=== PATIENT | female | born 1945 | race Hispanic/Latino ===

== ENCOUNTER 2016-12-26 15:00 | Inpatient (IN) | payer MEDICARE, OTHER ==
[2016-12-26 15:01] VITALS: BMI 26.0
--- NOTE | 2016-12-26 16:02 | ED PDOC ---
Arrival/HPI - General Chief Complaint: Altered Mental Status Time Seen by Provider: 12/26/16 15:31 Historian: Patient - History of Present Illness Narrative History of Present Illness (Text): 12/26/16 16:02 A 71 year old female, whose past medical history includes chronic back pain and Lupus on Methotrexate and Lorna, was brought into the emergency department by son complaining of increasing lethargy. Son reports patient has been sleeping throughout this past week and today he found her lying on the floor. Son is concerned patient is over taking her medication. Patient denies any fever, chills, nausea, vomiting, abdominal pain, chest pain, shortness of breath or any other complaints. PMD: Dr. Ty Time/Duration: 1 week Symptom Course: Unchanged Quality: Other Context: Home Past Medical History - Provider Review Nursing Documentation Reviewed: Yes - Infectious Disease Hx of Infectious Diseases: None - Tetanus Immunization Tetanus Immunization: Unknown - Cardiac Hx Cardiac Disorders: Yes - Pulmonary Hx Respiratory Disorders: No - Neurological Hx Neurological Disorder: No - HEENT Hx HEENT Disorder: No - Renal Hx Renal Disorder: No - Endocrine/Metabolic Hx Endocrine Disorders: Yes Hx Systemic Lupus Erythematosus: Yes - Hematological/Oncological Hx Blood Disorders: No - Integumentary Hx Dermatological Disorder: No - Musculoskeletal/Rheumatological Hx Musculoskeletal Disorders: Yes Other/Comment: Back implant stimulator - Gastrointestinal Hx Gastrointestinal Disorders: Yes Other/Comment: pt reports stomach blockage - Genitourinary/Gynecological Hx Genitourinary Disorders: No - Psychiatric Hx Psychophysiologic Disorder: No Hx Substance Use: No - Surgical History Hx Appendectomy: Yes Hx Cholecystectomy: Yes Hx Hysterectomy: Yes Hx Orthopedic Surgery: Yes (l knee replacement) Hx Tonsillectomy: Yes Other/Comment: abdominal surgery - Anesthesia Hx Anesthesia: Yes Hx Anesthesia Reactions: No Hx Malignant Hyperthermia: No - Suicidal Assessment Feels Threatened In Home Enviroment: No Family/Social History - Physician Review Nursing Documentation Reviewed: Yes Family/Social History: No Known Family HX Smoking Status: Never Smoked Hx Alcohol Use: No Hx Substance Use: No Hx Substance Use Treatment: No Allergies/Home Meds Allergies/Adverse Reactions: Allergies No Known Allergies Allergy (Verified 12/26/16 15:05) Home Medications: Home Meds Medication Instructions Recorded Confirmed Folic Acid 1 mg PO DAILY 08/20/14 12/26/16 Cyclobenzaprine [Flexeril] 10 mg PO TID 12/26/16 12/26/16 Methylprednisolone [Medrol] 8 mg PO DAILY 12/26/16 12/26/16 Pravastatin Sodium [Pravachol] 10 mg PO DAILY 12/26/16 12/26/16 QUEtiapine [SEROquel] 100 mg PO DAILY 12/26/16 12/26/16 tiZANidine [Zanaflex] 4 mg PO TID 12/26/16 12/26/16 Review of Systems - Physician Review All systems were reviewed & negative as marked: Yes - Review of Systems Constitutional: Other (lethargy). absent: Fevers, Night Sweats Respiratory: absent: SOB Cardiovascular: absent: Chest Pain Gastrointestinal: absent: Abdominal Pain, Nausea, Vomiting Physical Exam Vital Signs Reviewed: Yes Vital Signs Temp Pulse Resp BP Pulse Ox 12/26/16 17:39 95 H 18 148/83 97 12/26/16 15:48 97.7 F 94 H 18 118/84 100 Temperature: Afebrile Blood Pressure: Normal Pulse: Tachycardic Respiratory Rate: Normal Appearance: Positive for: Well-Appearing, Non-Toxic, Comfortable Pain Distress: None Mental Status: Positive for: other (Alert and oriented x 2, not oriented to year ) Finger Stick Blood Glucose: 149 - Systems Exam Head: Present: Atraumatic, Normocephalic Pupils: Present: PERRL Extroacular Muscles: Present: EOMI Conjunctiva: Present: Normal Mouth: Present: Moist Mucous Membranes Neck: Present: Normal Range of Motion Respiratory/Chest: Present: Clear to Auscultation, Good Air Exchange. No: Respiratory Distress, Accessory Muscle Use Cardiovascular: Present: Regular Rate and Rhythm, Normal S1, S2. No: Murmurs Abdomen: Present: Normal Bowel Sounds. No: Tenderness, Distention, Peritoneal Signs Back: Present: Normal Inspection Upper Extremity: Present: Normal Inspection. No: Cyanosis, Edema Lower Extremity: Present: Normal Inspection. No: Edema, Other (focal neuro deficits) Neurological: Present: GCS=15, CN II-XII Intact, Speech Normal Skin: Present: Warm, Dry, Normal Color. No: Rashes Psychiatric: Present: Alert, Lethargic. No: Oriented x 3 (oriented x 2, not oriented to year) Medical Decision Making ED Course and Treatment: 12/26/16 16:02 Impression: A 71 year old female with lethargy. Plan: -- Head CT -- Chest xray -- EKG -- Labs -- Urinalysis -- Reassess and disposition Progress Notes: EKG shows NSR at 97 BPM with isolated T-wave inversions in V3, no changes from prior on 08/20/14. Interpreted by me. 12/26/16 16:53 Son reports patient has also been taking Flexeril and Zanaflex. Report Date : 12/26/2016 18:31:11 PROCEDURE: CT HEAD WITHOUT CONTRAST. Dictator : Marquise Yun MD IMPRESSION: No intracranial hemorrhage. Small high left parietal scalp laceration. Age-appropriate chronic involutional change. 12/26/16 18:48 Cxray negative. Labs grossly normal. UA from straight cath on positive. UCx sent and antibiotics started. Afebrile. Family reports that patient is more lethargic than usual and patient is not oriented to year. UA may be cause of confusion, or polypharmacy but may need further neuro eval. Dr. Ty for admission for AMS and uti. Dr. Olmos covering for PMD and Dr. Braswell covering for her and requesting hospitalist admission. Dr. Govea accepted patient to hospitalist service. 12/26/16 20:11 12/26/16 20:18 - Lab Interpretations Lab Results: 12/26/16 16:10 12/26/16 16:10 Lab Results 12/26/16 17:20: Urine Color Yellow, Urine Appearance Sl cloudy, Urine pH 6.5, Ur Specific [place] 1.020, Urine Protein Negative, Urine Glucose (UA) Negative, Urine Ketones Negative, Urine Blood Small H, Urine Nitrate Positive H, Urine Bilirubin Negative, Urine Urobilinogen 0.2, Ur Leukocyte Esterase Moderate H, Urine RBC 2 - 5, Urine WBC 15 - 20, Ur Epithelial Cells 4 - 5, Urine Bacteria Many 12/26/16 17:20: Urine Opiates Screen Negative, Urine Methadone Screen Negative, Ur Barbiturates Screen Negative, Ur Phencyclidine Scrn Negative, Ur Amphetamines Screen Negative, U Benzodiazepines Scrn Positive H, U Oth Cocaine Metabols Negative, U Cannabinoids Screen Negative 12/26/16 16:10: Alcohol, Quantitative < 10 12/26/16 16:10: Sodium 142, Potassium 3.7, Chloride 106, Carbon Dioxide 26, Anion Gap 14, BUN 18, Creatinine 0.9, Est GFR ( Amer) > 60, Est GFR (Non- Af Amer) > 60, Random Glucose 106, Calcium 9.6, Phosphorus 2.3 L, Magnesium 1.9 , Total Bilirubin 0.5, AST 31, ALT 32, Alkaline Phosphatase 60, Total Creatine Kinase 55, Troponin I < 0.01, Total Protein 6.5, Albumin 4.0, Globulin 2.5, Albumin/Globulin Ratio 1.6 12/26/16 16:10: PT 11.9 H, INR 1.10 H, APTT 30.2 12/26/16 16:10: WBC 8.4 D, RBC 3.80, Hgb 11.7 L, Hct 34.8 L, MCV 91.6, MCH 30.8 , MCHC 33.6, RDW 15.6 H, Plt Count 242, MPV 9.5, Gran % 75.7 H, Lymph % (Auto) 15.9 L, [place] % (Auto) 6.7 H, Eos % (Auto) 1.2 L, Baso % (Auto) 0.5, Gran # 6.34 , Lymph # 1.3, [place] # 0.6, Eos # 0.1, Baso # 0.04 12/26/16 15:03: POC Glucose (mg/dL) 149 H I have reviewed the lab results: Yes - RAD Interpretation Radiology Orders: 12/26/16 16:00 HEAD W/O CONTRAST [CT] Stat 12/26/16 16:08 CHEST PORTABLE [RAD] Stat - Medication Orders Current Medication Orders: Discontinued Medications Acetaminophen (Tylenol 325mg Tab) 650 mg PO STAT STA Stop: 12/26/16 19:39 Ceftriaxone Sodium (Rocephin 1 Gram Ivpb) 1 gm in 100 mls @ 200 mls/hr IVPB STAT STA PRN Reason: Protocol Stop: 12/26/16 19:16 - Scribe Statement The provider has reviewed the documentation as recorded by the Monse Jimenez Provider Scribe Attestation: All medical record entries made by the Scribe were at my direction and personally dictated by me. I have reviewed the chart and agree that the record accurately reflects my personal performance of the history, physical exam, medical decision making, and the department course for this patient. I have also personally directed, reviewed, and agree with the discharge instructions and disposition. Disposition/Present on Arrival - Present on Arrival Any Indicators Present on Arrival: No History of DVT/PE: No History of Uncontrolled Diabetes: No Urinary Catheter: No History of Decub. Ulcer: No History Surgical Site Infection Following: None - Disposition Have Diagnosis and Disposition been Completed?: Yes Diagnosis: UTI (urinary tract infection), Altered mental status Disposition: HOSPITALIZED Disposition Time: 19:35 Patient Plan: Admission Patient Problems: Current Active Problems Problem Status Onset Altered mental status Acute UTI (urinary tract infection) Acute Condition: FAIR
[2016-12-26 16:38] LABS: BASO # 0.04 K/mm3 (0.0-2.0); BASO % 0.5 % (0.0-3.0); EOS # 0.1 (0.0-0.7); EOS % 1.2 % (1.5-5.0); GRAN # 6.34 (1.4-6.5); GRAN % 75.7 % (50.0-68.0); HEMATOCRIT 34.8 % (36.0-48.0); LYMPH # 1.3 (1.2-3.4); LYMPH % 15.9 % (22.0-35.0); MEAN CELL VOLUME 91.6 fl (80.0-105.0); MEAN CORPUSCULAR HEMOGLOBIN 30.8 pg (25.0-35.0); MEAN CORPUSCULAR HGB CONC 33.6 g/dl (31.0-37.0); MEAN PLATELET VOLUME 9.5 fl (7.0-11.0); MONO # 0.6 (0.1-0.6); MONO % 6.7 % (1.0-6.0); RED CELL DISTRIBUTION WIDTH 15.6 % (11.5-14.5); WHITE BLOOD COUNT 8.4 10^3/ul (4.5-11.0)
[2016-12-26 16:44] LABS: INR 1.1 (0.93-1.08); PARTIAL THROMBOPLASTIN TIME 30.2 Seconds (23.7-30.8)
[2016-12-26 16:50] LABS: ALB/GLOB RATIO 1.6 (1.1-1.8); ALKALINE PHOSPHATASE 60 U/L (38-133); ALT/SGPT 32 U/L (7-56); AST/SGOT 31 U/L (15-39); BILIRUBIN,TOTAL 0.5 mg/dL (0.2-1.3); BLOOD UREA NITROGEN 18 mg/dL (7-21); CALCIUM 9.6 mg/dL (8.4-10.5); CARBON DIOXIDE 26 mmol/L (21-33); CHLORIDE 106 mmol/L (98-107); GFR AFRICAN-AMERICAN > 60; GLUCOSE,RANDOM 106 mg/dL (70-110); MAGNESIUM 1.9 mg/dL (1.7-2.2); PHOSPHOROUS 2.3 mg/dL (2.5-4.5); POTASSIUM 3.7 mmol/L (3.6-5.0); SODIUM 142 mmol/L (132-148); TOTAL PROTEIN 6.5 g/dL (5.8-8.3)
[2016-12-26 17:01] LABS: TROPONIN I < 0.01 ng/mL
[2016-12-26 17:50] LABS: PH,URINE 6.5 (4.7-8.0); URINE BILIRUBIN NEGATIVE (NEGATIVE); URINE BLOOD SMALL (NEGATIVE); URINE GLUCOSE (UA) NEGATIVE (NEGATIVE); URINE KETONE NEGATIVE (NEGATIVE); URINE LEUKOCYTE ESTERASE MODERATE Leu/uL (NEGATIVE); URINE PROTEIN NEGATIVE mg/dL (<30 mg/dL); URINE UROBILINOGEN 0.2 E.U./dL (<1 E.U./dL)
[2016-12-26 17:51] LABS: URINE APPEARANCE SL CLOUDY (CLEAR); URINE COLOR YELLOW (YELLOW)
[2016-12-26 18:11] LABS: URINE BACTERIA MANY (NEG); URINE WBC 15 - 20 /hpf (0-6)
--- NOTE | 2016-12-26 18:32 | CT ---
PROCEDURE: CT HEAD WITHOUT CONTRAST. HISTORY: head injury COMPARISON: None available. TECHNIQUE: Axial computed tomography images were obtained through the head/brain without intravenous contrast. Radiation dose: Total exam DLP = 801.81 mGy-cm. This CT exam was performed using one or more of the following dose reduction techniques: Automated exposure control, adjustment of the mA and/or kV according to patient size, and/or use of iterative reconstruction technique. FINDINGS: HEMORRHAGE: No intracranial hemorrhage. BRAIN: No mass effect or edema. Mild atrophy consistent with age. Mild periventricular chronic white matter ischemic change. No evidence of acute infarct. VENTRICLES: Unremarkable. No hydrocephalus. CALVARIUM: No fracture. Small high left parietal scalp laceration. PARANASAL SINUSES: Unremarkable as visualized. No significant inflammatory changes. MASTOID AIR CELLS: Unremarkable as visualized. No inflammatory changes. OTHER FINDINGS: None. IMPRESSION: No intracranial hemorrhage. Small high left parietal scalp laceration. Age-appropriate chronic involutional change.
[2016-12-26] MEDS ORDERED: cefTRIAXone 1 gm 1 GM/100 ML BAG IVPB STA (18:47)
--- NOTE | 2016-12-26 19:07 | CARD ---
APPROVED REPORT EKG Measurement Heart [id number] <Conclusion> Normal sinus rhythm Possible Anterior infarct, age undetermined Abnormal ECG
--- NOTE | 2016-12-26 19:08 | CARD ---
APPROVED REPORT EKG Measurement Heart [id number] <Conclusion> Sinus tachycardia with premature atrial complexes Otherwise normal ECG
--- NOTE | 2016-12-26 23:25 | CP.PCM.HP ---
<Evelio Gibson - Last Filed: 12/26/16 23:18> History of Present Illness - History of Present Illness History of Present Illness: 71 F with a PMHx significant for HTN, HLD, and Lupus, presents with c/o fall. Pt's son states that she has had difficulty sleeping the past week, per ER physician. He further expresses concern that she may have over medicated herself today, as he found her on the floor in their residence. Patient herself states that she "tripped over her feet" and fell, but does not recall any precipitating incidents for the fall. She denies loss of consciousness, loss of bowel/bladder, or any other symptoms surrounding her fall. Patient does admit to some scalp tenderness and states that she hit her head. Pt denies any current CP, sob, f/ch/n/v/d, and any hematuria, hematochezia, or hematemesis. Patient further denies any weakness in her extremities or generalized loss of sensation or motor strength. No further symptoms at this time Surg Hx: Hardware in lumbar area of spine Med Hx: HLD, HTN, Lupus All: NKDA Soc Hx: Pt denies any etoh, illicits, and tobacco use Fam Hx: Significant for DM, HTN, CAD Medications: Reviewed, see MAR; patient not a good historian, need to call pharmacy for list of medications Present on Admission - Present on Admission Any Indicators Present on Admission: No Review of Systems - Hematologic/Lymphatic Additional comments: ROS: Constitutional: pt denies fever, chills, generalized weakness ENT: pt denies dysphagia, otalgia, hearing deficit, rhinorrhea Eyes: pt denies sudden loss of vision, diplopia, blurred vision MSK: pt denies muscle stiffness, joint pain, extremity cramping Cardio: pt denies sob, heart murmur, cp Pulm: pt denies cough, hemoptysis, wheeze GI: pt denies loss of appetite, abdominal pain, constipation, melena, n/v/d : pt denies burning on urination, urinary frequency, hematuria, urinary urgency Neuro: pt denies paresis, paresthesia, dizziness, jessica, numbness, tingling Derm: pt denies skin changes, lesions, nail changes Endo: pt denies intolerance to heat/cold, diaphoresis, night sweats, polydipsia Psych: pt denies anxiety, depression, mood changes Past Patient History - Infectious Disease Hx of Infectious Diseases: None - Tetanus Immunizations Tetanus Immunization: Unknown - Past Social History Smoking Status: Never Smoked - CARDIAC Hx Cardiac Disorders: Yes - PULMONARY Hx Respiratory Disorders: No - NEUROLOGICAL Hx Neurological Disorder: No - HEENT Hx HEENT Problems: No - RENAL Hx Chronic Kidney Disease: No - ENDOCRINE/METABOLIC Hx Endocrine Disorders: Yes Hx Systemic Lupus Erythematosus: Yes - HEMATOLOGICAL/ONCOLOGICAL Hx Blood Disorders: No - INTEGUMENTARY Hx Dermatological Problems: No - MUSCULOSKELETAL/RHEUMATOLOGICAL Hx Musculoskeletal Disorders: Yes Hx Falls: Yes Other/Comment: Back implant stimulator - GASTROINTESTINAL Hx Gastrointestinal Disorders: Yes Other/Comment: pt reports stomach blockage - GENITOURINARY/GYNECOLOGICAL Hx Genitourinary Disorders: No - PSYCHIATRIC Hx Psychophysiologic Disorder: No - SURGICAL HISTORY Hx Appendectomy: Yes Hx Cholecystectomy: Yes Hx Hysterectomy: Yes Hx Orthopedic Surgery: Yes (l knee replacement) Other/Comment: abdominal surgery - ANESTHESIA Hx Anesthesia: Yes Hx Anesthesia Reactions: No Hx Malignant Hyperthermia: No Meds Allergies/Adverse Reactions: Allergies Allergy/AdvReac Type Severity Reaction Status Date / Time No Known Allergies Allergy Verified 12/26/16 15:05 Physical Exam - Additional Findings Additional findings: Phys Exam: VS as below Constitutional: +Pleasantly confused female, a&o x 4, nad Head and Neck: +TTP Right parietal scalp; Normocephalic; neck supple, no jvd, trachea midline, carotid midline, no cervical/head mass Eyes: juanito, nonicteric sclera, eom intact ENT: auditory acuity grossly intact, throat not congested, no nasal deformity Cardio: rrr, no m/r/g, no carotid bruit, nml s1, s2 Pulm: no accessory muscle use, equal nml breath sounds bilaterally, ctab Abd: s/nt/nd, nbs x 4 q, no palpable masses Derm: no rashes, no ulcers, no lesions Extr: no edema, no cyanosis, no calf tenderness, no lesions, no varicosities Neuro: cn II-XII grossly intact, ue and le 5/5 muscle strength bilaterally, no los ue, le bilaterally and core Results - Vital Signs Recent Vital Signs: Last Vital Signs Temp 98.4 F 12/26/16 22:07 Pulse 89 12/26/16 22:07 Resp 16 12/26/16 22:07 BP 126/69 12/26/16 22:07 Pulse Ox 97 12/26/16 17:39 - Labs Result Diagrams: 12/26/16 16:10 12/26/16 16:10 Labs: Laboratory Results - last 24 hr 12/26/16 21:46 Urine Opiates Screen Negative Urine Methadone Screen Negative Ur Barbiturates Screen Negative Ur Phencyclidine Scrn Negative Ur Amphetamines Screen Negative U Benzodiazepines Scrn Positive H U Oth Cocaine Metabols Negative U Cannabinoids Screen Negative Assessment & Plan - Assessment and Plan (Free Text) Assessment: 71 F presents s/p fall with acute AMS. Patient is A&O X 4, but is pleasantly confused. Plan: 1. Altered Mental Status likely 2/2 Polypharmacy VS UTI VS Fall - Suspected history of overdosing on sedating medications - Flexeril and Zanaflex are in her home med list - Patient's UDS positive for benzos - CT Head showed no acute bleed - CXR was negative - EKG showed NSR - ECHO not obtained, patient unlikely to have syncopized or had a stroke - UA showed possible UTI - Neuro checks q4 hours - Seizure precautions: patient's UDS showed benzos. May have withdrawal seizures - Fall precautions 2. UTI - UA showed pos Leuk Esterase, pos bacteria - Rocephin q24 3. Hx/o HTN - Continue home medications 4. Hx/o HLD - Continue home medications 5. Hx/o Lupus - Continue home medications 6. Chronic pain - Hold Flexeril, Hold Zanaflex - Added Toradol 15 mg one time dose for now 7. DVT/GI PPXHS - SCD's, Protonix <Lb Govea P - Last Filed: 12/29/16 08:17> Results - Vital Signs Recent Vital Signs: Last Vital Signs Temp 97.7 F 12/29/16 07:52 Pulse 71 12/29/16 07:52 Resp 20 12/29/16 07:52 BP 175/83 H 12/29/16 07:52 Pulse Ox 97 12/29/16 07:52 - Labs Result Diagrams: 12/29/16 05:33 12/29/16 05:33 Labs: Laboratory Results - last 24 hr 12/29/16 12/29/16 05:33 05:33 WBC 7.1 RBC 3.92 Hgb 11.8 L Hct 35.9 L MCV 91.6 MCH 30.1 MCHC 32.9 RDW 16.1 H Plt Count 259 MPV 9.3 Gran % 44.7 L Lymph % (Auto) 38.2 H [place] % (Auto) 9.8 H Eos % (Auto) 6.5 H Baso % (Auto) 0.8 Gran # 3.15 Lymph # 2.7 [place] # 0.7 H Eos # 0.5 Baso # 0.06 Sodium 144 Potassium 4.2 Chloride 108 H Carbon Dioxide 27 Anion Gap 13 BUN 15 Creatinine 0.9 Est GFR ( Amer) > 60 Est GFR (Non-Af Amer) > 60 Random Glucose 98 Calcium 9.4 Total Bilirubin 0.2 AST 26 ALT 31 Alkaline Phosphatase 56 Total Protein 6.3 Albumin 3.8 Globulin 2.5 Albumin/Globulin Ratio 1.5 Attending/Attestation - Attestation I have personally seen and examined this patient.: Yes I have fully participated in the care of the patient.: Yes I have reviewed all pertinent clinical information: Yes Notes (Text): Patient brought form home after fall, and lethargy. Pt's son relayed to ER physician, that med bottles empty prior to the time hence suspicious for overdosing on the meds. Patient currently some back pain chronic for about 2 months, unclear about meds, and med list can't be confirmed. Being observed to floor for ambulatory dysfunction, fall, for pt/ot eval, confirmation and adjustment of the meds.
[2016-12-27 05:48] LABS: BASO # 0.05 K/mm3 (0.0-2.0); BASO % 0.6 % (0.0-3.0); EOS # 0.2 (0.0-0.7); EOS % 2.7 % (1.5-5.0); GRAN # 4.53 (1.4-6.5); GRAN % 58.9 % (50.0-68.0); HEMATOCRIT 31.8 % (36.0-48.0); LYMPH # 2.3 (1.2-3.4); LYMPH % 30.3 % (22.0-35.0); MEAN CELL VOLUME 90.6 fl (80.0-105.0); MEAN CORPUSCULAR HEMOGLOBIN 30.5 pg (25.0-35.0); MEAN CORPUSCULAR HGB CONC 33.6 g/dl (31.0-37.0); MEAN PLATELET VOLUME 9.2 fl (7.0-11.0); MONO # 0.6 (0.1-0.6); MONO % 7.5 % (1.0-6.0); WHITE BLOOD COUNT 7.7 10^3/ul (4.5-11.0)
[2016-12-27 05:58] LABS: INR 0.94 (0.93-1.08); PARTIAL THROMBOPLASTIN TIME 26.6 Seconds (23.7-30.8)
[2016-12-27 06:16] LABS: ALB/GLOB RATIO 1.4 (1.1-1.8); ALKALINE PHOSPHATASE 55 U/L (38-133); ALT/SGPT 29 U/L (7-56); AST/SGOT 24 U/L (15-39); BILIRUBIN,TOTAL 0.6 mg/dL (0.2-1.3); BLOOD UREA NITROGEN 18 mg/dL (7-21); CALCIUM 9.4 mg/dL (8.4-10.5); CARBON DIOXIDE 25 mmol/L (21-33); CHLORIDE 107 mmol/L (95-110); CHOLESTEROL 167 mg/dL (130-200); GFR AFRICAN-AMERICAN > 60; GLUCOSE,RANDOM 97 mg/dL (70-110); POTASSIUM 3.5 mmol/L (3.6-5.0); SODIUM 143 mmol/L (132-148)
[2016-12-27] MEDS: Pantoprazole 40 mg EC Tab PO SCH (06:30)
[2016-12-27 08:08] VITALS: RESP 20
[2016-12-27] MEDS: cefTRIAXone 1 gm 1 GM/100 ML BAG IVPB SCH (09:06)
--- NOTE | 2016-12-27 09:07 | RAD ---
HISTORY: altered COMPARISON: 05/16/2016 FINDINGS: LUNGS: No active pulmonary disease. Shallow lung volumes PLEURA: No significant pleural effusion identified, no pneumothorax apparent. CARDIOVASCULAR: Mild cardiomegaly OSSEOUS STRUCTURES: Thoracolumbar S-shaped scoliosis ; thoraco lumbar level epi dural leads placed partially visualized rods near the inferior edge of the image noted. VISUALIZED UPPER ABDOMEN: Right upper quadrant cholecystectomy clips OTHER FINDINGS: Left shoulder orthopedic anchor IMPRESSION: No interval pathology appreciated
[2016-12-27] MEDS ORDERED: METHYLPREDNISOLONE 8 MG PO SCH (10:00)
--- NOTE | 2016-12-27 10:40 | CP.PCM.CON ---
<Fermin Marquis - Last Filed: 12/27/16 10:36> History of Present Illness - History of Present Illness History of Present Illness: Neurology Consult Note for Dr. Dunaway Reason for Consult: AMS 71 y/o F with PMH of HTN, HLD, and SLE presents after syncopal episode at home. Pt states she woke up in the morning and was got up to go use the restroom. At this time, the she began to feel lightheaded and lost her balance. She states she fell down and hit her head. She previously denies losing consciousness, but today states she did lose consciousness for a few seconds. When she awoke, she was too weak to get up on her own. This morning, patient reports feeling well, with no acute complaints. She denies any bowel or bladder incontinence and also denies tongue biting. She states she is compliant with her medication and takes them as prescribed. She denies seeing any aura before falling or having a headache at that time. Denies CP, SOB, palpitations, N/V/D, changes in vision, diplopia, numbness, tingling, dysuria. PMH: HLD, HTN, Lupus Surgical Hx: Spinal surgery Soc Hx: Pt denies any alcohol, illicit drug use, and tobacco use Fam Hx: Significant for DM, HTN, CAD All: NKDA Medications: Reviewed, as per MAR Review of Systems - Review of Systems Review of Systems: 13 point review of systems as per HPI, otherwise negative Past Patient History - Infectious Disease Hx of Infectious Diseases: None - Tetanus Immunizations Tetanus Immunization: Unknown - Past Social History Smoking Status: Never Smoked - CARDIAC Hx Cardiac Disorders: Yes - PULMONARY Hx Respiratory Disorders: No - NEUROLOGICAL Hx Neurological Disorder: No - HEENT Hx HEENT Problems: No - RENAL Hx Chronic Kidney Disease: No - ENDOCRINE/METABOLIC Hx Endocrine Disorders: Yes Hx Systemic Lupus Erythematosus: Yes - HEMATOLOGICAL/ONCOLOGICAL Hx Blood Disorders: No - INTEGUMENTARY Hx Dermatological Problems: No - MUSCULOSKELETAL/RHEUMATOLOGICAL Hx Musculoskeletal Disorders: Yes Hx Falls: Yes Other/Comment: Back implant stimulator - GASTROINTESTINAL Hx Gastrointestinal Disorders: Yes Other/Comment: pt reports stomach blockage - GENITOURINARY/GYNECOLOGICAL Hx Genitourinary Disorders: No - PSYCHIATRIC Hx Psychophysiologic Disorder: No - SURGICAL HISTORY Hx Appendectomy: Yes Hx Cholecystectomy: Yes Hx Hysterectomy: Yes Hx Orthopedic Surgery: Yes (l knee replacement) Other/Comment: abdominal surgery - ANESTHESIA Hx Anesthesia: Yes Hx Anesthesia Reactions: No Hx Malignant Hyperthermia: No Meds Allergies/Adverse Reactions: Allergies Allergy/AdvReac Type Severity Reaction Status Date / Time No Known Allergies Allergy Verified 12/26/16 15:05 - Medications Medications: Current Medications Acetaminophen (Tylenol 325mg Tab) 650 mg PO Q6H PRN PRN Reason: Pain, moderate (4-7) Last Admin: 12/27/16 01:53 Dose: 650 mg Atorvastatin Calcium (Lipitor) 10 mg PO DAILY [facility] Last Admin: 12/27/16 09:06 Dose: 10 mg Folic Acid (Folic Acid) 1 mg PO DAILY [facility] Last Admin: 12/27/16 09:06 Dose: 1 mg Hydromorphone HCl (Dilaudid) 1 mg IVP Q6H PRN PRN Reason: Pain, severe (8-10) Ceftriaxone Sodium (Rocephin 1 Gram Ivpb) 1 gm in 100 mls @ 100 mls/hr IVPB DAILY [facility] PRN Reason: Protocol Last Admin: 12/27/16 09:06 Dose: 100 mls/hr Potassium Chloride (Potassium Chloride 20 Meq/100 Ml) 20 meq in 100 mls @ 50 mls/hr IVPB Q2H [facility] Stop: 12/27/16 10:59 Last Admin: 12/27/16 08:25 Dose: 50 mls/hr Pantoprazole Sodium (Protonix Ec Tab) 40 mg PO 0600 [facility] Last Admin: 12/27/16 06:30 Dose: 40 mg Potassium Chloride (K-Dur 20 Meq Er Tab) 20 meq PO BRK [facility] Quetiapine Fumarate (Seroquel) 100 mg PO DAILY [facility] Last Admin: 12/27/16 09:06 Dose: 100 mg Physical Exam - Constitutional Appears: Non-toxic, No Acute Distress - Head Exam Head Exam: ATRAUMATIC, NORMAL INSPECTION, NORMOCEPHALIC - Eye Exam Eye Exam: EOMI - ENT Exam ENT Exam: Mucous Membranes Moist - Respiratory Exam Respiratory Exam: Clear to Auscultation Bilateral, NORMAL BREATHING PATTERN. absent: Rales, Rhonchi, Wheezes - Cardiovascular Exam Cardiovascular Exam: RRR, +S1, +S2 - GI/Abdominal Exam GI & Abdominal Exam: Normal Bowel Sounds, Soft. absent: Tenderness - Extremities Exam Extremities exam: Negative for: calf tenderness, pedal edema - Neurological Exam Neurological exam: Alert, CN II-XII Intact, Oriented x3 Additional comments: No pronator drift No sensory or motor deficits Muscle strength 4/5 in all extremities - Psychiatric Exam Psychiatric exam: Normal Affect, Normal Mood - Skin Skin Exam: Intact, Normal Color, Warm Results - Vital Signs Recent Vital Signs: Last Vital Signs Temp 98.2 F 12/27/16 06:00 Pulse 64 12/27/16 06:00 Resp 20 12/27/16 06:00 BP 155/65 H 12/27/16 06:00 Pulse Ox 96 12/27/16 06:00 - Labs Result Diagrams: 12/27/16 05:10 12/27/16 05:10 Labs: Laboratory Results - last 24 hr 12/26/16 12/27/16 12/27/16 21:46 05:10 05:10 WBC RBC Hgb Hct MCV MCH MCHC RDW Plt Count MPV Gran % Lymph % (Auto) [place] % (Auto) Eos % (Auto) Baso % (Auto) Gran # Lymph # [place] # Eos # Baso # PT 10.2 INR 0.94 APTT 26.6 Sodium 143 Potassium 3.5 L Chloride 107 Carbon Dioxide 25 Anion Gap 15 BUN 18 Creatinine 0.8 Est GFR ( Amer) > 60 Est GFR (Non-Af Amer) > 60 Random Glucose 97 Calcium 9.4 Total Bilirubin 0.6 AST 24 ALT 29 Alkaline Phosphatase 55 Total Protein 6.0 Albumin 3.5 Globulin 2.5 Albumin/Globulin Ratio 1.4 Triglycerides 76 Cholesterol 167 LDL Cholesterol Direct 116 HDL Cholesterol 41 Urine Opiates Screen Negative Urine Methadone Screen Negative Ur Barbiturates Screen Negative Ur Phencyclidine Scrn Negative Ur Amphetamines Screen Negative U Benzodiazepines Scrn Positive H U Oth Cocaine Metabols Negative U Cannabinoids Screen Negative 12/27/16 05:10 WBC 7.7 RBC 3.51 Hgb 10.7 L Hct 31.8 L MCV 90.6 MCH 30.5 MCHC 33.6 RDW 16.0 H Plt Count 227 MPV 9.2 Gran % 58.9 Lymph % (Auto) 30.3 [place] % (Auto) 7.5 H Eos % (Auto) 2.7 Baso % (Auto) 0.6 Gran # 4.53 Lymph # 2.3 [place] # 0.6 Eos # 0.2 Baso # 0.05 PT INR APTT Sodium Potassium Chloride Carbon Dioxide Anion Gap BUN Creatinine Est GFR ( Amer) Est GFR (Non-Af Amer) Random Glucose Calcium Total Bilirubin AST ALT Alkaline Phosphatase Total Protein Albumin Globulin Albumin/Globulin Ratio Triglycerides Cholesterol LDL Cholesterol Direct HDL Cholesterol Urine Opiates Screen Urine Methadone Screen Ur Barbiturates Screen Ur Phencyclidine Scrn Ur Amphetamines Screen U Benzodiazepines Scrn U Oth Cocaine Metabols U Cannabinoids Screen Assessment & Plan - Assessment and Plan (Free Text) Plan: 71 y/o F with PMH of HTN, HLD, and SLE presents with syncope secondary to polypharmacy, UTI, and vasovagal component. Patient also appears to be deconditioned and would benefit from physical and occupational therapy. Patient should have home medications adjusted to decrease possible sedative effects. Continue to treat UTI which may contribute to episode. Patient is neurologically stable at this time, will sign off at this time. Please reconsult as needed. Plan: Avoid sedative medications Avoid polypharmacy Continue Rocephin for UTI Physical/Occupational therapy Recommend adequate hydration Obtain Vitamin B12 level [place] PGY-2 <Ozzy Dunaway - Last Filed: 12/27/16 11:30> Meds - Medications Medications: Current Medications Acetaminophen (Tylenol 325mg Tab) 650 mg PO Q6H PRN PRN Reason: Pain, moderate (4-7) Last Admin: 12/27/16 01:53 Dose: 650 mg Atorvastatin Calcium (Lipitor) 10 mg PO DAILY [facility] Last Admin: 12/27/16 09:06 Dose: 10 mg Folic Acid (Folic Acid) 1 mg PO DAILY [facility] Last Admin: 12/27/16 09:06 Dose: 1 mg Hydromorphone HCl (Dilaudid) 1 mg IVP Q6H PRN PRN Reason: Pain, severe (8-10) Last Admin: 12/27/16 10:49 Dose: 1 mg Ceftriaxone Sodium (Rocephin 1 Gram Ivpb) 1 gm in 100 mls @ 100 mls/hr IVPB DAILY [facility] PRN Reason: Protocol Last Admin: 12/27/16 09:06 Dose: 100 mls/hr Pantoprazole Sodium (Protonix Ec Tab) 40 mg PO 0600 [facility] Last Admin: 12/27/16 06:30 Dose: 40 mg Potassium Chloride (K-Dur 20 Meq Er Tab) 20 meq PO BRK [facility] Quetiapine Fumarate (Seroquel) 100 mg PO DAILY [facility] Last Admin: 12/27/16 09:06 Dose: 100 mg Results - Vital Signs Recent Vital Signs: Last Vital Signs Temp 98.2 F 12/27/16 06:00 Pulse 64 12/27/16 06:00 Resp 20 12/27/16 06:00 BP 155/65 H 12/27/16 06:00 Pulse Ox 96 12/27/16 06:00 - Labs Result Diagrams: 12/27/16 05:10 12/27/16 05:10 Labs: Laboratory Results - last 24 hr 12/26/16 12/27/16 12/27/16 21:46 05:10 05:10 WBC RBC Hgb Hct MCV MCH MCHC RDW Plt Count MPV Gran % Lymph % (Auto) [place] % (Auto) Eos % (Auto) Baso % (Auto) Gran # Lymph # [place] # Eos # Baso # PT 10.2 INR 0.94 APTT 26.6 Sodium 143 Potassium 3.5 L Chloride 107 Carbon Dioxide 25 Anion Gap 15 BUN 18 Creatinine 0.8 Est GFR ( Amer) > 60 Est GFR (Non-Af Amer) > 60 Random Glucose 97 Calcium 9.4 Total Bilirubin 0.6 AST 24 ALT 29 Alkaline Phosphatase 55 Total Protein 6.0 Albumin 3.5 Globulin 2.5 Albumin/Globulin Ratio 1.4 Triglycerides 76 Cholesterol 167 LDL Cholesterol Direct 116 HDL Cholesterol 41 Urine Opiates Screen Negative Urine Methadone Screen Negative Ur Barbiturates Screen Negative Ur Phencyclidine Scrn Negative Ur Amphetamines Screen Negative U Benzodiazepines Scrn Positive H U Oth Cocaine Metabols Negative U Cannabinoids Screen Negative 12/27/16 05:10 WBC 7.7 RBC 3.51 Hgb 10.7 L Hct 31.8 L MCV 90.6 MCH 30.5 MCHC 33.6 RDW 16.0 H Plt Count 227 MPV 9.2 Gran % 58.9 Lymph % (Auto) 30.3 [place] % (Auto) 7.5 H Eos % (Auto) 2.7 Baso % (Auto) 0.6 Gran # 4.53 Lymph # 2.3 [place] # 0.6 Eos # 0.2 Baso # 0.05 PT INR APTT Sodium Potassium Chloride Carbon Dioxide Anion Gap BUN Creatinine Est GFR ( Amer) Est GFR (Non-Af Amer) Random Glucose Calcium Total Bilirubin AST ALT Alkaline Phosphatase Total Protein Albumin Globulin Albumin/Globulin Ratio Triglycerides Cholesterol LDL Cholesterol Direct HDL Cholesterol Urine Opiates Screen Urine Methadone Screen Ur Barbiturates Screen Ur Phencyclidine Scrn Ur Amphetamines Screen U Benzodiazepines Scrn U Oth Cocaine Metabols U Cannabinoids Screen Attending/Attestation - Attestation I have personally seen and examined this patient.: Yes I have fully participated in the care of the patient.: Yes I have reviewed all pertinent clinical information: Yes
[2016-12-27] MEDS: HYDROmorphone 1 mg/ml ISec IVP PRN ×2 (10:49→18:49)
--- NOTE | 2016-12-27 12:30 | CT ---
PROCEDURE: CT Abdomen and Pelvis without intravenous contrast HISTORY: Back Pain COMPARISON: 03/15/2016 TECHNIQUE: Without contrast.. Contrast Dose: Radiation dose: Total exam DLP = 538 mGy-cm. This CT exam was performed using one or more of the following dose reduction techniques: Automated exposure control, adjustment of the mA and/or kV according to patient size, and/or use of iterative reconstruction technique. FINDINGS: LOWER THORAX: Unremarkable. LIVER: Unremarkable. No gross lesion or ductal dilatation. GALLBLADDER AND BILE DUCTS: Gallbladder removed PANCREAS: Unremarkable. No gross lesion or ductal dilatation. SPLEEN: Unremarkable. ADRENALS: Unremarkable. No mass. KIDNEYS AND URETERS: Unremarkable. No hydronephrosis. No solid mass. VASCULATURE: Unremarkable. No aortic aneurysm. BOWEL: Unremarkable. No obstruction. No gross mural thickening. Moderate fecal retention APPENDIX: Unremarkable. Normal appendix. PERITONEUM: Unremarkable. No free fluid. No free air. LYMPH NODES: Unremarkable. No enlarged lymph nodes. BLADDER: Unremarkable. REPRODUCTIVE: Unremarkable. BONES: Surgical hardware in the lower lumbar spine. Severe disc degeneration at L1-2 and L2-3 OTHER FINDINGS: None. IMPRESSION: No acute intra-abdominal findings
--- NOTE | 2016-12-27 13:58 | PN ---
SUBJECTIVE: This is a 71-year-old white female with history of lupus, history of chronic back disease, and mild hypertension. The patient admitted to the hospital after falling at home, unable to get to her feet. The patient had no complaints of palpitations, shortness of breath, chest pain, or weakness, falling leading up to her incident. PHYSICAL EXAMINATION: GENERAL: The patient is seen today following morning awake, alert, and oriented x3. HEENT: She does have right eye ptosis. MUSCULOSKELETAL: She also has some decreased strength in the right upper and right lower extremity. Babinski's are downgoing bilaterally. HEART: Regular sinus rhythm. CHEST: Clear to auscultation. IMAGING: The patient does have 2 neurostimulators on the back, unable to have an MRI done. She did have an initial CT of the head in the ER, which showed no intracranial hemorrhage. There is small left parietal scalp laceration and other age-related changes. The patient also had CT of the abdomen and pelvis today. LABORATORY DATA: Her laboratory data revealed normal H and H, little drop in her H and H. Her potassium is 3.5 today; otherwise, the rest of the laboratory data is unremarkable. She did have some positive urine consistent with urinary tract infection. She also has positive for benzodiazepines. She does take Xanax at home. IMPRESSION AND PLAN: Possible cerebrovascular accident with right hemiparesis and right ptosis. Further neurological evaluation is in order and further treatment of her urinary tract infection is ongoing. We will also replace her potassium and adjust her medications. 1. Possible cerebrovascular accident. 2. Recent fall. 3. Urinary tract infection. 4. Hypokalemia. Pelon Ty MD [facility] # [id number]
[2016-12-28] MEDS: HYDROmorphone 1 mg/ml ISec IVP PRN ×4 (00:04→22:59)
[2016-12-28] MEDS: Pantoprazole 40 mg EC Tab PO SCH (05:45)
[2016-12-28 06:08] LABS: BASO # 0.05 K/mm3 (0.0-2.0); BASO % 0.8 % (0.0-3.0); EOS # 0.3 (0.0-0.7); EOS % 5.6 % (1.5-5.0); GRAN # 2.65 (1.4-6.5); GRAN % 43.4 % (50.0-68.0); HEMATOCRIT 33.5 % (36.0-48.0); LYMPH # 2.6 (1.2-3.4); LYMPH % 42.8 % (22.0-35.0); MEAN CELL VOLUME 92.8 fl (80.0-105.0); MEAN CORPUSCULAR HEMOGLOBIN 30.7 pg (25.0-35.0); MEAN CORPUSCULAR HGB CONC 33.1 g/dl (31.0-37.0); MEAN PLATELET VOLUME 9.4 fl (7.0-11.0); MONO # 0.5 (0.1-0.6); MONO % 7.4 % (1.0-6.0); RED CELL DISTRIBUTION WIDTH 16.1 % (11.5-14.5); WHITE BLOOD COUNT 6.1 10^3/ul (4.5-11.0)
[2016-12-28 06:30] LABS: ALB/GLOB RATIO 1.4 (1.1-1.8); ALKALINE PHOSPHATASE 50 U/L (38-133); ALT/SGPT 33 U/L (7-56); AST/SGOT 25 U/L (15-39); BILIRUBIN,TOTAL 0.3 mg/dL (0.2-1.3); BLOOD UREA NITROGEN 19 mg/dL (7-21); CALCIUM 9.4 mg/dL (8.4-10.5); CARBON DIOXIDE 26 mmol/L (21-33); CHLORIDE 109 mmol/L (98-107); GFR AFRICAN-AMERICAN > 60; GLUCOSE,RANDOM 97 mg/dL (70-110); POTASSIUM 4.3 mmol/L (3.6-5.0); SODIUM 144 mmol/L (132-148); TOTAL PROTEIN 6.1 g/dL (5.8-8.3)
[2016-12-28] MEDS ORDERED: Iohexol 350 MG/100 ML VIAL ONE (09:06)
--- NOTE | 2016-12-28 09:49 | CT ---
PROCEDURE: CT HEAD WITH AND WITHOUT CONTRAST HISTORY: tia COMPARISON: 12/26/2016 TECHNIQUE: Axial computed tomography images were obtained through the head/brain with and without intravenous contrast enhancement. Contrast dose: 100 mL Omnipaque 350 Radiation dose: Total exam DLP = 1640.94 mGy-cm. This CT exam was performed using one or more of the following dose reduction techniques: Automated exposure control, adjustment of the mA and/or kV according to patient size, and/or use of iterative reconstruction technique. FINDINGS: HEMORRHAGE: No intracranial hemorrhage. BRAIN: No mass, mass effect or edema. No abnormal intracranial enhancement. Mild periventricular white matter lucency with patchy foci of deep and subcortical white matter lucency, consistent with chronic microvascular ischemic change. No evidence of acute infarct. VENTRICLES: Unremarkable. No hydrocephalus. CALVARIUM: Unremarkable. SINUSES: Unremarkable as visualized. No significant inflammatory changes. MASTOID AIR CELLS: Unremarkable as visualized. No mastoid effusion. OTHER FINDINGS: None. IMPRESSION: Age-appropriate involutional change. No intracranial mass, hemorrhage or evidence of acute infarct.
[2016-12-28] MEDS: Potassium Chloride 20 mEq ER Tab PO SCH (10:03)
[2016-12-28] MEDS: cefTRIAXone 1 gm 1 GM/100 ML BAG IVPB SCH (10:04)
--- NOTE | 2016-12-29 05:51 | PN ---
DATE: A 71-year-old white female with history of lupus, hypertension, degenerative arthritis, admitted to the hospital with change in mental status, confusion, right eye ptosis and right upper right lower extremity weakness. Patient had a negative CT. Following morning, patient's weakness has decreased, the ptosis has resolved. The repeat CT is negative. Patient was slightly dehydrated. She was seen in consultation by Dr. Dunaway from Neurology. She is deconditioned. She also had possibly polypharmacy with medications at home causing some of her symptomatology. Her vital signs are stable today. Chest is clear to auscultation and percussion. Laboratory data was unremarkable. Patient will start with physical therapy and occupational therapy. Repeat CT is negative. Patient will be discharged in the morning if she is improved. Pelon Ty MD
[2016-12-29] MEDS: Pantoprazole 40 mg EC Tab PO SCH (05:53)
[2016-12-29] MEDS: HYDROmorphone 1 mg/ml ISec IVP PRN (05:56)
[2016-12-29 06:37] LABS: BASO # 0.06 K/mm3 (0.0-2.0); BASO % 0.8 % (0.0-3.0); EOS # 0.5 (0.0-0.7); EOS % 6.5 % (1.5-5.0); GRAN # 3.15 (1.4-6.5); GRAN % 44.7 % (50.0-68.0); HEMATOCRIT 35.9 % (36.0-48.0); LYMPH # 2.7 (1.2-3.4); LYMPH % 38.2 % (22.0-35.0); MEAN CELL VOLUME 91.6 fl (80.0-105.0); MEAN CORPUSCULAR HEMOGLOBIN 30.1 pg (25.0-35.0); MEAN CORPUSCULAR HGB CONC 32.9 g/dl (31.0-37.0); MEAN PLATELET VOLUME 9.3 fl (7.0-11.0); MONO # 0.7 (0.1-0.6); MONO % 9.8 % (1.0-6.0); RED CELL DISTRIBUTION WIDTH 16.1 % (11.5-14.5); WHITE BLOOD COUNT 7.1 10^3/ul (4.5-11.0)
[2016-12-29 06:53] LABS: ALB/GLOB RATIO 1.5 (1.1-1.8); ALKALINE PHOSPHATASE 56 U/L (38-133); ALT/SGPT 31 U/L (7-56); AST/SGOT 26 U/L (15-39); BILIRUBIN,TOTAL 0.2 mg/dL (0.2-1.3); BLOOD UREA NITROGEN 15 mg/dL (7-21); CALCIUM 9.4 mg/dL (8.4-10.5); CARBON DIOXIDE 27 mmol/L (21-33); CHLORIDE 108 mmol/L (98-107); GFR AFRICAN-AMERICAN > 60; GLUCOSE,RANDOM 98 mg/dL (70-110); POTASSIUM 4.2 mmol/L (3.6-5.0); SODIUM 144 mmol/L (132-148); TOTAL PROTEIN 6.3 g/dL (5.8-8.3)
[2016-12-29 07:29] VITALS: BP 175/83; TEMP 97.7; O2SAT 97
[2016-12-29 07:53] VITALS: PULSE 71
[2016-12-29] MEDS: Potassium Chloride 20 mEq ER Tab PO SCH (10:00)
[2016-12-29] MEDS: cefTRIAXone 1 gm 1 GM/100 ML BAG IVPB SCH (10:00)
--- NOTE | 2017-01-02 07:38 | DS ---
HISTORY OF PRESENT ILLNESS: The patient was admitted with history of lupus and chronic back pain, on methotrexate and Humira. She was complaining of increased lethargy, change in mental status, excessive sleeping, sounds like down lying on the floor. The patient was admitted to the hospital and had an altered mental status worked up including the CT of the head, abdominal and pelvic CT, and consultation with Dr. Dunaway. The patient was found to have some right ptosis and right upper extremity and lower extremity weakness, which resolved over time. Repeat CT showed no evidence of CVA. The patient eventually was ambulated and did physical therapy and was able to be discharged home in improved condition. FINAL DISCHARGE DIAGNOSES: Change in mental status secondary to polypharmacy, history of lupus, history of chronic back pain, and confusional state. The patient will follow as an outpatient. Pelon Ty MD
== END 2016-12-29 12:23 | disposition home or self-care (01) | DRG 948 ==
LOC: ED 15:00 → ERH 19:32 → 3RNO 21:20 → OBSVTOIN 12-27 15:18
PROVIDERS: ADMIT Internal Medicine; ATTEND Internal Medicine
DX: R41.82 Altered mental status, unspecified (principal); T48.1X5A Adverse effect of skeletal muscle relaxants [neuromuscular blocking agents], initial encounter; M32.9 Systemic lupus erythematosus, unspecified; N39.0 Urinary tract infection, site not specified; I10 Essential (primary) hypertension; H02.401 Unspecified ptosis of right eyelid; S01.01XA Laceration without foreign body of scalp, initial encounter; M54.9 Dorsalgia, unspecified; G89.29 Other chronic pain; E78.5 Hyperlipidemia, unspecified; E87.6 Hypokalemia; E86.0 Dehydration; M19.90 Unspecified osteoarthritis, unspecified site; Z96.652 Presence of left artificial knee joint; W01.0XXA Fall on same level from slipping, tripping and stumbling without subsequent striking against object, initial encounter; Y92.009 Unspecified place in unspecified non-institutional (private) residence as the place of occurrence of the external cause; Z90.710 Acquired absence of both cervix and uterus; Z90.49 Acquired absence of other specified parts of digestive tract

== ENCOUNTER 2017-04-23 18:19 | Inpatient (IN) | payer MEDICARE, OTHER ==
[2017-04-23 18:28] VITALS: BMI 27.0
[2017-04-23] MEDS ORDERED: Albuterol-Ipratrop 3 mg / 0.5 (3 ml) UD IH STA ×3 (18:46→21:19)
--- NOTE | 2017-04-23 18:51 | ED PDOC ---
Arrival/HPI - General Chief Complaint: Shortness Of Breath Time Seen by Provider: 04/23/17 18:24 Historian: Patient - History of Present Illness Narrative History of Present Illness (Text): 04/23/17 18:47 71 year old female brought in to the Emergency department by EMS complaining of shortness of breath. Patient reports she was diagnosed with bronchitis 2 weeks ago. PMD started her on antibiotics which were recently changed to Cefpodoxime. Patient also complains of dyspnea on exertion and a productive cough but denies any fever, chills, chest pain, nausea, vomiting, diarrhea, urinary symptoms, back pain, neck pain, headache, dizziness or any other complaints. PMD: Dr. Ty Time/Duration: 24 hours, < week Symptom Onset: Gradual Activities at Onset: Rest Context: Home Past Medical History - Provider Review Nursing Documentation Reviewed: Yes - Infectious Disease Hx of Infectious Diseases: None - Tetanus Immunization Tetanus Immunization: Unknown - Cardiac Hx Cardiac Disorders: Yes - Pulmonary Hx Respiratory Disorders: No - Neurological Hx Neurological Disorder: No - HEENT Hx HEENT Disorder: No - Renal Hx Renal Disorder: No - Endocrine/Metabolic Hx Endocrine Disorders: Yes Hx Systemic Lupus Erythematosus: Yes - Hematological/Oncological Hx Blood Disorders: No - Integumentary Hx Dermatological Disorder: No - Musculoskeletal/Rheumatological Hx Musculoskeletal Disorders: Yes Hx Falls: Yes Other/Comment: Back implant stimulator - Gastrointestinal Hx Gastrointestinal Disorders: Yes Other/Comment: pt reports stomach blockage - Genitourinary/Gynecological Hx Genitourinary Disorders: No - Psychiatric Hx Psychophysiologic Disorder: No Hx Substance Use: No - Surgical History Hx Appendectomy: Yes Hx Cholecystectomy: Yes Hx Hysterectomy: Yes Hx Orthopedic Surgery: Yes (l knee replacement) Other/Comment: abdominal surgery - Anesthesia Hx Anesthesia: Yes Hx Anesthesia Reactions: No Hx Malignant Hyperthermia: No - Suicidal Assessment Feels Threatened In Home Enviroment: No Family/Social History - Physician Review Nursing Documentation Reviewed: Yes Family/Social History: Unknown Family HX Smoking Status: Never Smoked Hx Alcohol Use: No Hx Substance Use: No Hx Substance Use Treatment: No Allergies/Home Meds Allergies/Adverse Reactions: Allergies No Known Allergies Allergy (Verified 12/26/16 15:05) Home Medications: Home Meds Medication Instructions Recorded Confirmed Aspirin [Adult Aspirin Regimen] 81 mg PO DAILY 04/23/17 04/23/17 DULoxetine [Cymbalta] 60 mg PO DAILY 04/23/17 04/23/17 Folic Acid 1 mg PO DAILY 04/23/17 04/23/17 Methotrexate 2.5 mg PO 04/23/17 Methylprednisolone [Medrol Dose 4 mg PO TID 04/23/17 04/23/17 Pack (21 tabs)] Oxycodone HCl [Oxycontin] 20 mg PO TID PRN 04/23/17 04/23/17 Oxycodone HCl/Acetaminophen 1 tab PO BID PRN 04/23/17 04/23/17 [Acetaminophen-Oxycodone 325 mg-5 mg] Pravastatin Sodium [Pravachol] 10 mg PO DAILY 04/23/17 04/23/17 QUEtiapine [SEROquel] 100 mg PO DAILY 04/23/17 04/23/17 tiZANidine [Zanaflex] 4 mg PO TID 04/23/17 04/23/17 Review of Systems - Physician Review All systems were reviewed & negative as marked: Yes - Review of Systems Constitutional: absent: Fevers, Night Sweats Respiratory: SOB, Cough, Sputum Cardiovascular: GARCIA. absent: Chest Pain Gastrointestinal: absent: Diarrhea, Nausea, Vomiting Genitourinary Female: absent: Dysuria, Frequency, Hematuria Neurological: absent: Headache, Dizziness Physical Exam Vital Signs Reviewed: Yes Vital Signs Temp Pulse Resp BP Pulse Ox 04/23/17 19:32 16 04/23/17 18:28 98.5 F 94 H 21 178/97 H 93 L Temperature: Afebrile Blood Pressure: Hypertensive Pulse: Tachycardic Respiratory Rate: Normal Appearance: Positive for: Well-Appearing, Non-Toxic, Comfortable Pain Distress: None Mental Status: Positive for: Alert and Oriented X 3 - Systems Exam Head: Present: Atraumatic, Normocephalic Pupils: Present: PERRL Extroacular Muscles: Present: EOMI Conjunctiva: Present: Normal Mouth: Present: Moist Mucous Membranes Neck: Present: Normal Range of Motion Respiratory/Chest: Present: Wheezes, Decreased Breath Sounds (at bases), Rhonchi. No: Respiratory Distress, Accessory Muscle Use Cardiovascular: Present: Regular Rate and Rhythm, Normal S1, S2. No: Murmurs Abdomen: Present: Normal Bowel Sounds. No: Tenderness, Distention, Peritoneal Signs Back: Present: Normal Inspection Upper Extremity: Present: Normal Inspection. No: Cyanosis, Edema Lower Extremity: Present: Normal Inspection. No: Edema, CALF TENDERNESS Neurological: Present: GCS=15, CN II-XII Intact, Speech Normal Skin: Present: Warm, Dry, Normal Color. No: Rashes Psychiatric: Present: Alert, Oriented x 3, Normal Insight, Normal Concentration Medical Decision Making ED Course and Treatment: 04/23/17 18:50 Impression: 71 year old female presents to the Emergency department complaining of shortness of breath. Plan: -- Chest xray -- Labs -- Albuterol -- Reassess and disposition Progress Notes: 04/23/17 19:01 EKG shows NSR at 82bpm with normal intervals and no ST changes 04/23/17 20:24 Labs reviewed, lactic acid of 2.5. Due to heart rate greater than 90 and respiratory greater than 20, patient meets code sepsis criteria. Code sepsis called at this time. Will start broad spectrum antibiotics and fluid bolus. Persistent wheezing and will give additional nebs. Dr. Ty to admit. - Lab Interpretations Lab Results: 04/23/17 19:50 04/23/17 19:50 Lab Results 04/23/17 21:37: Influenza Typ A,B (EIA) Negative for flu a/b 04/23/17 19:58: pO2 34, VBG pH 7.29 L, VBG pCO2 65.0 H, VBG HCO3 31.7 H, VBG Total CO2 33.7 H, VBG O2 Sat (Calc) 63.5, VBG Base Excess 3.6 H, VBG Potassium 4.6, Glucose 103, Lactate 2.5 H, FiO2 21.0, Sodium 136.0, Chloride 102.0, Venous Blood Potassium 4.6 04/23/17 19:50: Sodium 136, Potassium 4.7, Chloride 100, Carbon Dioxide 29, Anion Gap 12, BUN 26 H, Creatinine 0.9, Est GFR ( Amer) > 60, Est GFR ( Non-Af Amer) > 60, Random Glucose 103, Calcium 9.0, Phosphorus 2.8, Magnesium 2.0, Total Bilirubin 0.5, AST 45 H, ALT 54, Alkaline Phosphatase 58, Total Creatine Kinase 55, Troponin I 0.03 D, NT-Pro-B Natriuret Pep 402, Total Protein 6.5, Albumin 3.7, Globulin 2.8, Albumin/Globulin Ratio 1.3 04/23/17 19:50: WBC 9.1 D, RBC 3.35 L, Hgb 10.7 L, Hct 33.0 L, MCV 98.5 D, MCH 31.9, MCHC 32.4, RDW 15.0 H, Plt Count 219, MPV 9.0, Gran % 82.3 H, Lymph % (Auto) 13.1 L, [place] % (Auto) 1.5, Eos % (Auto) 2.7, Baso % (Auto) 0.4, Gran # 7.44 H, Lymph # 1.2, [place] # 0.1, Eos # 0.2, Baso # 0.04 I have reviewed the lab results: Yes - RAD Interpretation Radiology Orders: 04/23/17 18:44 CHEST TWO VIEWS (PA/LAT) [RAD] Stat - Medication Orders Current Medication Orders: Albuterol/Ipratropium (Duoneb 3 Mg/0.5 Mg (3 Ml) Ud) 3 ml IH QID SUKHDEV Ceftriaxone Sodium (Rocephin 1 Gram Ivpb (D5w)) 1 gm in 100 mls @ 200 mls/hr IVPB DAILY SUKHDEV PRN Reason: Protocol Methylprednisolone (Solu-Medrol) 40 mg IVP Q8 SUKHDEV Discontinued Medications Albuterol/Ipratropium (Duoneb 3 Mg/0.5 Mg (3 Ml) Ud) 3 ml IH STAT STA Stop: 04/23/17 18:47 Last Admin: 04/23/17 19:00 Dose: 3 ml Albuterol/Ipratropium (Duoneb 3 Mg/0.5 Mg (3 Ml) Ud) 3 ml IH STAT STA Stop: 04/23/17 20:06 Last Admin: 04/23/17 21:17 Dose: 3 ml Albuterol/Ipratropium (Duoneb 3 Mg/0.5 Mg (3 Ml) Ud) 3 ml IH STAT STA Stop: 04/23/17 21:20 Last Admin: 04/23/17 22:00 Dose: 3 ml Vancomycin HCl (Vancomycin 1gm) 1 gm in 250 mls @ 167 mls/hr IVPB STAT STA PRN Reason: Protocol Stop: 04/23/17 21:53 Last Admin: 04/23/17 22:27 Dose: 167 mls/hr eMAR Start Stop Document 04/23/17 22:27 CNR (Rec: 04/23/17 22:27 CNR [facility] [id number] Intravenous Solution Start Date 04/23/17 Start Time 22:27 Piperacillin Sod/Tazobactam Sod (Zosyn 4.5 Gm In Ns 100ml) 4.5 gm in 100 mls @ 200 mls/hr IVPB STAT STA PRN Reason: Protocol Stop: 04/23/17 20:53 Last Admin: 04/23/17 21:37 Dose: 200 mls/hr eMAR Start Stop Document 04/23/17 21:37 YP (Rec: 04/23/17 21:38 YP [id number]) Intravenous Solution Start Date 04/23/17 Start Time 21:38 End Date 04/23/17 End time 22:08 Total Infusion Time 30 Sodium Chloride 2,000 ml/ IV (SUPPLIES) 2,000 mls @ 3,891.84 mls/hr IV ONCE ONE PRN Reason: 60 ML/KG/HR Stop: 04/23/17 20:26 Last Admin: 04/23/17 20:37 Dose: 3,891.84 mls/hr eMAR Start Stop Document 04/23/17 20:37 YP (Rec: 04/23/17 20:38 YP [id number]) Intravenous Solution Start Date 04/23/17 Start Time 20:37 End Date 04/23/17 End time 21:07 Total Infusion Time 30 Ketorolac Tromethamine (Toradol) 30 mg IVP STAT STA Stop: 04/23/17 20:06 Last Admin: 04/23/17 20:09 Dose: 30 mg MAR Pain Assessment Document 04/23/17 20:09 CNR (Rec: 04/23/17 20:10 CNR [facility] [id number] Pain Reassessment Is this a pain reassessment? Yes IVP Administration Document 04/23/17 20:09 CNR (Rec: 04/23/17 20:10 CNR [facility] [id number]) Charges for Administration # of IVP Administrations 1 Re-Assess: MAR Pain Assessment Document 04/23/17 21:09 FDE (Rec: 04/23/17 23:19 FDE [facility] [id number] Pain Reassessment Is this a pain reassessment? Yes Sleep Is patient sleeping during reassessment? No Presence of Pain Presence of Pain No Methylprednisolone (Solu-Medrol) 40 mg IVP Q8 SUKHDEV - Scribe Statement The provider has reviewed the documentation as recorded by the Scribe Alcides Ramirez All medical record entries made by the Scribe were at my direction and personally dictated by me. I have reviewed the chart and agree that the record accurately reflects my personal performance of the history, physical exam, medical decision making, and the department course for this patient. I have also personally directed, reviewed, and agree with the discharge instructions and disposition. Disposition/Present on Arrival - Present on Arrival Any Indicators Present on Arrival: No History of DVT/PE: No History of Uncontrolled Diabetes: No Urinary Catheter: No History of Decub. Ulcer: No History Surgical Site Infection Following: None - Disposition Have Diagnosis and Disposition been Completed?: Yes Diagnosis: Wheezing, Upper respiratory infection Disposition: HOSPITALIZED Disposition Time: 23:20 Patient Plan: Admission Patient Problems: Current Active Problems Problem Status Onset Upper respiratory infection due to pattie influenza virus Acute Wheezing Acute Condition: FAIR
[2017-04-23 20:04] LABS: BASO # 0.04 K/mm3 (0.0-2.0); BASO % 0.4 % (0.0-3.0); EOS # 0.2 (0.0-0.7); EOS % 2.7 % (1.5-5.0); GRAN # 7.44 (1.4-6.5); GRAN % 82.3 % (50.0-68.0); LYMPH # 1.2 (1.2-3.4); LYMPH % 13.1 % (22.0-35.0); MEAN CORPUSCULAR HEMOGLOBIN 31.9 pg (25.0-35.0); MEAN CORPUSCULAR HGB CONC 32.4 g/dl (31.0-37.0); MONO # 0.1 (0.1-0.6); MONO % 1.5 % (1.0-6.0); WHITE BLOOD COUNT 9.1 10^3/ul (4.5-11.0)
[2017-04-23 20:09] LABS: VENOUS BLOOD GAS BASE EXCESS 3.6 mmol/L (0.0-2.0); VENOUS BLOOD PH 7.29 (7.32-7.43)
[2017-04-23 20:10] LABS: MEAN CELL VOLUME 98.5 fl (80.0-105.0)
[2017-04-23 20:16] LABS: ALB/GLOB RATIO 1.3 (1.1-1.8); ALKALINE PHOSPHATASE 58 U/L (38-126); ALT/SGPT 54 U/L (7-56); AST/SGOT 45 U/L (14-36); BILIRUBIN,TOTAL 0.5 mg/dL (0.2-1.3); BLOOD UREA NITROGEN 26 mg/dL (7-21); CARBON DIOXIDE 29 mmol/L (21-33); CHLORIDE 100 mmol/L (98-107); GFR AFRICAN-AMERICAN > 60; GLUCOSE,RANDOM 103 mg/dL (70-110); PHOSPHOROUS 2.8 mg/dL (2.5-4.5); POTASSIUM 4.7 mmol/L (3.6-5.0); SODIUM 136 mmol/L (132-148); TOTAL PROTEIN 6.5 g/dL (5.8-8.3)
[2017-04-23] MEDS ORDERED: Vancomycin 1gm in NS 250ml 1 GM/250 ML BAG IVPB STA (20:24)
[2017-04-23] MEDS ORDERED: Piperacill/Tazo 4.5gm in NS 4.5 GM/100 ML BAG IVPB STA (20:24)
[2017-04-23 20:28] LABS: TROPONIN I 0.03 ng/mL
[2017-04-23 22:40] LABS: URINE BILIRUBIN NEGATIVE (NEGATIVE); URINE BLOOD TRACE-LYSED (NEGATIVE); URINE GLUCOSE (UA) NEGATIVE (NEGATIVE); URINE KETONE NEGATIVE (NEGATIVE); URINE LEUKOCYTE ESTERASE NEGATIVE Leu/uL (NEGATIVE); URINE PROTEIN NEGATIVE mg/dL (<30 mg/dL); URINE UROBILINOGEN 0.2 E.U./dL (<1 E.U./dL)
[2017-04-23 22:51] LABS: URINE APPEARANCE CLEAR (CLEAR); URINE COLOR YELLOW (YELLOW)
[2017-04-23 23:04] LABS: VENOUS BLOOD GAS BASE EXCESS -1.7 mmol/L (0.0-2.0); VENOUS BLOOD PH 7.31 (7.32-7.43)
[2017-04-23 23:06] LABS: URINE EPITHELIAL CELLS 0 - 2 /hpf (0-5); URINE RBC 0 - 2 /hpf (0-2); URINE WBC 0 - 2 /hpf (0-6)
[2017-04-23] MEDS ORDERED: MethylPREDNISolone 40 mg Vial IVP SCH (23:13)
[2017-04-23] MEDS: Albuterol-Ipratrop 3 mg / 0.5 (3 ml) UD IH SCH (23:38)
[2017-04-23] MEDS: MethylPREDNISolone 40 mg Vial IVP SCH (23:42)
[2017-04-24] MEDS: guaiFENesin 200 mg/10 ml Syrup UD PO PRN ×2 (02:37→21:42)
[2017-04-24] MEDS ORDERED: methylPREDNISolone 40 GM in Sodium Chloride 0.9% 250 ML IV SCH (06:00)
[2017-04-24] MEDS ORDERED: MethylPREDNISolone 40 mg Vial IVP SCH (06:00)
[2017-04-24] MEDS: MethylPREDNISolone 40 mg Vial IVP SCH ×3 (06:56→22:56)
[2017-04-24] MEDS: Albuterol-Ipratrop 3 mg / 0.5 (3 ml) UD IH SCH ×3 (07:45→14:35)
--- NOTE | 2017-04-24 08:04 | RAD ---
HISTORY: shortness of breath COMPARISON: Comparison is made to 12/26/2016 TECHNIQUE: Chest PA and lateral FINDINGS: LUNGS: Small opacity or infiltrate at the right lower lobe is noted. Otherwise no significant interval change in the lungs. AllNo active pulmonary disease. PLEURA: No significant pleural effusion identified. No pneumothorax apparent. CARDIOVASCULAR: Normal. OSSEOUS STRUCTURES: No significant abnormalities. VISUALIZED UPPER ABDOMEN: Normal. OTHER FINDINGS: None. IMPRESSION: Small opacity or infiltrate at the right lower lung may represent pneumonia or atelectasis. Otherwise no significant interval change.
[2017-04-24 09:16] LABS: BASO # 0.01 K/mm3 (0.0-2.0); BASO % 0.1 % (0.0-3.0); GRAN # 7.94 (1.4-6.5); GRAN % 95.7 % (50.0-68.0); HEMATOCRIT 33.7 % (36.0-48.0); LYMPH # 0.2 (1.2-3.4); LYMPH % 2.3 % (22.0-35.0); MEAN CELL VOLUME 97.1 fl (80.0-105.0); MEAN CORPUSCULAR HEMOGLOBIN 32.3 pg (25.0-35.0); MEAN CORPUSCULAR HGB CONC 33.2 g/dl (31.0-37.0); MEAN PLATELET VOLUME 9.1 fl (7.0-11.0); MONO # 0.2 (0.1-0.6); MONO % 1.9 % (1.0-6.0); PLATELET COUNT 231 10^3/uL (120.0-450.0); WHITE BLOOD COUNT 8.3 10^3/ul (4.5-11.0)
[2017-04-24 09:24] LABS: IRON 71 ug/dL (45-180)
[2017-04-24 09:28] LABS: ALB/GLOB RATIO 1.4 (1.1-1.8); ALKALINE PHOSPHATASE 69 U/L (38-126); ALT/SGPT 55 U/L (7-56); AST/SGOT 49 U/L (14-36); BILIRUBIN,TOTAL 0.6 mg/dL (0.2-1.3); BLOOD UREA NITROGEN 19 mg/dL (7-21); CALCIUM 9.2 mg/dL (8.4-10.5); CARBON DIOXIDE 26 mmol/L (21-33); CHLORIDE 99 mmol/L (98-107); GFR AFRICAN-AMERICAN > 60; GLUCOSE,RANDOM 191 mg/dL (70-110); PHOSPHOROUS 3.3 mg/dL (2.5-4.5); POTASSIUM 4.4 mmol/L (3.6-5.0); SODIUM 137 mmol/L (132-148); TOTAL PROTEIN 6.7 g/dL (5.8-8.3)
[2017-04-24 09:39] LABS: TROPONIN I 0.02 ng/mL
[2017-04-24] MEDS ORDERED: Piperacill/Tazo 4.5gm in NS 4.5 GM/100 ML BAG IVPB SCH (09:45)
[2017-04-24] MEDS: Sodium Chloride 0.9% 1,000 ML IV SCH ×3 (09:49→14:24)
[2017-04-24 09:57] LABS: THYROID STIMULATING HORMONE 0.22 mIU/mL (0.46-4.68)
[2017-04-24] MEDS ORDERED: cefTRIAXone 1 gm 1 GM/100 ML BAG IVPB SCH (10:00)
[2017-04-24] MEDS ORDERED: Azithromycin 500MG/NS 250ml 500 MG/250 ML BAG IVPB SCH (10:00)
[2017-04-24 10:15] LABS: ANISOCYTOSIS 1+; BAND 1 % (0-2); HYPOCHROMIA 1+; NEUTROPHIL 96 % (50.0-70.0); PLATELET ESTIMATE NORMAL (NORMAL); TOXIC GRANULATION 1+
[2017-04-24] MEDS ORDERED: Iodixanol 320 MG/ML 100 ML BOTTLE IV ONE (10:55)
--- NOTE | 2017-04-24 11:44 | CARD ---
APPROVED REPORT EKG Measurement Heart [id number] CT [id number] <Conclusion> Normal sinus rhythm Normal ECG No change
[2017-04-24 12:04] LABS: TRANSFERRIN 244.89 mg/dL (206-381)
--- NOTE | 2017-04-24 12:05 | CT ---
PROCEDURE: CT Chest with contrast (Pulmonary Angiogram) HISTORY: Dyspnea COMPARISON: None available. TECHNIQUE: Axial computed tomography images were obtained of the chest in the pulmonary arterial phase of enhancement. Coronal and sagittal reformatted images were created and reviewed. Intravenous contrast dose: 100 mL Visipaque 320 Radiation dose: Total exam DLP = 791.71 mGy-cm. This CT exam was performed using one or more of the following dose reduction techniques: Automated exposure control, adjustment of the mA and/or kV according to patient size, and/or use of iterative reconstruction technique. FINDINGS: PULMONARY ARTERIES: The assessment is limited due to patient's motion and suboptimal opacification of the pulmonary arteries. No evidence of central pulmonary embolism. . . The assessment of the peripheral pulmonary arteries is limited this study. AORTA: No acute findings. No thoracic aortic aneurysm. LUNGS: Airspace opacity noted at the lung bases larger on the left likely represent atelectasis. The possibility of pneumonia is less likely. PLEURAL SPACES: Unremarkable. No effusion or pneuomothorax. HEART: Unremarkable. No cardiomegaly. No significant pericardial effusion. LYMPH NODES: No lymphadenopathy. BONES, CHEST WALL: Dextroscoliosis of the thoracic spine is noted. Moderate degenerative changes P. No fracture or destructive lesion stimulator wires are seen extending to the thoracic spine canal. OTHER FINDINGS: Unremarkable. IMPRESSION: Suboptimal study. No evidence of central pulmonary embolus. Bilateral lower lobe small airspace opacities may represent atelectasis or less likely pneumonia.
[2017-04-24] MEDS: oxyCODONE 20 mg ER Tab (oxyCONTIN) PO PRN (12:07)
[2017-04-24] MEDS: Vancomycin 1gm in NS 250ml 1 GM/250 ML BAG IVPB SCH ×3 (12:13→21:43)
[2017-04-24 13:01] LABS: FOLATE 15.2 ng/mL
[2017-04-24] MEDS: Cefepime 1gm in NS 100ml 1 GM/100 ML BAG IVPB SCH ×2 (14:29→21:42)
--- NOTE | 2017-04-24 14:57 | CON ---
DATE: 04/24/2017 LOCATION: The patient is seen in room 372, bed 1. CHIEF COMPLAINT: Shortness of breath times several days. HISTORY OF PRESENT ILLNESS: This is a 71-year-old female with past medical history significant for back implant stimulator. The patient has history of lupus, hypertension, hyperlipidemia admitted through the emergency room with shortness of breath, diagnosis of wheezing. The patient states she has been having cough. Cough is nonproductive. There is no abdominal pain. No headaches. No blurred vision. No neck pain. No new back pain and shortness of breath. The patient states that she had been diagnosed with bronchitis 2 weeks ago and was given cefpodoxime, however, the dyspnea did not improve. The cough became little bit more productive, but no chest pain. No dysuria or frequency. PAST MEDICAL HISTORY: Significant for lupus, hypertension, and hyperlipidemia. PAST SURGICAL HISTORY: Significant for appendectomy, hysterectomy, cholecystectomy, left knee surgery, tonsillectomy, and back implant stimulator. MEDICATIONS AT HOME: Include oxycodone, Seroquel, Cymbalta, Zanaflex, Pravachol, the patient was on 21 tablets Medrol Dose. The patient is also on methotrexate. ALLERGIES: THE PATIENT HAS NO KNOWN ALLERGIES. PHYSICAL EXAMINATION: GENERAL: The patient is in bed. VITAL SIGNS: Temperature 99.8, heart rate 94, respiratory rate 21, and blood pressure 151/80. HEENT: Unremarkable. NECK: Supple. LUNGS: Decreased breath sounds. HEART: Normal S1 and S2. No murmurs. ABDOMEN: Soft and nontender. No organomegaly. No rebound. No guarding. LABORATORY DATA: Reveals a white count of 9.1, hemoglobin of 10, and platelets 219, and 82% granulocytosis. Sedimentation rate is 55. Blood gases are noted. Chemistry reveals a lactic acid of 5.7. The patient's creatinine is 0.8. Urinalysis unremarkable and the patient had influenza, which is negative. The patient had a chest x-ray showed an infiltrate. ASSESSMENT AND PLAN: This is a 71-year-old female with lupus, hypertension, hyperlipidemia admitted with shortness of breath and cough, dyspnea, and tachycardia. We will start the patient on Maxipime and the patient has sepsis secondary to hospital-acquired pneumonia to an immunocompromised the patient, who is on methotrexate for lupus and we will treat this patient with sepsis secondary to hospital-acquired pneumonia and has healthcare-associated pneumonia with Maxipime and 1 g q.8 hours and we will check on procalcitonin, blood culture, urine culture, sputum culture, and we will also use doxycycline. The patient is also vancomycin. Because of the QTc interval at 418 we will continue Zithromax, not use doxycycline, and we will use vancomycin, Maxipime, and Zithromax. Pending blood, urine, and sputum cultures and pending initial workup. We will follow closely with you. We will also order urine for Legionella antigen. Guillermo Edwards MD
[2017-04-24] MEDS ORDERED: Oxycodone/Acetaminophen 5/325 mg Tab PO PRN ×2 (18:37→18:45)
--- NOTE | 2017-04-25 01:02 | HP ---
HISTORY OF PRESENT ILLNESS: A 71-year-old white female with history of lupus erythematosus. The patient has been on methotrexate for her lupus. Also, has history of mild hypertension and recent history of cough, sputum production and fever. The patient had difficulty breathing, came to the emergency room with an elevated fever, also found to have an elevated lactic acid level. PHYSICAL EXAMINATION: GENERAL: Shows a well-developed, slightly obese white female in moderate respiratory distress. HEENT: Within normal limits. VITAL SIGNS: Temperature 99.5, blood pressure 111/59, heart rate 69. HEART: Sinus rhythm. CHEST: Shows rhonchi and wheezing in all lung villalobos. ABDOMEN: Benign. EXTREMITIES: Without any cyanosis, clubbing, or edema. NEUROLOGIC: Sensation is grossly intact. The patient is awake, alert, and oriented x3. LABORATORY DATA: White count of 8.3, hemoglobin 11.2. The patient in the ER was found to have severe diffuse shortness of breath, wheezing and rhonchi in all lung villalobos. CT did not show any embolism, but did show some possible early pneumonia bibasilarly, lactic acid level was elevated. The patient was given oxygen breathing treatment and IV antibiotics. Septic workup was done and the patient was admitted to the floor. The sed rate was 55. There is a left shift on her white count. On admission, her pCO2 is 65 and her pO2 is 63.3, improved and the pH at that point was 7.29 improved to 7.31 with a pCO2 dropped to 50 and the pO2 callum to 78. The patient's blood sugar was 191, lactic acid was 5.7. Her C-reactive protein was over 15. Prolactin level was 0.12. TSH was 0.22. Negative for flu and negative for Legionnaires disease. IMPRESSION AND PLAN: Sepsis syndrome, possible bronchitis versus pneumonia in an immunocompromised patient with lupus, on methotrexate. Pelon Ty MD
--- NOTE | 2017-04-25 04:26 | CON ---
DATE: 04/24/2017 PULMONARY CONSULTATION REFERRING PHYSICIAN: Pelon Ty MD. REASON FOR CONSULT: Rhinitis, cough, shortness of breath. HISTORY OF PRESENT ILLNESS: This is a 71-year-old female with past medical history significant for systemic lupus, rheumatoid arthritis, immunosuppressed, has been on methotrexate as an outpatient. Other issues are hypertension, hyperlipidemia, came into the emergency room with more than 10 days' history of cough, shortness of breath,rhinitis, failed outpatient treatment, found to have bibasilar infiltrate. No hemoptysis. No hematemesis. No hematuria. No diarrhea reported. PAST MEDICAL HISTORY: As per history of present illness. ALLERGIES: NONE KNOWN. SOCIAL HISTORY: Nonsmoker, nondrinker. FAMILY HISTORY: No significant cardiopulmonary disease reported. MEDICATIONS: She is on Ambien 5 mg at bedtime p.r.n., Cymbalta 60 mg daily, DuoNeb q. 6 hour, Ecotrin 81 mg daily, folic acid 1 mg daily, cefepime 1 g q.8. hour, methotrexate 2.5 mg daily, OxyContin extended release 20 mg q. 8 hour p.r.n., Pepcid 20 mg daily, Percocet 5/325 1 tablet twice a day p.r.n., Pulmicort inhaler twice a day, Robitussin 200 mg q.4 hour p.r.n., Seroquel 20 mg at bedtime, IV fluid normal saline 60 mL/hour, Solu-Medrol 40 mg q.8 hour, vancomycin 1 g IV q.12 hour, Zanaflex 4 mg 3 times a day. REVIEW OF SYSTEMS: On and off headache, rhinitis, facial discomfort, postnasal drip, cough, discolored sputum production. No nausea. No vomiting. No diarrhea. No leg pain. No leg swelling. Does not know if she snores, daytime sleepy though. PHYSICAL EXAMINATION: GENERAL: Lying in the bed, in mild distress secondary to cough and shortness of breath. VITAL SIGNS: Temperature 99.8, heart rate is 60, respiratory rate is 20, blood pressure 100/42, pulse ox 96% on 3 L nasal cannula. HEENT: Moist mucous membranes. Crowded airway. Mallampati score 4. NECK: Supple. No JVD. LUNGS: Scattered rhonchi and wheezing. HEART: S1 and S2. ABDOMEN: Soft, nontender. No organomegaly. EXTREMITIES: No edema. NEUROLOGIC: Awake and alert, follows simple commands. LABORATORY DATA: Hemoglobin 11.2, hematocrit 33.7, WBC 8.3, and platelet count is 231. Sodium 137, potassium 4.7, chloride 99, bicarbonate 26, BUN 19, creatinine is 0.8, glucose 191, lactic acid 5.7, calcium 9.2, phosphorus 3.3, magnesium 2.0, iron 71, ferritin 454. AST 49, ALT 55, and alk phos is 69. Troponin is less than 0.01. C-reactive protein 15, albumin 3.9, procalcitonin 0.12. Microbiology: Blood culture has been negative. CAT scan of the chest done in ER shows no evidence of central PE, bilateral lower lobe small airspace opacity may represent atelectasis verus pneumonia. IMPRESSION AND PLAN: Sinusitis, postnasal drip, bibasilar infiltrate, may have a component of chronic lung disease, history of systemic lupus erythematosus, rheumatoid arthritis, hypertension, hyperlipidemia, immunocompromised, may have a component of sleep apnea syndrome. Agree with Dr. Ty with present management. Dr. Edwards's note also reviewed. I will add Flonase 1 spray each nostril twice a day, also Singulair 10 mg at bedtime, Claritin 10 mg daily. Continue steroids,antibiotics to cover healthcare associated organism, keep head elevated 45-degree, sleep apnea precaution, gastric and deep venous thrombosis prophylaxis. Thank you and we will follow with you. Alek Salazar MD
[2017-04-25] MEDS: Cefepime 1gm in NS 100ml 1 GM/100 ML BAG IVPB SCH ×3 (05:02→22:33)
[2017-04-25] MEDS: Sodium Chloride 0.9% 1,000 ML IV SCH (05:04)
[2017-04-25 07:39] LABS: BASO # 0.01 K/mm3 (0.0-2.0); BASO % 0.1 % (0.0-3.0); EOS % 0.2 % (1.5-5.0); GRAN # 9.8 (1.4-6.5); GRAN % 95.6 % (50.0-68.0); HEMATOCRIT 27.9 % (36.0-48.0); LYMPH # 0.4 (1.2-3.4); MEAN CELL VOLUME 96.5 fl (80.0-105.0); MEAN CORPUSCULAR HEMOGLOBIN 32.2 pg (25.0-35.0); MEAN CORPUSCULAR HGB CONC 33.3 g/dl (31.0-37.0); MONO % 0.1 % (1.0-6.0); RED CELL DISTRIBUTION WIDTH 15.1 % (11.5-14.5); WHITE BLOOD COUNT 10.3 10^3/ul (4.5-11.0)
[2017-04-25 07:44] LABS: ALB/GLOB RATIO 1.3 (1.1-1.8); ALKALINE PHOSPHATASE 45 U/L (38-126); ALT/SGPT 51 U/L (7-56); AST/SGOT 28 U/L (14-36); BILIRUBIN,TOTAL 0.3 mg/dL (0.2-1.3); BLOOD UREA NITROGEN 20 mg/dL (7-21); CALCIUM 8.9 mg/dL (8.4-10.5); CARBON DIOXIDE 28 mmol/L (21-33); CHLORIDE 107 mmol/L (98-107); GFR AFRICAN-AMERICAN > 60; GLUCOSE,RANDOM 138 mg/dL (70-110); POTASSIUM 4.2 mmol/L (3.6-5.0); SODIUM 140 mmol/L (132-148); TOTAL PROTEIN 5.1 g/dL (5.8-8.3)
[2017-04-25] MEDS: Budesonide 0.5 mg/2 ml Inhal Susp UD IH SCH ×2 (07:49→20:22)
[2017-04-25] MEDS: Albuterol-Ipratrop 3 mg / 0.5 (3 ml) UD IH SCH ×3 (07:49→20:22)
[2017-04-25] MEDS: guaiFENesin 200 mg/10 ml Syrup UD PO PRN ×2 (08:41→16:40)
[2017-04-25] MEDS: MethylPREDNISolone 40 mg Vial IVP SCH ×3 (08:41→22:41)
[2017-04-25] MEDS: oxyCODONE 20 mg ER Tab (oxyCONTIN) PO PRN ×2 (08:41→16:25)
[2017-04-25] MEDS: Vancomycin 1gm in NS 250ml 1 GM/250 ML BAG IVPB SCH (08:52)
[2017-04-25] MEDS: Fluticasone Nasal 50 mcg/Spray NS SCH ×2 (10:00→22:32)
--- NOTE | 2017-04-25 15:40 | PN ---
DATE: SUBJECTIVE: A 71-year-old white female, with history of lupus, admitted to the hospital exacerbation of asthmatic bronchitis, possible pneumonia. The patient has less shortness of breath today. She is more comfortable. PHYSICAL EXAMINATION: VITAL SIGNS: The patient is afebrile, 98.8; blood pressure 160/78; heart rate 79; and O2 saturation 97% on nasal cannula. LUNGS: Chest exam shows decreased rhonchi and rales at the left. Continued rhonchi in the right base . LABORATORY DATA: On admission, her white count was 10,300 with left shift. Sedimentation rate is 55. Lactic acid level was elevated on admission. It is down to 1.7 this morning. Chemistries are within normal limits. The patient is improving steadily. She is negative for flu A and B, and also negative for Legionella. Plan is to continue bronchodilator, rest, oxygen therapy, out of bed to chair, and continue . Pelon Ty MD
--- NOTE | 2017-04-25 20:50 | PN ---
DATE: 04/25/2017 PULMONARY PROGRESS NOTE REFERRING PHYSICIAN: Dr. Ty. SUBJECTIVE: She is lying in the bed, sleeping. Night was unremarkable. Was sitting up in the chair today, still has rhinitis, postnasal drip, cough, and shortness of breath. No nausea. No vomiting. No diarrhea. No leg pain or no leg swelling. OBJECTIVE: GENERAL: In no acute distress. VITAL SIGNS: Temperature 98, heart rate 72, respiratory rate 18, blood pressure 105/51, pulse 77% on 2 liters nasal cannula. HEENT: Moist mucous membranes. Crowded airway. Small oral cavity. NECK: Supple. No JVD. Has maxillary area tenderness. LUNGS: Have scattered rhonchi and wheezing. HEART: S1 and S2. ABDOMEN: Soft, nontender. No organomegaly. EXTREMITIES: No edema. NEUROLOGIC: Sleepy, arousable. Follows simple commands. MEDICATIONS: She is on Ambien 5 mg at bedtime p.r.n., Claritin 10 mg daily, Cymbalta 60 mg daily, DuoNeb q.6 hours, Ecotrin 81 mg daily, Flonase 1 spray each nostrils twice a day, folic acid 1 mg daily, cefepime 1 g IV q.8 hours, methotrexate 2.5 mg daily, OxyContin extended release 20 mg q. 8 hours p.r.n., Pepcid 20 mg daily, Pulmicort inhaled twice a day, Robitussin 200 mg q.4 hours p.r.n., Seroquel 100 mg at bedtime, Singulair 10 mg daily, Solu-Medrol 40 mg IV q.8 hours, vancomycin 1 g IV q.12 hours, Zanaflex 4 mg three times a day. LABORATORY DATA: Shows hemoglobin 9.3, hematocrit 27.9, WBC 10.3, platelet is 192. Sodium 140, potassium 4.2, chloride 107, bicarbonate 28, BUN 20, creatinine 0.7, glucose 138. Hemoglobin A1c 5.8. Lactic acid 1.7, calcium 8.9, AST 28, ALT 51, alk phos is 45. Troponin 0.02. Albumin is 2.9. Microbiology; blood cultures have been negative. IMPRESSION AND PLAN: Sinusitis, postnasal drip, bibasilar infiltrate, chronic lung disease, systemic lupus erythematosus, rheumatoid arthritis, hypertension, hyperlipidemia, immunocompromised. We will continue IV and inhaled bronchodilator, antihistamine, leukotriene inhibitors, out of bed to chair, sleep apnea precaution, gastric and DVT prophylaxis. Thank you, and we will follow with you. Alek Salazar MD
[2017-04-26] MEDS: oxyCODONE 20 mg ER Tab (oxyCONTIN) PO PRN ×2 (00:39→09:26)
[2017-04-26] MEDS: Cefepime 1gm in NS 100ml 1 GM/100 ML BAG IVPB SCH ×2 (05:56→14:18)
[2017-04-26 07:24] LABS: GRAN # 8.69 (1.4-6.5); GRAN % 95.5 % (50.0-68.0); HEMATOCRIT 26.2 % (36.0-48.0); LYMPH # 0.4 (1.2-3.4); LYMPH % 4.1 % (22.0-35.0); MEAN CELL VOLUME 97.4 fl (80.0-105.0); MEAN CORPUSCULAR HGB CONC 32.8 g/dl (31.0-37.0); MEAN PLATELET VOLUME 9.7 fl (7.0-11.0); MONO % 0.4 % (1.0-6.0); RED CELL DISTRIBUTION WIDTH 15.1 % (11.5-14.5); WHITE BLOOD COUNT 9.1 10^3/ul (4.5-11.0)
[2017-04-26] MEDS: Budesonide 0.5 mg/2 ml Inhal Susp UD IH SCH (07:48)
[2017-04-26] MEDS: Albuterol-Ipratrop 3 mg / 0.5 (3 ml) UD IH SCH ×2 (07:48→14:09)
[2017-04-26 08:00] LABS: ALB/GLOB RATIO 1.2 (1.1-1.8); ALKALINE PHOSPHATASE 43 U/L (38-126); ALT/SGPT 68 U/L (7-56); AST/SGOT 47 U/L (14-36); BILIRUBIN,TOTAL 0.3 mg/dL (0.2-1.3); BLOOD UREA NITROGEN 29 mg/dL (7-21); CALCIUM 8.7 mg/dL (8.4-10.5); CARBON DIOXIDE 24 mmol/L (21-33); CHLORIDE 107 mmol/L (98-107); GFR AFRICAN-AMERICAN > 60; GLUCOSE,RANDOM 136 mg/dL (70-110); MAGNESIUM 2.3 mg/dL (1.7-2.2); SODIUM 136 mmol/L (132-148); TOTAL PROTEIN 5.3 g/dL (5.8-8.3)
[2017-04-26] MEDS: MethylPREDNISolone 40 mg Vial IVP SCH (08:38)
--- NOTE | 2017-04-26 08:41 | PN ---
DATE: SUBJECTIVE: This 71-year-old white female admitted to the hospital with some pneumonia, shortness of breath, and wheezing. The patient is afebrile. Vital signs are stable. Hemoglobin has dropped to 8.6. B12, folic acid and iron levels are stable. The patient has lupus status post treatment with methotrexate. The patient still has some wheezing and rhonchi bilaterally. She is still short of breath and fatigue. We are looking for TCU transfer to continue some treatment of her underlying respiratory infection and increase her strength and conditioning. PHYSICAL EXAMINATION: VITAL SIGNS: Stable. CHEST: Shows bilateral rales and wheezing. HEART: Exam reveals sinus rhythm. ABDOMEN: Soft. EXTREMITIES: Without any cyanosis, clubbing or edema. IMPRESSION: Respiratory tract infection, lower urinary tract infection, anemia, lupus, and fatigue. Pelon Ty MD
--- NOTE | 2017-04-26 08:51 | PN ---
DATE: 04/25/2017 SUBJECTIVE: The patient is seen early this morning in room 372, bed 1. No fevers. No chills. Less short of breath. OBJECTIVE: VITAL SIGNS: Temperature is 97, blood pressure is 111/50, respiratory rate of 20, and heart rate of 72. HEENT: Unremarkable. NECK: Supple. LUNGS: Have decreased breath sounds. HEART: Normal S1 and S2. ABDOMEN: Soft and nontender. LABORATORY DATA: Reveals the blood cultures are no growth. Urine cultures are no growth. Review of orders reveals the patient to be on cefepime, prednisone, and vancomycin. Dr. Salazar's note from today is reviewed. ASSESSMENT AND PLAN: This is a 71-year-old female seen early this morning in room , bed 1 with a history of lupus, hyperlipidemia, hypertension, and admitted with shortness of breath, cough, dyspnea, tachycardia with sepsis secondary to hospital-acquired pneumonia, healthcare-associated pneumonia, on vancomycin and cefepime with negative cultures and procalcitonin of 0.12. We will discontinue the vancomycin. Continue the cefepime and add doxycycline. We will follow closely with you and make further recommendations. Guillermo Edwards MD
[2017-04-26] MEDS: Fluticasone Nasal 50 mcg/Spray NS SCH (09:43)
--- NOTE | 2017-04-26 10:03 | CARD ---
APPROVED REPORT EKG Measurement Heart [id number] <Conclusion> Sinus bradycardia Nonspecific T wave abnormality, new
[2017-04-26 12:52] LABS: RETIC% 0.88 % (0.5-1.5)
[2017-04-26 13:00] LABS: IRON 84 ug/dL (45-180)
[2017-04-26] MEDS ORDERED: MethylPREDNISolone 40 mg Vial IVP SCH (14:00)
[2017-04-26 17:32] VITALS: BP 132/62; PULSE 74; RESP 18; TEMP 98.4; O2SAT 98
--- NOTE | 2017-04-26 23:41 | PN ---
DATE: 04/26/2017 SUBJECTIVE: The patient is in bed, in no acute distress, nontoxic. PHYSICAL EXAMINATION: VITAL SIGNS: Temperature is 98, blood pressure is 160/80, respiratory 20. HEENT: Unremarkable. NECK: Supple. LUNGS: Decreased breath sounds HEART: Normal S1, S2. ABDOMEN: Soft, nontender. LABORATORY DATA: Reveals a white count of 9, hemoglobin of 8.6, platelets of 160. Chemistries are noted and urinalysis is noted and influenza is negative. Urine for Legionella is negative. Microbiology reveals the blood cultures are no growth. Urine cultures are no growth and the patient's procalcitonin is 0.12. The patient's CAT scan of the chest is noted. CAT scan showed atelectasis. ASSESSMENT/PLAN: This 71-year-old female with past medical history significant for lupus, hyperlipidemia, hypertension, admitted with shortness of breath, cough, dyspnea, tachycardia and sepsis secondary to hospital-acquired pneumonia, healthcare-associated pneumonia with a negative procalcitonin and negative cultures. Currently on p.o. doxycycline. The patient is also on Cymbalta. The patient is also on cefepime on day number 3 of antibiotics and Solu-Medrol. Dr. Ty's note is reviewed with complete 4 to 7 days of antibiotics. We will order a complement level of C3 and C4. Guillermo Edwards MD
--- NOTE | 2017-04-27 08:38 | CON ---
DATE: 04/26/2017 This is hospital consult on the medical floor for Dr. Bentley. CHIEF COMPLAINT: Anemia. HISTORY OF PRESENT ILLNESS: The patient is a 71-year-old female seen sitting up in bed, admitted via the emergency room for shortness of breath after having been treated for bronchitis two weeks prior with this the patient is being seen by her primary doctor along with treatment recommended by Dr. Edwards, Infectious Disease; Dr. Salazar, Pulmonary. With this the patient is now feeling modestly improved, however, she has developed anemic indices since admission with her hemoglobin on 04/23/2017 of 10.7, on 04/24/2017 of 11.2, on 04/25/2017 of 9.3, and today 8.6. With this, we will evaluate the patient to determine if an etiology may be obtained. She is otherwise in no acute distress at this time being treated for suspicion of pneumonia and urinary tract infection. PAST MEDICAL HISTORY: Significant for lupus with mitosis followed by Dr. Hurt, Rheumatology on methotrexate, also hypertension and hyperlipidemia. She is also status post appendectomy, hysterectomy, cholecystectomy, left knee surgery, tonsillectomy, back implant stimulator, and questionable depression. ALLERGIES: SHE HAS NO KNOWN ALLERGIES. MEDICINES FROM HOME: Include oxycodone, Seroquel, Cymbalta, Zanaflex, Pravachol, Medrol Dosepak, and methotrexate. FAMILY HISTORY AND SOCIAL HISTORY: Noncontributory. Nonsmoker, non-ethanolic. REVIEW OF SYSTEMS: A 12-point review of systems was done, which was negative to questioning except for items mentioned in the history of present illness. OBJECTIVE PHYSICAL EXAMINATION: VITAL SIGNS: Temperature 97.8, pulse 71, respirations 20, blood pressure 175/55, and pulse ox 97%. HEENT: Unremarkable. NECK: Supple. HEART: Tachy rate, regular rhythm. LUNGS: Minimal decreased breath sounds. ABDOMEN: Obese, soft, and nontender. EXTREMITIES: Faint +1 edema. NEUROLOGIC: Awake, alert, and oriented. SKIN: Warm, dry, and clear with a ready complexion. LABORATORY DATA: The patient's labs were done to include white blood cell count of 9.1, hemoglobin 8.6 today, hematocrit of 26.2, and platelet count of 160,000. The patient has oxygen on admission as was reported her hemoglobin is 10.7, it is now at 8.6. The patient is on aspirin since admission along with Flonase, and Seroquel added to her regimen with Solu-Medrol IV and Cymbalta and Claritin. The patient's chem metabolic panel was within normal limits except for an AST of 47, ALT of 68 with percent saturation of iron of 34. TSH of 0.06. The patient did have a chest x-ray done and a CT of the chest. CT angiogram was done on 04/14/2017 showing suboptimal study. No evidence of central pulmonary embolism. Bilateral lower lobe airspace opacity represent atelectasis, likely pneumonia. With her original chest x-ray on 04/23/2017 was read as small opacity or infiltrate in the right lower lung may represent pneumonia or atelectasis. The patient had EKG done yesterday, it was read as sinus bradycardia, nonspecific T-wave abnormality. ASSESSMENT: For this patient is that of early pneumonia, shortness of breath, bibasilar infiltrates, systemic lupus erythematosus with rheumatoid arthritis, hypertension, hyperlipidemia, and anemia. It should be noted that the patient denies hemoptysis or hematochezia or dark stool or any active bleeding. PLAN: Plan for this patient after conservation with Dr. Bentley is to repeat her labs today at 6 o' clock in the evening. We will also ask for an anemia workup and testing to include erythropoietin level, folate, and vitamin B12 along with smear review. She is also now taking oxycodone as for her intractable paint with the other medications reviewed to see if they might have any close interference with her . We will also ask for consult with Dr. Castillo, Gastrointestinal, for further workup as indicated. We will monitor clinically with labs. The patient is a complex patient with a comprehensive history and physical done with the time spent over 50 minutes this visit. Isidoro Mondragon MD
--- NOTE | 2017-04-27 10:50 | DS ---
HISTORY OF PRESENT ILLNESS: This is a 71-year-old white female with history of chronic back pain, lupus erythematosus, chronic anemia, hypertension. The patient was admitted to the hospital with severe coughs with sputum production, shortness of breath, was found to be severely hypoxic, elevated lactic acid levels. CAT scan showing evidence of lower respiratory tract infection, possible pneumonia. The patient was treated with IV antibiotics, seen in consultation with Dr. Salazar, also seen in consultation with Dr. Bentley because of anemia. Hemoglobin down to 8.6. The patient had been on methotrexate, which was stopped due to the recent infection. Sed rate had been as high as 55 down to 25. Lactic acid was elevated. Retic count is 0.88. Iron, B12 and folic acid levels were normal. The patient did well with bronchodilators, antibiotics and steroids. She will be transferred to TCU for continued antibiotics and physical therapy and occupational therapy. She will be followed as an outpatient on TCU. FINAL DISCHARGE DIAGNOSES: Bronchial pneumonia, lupus, anemia of chronic disease and chronic back pain. Pelon Ty MD
== END 2017-04-26 17:36 | DRG 871 ==
LOC: ED 18:19 → ERH 21:47 → 3RSO 23:05
PROVIDERS: ADMIT Internal Medicine; ATTEND Internal Medicine
PROC: 3E0F7GC Introduction of Other Therapeutic Substance into Respiratory Tract, Via Natural or Artificial Opening (ICD-10-PCS; principal; 2017-04-23)
DX: A41.9 Sepsis, unspecified organism (principal); J18.9 Pneumonia, unspecified organism; M32.9 Systemic lupus erythematosus, unspecified; D64.9 Anemia, unspecified; M06.9 Rheumatoid arthritis, unspecified; J45.901 Unspecified asthma with (acute) exacerbation; E78.5 Hyperlipidemia, unspecified; I10 Essential (primary) hypertension; R09.82 Postnasal drip; Y95 Nosocomial condition; J31.0 Chronic rhinitis; Z96.652 Presence of left artificial knee joint; Z90.710 Acquired absence of both cervix and uterus

== ENCOUNTER 2017-04-26 17:26 | Inpatient (IN) | payer OTHER ==
[2017-04-26 19:01] VITALS: BMI 33.6
[2017-04-26] MEDS: Oxycodone/Acetaminophen 5/325 mg Tab PO PRN (19:36)
[2017-04-26] MEDS: Arformoterol 15 mcg/2 ml Inh Sol IH SCH (19:49)
[2017-04-26] MEDS: Budesonide 0.25 mg/2 ml Inhal Susp UD IH SCH (19:49)
[2017-04-26] MEDS: Albuterol-Ipratrop 3 mg / 0.5 (3 ml) UD IH SCH (19:49)
[2017-04-26] MEDS: MethylPREDNISolone 40 mg Vial IVP SCH (22:17)
[2017-04-26] MEDS: Cefepime 1gm in NS 100ml 1 GM/100 ML BAG IVPB SCH (22:18)
[2017-04-26] MEDS: guaiFENesin 200 mg/10 ml Syrup UD PO PRN (22:30)
[2017-04-26] MEDS: oxyCODONE 20 mg ER Tab (oxyCONTIN) PO PRN (22:33)
[2017-04-27] MEDS: Albuterol-Ipratrop 3 mg / 0.5 (3 ml) UD IH SCH ×4 (01:57→20:24)
--- NOTE | 2017-04-27 04:28 | CON ---
DATE: 04/26/2017 HISTORY OF PRESENT ILLNESS: The patient is 71-year-old, Moni Bonilla, who has multiple medical issues including bronchitis, history of chronic back pain, obesity. The patient was admitted under my medical side for shortness of breath. Psych consult was called for evaluation because the patient has history of depression and the patient is on psychotropic medications. The patient was seen and examined. The patient presented to be alert and oriented, very pleasant. Patient said that she is taking Seroquel 100 mg for the past at least 4 years. The patient is not aware why she is taking that medication, but her guess is "I had a lot of things going on in my life and most likely it is was prescribed to me for mood stabilization and anxiety." The patient also reported that she did not know that Seroquel is an antipsychotic medication. The patient said that she was compliant with the medication and after explanation of risks, benefits and alternatives of the medication, the patient wants to be weaned off from this medication. The patient was in agreement with a plan to start tapering that down and from 100 mg during the nighttime it will be decreased to 75 mg at the nighttime. 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 Besides that, the patient denied history of suicidal attempt. The patient denied history of hearing voices or seeing things. With regard to the vital signs, seem to be stable, temperature 97.8, pulse is 71, blood pressure 175/55, respiration 20, oxygen saturation 97. MEDICATIONS: Reviewed. The patient is on DuoNeb, aspirin, Pulmicort, Ceftin, doxycycline, Cymbalta 60 mg daily, Pepcid, Flonase, folic acid, Robitussin, Claritin, methotrexate, Solu-Medrol, Singulair, oxycodone, Percocet, Seroquel will be decreased to 75 mg at nighttime, Ambien 5 mg at the nighttime and Zanaflex 4 mg three times a day. LABORATORY DATA: Labs reviewed, most recent was from today. Hemoglobin and hematocrit 8.6 and 26.2. Chemistries reviewed: BUN 29, AST and ALT of 47 and 68 respectively. Magnesium is 2.3. MENTAL STATUS EXAMINATION: The patient appears to be alert and oriented, pleasant, cooperative with eye contact. Speech was normal rate, tone, quality and quantity. Mood described "I feel better, but I am not well yet." Affect was reactive and congruent. Thought process was coherent, goal directed. Thought content, the patient denied visual or tactile hallucinations. Denied paranoid ideation. The patient denied thoughts of harming herself or others. Denied intent or plan. Insight and judgment seem to be fair. Impulses are well controlled. IMPRESSION: Rule out mood disorder due to general medical condition. PLAN: This underwriter solicitation director will start tapering down Seroquel from 100 mg at the nighttime. It will be decreased to 75 mg at the nighttime. This underwriter solicitation director will follow up on this patient over the weekend. Tomorrow Dr. Romo will be seeing the patient with nurse practitioner. The patient deemed not to be in danger to self or others. We will follow up and advise accordingly. Thank you very much for letting me participate in the care of your patient Stephanie Plaza MD cc:
[2017-04-27] MEDS: Cefepime 1gm in NS 100ml 1 GM/100 ML BAG IVPB SCH ×3 (05:36→21:12)
[2017-04-27] MEDS: Oxycodone/Acetaminophen 5/325 mg Tab PO PRN ×2 (05:45→17:18)
[2017-04-27] MEDS: Arformoterol 15 mcg/2 ml Inh Sol IH SCH ×2 (07:25→20:24)
[2017-04-27] MEDS: Budesonide 0.25 mg/2 ml Inhal Susp UD IH SCH ×2 (07:26→20:24)
--- NOTE | 2017-04-27 09:21 | CON ---
DATE: 04/27/2017 CHIEF COMPLAINT: Improvement of the shortness of breath. HISTORY OF PRESENT ILLNESS: This is a 71-year-old female with past medical history significant for patient has a back implant stimulator, history of lupus, hypertension, hyperlipidemia, admitted with shortness of breath, was treated with antibiotics, now transferred to Transitional Care and for further care. REVIEW OF SYSTEMS: Reveals the patient has no shortness of breath now; however, she did have shortness of breath. She is complaining of wheezing earlier. No chest pain. No fevers. No chills. No nausea or vomiting. No abdominal pain, diarrhea or constipation. PAST MEDICAL HISTORY: Significant for lupus, hyperlipidemia, hypertension. PAST SURGICAL HISTORY: Significant for back implant stimulator, appendectomy, hysterectomy, cholecystectomy, left knee surgery, tonsillectomy. ALLERGIES: THE PATIENT HAS NO KNOWN ALLERGIES. MEDICATIONS AT HOME: Reviewed include Seroquel, Pravachol, OxyContin, oxycodone, Solu-Medrol pack, methotrexate, Cymbalta and aspirin. PHYSICAL EXAMINATION: GENERAL: The patient is in bed. VITAL SIGNS: Temperature of 97, blood pressure is 118/80, respiratory rate of 18, it was up to 22 in Acute Care and heart rate of 74. HEENT: Unremarkable. NECK: Supple. LUNGS: Decreased breath sounds. HEART: Normal S1 and S2. ABDOMEN: Soft, nontender. LABORATORY DATA: Reveals a white count of 9, hemoglobin of 8, platelets of 160. Chemistry reveals a BUN of 29, creatinine of 0.7, AST is 47, ALT is 68. Urology is noted and serology influenza is negative. Urine for Legionella antigen is negative. Blood cultures are no growth. Urine cultures are no growth. ASSESSMENT AND PLAN: This is a 71-year-old female with lupus, hyperlipidemia, hypertension, admitted with some cough, shortness of breath, tachycardia and sepsis secondary to hospital-acquired pneumonia, healthcare-associated pneumonia with negative cultures and negative procalcitonin, on p.o. doxycycline and received cefepime day #4 with complete 4-7 days of antibiotics. We will check on C3 and C4. We will make further recommendations. The patient also on Solu-Medrol. We will follow closely with you. C3 and C4 will be ordered in Acute Care, but it was canceled by laboratories reason for which is unclear. Will be ordered again, and we will make further recommendations. Guillermo Edwards MD
[2017-04-27] MEDS: Fluticasone Nasal 50 mcg/Spray NS SCH ×2 (09:54→21:11)
[2017-04-27] MEDS: MethylPREDNISolone 40 mg Vial IVP SCH ×2 (09:57→21:13)
[2017-04-27] MEDS: guaiFENesin 200 mg/10 ml Syrup UD PO PRN ×2 (09:59→13:09)
[2017-04-27 12:04] LABS: COMPLEMENT C4 25.5 mg/dL (14.0-44.0)
[2017-04-27] MEDS: oxyCODONE 20 mg ER Tab (oxyCONTIN) PO PRN ×2 (13:07→21:16)
--- NOTE | 2017-04-27 13:41 | PN ---
SUBJECTIVE: The patient transferred from [facility] to TCU for continued workup and treatment of exacerbation of bronchitis, possible pneumonia, history of lupus, immunocompromise, anemia of chronic disease, chronic back pain. The patient is doing physical therapy and occupational therapy. She is receiving bronchodilators, antibiotics, steroids and also consultation with Dr. Bentley for workup of anemia. PHYSICAL EXAMINATION: VITAL SIGNS: Stable. It looks like the blood pressure is elevated at 196/80. The patient will start amlodipine today along with all other medications. We will also start to taper the steroids. CHEST: Still continues to have rhonchi, but decreased from previous with mild wheezing. HEART: Regular sinus rhythm. There is no S3. No murmurs. EXTREMITIES: No cyanosis, clubbing or edema. ABDOMEN: Obese, but benign. Pelon Ty MD
--- NOTE | 2017-04-27 16:54 | PN ---
DATE: She is being seen today in followup consultation. PRESENTATION: The patient was seen at her bedside. Consultation was called as the patient has been transferred in per unit policy must be seen as she is on psychotropic medication. The patient was admitted to the hospital originally for shortness of breath and had been treated by steroids and antibiotics, did not clear well and she is now in Transitional Care for further care. Medically, she has lupus, hyperlipidemia, and hypotension. She has back implant stimulator, history of appendectomy, hysterectomy, cholecystectomy, left knee surgery, and tonsillectomy. Once seen is upset, she indicates she did not sleep whole night. Once seen yesterday, her Seroquel had been decreased with hopes of tapering her down and off of it due to possible long-term effects; however, the patient clearly was unable to tolerate this, sometimes Seroquel can be difficult to decrease and get off of due to the fact that it can cause a rebound sleeplessness, which is apparently what happened last night. The patient asked me to please put her medication back up the way it was, which I reassured her that I would do. She indicates that she is under a lot of stress with this hospitalization that she is anemic and she keeps "oozing" blood and she is very concerned as to what is going on with her medically and this is playing in her mind as well and that she would rather have her outpatient provider deal with getting off the Seroquel at some later day when things are going better. The patient went in lot of, in regards to, difficulties of moving her to Alzheimer's. He is now at the [facility] and she does go there several times a week. Her grandchildren are in another home and she has close ties with her family, but what bothers her most is her current state of health, she is not "bouncing" back from this respiratory illness the way she has in the past and she is frightened. She is bright. She is articulate and she will able to work with her medical providers to get whatever answers to have available to her and process them. MENTAL STATUS EXAMINATION: The patient is alert and oriented x3. Her eye contact is good. Her behavior is pleasant and cooperative. Her speech rate and volume are within normal limits. Mood is anxious. Affect is constricted. Thoughts are goal directed. She denies being suicidal or homicidal. Denies presence of hallucinations, delusions or paranoia. Her concentration and her focus reports are normal. Her memory both short-term and long-term is adequate. Her appetite, she indicates she is generalized as well, but she does not sleep at whole last night. DIAGNOSTIC IMPRESSION: Major depression. Medically. she has a history of lupus, hyperlipidemia, and hypotension. CURRENT MEDICATIONS: Albuterol, Norvasc 5 mg one p.o. daily, Brovana 15 mcg IH q.12 hours, aspirin 81 mg p.o. daily, Pulmicort 0.25 by inhalation every 12 hours, Maxipime 1 g mg per hour IVP q.8 hours, Doryx 100 mg p.o. q.12 hours, duloxetine, which is Cymbalta 60 mg one p.o. daily, she has been on this for years, famotidine, which is Pepcid 20 mg one p.o. at bedtime, Flonase every 12 hours, folic acid 1 mg p.o. daily, Robitussin 200 mg p.o. q.4 hours as needed, loratadine 10 mg one p.o. daily, methotrexate 2.5 mg p.o. daily, Solu-Medrol 40 mg IV every 12 hours, Singulair 10 mg one at bedtime, oxycodone 20 mg one t.i.d. p.r.n., Seroquel was put back up from 75 mg at bedtime to 100 mg at bedtime, tizanidine 4 mg one p.o. t.i.d., and Ambien 5 mg at bedtime as needed for sleep. PLAN: We will continue to follow the patient and see how she does. Thank you Dr. Plaza. We will follow up tomorrow. Alise Lincoln APN Stephanie Plaza MD MTDD
--- NOTE | 2017-04-27 23:05 | CON ---
DATE: 04/27/2017 This is [facility] visit on the TCU floor. REFERRING PHYSICIAN: Dr. Bentley. CHIEF COMPLAINT: Anemia. HISTORY OF PRESENT ILLNESS: The patient is a 71-year-old female seen sitting up in bed, admitted via the Emergency Room as per primary doctor for early pneumonia, shortness of breath. The patient then developed anemic indices after being hospitalized for two to three days with the patient known to suffer from rheumatoid arthritis, hypertension. With this, workup was planned with stool for occult blood not obtained as the patient was transferred from the medical floor to the TCU floor with orders not related. With this, the patient is otherwise in no acute distress at this visit. Labs will also be done today as they were not reordered after transfer. PAST MEDICAL HISTORY: As above, history of lupus and rheumatoid arthritis followed by Dr. Hurt; the patient is on methotrexate, also hypertension, hyperlipidemia status post appendectomy, hysterectomy, cholecystectomy, knee surgery, tonsillectomy and history of questionable depression. ALLERGIES: NO KNOWN ALLERGIES. MEDICINES: From home include oxycodone, Seroquel, Cymbalta, Zanaflex, Pravachol, Medrol Dosepak, and methotrexate. FAMILY HISTORY: Noncontributory. SOCIAL HISTORY: Nonsmoker. Non-ethanol. REVIEW OF SYSTEMS: The 12-point review of systems was done, which was negative to questioning except as above. PHYSICAL EXAMINATION VITAL SIGNS: Temperature 97.2, pulse 80, respirations 20, blood pressure 120/78, pulse ox 98%. HEENT: Unremarkable. NECK: Supple. HEART: Tachy rate regular rhythm. LUNGS: Occasional rhonchi. ABDOMEN: Obese, soft, and nontender. EXTREMITIES: A +1 edema at the feet bilaterally. NEUROLOGIC: Awake and alert. SKIN: Warm dry with ecchymotic changes status post phlebotomy attempt on both of her arms bilaterally. LABORATORY DATA: The patient's labs were not done today. They would be ordered for the morning. It should be noted that the patient's reticular count yesterday was 0.88 with a sedimentation rate of 25 and a hemoglobin of 8.6 yesterday. Late evening repeat blood test was ordered, was not done. The patient did have a iron saturation of 34 done yesterday with a total iron binding capacity of 244. AST of 47, ALT of 68, with a TSH of 0.06. Early in her hospital stay a vitamin B12 level was noted to be 968 with a folate value of 15.2. However, a smear review was not done and this will be requested along with labs in the morning. ASSESSMENT: The assessment for this patient is that of deconditioning, history of pneumonia, rheumatoid arthritis with lupus erythematosus, hypertension, anemia, and obesity. PLAN: Plan for this patient after conversation with Dr. Bentley is to get the required labs ordered for the morning along with consult with Dr. Castillo, Gastrointestinal e business consultant as the patient's labs did deteriorate with a hemoglobin on admission of 10.7 with a high of 11.2 the following day and most recently 8.6. We will monitor clinical with labs and check a stool for occult blood. Isidoro Mondragon MD
[2017-04-28] MEDS: Oxycodone/Acetaminophen 5/325 mg Tab PO PRN ×2 (01:05→17:18)
--- NOTE | 2017-04-28 02:07 | CON ---
DATE: 04/27/2017 PULMONARY CONSULT REFERRING PHYSICIAN: Dr. Ty. REASON FOR CONSULT: Sinusitis, cough, and shortness of breath. HISTORY OF PRESENT ILLNESS: This is a 71-year-old female, known to me from acute side of the hospital. The patient admitted with rhinitis, postnasal drip, cough, shortness of breath, and wheezing, treated with antibiotics, IV and inhaled bronchodilator, feels better, now admitted to [facility] for continued care. Still has a facial discomfort, postnasal drip, cough, and shortness of breath, also found to have anemia. PAST MEDICAL HISTORY: As per history of present illness. ALLERGIES: NONE KNOWN. SOCIAL HISTORY: Nonsmoker, nondrinker. FAMILY HISTORY: No significant cardiopulmonary disease reported. MEDICATIONS: She is on Ambien 5 mg at bedtime p.r.n., Brovana 15 mcg inhaled twice a day, Claritin 10 mg daily, Cymbalta 60 mg daily, doxycycline 100 mg twice a day, DuoNeb q. 6 hour, Ecotrin 81 mg daily, Flonase 1 spray each nostrils twice a day, folic acid 1 mg daily, cefepime 1 g q. 8 hours, methotrexate 2.5 mg daily, Norvasc 5 mg daily, OxyContin extended release 20 mg 3 times a day p.r.n., Pepcid 20 mg at bedtime, Percocet 5/325 one tab q. 12 hour p.r.n., Pulmicort inhaled twice a day, Robitussin p.r.n. basis, Seroquel 100 mg daily, Singulair 10 mg daily, Solu-Medrol 40 mg q. 12 hours, and Zanaflex 4 mg 3 times a day. REVIEW OF SYSTEMS: No headache. Still has a facial discomfort, rhinitis, postnasal drip, cough, and wheezing. No nausea, no vomiting, no diarrhea. No leg pain or leg swelling. PHYSICAL EXAMINATION: GENERAL: Lying in the bed, in no acute distress. VITAL SIGNS: Temperature is 98, heart rate is 94, respiratory rate is 20, blood pressure 170/75, pulse ox 98% on room air. HEENT: Moist mucous membranes. Small oral cavity. Still there is maxillary area tenderness. LUNGS: Have expiratory wheezing. HEART: S1 and S2. ABDOMEN: Soft and nontender. No organomegaly. EXTREMITIES: No edema. NEUROLOGIC: Awake and alert. Follows simple commands. LABORATORY DATA: Shows hemoglobin is 8.6, hematocrit 26.2, WBC 9.1, platelet is 160. Sed rate is 25, reticulocyte count is 0.88. Microbiology, blood cultures and urine cultures are negative. IMPRESSION AND PLAN: Sinusitis with postnasal drip, basilar infiltrate, chronic obstructive lung disease, history of systemic lupus erythematosus, rheumatoid arthritis, hypertension, hyperlipidemia, immunocompromised, on immunosuppressive medication, anemia. Pulmonary point of view, doing okay. Continue intravenous and inhaled bronchodilators, keep head at 45 degrees, sleep apnea precaution, add nasal saline 2 sprays each nostril q. 2 hour p.r.n. Seen by psychiatrist. We will follow hemoglobin and hematocrit. Gastric prophylaxis and deep venous thrombosis prophylaxis. Continue therapy. Thank you and we will follow with you. Alek Salazar MD
[2017-04-28] MEDS: Albuterol-Ipratrop 3 mg / 0.5 (3 ml) UD IH SCH ×4 (02:12→19:45)
[2017-04-28] MEDS: oxyCODONE 20 mg ER Tab (oxyCONTIN) PO PRN ×2 (03:44→08:33)
[2017-04-28] MEDS: Cefepime 1gm in NS 100ml 1 GM/100 ML BAG IVPB SCH (05:40)
[2017-04-28] MEDS: Arformoterol 15 mcg/2 ml Inh Sol IH SCH ×2 (07:28→19:45)
[2017-04-28] MEDS: Budesonide 0.25 mg/2 ml Inhal Susp UD IH SCH ×2 (07:28→19:45)
[2017-04-28 07:56] LABS: GRAN # 6.28 (1.4-6.5); GRAN % 93.9 % (50.0-68.0); HEMOGLOBIN 9.2 g/dL (12.0-16.0); LYMPH # 0.3 (1.2-3.4); LYMPH % 4.9 % (22.0-35.0); MEAN CELL VOLUME 97.5 fl (80.0-105.0); MEAN CORPUSCULAR HEMOGLOBIN 32.5 pg (25.0-35.0); MEAN CORPUSCULAR HGB CONC 33.3 g/dl (31.0-37.0); MEAN PLATELET VOLUME 9.9 fl (7.0-11.0); MONO # 0.1 (0.1-0.6); MONO % 1.2 % (1.0-6.0); PLATELET COUNT 159 10^3/uL (120.0-450.0); RBC 2.83 10^6/uL (3.5-6.1); RED CELL DISTRIBUTION WIDTH 14.9 % (11.5-14.5); WHITE BLOOD COUNT 6.7 10^3/ul (4.5-11.0)
[2017-04-28 08:11] LABS: ALB/GLOB RATIO 1.4 (1.1-1.8); ALBUMIN 3.4 g/dL (3.0-4.8); ALT/SGPT 95 U/L (7-56); AST/SGOT 40 U/L (14-36); BLOOD UREA NITROGEN 26 mg/dL (7-21); CALCIUM 9.1 mg/dL (8.4-10.5); GFR AFRICAN-AMERICAN > 60; GFR NON-AFRICAN AMERICAN > 60
[2017-04-28] MEDS: guaiFENesin 200 mg/10 ml Syrup UD PO PRN ×2 (08:33→17:20)
[2017-04-28] MEDS: guaiFENesin 600 mg ER Tab PO SCH ×2 (09:12→17:21)
[2017-04-28] MEDS: MethylPREDNISolone 40 mg Vial IVP SCH ×2 (09:16→21:27)
[2017-04-28] MEDS: Fluticasone Nasal 50 mcg/Spray NS SCH ×2 (09:17→21:22)
[2017-04-28 09:37] LABS: ANISOCYTOSIS 1+; HYPOCHROMIA 1+; LYMPHOCYTE 4 % (22.0-35.0); MONOCYTE 1 % (1.0-6.0); NEUTROPHIL 95 % (50.0-70.0); PLATELET ESTIMATE NORMAL (NORMAL)
--- NOTE | 2017-04-28 09:55 | CON ---
DATE: 04/27/2017 This patient was seen and evaluated earlier today. REASON FOR CONSULTATION: Anemia . HISTORY OF PRESENT ILLNESS: This is a 71-year-old patient with a history of lupus, hypertension, dyslipidemia, admitted with shortness of breath, diagnosed with pneumonia, and the patient has been treated with antibiotics, transferred to TCU for deconditioning. The patient denies any history of bleeding per rectum. The patient was also found to be anemic with the patient's hemoglobin on admission was 10.7. It has slowly dropped down to 8.6. In view of this drop in blood count, consult was requested to evaluate it. PAST MEDICAL HISTORY Rhematoid arthritis HTN dyslipidemia Lupus PAST SURGICAL HISTORY ap appendectomy hysterectomy cholecystectomy knee surgery tonsillectomy ALLERGIES nkda FAMILY HISTORY Non contributory SOCIAL HISTORY no smoking no alcohol REVIEW OF SYSTEM all 12 point system reviewed negative except above PHYSICAL EXAMINATION comfortable not in distress VITAL stable HEENT not jaundiced ,GURJIT NECK supple no mass CVS si s2 heard,regular RS Bilateral AE presemt occayional rochi ABDOMEN soft no mass no tenderness EXTREMITIES no edema,no cynosis NEUROLOGY A0X3 LAB reviewed, CT reviewed ASSESSMENT The patient's MCV has been normal. He has normocytic anemia. The patient's transferrin saturation was normal. Also had a CT scan of the abdomen and pelvis done which was essentially unremarkable. The CAT scan, otherwise, unremarkable. The patient denies any bleeding per rectum. No abdominal pain. Had endoscopy and colonoscopy more than 10 years ago. Denies any GI symptoms. The likely cause of anemia and the drop in blood count is unclear. The patient has a history of rheumatoid arthritis, on methotrexate, history of hypertension, status post cholecystectomy. PLAN I would recommend now with followup of the hemoglobin and hematocrit. The patient does have normocytic anemia, this could be related to rheumatoid arthritis. We would recommend at this point, his followup of the hemoglobin/hematocrit. I will discuss with Dr. Bentley and also with Dr. Ty. Continue with the antibiotics as per ID. Presently, on doxycycline and on cefepime. Thank you very much for allowing us to participate in the care of the patient. Ananya Castillo MD [facility] # [id number] MTDD
--- NOTE | 2017-04-28 13:48 | PN ---
DATE: 04/28/2017 SUBJECTIVE: The patient is in bed. PHYSICAL EXAMINATION: VITAL SIGNS: The patient's temperature is 98, blood pressure is 180/60, respiratory rate is 20, and heart rate of 80. HEENT: Unremarkable. NECK: Supple. LUNGS: Decreased breath sounds. HEART: Normal S1 and S2. ABDOMEN: Soft and nontender. LABORATORY DATA: Reveals white count of 6.7, hemoglobin of 9, and platelets of 159. BUN of 26 and creatinine of 0.8. Immunology is noted. The patient's C3 is 124, which is within normal limits and complement C4 is 25, which is also within normal limits and microbiology is noted. Review of orders are now that the patient is on cefepime and doxycycline. The patient had procalcitonin of 0.12 on 04/24/2017. ASSESSMENT AND PLAN: This is a 71-year-old female with lupus, hyperlipidemia, hypertension, shortness of breath, tachycardia, sepsis, hospital-acquired pneumonia, healthcare-associated pneumonia, negative cultures, negative procalcitonin and on day #5 of cefepime and doxycycline, normal complement 3 and 4. We will discontinue the cefepime and complete the 7 days of doxycycline, today is day #5 of 7. The patient appears much for comfortable today. Guillermo Edwards MD
--- NOTE | 2017-04-28 15:10 | PN ---
DATE: SUBJECTIVE: A 71-year-old white female admitted to the hospital. The patient with lupus, admitted with asthmatic bronchitis, possible pneumonia, and hypertension. PHYSICAL EXAMINATION: VITAL SIGNS: The patient had blood pressure of 173/81, temperature 98, and pulse is 70. LABORATORY DATA: Hemoglobin had been as low as 8.6 was up to 9.2 today. ASSESSMENT: She was seen in consultation with Dr. Bentley for anemia of chronic disease. The patient has less cough, less sputum production and lungs have less wheezing and less rhonchi today than the following day. PLAN: Continue amlodipine and valsartan. Continue on bronchodilators, antibiotics and steroids for her lung disease and her lupus. Pelon Ty MD
--- NOTE | 2017-04-28 17:52 | PN ---
DATE: 04/28/2017 This is [facility]'s [facility] visit on TCU. For Dr. Bentley. SUBJECTIVE: The patient is a 71-year-old female, seen sitting up in bed, in no acute distress. This visit her anemia of kidney disease has modestly improved after observation with the value of her hemoglobin up to 9.2 today, previously one dropping to 8.6 recently. The patient noted to suffer from lupus erythematosus and rheumatoid arthritis, followed by Dr. Hurt on methotrexate. She is in no acute distress this visit and she is continued with reconditioning on TCU. OBJECTIVE/PHYSICAL EXAMINATION: VITAL SIGNS: Temperature 98.4; pulse 74; respirations 20; blood pressure 186/82, to be repeated; pulse ox 99%. HEENT: Unremarkable. NECK: Supple. HEART: Regular rate. LUNGS: Clear. ABDOMEN: Obese, soft, nontender. EXTREMITIES: Faint +1 edema of the feet and hands secondary to RA. NEUROLOGIC: Awake, alert, and oriented x3. SKIN: Otherwise, warm, dry, and clear except for ecchymotic changes status post phlebotomy attempts in her elbow crease. LABORATORY DATA: The patient's labs were done. White blood cell count of 6.7, hemoglobin of 9.2, hematocrit 27.6, platelet count of 159,000. A chem metabolic panel showing normal chem metabolic panel with an AST of 40, ALT of 95, BUN of 26 with a normal creatinine of 0.8. A complement C3 was within normal range at 124, C4 of 25. ASSESSMENT: For this patient is that of deconditioning, lupus with rheumatoid arthritis, anemia secondary to medications?, a history of pneumonia, obesity, hypertension. After consultation with Dr. Bentley, we will continue present medical regimen with GI consult appreciated with Dr. Castillo with the patient to continue with reconditioning. We will monitor clinically and check the labs again in the morning with further workup as indicated. Isidoro Mondragon MD
--- NOTE | 2017-04-28 20:36 | PN ---
DATE: 04/28/2017 REFERRING PHYSICIAN: Dr. Ty. SUBJECTIVE: She is sitting up in the bed, participating in therapy. Night was unremarkable. Overall feels better. Decrease facial pain. Decrease cough and shortness of breath. No nausea. No vomiting. No diarrhea. No leg pain or leg swelling. OBJECTIVE: GENERAL: In no acute distress. VITAL SIGNS: Temperature is 98, heart rate is 67, respiratory rate is 20, blood pressure is 84/43 and pulse oximetry is 95% on 2 liters nasal cannula. HEENT: Moist mucous membranes. Crowded airway. NECK: Supple. No JVD. Has a facial mild tenderness. LUNGS: Has scattered rhonchi. HEART: S1 and S2. ABDOMEN: Soft and nontender. No organomegaly. EXTREMITIES: No edema. NEUROLOGIC: Awake, alert and follows simple commands. MEDICATIONS: She is on Ambien 5 mg at bedtime p.r.n., Brovana inhaled twice a day, Claritin 10 mg daily, Cymbalta 60 mg daily, Diovan 320 mg daily, doxycycline 100 mg twice a day, DuoNeb q. 6 hours, Ecotrin 81 mg daily, Flonase one spray q. 12 hours, methotrexate 2.5 mg daily, Mucinex 600 mg twice a day, Norvasc 5 mg daily, OxyContin extended release 20 mg q. 8 hours p.r.n., Pepcid 20 mg at bedtime, Percocet 5/325 mg one tablet q. 12 hours p.r.n., Pulmicort inhaled twice a day, Robitussin 200 mg q. 4 hours p.r.n., Diovan 100 mg daily, Singulair 10 mg at bedtime, Solu-Medrol 20 mg q. 12 hours, Zanaflex 4 mg 3 times a day. LABORATORY DATA: Shows hemoglobin 9.2, hematocrit 27.6, WBC 6.7, platelet is 159. Sodium 138, potassium 4.3, chloride 101, bicarbonate 30, BUN 26, creatinine 0.8, glucose 125, calcium 9.1, total bilirubin 0.4, AST 40, ALT 95, alk phos is 48. IMPRESSION AND PLAN: Sinusitis, has postnasal drip, basilar infiltrate, chronic obstructive lung disease, systemic lupus erythematosus, rheumatoid arthritis, hypertension, hyperlipidemia, immunocompromise anemia, uncontrolled hypertension. We will continue watch blood pressure closely. Continue IV and inhaled bronchodilators. Keep head at 45 degrees. Sleep apnea precautions. Gastric prophylaxis. DVT prophylaxis. Encourage therapy. Thank you and we will follow with you. Alek Salazar MD
--- NOTE | 2017-04-28 22:28 | PN ---
SUBJECTIVE: Patient was followed up at [facility] today. Patient was taking Seroquel and initially, patient wanted to be weaned off from the Seroquel after dose was decreased. Patient reported that she has poor sleep as well as insomnia. Patient said that she made her mind and she wants to continue Seroquel as of now. After she will get better, she will go to her primary care physician or psychiatrist in order to be weaned off from the Seroquel. Again, this account underwriter educated patient about risks, benefits, and alternatives of the medication. Patient was appreciative. Patient denied being depressed. Denied thoughts of harming herself or others. Denied intent or plan. Patient reported that she is improving. Expressed no concerns. Denied visual, auditory, or tactile hallucinations. PHYSICAL EXAMINATION: VITAL SIGNS: Stable. Temperature 98.0, pulse 67, blood pressure 84/43, respirations 16. MEDICATIONS: Reviewed. Patient is on DuoNeb, Norvasc, Brovana, aspirin, Pulmicort, doxycycline, Cymbalta, Pepcid, Flonase, folic acid, Robitussin, Mucinex, Claritin, Solu-Medrol, Singulair, oxycodone, Seroquel 100 mg at the nighttime, sodium chloride, Zanaflex, Diovan, and Ambien as needed for insomnia. LABORATORY DATA: Labs reviewed. Most recent was from today. There are no signs of leukocytosis. Hemoglobin and hematocrit 9.2 and 27.6. MENTAL STATUS EXAM: Patient presented to be alert and oriented, pleasant, cooperative, socially appropriate. Good eye contact. Mood described as, "I feel okay now." Affect was reactive, mood congruent. Thought process was habitual and goal directed. Thought content, patient denied visual, auditory, or tactile hallucinations. Denied paranoid ideation. Patient denied thoughts of harming herself or others. Denied intents or plan. Insight and judgment are fair. Impulses are well controlled. IMPRESSION: As per history, mood spectrum disorder versus adjustment disorder versus major depressive disorder. At the present moment, in remission. Patient has multiple medical problems, social problems. PLAN: Patient does not want to decrease the dose of Seroquel, wants to continue all medications as it is. Patient said that at the present moment, she is not treated to be weaned off from the Seroquel. Patient wants to continue Cymbalta. Patient was educated about all of the psychotropic medications. Risk, benefits, and alternatives discussed in details. Patient was appreciative. Patient poses no imminent danger to self or others. Patient is not psychotic. Patient will be followed up with primary care physician and psychiatrist as outpatient. Should you have any questions, give me a call back. This account underwriter will sign off. Should you have any questions, call me back. Thank you so much. Stephanie Plaza MD
[2017-04-29] MEDS: oxyCODONE 20 mg ER Tab (oxyCONTIN) PO PRN ×3 (01:16→20:01)
[2017-04-29] MEDS: Albuterol-Ipratrop 3 mg / 0.5 (3 ml) UD IH SCH ×3 (03:15→13:53)
--- NOTE | 2017-04-29 05:23 | PN ---
DATE: 04/28/2017 SUBJECTIVE: This patient was seen and evaluated today. Discussed with the nursing staff. i PHYSICAL EXAMINATION: VITAL SIGNS: Afebrile, temperature is 98.4, blood pressure 186/82, pulse 74, respirations 20, and O2 saturation 99%. HEENT: Atraumatic. Anicteric. NECK: Supple. HEART: S1 and S2. LUNGS: Bilateral air entry present. ABDOMEN: Soft. There is mild tenderness on deep palpation of the right upper quadrant area. There is no rebound or guarding. EXTREMITIES: No cyanosis. No clubbing. NEUROLOGIC: Alert and oriented. Moves all the extremities. LABORATORY DATA: No recent labs today. His hemoglobin remained stable at 9.2 and hematocrit 27.6. Chemistry shows BUN elevated at 26. AST 40 and ALT is 25. IMPRESSION&PLAN this 71-year-old patient with a possible medical history of rheumatoid arthritis is being treated for pneumonia. She is found to have anemia with a decreasing hemoglobin. No obvious melena or bright red per rectum I had a detailed discussion with the patient presently she is reluctant for GI workup Tranferrin saturation was normal.. B12 level has been normal The differential diagnoses should include a chronic anemia secondary to rheumatoid arthritis We will follow up of the hemoglobin hematocrit Continue the antibiotics as per ID and rheumatology follow-up Will discuss with Dr. Ty. Thank you very much for allowing us to participate in the care of the patient. Ananya Castillo MD MTDD
[2017-04-29 06:23] LABS: ALBUMIN 3.3 g/dL (3.0-4.8); ALT/SGPT 83 U/L (7-56); AST/SGOT 40 U/L (14-36); BLOOD UREA NITROGEN 28 mg/dL (7-21); CALCIUM 9.3 mg/dL (8.4-10.5); GFR AFRICAN-AMERICAN > 60; GFR NON-AFRICAN AMERICAN > 60
[2017-04-29 06:25] LABS: ALB/GLOB RATIO 1.4 (1.1-1.8)
[2017-04-29 06:27] LABS: GRAN # 5.06 (1.4-6.5); GRAN % 93.2 % (50.0-68.0); HEMOGLOBIN 8.7 g/dL (12.0-16.0); LYMPH # 0.3 (1.2-3.4); LYMPH % 4.8 % (22.0-35.0); MEAN CELL VOLUME 97.8 fl (80.0-105.0); MEAN CORPUSCULAR HGB CONC 32.7 g/dl (31.0-37.0); MEAN PLATELET VOLUME 9.9 fl (7.0-11.0); MONO # 0.1 (0.1-0.6); RBC 2.72 10^6/uL (3.5-6.1); RED CELL DISTRIBUTION WIDTH 14.8 % (11.5-14.5); WHITE BLOOD COUNT 5.4 10^3/ul (4.5-11.0)
[2017-04-29] MEDS: Oxycodone/Acetaminophen 5/325 mg Tab PO PRN (07:10)
[2017-04-29] MEDS: Arformoterol 15 mcg/2 ml Inh Sol IH SCH ×2 (07:54→23:00)
[2017-04-29] MEDS: Budesonide 0.25 mg/2 ml Inhal Susp UD IH SCH ×2 (07:54→23:00)
[2017-04-29] MEDS: Fluticasone Nasal 50 mcg/Spray NS SCH ×3 (09:25→21:44)
--- NOTE | 2017-04-29 11:28 | PN ---
DATE: SUBJECTIVE: A 71-year-old white female in TCU, lupus, anemia of chronic disease, hemoglobin 8.7, admitted with asthmatic bronchitis. The patient has less cough, less wheezing, less shortness of breath. Lungs are finally cleared today. The patient is tolerating physical therapy and occupational therapy. She was in consultation with Dr. Bentley because of her anemia, lupus. PLAN: We are awaiting in for protein level and following her H and H serially. Continuing her bronchodilators, steroids and antibiotics. Pelon Ty MD
[2017-04-29] MEDS: guaiFENesin 600 mg ER Tab PO SCH ×2 (11:45→18:22)
--- NOTE | 2017-04-29 14:50 | PN ---
DATE: 04/29/2017 SUBJECTIVE: The patient is in bed in no acute distress, nontoxic. PHYSICAL EXAMINATION: VITAL SIGNS: Temperature is 98, blood pressure is 150/70, respiratory rate, and heart rate of 76. HEENT: Unremarkable. NECK: Supple. LUNGS: Have decreased breath sounds. HEART: Normal S1 and S2. ABDOMEN: Soft and nontender. LABORATORY EXAMINATION: Reveals a white count of 5.4, hemoglobin of 8, and platelets of 143. Chemistries are noted BUN of 28, creatinine of 0.9. Complements are noted to be normal both C3 and 34. Review of orders reveals the patient to be on p.o. doxycycline. ASSESSMENT AND PLAN: This is a 71-year-old female seen earlier today in room 302 with lupus, hyperlipidemia, hypertension, shortness of breath, tachycardia, sepsis, hospital-acquired pneumonia, healthcare-associated pneumonia, negative cultures, negative procalcitonin, and today is day number 6 of doxycycline, would complete 7 days. Guillermo Edwards MD
[2017-04-29] MEDS ORDERED: MethylPREDNISolone 40 mg Vial IVP SCH (15:20)
[2017-04-29] MEDS ORDERED: Albuterol-Ipratrop 3 mg / 0.5 (3 ml) UD IH PRN (16:43)
--- NOTE | 2017-04-29 22:00 | PN ---
DATE: 04/29/2017 This is [facility] visit on the TCU floor. For Dr. Bentley: SUBJECTIVE: The patient is a 71-year-old female sitting up in bed with the patient noted to have dropped her hemoglobin again, it is the anemia of chronic disease, not kidney disease as was transcribed on a previous note. With this, the patient now at 8.7; however, stool for occult blood has not been done. We will ask for this to be again sent. We will also ask Dr. Castillo to consider scoping as indicated. The patient is now to suffer from lupus with rheumatoid arthritis with the patient reported that she was on methotrexate 2.5 mg on a daily basis, in anticipation of getting IV Remicade I believe with eventually the patient to have the methotrexate on a weekly basis. With this, the patient reports that Dr. Ty, her primary doctor, did say he would stop the daily methotrexate with review of the medical Kardex, not done yet, we will do this now. With this, per review of her medications and review with Dr. Salazar, her recruitment advertising manager, we will stop the guaifenesin which is given two separate orders for the same medication. We will also cut back her Solu-Medrol to 30 IV q. 12 from 40 IV q. 12. We will also stop her aspirin temporarily as she is in a controlled environment with the methotrexate also to be put on hold until this could be clarified with weekly dose to be given as opposed to be 2.5 mg daily as ordered now. We will also humidify her oxygen as she has multiple complaints relating to her sinuses and breathing with Dr. Salazar reporting that her DuoNeb treatments are to be p.r.n., however, this is scheduled, we will correct this. The patient is otherwise in no acute distress, reporting that the medications were reviewed recently with a nurse practitioner which was reported to be clarified with Dr. Ty. Also upon review of her labs, she was noted to have TSH of 0.2, few days prior 0.06 most recently with a consult for her hypothyroid indices also to be recommended. We will also change to Protonix for GI prophylaxis versus the H2 jackie, famotidine with the consideration of the GI bleed from steroids and nonsteroidals. All these recommendations were discussed with the patient. There was also a note from Dr. Stephanie Plaza recommending cutting back her Seroquel from 100 mg to 75 mg and we will do this with doxycycline to be discontinued after 7 days which is tomorrow as per Dr. Edwards. We will also renew her narcotic analgesics for the interim. OBJECTIVE/PHYSICAL EXAMINATION: VITAL SIGNS: Temperature 98, pulse 94, respirations 18, blood pressure 106/45, and pulse ox 96%. HEENT: Unremarkable. She has a scot complexion. NECK: Supple. HEART: Regular rate. LUNGS: Clear. ABDOMEN: Obese, soft and nontender. EXTREMITIES: A +1 edema. NEUROLOGIC: Awake, alert, and oriented. SKIN: Warm, dry and clear except ecchymotic changes post to the elbow creases bilaterally. LABORATORY DATA: The patient's labs were done. White blood cell count 5.4, hemoglobin 8.7, hematocrit 26.6, platelet count 148,000. Chem metabolic panel showing a BUN of 28 with a creatinine 0.9. AST of 40, ALT of 83. It should also be noted that the patient did have as well as listed TSH value on her hospital stay of 0.06 and 0.2 [address] a consult for Dr. Isabel Swenson to be implemented. ASSESSMENT: For this patient is that of deconditioning, anemia of chronic disease, rheumatoid arthritis, history of lupus, pneumonia, obesity, hypertension, abnormal TSH. PLAN: After consultation with Dr. Bentley and Dr. Edwards, will be to continue present medical regimen for now. We will cut back her Seroquel, cut back her steroids, change to Protonix versus famotidine. Check her stool for occult blood. Discontinue her aspirin for now. Multivitamin with iron. Dr. Swenson to see her for hypothyroid indices. Methotrexate to be stopped. With this with Dr. Edwards, we will stop her antibiotics today with continuation of the present medical regimen as above. We will monitor clinically with labs. Isidoro Mondragon MD
--- NOTE | 2017-04-29 23:38 | PN ---
PULMONARY PROGRESS NOTE DATE: 04/29/2017 REFERRING PHYSICIAN: Pelon Ty MD SUBJECTIVE: She is lying in the bed, head at 45 degrees, feels tired and sleepy, but overall doing better with cough and shortness of breath. Sinus tenderness is better. No nausea. No vomiting. No diarrhea. No leg pain or leg swelling. PHYSICAL EXAMINATION GENERAL: In no acute distress. VITAL SIGNS: Temperature is 98, heart rate is 94, respiratory rate is , blood pressure is 106/45, and pulse oximetry is 96% on nasal cannula. HEENT: Moist mucous membranes. Maxillary area tenderness is better. NECK: Supple. No JVD. No thrush. LUNGS: Have few scattered rhonchi. HEART: S1 and S2. ABDOMEN: Soft and nontender. No organomegaly. EXTREMITIES: No edema. NEUROLOGIC: Awake and alert. Follows simple command. MEDICATIONS: She is on Ambien 5 mg at bedtime p.r.n., Brovana inhaled twice a day, Claritin 10 mg daily, Colace 100 mg daily, Cymbalta 60 mg daily, Diovan 320 mg daily, DuoNeb q. 6 hours p.r.n., Ecotrin 81 mg daily which is on hold, Flonase one spray to each nostril twice a day, folic acid 1 g daily, methotrexate 2.5 mg daily, Mucinex LA 600 mg twice a day, Norvasc 5 mg daily, nasal saline q. 2 hours p.r.n., OxyContin extended release 20 mg 3 times a day p.r.n., Percocet 5/325 mg one tablet q. 12 hours p.r.n., Protonix 40 mg daily, Pulmicort inhaled twice a day, Seroquel 75 mg daily, Singulair 10 mg daily, Solu-Medrol 30 mg twice a day, multivitamins daily and Zanaflex 4 mg 3 times a day. LABORATORY DATA: Shows hemoglobin 8.7, hematocrit 26.6, WBC 5.4 and platelets 148. Sodium 137, potassium 4.2, chloride 99, bicarbonate 33, BUN 28, creatinine 0.9, glucose 127 and calcium 9.3. Total bilirubin 0.4, AST 40, ALT 83 and alk phos is 42. IMPRESSION AND PLAN: Sinusitis, postnasal drip, basilar infiltrate, chronic obstructive lung disease, history systemic lupus erythematosus, rheumatoid arthritis, hypertension, hyperlipidemia, immunocompromise anemia. Case discussed with Hematology Services. We will continue IV and inhaled bronchodilators, nasal saline and Flonase, antihistamines, and leukotriene inhibitor. Keep head elevated at 45 degrees. Need a stool guaiac to show there is no gastrointestinal GI loss of blood. Gastric and deep venous thrombosis prophylaxis. Follow up labs in the morning. Thank you and we will follow with you. Alek Salazar MD
--- NOTE | 2017-04-30 02:06 | PN ---
DATE: 04/29/2017 SUBJECTIVE: This patient was seen and evaluated earlier today. Denies any specific GI complaints. PHYSICAL EXAMINATION: VITAL SIGNS: Temperature is 98, pulse 94, blood pressure 106/45. HEENT: Atraumatic, anicteric. NECK: Supple. HEART: S1, S2 heard. LUNGS: Bilateral air entry present. ABDOMEN: Soft. No tenderness. EXTREMITIES: No cyanosis. No clubbing. NEUROLOGIC: Alert, oriented, moves all the extremities. LABORATORY DATA: Hemoglobin 8.7, hematocrit 26.6, WBC 5.4, platelets 148,000, AST of 40, ALT 43. IMPRESSION: This 71-year-old patient with past medical history of rheumatoid arthritis, followed by Dr. Hurt on methotrexate, admitted with pneumonia, on antibiotics. Found to have a slow drop in blood count. GI consult was requested and evaluated. The patient denies any obvious melena or bleeding per rectum. No abdominal complaints. The patient mentioned that she has an endoscopy and colonoscopy many years ago. She is reluctant about it now. The patient has also been on methotrexate, which has been discontinued. We would recommend followup of the hemoglobin, hematocrit and hematological followup, benefit from an elective EGD and colonoscopy if agreeable. Thank you very much for allowing us to participate in the care of the patient. Ananya Castillo MD [facility]
[2017-04-30] MEDS: oxyCODONE 20 mg ER Tab (oxyCONTIN) PO PRN ×3 (06:23→19:06)
[2017-04-30] MEDS: Pantoprazole 20 mg EC Tab PO SCH (06:24)
[2017-04-30] MEDS: Budesonide 0.25 mg/2 ml Inhal Susp UD IH SCH ×2 (07:30→21:40)
[2017-04-30] MEDS: Arformoterol 15 mcg/2 ml Inh Sol IH SCH ×2 (07:30→21:40)
[2017-04-30] MEDS: Multivitamin With Minerals Tab PO SCH (08:21)
[2017-04-30 08:26] LABS: EOS % 0.2 % (1.5-5.0); GRAN # 5.4 (1.4-6.5); GRAN % 90.9 % (50.0-68.0); LYMPH # 0.4 (1.2-3.4); LYMPH % 6.4 % (22.0-35.0); MEAN CELL VOLUME 97.5 fl (80.0-105.0); MEAN CORPUSCULAR HEMOGLOBIN 32.2 pg (25.0-35.0); MEAN PLATELET VOLUME 10.3 fl (7.0-11.0); MONO # 0.2 (0.1-0.6); MONO % 2.5 % (1.0-6.0); RBC 2.36 10^6/uL (3.5-6.1); RED CELL DISTRIBUTION WIDTH 14.9 % (11.5-14.5); WHITE BLOOD COUNT 5.9 10^3/ul (4.5-11.0)
[2017-04-30 08:32] LABS: ALB/GLOB RATIO 1.5 (1.1-1.8); ALBUMIN 3.2 g/dL (3.0-4.8); ALT/SGPT 88 U/L (7-56); AST/SGOT 38 U/L (14-36); BLOOD UREA NITROGEN 44 mg/dL (7-21); GFR AFRICAN-AMERICAN > 60; GFR NON-AFRICAN AMERICAN > 60
[2017-04-30 08:35] LABS: HEMOGLOBIN 7.6 g/dL (12.0-16.0)
[2017-04-30] MEDS: Fluticasone Nasal 50 mcg/Spray NS SCH ×2 (09:50→23:56)
[2017-04-30] MEDS: guaiFENesin 600 mg ER Tab PO SCH (09:51)
--- NOTE | 2017-04-30 13:38 | PN ---
DATE: 04/30/2017 SUBJECTIVE: The patient is in bed, in no acute distress, was seen early this morning. She is complaining of generalized aches and pains. No fevers or chills. PHYSICAL EXAMINATION: VITAL SIGNS: Temperature is 97, blood pressure is 130/60, respiratory rate of 18, and heart rate of 94. HEENT: Examination of HEENT is unremarkable. NECK: Supple. LUNGS: Decreased breath sounds. HEART: Normal S1 and S2. ABDOMEN: Soft and nontender. LABORATORY DATA: Laboratory examination reveals a white count of 5.9, hemoglobin of 7, and platelets of 140. Chemistry reveals BUN of 44 and creatinine of 0.7. Complement levels are noted. Microbiology is reviewed. MEDICATIONS: Review of orders reveals the patient to be off of antibiotics. The patient is on prednisone. ASSESSMENT AND PLAN: This is a 71-year-old female with lupus, hyperlipidemia, hypertension, shortness of breath, tachycardia, sepsis, hospital-acquired health care associated pneumonia with negative cultures, and negative procalcitonin. The patient has completed 7 days of doxycycline. Off of antibiotics. I will follow closely with you. Guillermo Edwards MD
[2017-04-30] MEDS: POLYETHYLENE GLYCOL 3350 17 GM/Dose PACKET PO SCH (15:02)
--- NOTE | 2017-04-30 18:36 | CON ---
ENDOCRINOLOGY CONSULTATION LOCATION: Room #303, U. HISTORY OF PRESENT ILLNESS: This is 71-year-old female with recent admission for acute pneumonitis and progressive shortness of breath, and is currently on oral steroid therapy at this time, and is being referred for evaluation of abnormal thyroid function studies. PAST MEDICAL/SURGICAL HISTORY: No known history of any kind of thyroid endocrinopathy as noted. She has significant history of systemic lupus and rheumatoid arthritis, currently on methotrexate therapy, history of hypertension and dyslipidemia, history of recent asthmatic bronchitis and currently on steroid therapy with active wheezing noted on admission, history of prior surgical procedures with hysterectomy, appendectomy, and cholecystectomy as noted historically. There is also history of generalized anxiety and depression, on psychotropic medications at this time. FAMILY HISTORY: Positive for diabetes and hypertension. No known thyroid endocrinopathy. SOCIAL HISTORY: The patient has a supportive family. No known substance use. REVIEW OF SYSTEMS: As mentioned above. Admits to generalized body weakness with easy fatigability, tiredness, and suboptimal energy level, also admits to dizziness and lightheadedness, worse on the day of admission. No chest pain but admits to progressive shortness of breath especially on exertion with productive cough and upper respiratory congestion as noted. She also admits a productive cough in the last few days prior to admission. Her oral intake has been variable with occasional dyspepsia and admits habitual constipation, also admits to lower extremity paresthesias, especially nocturnally. PHYSICAL EXAMINATION: GENERAL: An average-built female, in no apparent distress. VITAL SIGNS: Blood pressure of 140/80, pulse of 70 beats per minute and regular, temperature 98, respirations 20, height is 5 feet 1 inch, weight is 178 pounds. HEENT: Head normocephalic. Eyes anicteric with pink conjunctivae. Funduscopy is not possible at this time. Ears, nose, and throat are otherwise normal. NECK: Supple. Thyroid gland is normal in size. No carotid bruits or any cervical adenopathy. CARDIOPULMONARY: Some adynamic precordium. S1 and S2 are rapid and regular. Lungs are clear to auscultation. ABDOMEN: Flat, soft, with positive bowel sounds. EXTREMITIES: No peripheral edema. Pulses are +2 bilaterally. LABORATORY DATA: Her CBC, WBC 5.9, hemoglobin of 7.6, hematocrit of 23, MCV 97.5, platelets 140. Chemistries show a BUN of 44, sodium 135, potassium 4.7, chloride 97, CO2 30, glucose 111, and creatinine 0.7. Her thyroid studies done showed a TSH of 0.06 with a free T4 of 0.94. ASSESSMENT: This is a 71-year-old female with acute asthmatic bronchitis, currently on oral steroid therapy, with expected transient suppression of the TSH level from the intercurrent steroid dosing, and she remains actually clinically and biochemically euthyroid otherwise. There is no prior history of any kind of thyroid endocrinopathy at this time as noted. PLAN OF MANAGEMENT: We will obtain a comprehensive thyroid hormonal profile with a total and free T4 and TSH tomorrow morning as ordered. We will also obtain a thyroid stimulating immunoglobulin and thyroid peroxidase antibody to confirm and/or indicate the presence of thyroid autoimmunity. We will obtain serial chemistries and supplement accordingly as needed. There is no indication at this time for any kind of thyroid pharmacotherapy as this is only a transient condition and should expect normalization of TSH with a clinical improvement otherwise and also with a tapering down of her on oral steroid therapy. We will follow. Isabel Swenson MD
--- NOTE | 2017-04-30 19:04 | PN ---
DATE: 04/30/2017 This is [facility]'s hospital visit on the TCU floor. For Dr. Bentley. SUBJECTIVE: The patient is a 71-year-old female, seen sitting up in bed. Admitted for reconditioning by her primary doctor with the patient on IV steroids, narcotic analgesics for her, rheumatoid arthritis/lupus erythematosus pain. She was on methotrexate on a daily basis until changed yesterday. She was also on IV steroids 40 mg IV q.12 hours with improvement of her breathing. Antibiotics were discontinued yesterday after conversation with Dr. Edwards with nebulizer treatments and other pulmonary medications helping her pulmonary status. The patient was also changed from H2 jackie, famotidine to PPI, Protonix with the patient reporting she has not had a bowel movement in approximately 3-4 days with Colace not helping. We will offer MiraLax as she says this has helped in the past. With this, we also discontinued her aspirin. At this point, the patient denies any pain due to her chronic use of narcotic analgesics, which may be masking abdominal pain along with the remedies for her GI prophylaxis for her steroids. She also had hyperthyroid indices for which Dr. Isabel Swenson was asked to consult. With these multiple comorbidities, it was recommended that the patient be readmitted to the hospital as she has now had a significant drop in her hemoglobin with Dr. Castillo considering a GI evaluation, endoscopy, colonoscopy as indicated. Her hemoglobin is now 7.6 yesterday it was 8.7, the day prior was 9.2, which appears to be active bleeding at this point. With this, the patient is otherwise advised to use the MiraLax with suspicion that there may be hematochezia as she has not had a stool specimen available for submission for testing for occult blood. PHYSICAL EXAMINATION: VITAL SIGNS: Temperature 98.1, pulse 89, respirations 18, blood pressure 126/58, and pulse ox 97%. HEENT: Unremarkable. NECK: Supple. HEART: Regular rate. LUNGS: Clear. ABDOMEN: Obese, soft with minimal tenderness to gentle palpation in mid epigastrium. SKIN: Warm and dry except for ecchymotic changes on her volar forearms. NEUROLOGIC: She is awake, alert and oriented. LABORATORY DATA: The patient's labs were done. As mentioned above, white blood cell count 5.9, hemoglobin 7.6 down from 8.7 yesterday, hematocrit 23.0, and platelet count 140,000. Her chem metabolic panel shows BUN of 44 with the creatinine of 0.7, which appears to show a heme constriction pattern, which may mean her hemoglobin has dropped even further, it is not heme diluted. Her AST is 38. Her ALT is 88. ASSESSMENT: For this patient is that of symptomatic anemia, possibly due to her narcotic analgesics and gastrointestinal prophylaxis with suspected gastrointestinal bleed?, history of anemia of chronic disease, rheumatoid arthritis, lupus, pneumonia, obese, hypertension, deconditioning, and hyperthyroid indices for her TSH. This patient is to be typed and crossed for 2 units of packed red blood cells then to transfuse to 2 units packed red blood cells slowly over 3 hours each unit with premedications of Tylenol and Benadryl as the patient is already taking steroids, which have been changed by her primary doctor to prednisone 20 mg daily. We will hold aspirin. We will hold methotrexate. Restart it once a week as indicated with the patient to be transfused today as the patient is on TCU, hand written orders were given for the transfusion to be done in type and crossing for 2 units of packed red blood cells. The patient is recommended for transfer to the med-surg floor to evaluate her severe anemia and rule out active bleedings with workup with Dr. Castillo. Gastrointestinal consulted as indicated. We will monitor clinically with labs. This is a complex patient with a comprehensive medically necessary and appropriate exam and treatment carried out well over 45 minutes in [id number] time with this patient. Isidoro Mondragon MD
--- NOTE | 2017-04-30 19:39 | PN ---
DATE: 04/30/2017 SUBJECTIVE: This patient was seen and evaluated earlier today. The patient's family was at bedside. No complaints of any abdominal pain. No bleeding per rectum. No vomiting of blood. PHYSICAL EXAMINATION: VITAL SIGNS: Temperature is 98.1, pulse is 89, blood pressure is 126/58, respirations are 18, and O2 saturation is 97%. HEENT: Atraumatic. Anicteric. NECK: Supple. HEART: S1 and S2 heard. LUNGS: Bilateral air entry present. ABDOMEN: Soft. There is no tenderness. LABORATORY DATA: Hemoglobin 7.6, hematocrit 23, WBC 5.9, and platelets 140. LFTs show mild elevation at 38 and ALT is 88. IMPRESSION: This 71-year-old patient with rheumatoid arthritis, possible lupus, being followed by Dr. Hurt, equine vet and was on methotrexate 2.5 g daily. PLAN: The plan is to be started on Remicade. Now, presents with pneumonia, being on antibiotics. The patient was found to be anemic with drop in blood count. Iron studies and B12 levels were normal. Methotrexate has been discontinued now. The patient has been closely followed by the grain elevator worker. No plan for GI workup at the present time. This can be considered electively once after further optimization. Less likely, this present kind of anemia is related to the GI source of blood loss. We will also request reticulocyte count. Thank you very much for allowing us to participate in the care of the patient. Ananya Castillo MD
--- NOTE | 2017-04-30 22:19 | PN ---
DATE: 04/30/2017 REFERRING PHYSICIAN: Pelon Ty MD. SUBJECTIVE: Patient is lying in the bed, sleepy, arousable. Night was unremarkable. Feels better. Decreased facial discomfort. Decreased cough and shortness of breath. No nausea. No vomiting. No diarrhea. No leg pain or leg swelling. PHYSICAL EXAMINATION GENERAL: In no acute distress. VITAL SIGNS: Temperature is 98, heart rate is 89, respiratory rate is 18, blood pressure is 126/58, pulse oximetry is 97% on nasal cannula. HEENT: Moist mucous membrane. Still has some tenderness on the maxillary area. NECK: Supple. No JVD. LUNGS: Has a fair airflow with rhonchi. HEART: S1 and S2. ABDOMEN: Soft and nontender. No organomegaly. EXTREMITIES: Has some edema. NEUROLOGIC: Sleepy, arousable. Follows simple commands. MEDICATIONS: She is on Ambien 5 mg at bedtime p.r.n., Brovana inhaled twice a day, Claritin 10 mg daily, Colace 100 mg twice a day, Cymbalta 60 mg daily, Diovan 320 mg daily, DuoNeb q. 6 hours p.r.n., Ecotrin 81 mg daily, Flonase one spray each nostril twice a day, folic acid 1 mg daily, methotrexate 2.5 mg daily, MiraLax 17 g daily, Mucinex LA 600 mg twice a day, Norvasc 5 mg daily, nasal saline each nostril, oxycodone extended release 20 mg q. 8 hours p.r.n., prednisone 20 mg daily, Protonix 40 mg daily, Pulmicort inhaled twice a day, Seroquel 75 mg daily, Singulair 10 mg daily, multivitamins daily, Zanaflex 4 mg three times a day. LABORATORY DATA: Shows hemoglobin 7.6, hematocrit 23.0,WBC 5.9, platelets 140. Sodium 135, potassium 4.7, chloride 97, bicarbonate 30, BUN 24, creatinine 0.7, glucose 111, calcium 9.0, total bilirubin 0.5, 38, ALT 88, alkaline phosphatase 41, albumin 3.2. IMPRESSION AND PLAN: Sinusitis, post nasal drip, basilar infiltrate, chronic obstructive lung disease, systemic lupus erythematosus, rheumatoid arthritis, hypertension, hyperlipidemia, immunocompromised secondary to methotrexate and steroids, anemia. Patient will be seen by endocrinology. From pulmonary point of view, keep head at 45 degrees, sleep apnea precaution, p.o. and inhaled bronchodilator, gastric prophylaxis. Being followed by medical secretary receptionist, will be transfused today, also have a GI follow up. We will follow with you. Alek Salazar MD
[2017-05-01] MEDS: Pantoprazole 20 mg EC Tab PO SCH (06:11)
[2017-05-01 06:46] LABS: EOS # 0.1 (0.0-0.7); EOS % 1.9 % (1.5-5.0); GRAN # 4.44 (1.4-6.5); GRAN % 76.3 % (50.0-68.0); HEMOGLOBIN 8.9 g/dL (12.0-16.0); LYMPH # 1.1 (1.2-3.4); LYMPH % 18.7 % (22.0-35.0); MEAN CORPUSCULAR HEMOGLOBIN 30.9 pg (25.0-35.0); MEAN CORPUSCULAR HGB CONC 33.6 g/dl (31.0-37.0); MEAN PLATELET VOLUME 10.8 fl (7.0-11.0); MONO # 0.2 (0.1-0.6); MONO % 3.1 % (1.0-6.0); RBC 2.88 10^6/uL (3.5-6.1); RED CELL DISTRIBUTION WIDTH 18.2 % (11.5-14.5); WHITE BLOOD COUNT 5.8 10^3/ul (4.5-11.0)
[2017-05-01 07:10] LABS: ALB/GLOB RATIO 1.4 (1.1-1.8); ALBUMIN 2.6 g/dL (3.0-4.8); ALT/SGPT 71 U/L (7-56); AST/SGOT 27 U/L (14-36); BLOOD UREA NITROGEN 55 mg/dL (7-21); CALCIUM 8.4 mg/dL (8.4-10.5); GFR AFRICAN-AMERICAN > 60; GFR NON-AFRICAN AMERICAN > 60
[2017-05-01 07:16] LABS: FREE T4 0.47 ng/dL (0.78-2.19); T4 3.5 ug/dL (5.5-11.0)
[2017-05-01] MEDS: Arformoterol 15 mcg/2 ml Inh Sol IH SCH ×2 (07:25→20:28)
[2017-05-01] MEDS: Budesonide 0.25 mg/2 ml Inhal Susp UD IH SCH ×2 (07:25→20:28)
[2017-05-01] MEDS: oxyCODONE 20 mg ER Tab (oxyCONTIN) PO PRN ×3 (08:58→20:46)
[2017-05-01] MEDS: Multivitamin With Minerals Tab PO SCH (09:01)
[2017-05-01] MEDS: guaiFENesin 600 mg ER Tab PO SCH ×2 (09:02→17:38)
[2017-05-01] MEDS: Fluticasone Nasal 50 mcg/Spray NS SCH ×2 (10:28→21:02)
--- NOTE | 2017-05-01 10:41 | PN ---
DATE: SUBJECTIVE: A 71-year-old white female with lupus with recent history of anemia of unknown origin, possible chronic disease versus GI loses, elevated BUN, consistent with possible GI bleeding. Recently treated for exacerbation of lower gastric tract infection, possible pneumonia versus asthmatic bronchitis, which is mostly resolved with steroids, bronchodilators and antibiotics. The patient does have elevated BUN at 55 today, on admission was 24 possibly due to steroids, and possibly due to GI bleeding. OBJECTIVE: The patient's hemoglobin is down to as lowest 7.9 and today she is at 8.9 after transfusion. Vital signs are stable. BUN is elevated at 55 and creatinine is 0.8, the patient is not on any diuretics. The patient is afebrile. Blood pressure is down to 126/58. IMPRESSION: Anemia of unknown origin versus chronic disease. Advanced lupus status post asthmatic bronchitis versus pneumonia. Pelon Ty MD
[2017-05-01] MEDS: POLYETHYLENE GLYCOL 3350 17 GM/Dose PACKET PO SCH (11:30)
--- NOTE | 2017-05-01 12:30 | PN ---
DATE: 05/01/2017 SUBJECTIVE: The patient is in bed, in no acute distress, nontoxic. PHYSICAL EXAMINATION: VITAL SIGNS: Temperature is 98, blood pressure is 126/50, and respiratory rate of 16. HEENT: Unremarkable. NECK: Supple. LUNGS: Have decreased breath sounds. HEART: Normal S1 and S2. ABDOMEN: Soft and nontender. No organomegaly. No rebound. LABORATORY DATA: Reveals white count of 5.8, hemoglobin of 8, and platelets of 94. Chemistry reveals BUN of 55 and creatinine of 0.8. Microbiology review is noted. Dr. Ty's note from this morning is reviewed. Review of orders reveals the patient is on prednisone. ASSESSMENT AND PLAN: This is a 71-year-old with lupus, hyperlipidemia, hypertension, short of breath, tachycardia, sepsis, hospital-acquired and healthcare-associated pneumonia, negative cultures, negative procalcitonin and continue with the antibiotics, currently now off of antibiotics. Afebrile. The patient is at risk for developing nosocomial infections. Guillermo Edwards MD
--- NOTE | 2017-05-01 14:28 | PN ---
DATE: ENDOCRINOLOGY FOLLOWUP NOTE LOCATION: Room 303. SUBJECTIVE: This is a 71-year-old female with recent admission for acute pneumonitis and currently undergoing IV antibiotic management and is also being followed closely for metabolic management because of abnormal thyroid function studies. She remains clinically euthyroid at this time and is currently on oral steroid therapy as noted. Her latest chemistry showed a BUN of 55, sodium 133, potassium 4.5, chloride 100, CO2 31, glucose 86, and creatinine 0.8. Her thyroid studies with a T4 of 3.5 with a free T4 of 0.47 and a TSH of 0.27. ASSESSMENT AND PLAN: This is a 71-year-old female with recent acute pneumonitis currently evaluated to help the so called acute sick euthyroid syndrome and remains clinically euthyroid at this time with biochemical evidence of below normal thyroxine and thyroid stimulating hormone levels as noted. So at this time, there is no indication for any kind of thyroid pharmacotherapy and her thyroid study should improve if her clinical condition improves accordingly. We will follow with you. Isabel Swenson MD
--- NOTE | 2017-05-01 22:49 | PN ---
DATE: 05/01/2017 PULMONARY PROGRESS NOTE REFERRING PHYSICIAN: Pelon Ty MD SUBJECTIVE: Patient is lying in the bed, head at 45 degrees, night was unremarkable. Feels better. Decreased sinus tenderness. No nausea. No vomiting. No diarrhea. No leg pain or leg swelling. PHYSICAL EXAMINATION GENERAL: In no acute distress. VITAL SIGNS: Temperature is 98, heart rate is 68, respiratory rate is 16, blood pressure is 115/70 and pulse oximetry is 97% on nasal cannula. HEENT: Moist mucous membranes. Carotid airway. Mallampati score is IV. NECK: Supple. No JVD. LUNGS: Has few scattered rhonchi. HEART: S1 and S2. ABDOMEN: Soft and nontender. No organomegaly. EXTREMITIES: No edema. NEUROLOGIC: Awake and alert. Follows simple command. MEDICATIONS: She is on Ambien 5 mg at bedtime p.r.n., Brovana inhaled twice a day, Claritin 10 mg daily, Colace 100 mg twice a day, Cymbalta 60 mg daily, Diovan 320 mg daily, DuoNeb q.6 hours, Ecotrin 81 mg daily, Flonase one spray each nostril twice a day, folic acid 1 mg daily, methotrexate 2.5 mg daily, MiraLax 17 g daily, Mucinex LA 600 mg twice a day, Norvasc 5 mg daily, nasal saline 2 sprays q. 2 hours p.r.n., OxyContin extended release 20 mg 3 times a day p.r.n. basis, Protonix 40 mg daily, prednisone 20 mg daily, Pulmicort inhaled twice a day, Seroquel 75 mg daily, Singulair 10 mg daily, multivitamins daily, Zanaflex 4 mg 3 times a day. LABORATORY DATA: Shows hemoglobin 8.9, hematocrit 26.5, WBC 5.8, platelet is 94. Sodium 133, potassium 4.5, chloride 100, bicarbonate 31, BUN 55, creatinine 0.8, glucose 86, calcium 8.4. AST 27, ALT 71, alk phos is 32, albumin 2.6, TSH 0.27. IMPRESSION AND PLAN: Sinusitis with postnasal drip, basilar infiltrate, chronic obstructive lung disease, systemic lupus erythematosus, rheumatoid arthritis, hypertension, hyperlipidemia, immunocompromise on methotrexate, also on steroids, anemia status post transfusion. From pulmonary point of view, doing okay. Continue p.o and inhaled bronchodilator. Keep head at 45 degree, bronchodilator, gastric prophylaxis, sequential compression device to lower extremity, continue therapy. Thank you and we will follow with you. Alek Salazar MD
[2017-05-02] MEDS: oxyCODONE 20 mg ER Tab (oxyCONTIN) PO PRN ×3 (03:51→16:03)
[2017-05-02] MEDS: Pantoprazole 20 mg EC Tab PO SCH (06:24)
[2017-05-02] MEDS: Arformoterol 15 mcg/2 ml Inh Sol IH SCH ×2 (07:35→20:40)
[2017-05-02] MEDS: Budesonide 0.25 mg/2 ml Inhal Susp UD IH SCH ×2 (07:35→20:40)
[2017-05-02] MEDS: guaiFENesin 600 mg ER Tab PO SCH ×2 (10:02→18:05)
[2017-05-02] MEDS: Multivitamin With Minerals Tab PO SCH (10:03)
[2017-05-02] MEDS: Fluticasone Nasal 50 mcg/Spray NS SCH ×2 (10:04→21:10)
[2017-05-02] MEDS: POLYETHYLENE GLYCOL 3350 17 GM/Dose PACKET PO SCH (10:05)
--- NOTE | 2017-05-02 12:34 | PN ---
DATE: SUBJECTIVE: This is a 71-year-old white female with history of lupus, history of anemia of chronic disease, and exacerbation of asthmatic bronchitis. The patient is participating in physical therapy and occupational therapy. She is using supplemental oxygen while in bed; however, she desaturates without oxygen when she does any exertion even getting transferring from bed to the chair, oxygen desaturation is down to low as 76%. The patient is comfortable with oxygen at rest, however, needs supplemental oxygen to ambulate so that she does not desaturate. The level as mentioned as low as 76% on room with any exertion. PHYSICAL EXAMINATION GENERAL: This patient is a well-developed 71-year-old white female in mild respiratory distress. HEENT: Essentially within normal limits. HEART: Examination reveals regular sinus rhythm. CHEST: Shows decreased rhonchi and rales from previous, but decreased breath sounds bilaterally. EXTREMITIES: No cyanosis, clubbing or edema. LABORATORY DATA: The patient is status post transfusion with a hemoglobin of 8.9, hematocrit of 26.5, and white count is 5.8. The patient does have an elevated BUN and creatinine of 55 and 0.8. ASSESSMENT AND PLAN: Waiting consultation with Dr. Strong and the plan is to continue to taper her steroids, continue respiratory treatments and follow her hemoglobin and hematocrit. The plan is to continue physical therapy and occupational therapy and also to arrange for home oxygen therapy. Pelon Ty MD
--- NOTE | 2017-05-02 15:55 | CON ---
DATE: 05/02/2017 ADDENDUM LABORATORY DATA: White blood cell count 5.8, hemoglobin 8.9 with platelet count of 94,000. Chemistry showed normal electrolytes. BUN has risen from a high of 19 to 20 to 55. Creatinine is stable at 0.7-0.8. ALT mildly elevated at 71. Albumin level is 2.6. Calcium level was 8.4. Iron saturations are 34%. Immunology C3 and C4 are were normal. Microbiology, all cultures were negative. ASSESSMENT: 1. Prerenal azotemia and a patient with no past history of chronic kidney disease. This is all likely secondary to IV steroids, which the patient received for her respiratory distress. The patient is now on oral prednisone therapy, which will be tapered. I do expect that her BUN will fall back to normal. We did discuss the possibility of starting IV fluid hydration but the patient ensures me that she will drink adequate amounts of fluids in which case IV fluids will not be necessary. I would like to see plateauing of her BUN over the next 24-48 hours and I will make the assumption that she gets further away from steroids and she stays well-hydrated, her BUN will return back to the 20 range, which is her baseline. Creatinine has remained normal. 2. Pneumonia: The patient is completing a course of antibiotic therapy being followed by ID. 3. Mild respiratory distress secondary to pneumonia. The patient is on ventilation therapy. 4. History of lupus: The patient had been on methotrexate therapy and will likely return to using methotrexate therapy post the acute event of her pneumonia. 5. History of hypertension: Blood pressure is controlled on present medication. The patient may continue using angiotensin receptor jackie therapy as her creatinine has remained normal. 6. Mild anemia: Iron levels are normal. Perhaps bone marrow suppression secondary to her recent pneumonia and perhaps bone marrow suppression secondary to medication being used for lupus. 7. Abnormal thyroid function tests evaluated by Endocrinology and felt to be euthyroid sick. PLAN 1. As to my discussion above, no plans for IV fluid hydration. 2. Taper p.o. steroids as quickly as possible. 3. We will obtain labs over the next 2 days, her remaining 2 days in the TCU. 4. If her BUN continues to rise, no choice, I do not have to give her IV fluid hydration. 5. I will limit renal diagnostics. 6. Case discussed with the patient and TCU staff in detail. Sanford Christianson MD [facility] # [id number] [place]
--- NOTE | 2017-05-02 15:55 | CON ---
DATE: 05/02/2017 HISTORY OF PRESENT ILLNESS: The patient admitted for Dr. Pelon Ty, date of admission to the TCU was 04/26/2017. REFERRING PHYSICIAN; Dr. Pelon Ty. REASON FOR CONSULTATION: Evaluate the patient unknown to me who presents with an elevated BUN in the setting of steroid therapy for respiratory distress and pneumonia. HISTORY OF PRESENT ILLNESS: The patient is a 71-year-old white female with a history of SLE, history of hypertension both 20-25 years' duration, history of hyperlipidemia, history of anemia, history of small bowel obstruction status post multiple surgeries, history of back surgery who was admitted to acute care for a pneumonia. The patient is currently completing her course of antibiotics in the TCU. The patient was placed on IV steroid therapy and subsequently had an elevation of her BUN. Her creatinine has remained normal. Her BUN has risen from a normal of less than 20 up to 55. Her creatinine has remained stable in the 0.8 range. The patient recently had her IV steroid dose discontinued, and she was placed on oral steroids. She is completing a course of antibiotic therapy. We are asked to evaluate the patient for elevated BUN. The patient has no past history of chronic kidney disease. Urines were done on admission to acute care and they were normal. PAST MEDICAL HISTORY: Significant for that of SLE, on methotrexate therapy, history of hypertension, hyperlipidemia, history of pneumonia currently on IV antibiotic therapy, history of anemia. The patient was diagnosed by Endocrinology to be euthyroid sick. History of small bowel obstruction, status post surgery and status post multiple back surgeries. CURRENT MEDICATIONS: Include that of Ambien, Brovana, Claritin, Colace, Cymbalta, Diovan, DuoNeb, Flonase, folic acid, methotrexate is on hold, MiraLax, Mucinex, Norvasc, [place] nasal spray, OxyContin extended release tablet, prednisone, Protonix, Pulmicort Respules, Seroquel, Singulair, multivitamin and Zanaflex. ALLERGIES: THE PATIENT HAS NO KNOWN ALLERGIES TO MEDICATIONS. SOCIAL HISTORY: No history of cigarette smoking but history of exposure to a family member with cigarette smoking. No history of alcohol use. FAMILY HISTORY: Mother of complications of peripheral vascular disease and heart disease. Father of prostate cancer. REVIEW OF SYSTEMS: GENERAL: The patient states until recent hospitalization appetite and weight have been stable. HEENT: Denies any hearing or visual problems. PULMONARY: Positive mild shortness of breath secondary to recent pneumonia. CARDIAC: No history. No chest pains. GASTROINTESTINAL: Past history of bowel obstruction with surgery. No recent issues. GENITOURINARY: No history of chronic kidney disease or UTIs. GYNECOLOGIC: Postmenopausal. ENDOCRINOLOGY: History of euthyroid sick. No history of diabetes. MUSCULOSKELETAL: Back pain secondary to her previous surgeries. Positive arthralgias secondary to lupus. NEUROLOGIC: No history of CVA, TIA, seizures or syncope. HEM/ONC: Positive for anemia. PSYCHIATRIC HISTORY: Negative. PHYSICAL EXAMINATION: GENERAL: The patient is currently seen in the TCU. VITAL SIGNS: Present blood pressure is 143/78, temperature is 98.3, pulse is 89, respiratory rate is 20 with a pulse ox of 96%. HEENT: Exam shows her to be normocephalic, atraumatic. Conjunctiva are pale. Sclerae are nonicteric. Pupils equal, reactive to light and accommodation. Extraocular muscles are intact. Posterior pharynx is normal. NECK: Supple. No neck vein distention or thyromegaly. No lymphadenopathy. No bruits. CHEST: Scattered rhonchi. No rales or wheezing. CARDIOVASCULAR: Shows a regular rate and rhythm without audible murmurs, rubs or gallops. ABDOMEN: Soft. Bowel sounds normal. Mild obesity. No tenderness on palpation. No rebound or guarding. BACK: No CVAT. No spinal tenderness. EXTREMITIES: Show no lower extremity cyanosis, clubbing or edema. Her arms and legs and both puffy, but no pitting edema. NEUROLOGIC: Shows her be alert, oriented x3 with no gross focal motor or sensory deficits noted. LABORATORY DATA AND IMAGING STUDIES: No imaging studies were done in the TCU. Labs, CBC, white blood cell count today 5.8, hemoglobin 8.9 with a platelet count of 94,000. ( continued ) Sanford Christianson MD MTDD
--- NOTE | 2017-05-02 19:00 | PN ---
ENDO FOLLOWUP NOTE DATE: LOCATIONS: In room 303. This is a 71-year-old female with recent acute exacerbation of COPD and currently on oral steroid therapy at this time and is now being followed closely for metabolic management and evaluation of abnormal thyroid function studies. Her latest chemistry showed a BUN of 55, sodium 133, potassium 4.5, chloride 100, CO2 31, glucose 86 and creatinine 0.8. Her latest thyroid study showed a T4 of 3.5 with a free T4 of 0.47 and a TSH of 0.27 indicative of the so-called acute sick euthyroid syndrome as noted. There is no indication at this time for any kind of thyroid pharmacotherapy. Her thyroid antibodies are pending, which will confirm and/or indicate the presence of underlying thyroid autoimmunity. We will follow with you. Isabel Swenson MD
--- NOTE | 2017-05-02 19:48 | PN ---
DATE: 05/02/2017 This is [facility] [place] [facility] visit on the TCU floor. For Dr. Bentley, SUBJECTIVE: The patient is a 71-year-old female seen lying awake in bed status post transfusion of 2 units of packed red blood cells, in no acute distress in this visit. Her anemic indices continues with consideration for GI evaluation as per Dr. Castillo, Gastrointestinal event management consultant. She also is known to suffer from rheumatoid arthritis, lupus erythematosus, hypertension, deconditioning, hyperthyroid indices for TSH with new onset significant anemia possibly related to GI bleed. PHYSICAL EXAMINATION: VITAL SIGNS: Temperature 98.3, pulse 89, respirations 20, blood pressure 143/78, and pulse ox 96%. HEENT: Unremarkable. NECK: Supple. HEART: Regular rate. LUNGS: Clear. ABDOMEN: Obese, soft, and nontender. EXTREMITIES: No edema. SKIN: Warm and dry. NEUROLOGIC: Awake, alert and oriented x3. LABORATORY DATA: The patient's labs were done to include that were done yesterday, we will repeat it tomorrow. They include a white blood cell count of 5.8, hemoglobin is 8.9, hematocrit is 26.5, and platelet count of 94,000 with a chem metabolic panel showing a BUN of 55, creatinine is 0.8. ALT of 71 down from 88 with a normal AST of 27 down from 38, alk phos of 32. TSH is 0.27. Free thyroxine T4 of 3.5 with a free T4 of 0.47. Stool for occult blood was negative done yesterday. ASSESSMENT: For this patient is that of symptomatic anemia status post transfusion, new thrombocytopenic indices, status post treatment for pneumonia, hypertension, hyperthyroid indices, deconditioning, obesity, rheumatoid arthritis/lupus. PLAN: For this patient after conversation with Dr. Bentley is to continue his present medical regimen. We will check her labs in the morning with the patient to continue on her present medical regimen as per her primary doctor. We will continue to hold the aspirin along with methotrexate to be restarted once a week, with her narcotics analgesics to continue as per primary physician. Prognosis for this patient is guarded. We will monitor clinically with labs. Isidoro Mondragon MD [facility] # [id number]
--- NOTE | 2017-05-02 20:06 | PN ---
PULMONARY PROGRESS NOTE DATE: 05/02/2017 REFERRING PHYSICIAN: Pelon Ty MD SUBJECTIVE: She is sitting at the side of the bed, doing well in therapy. Pulse oximetry was around 92% to 93% on room air and exercise. Cough and shortness of breath are better. No nausea. No vomiting. No diarrhea. No leg swelling. OBJECTIVE: GENERAL: In no acute distress. VITAL SIGNS: Temperature is 98, heart rate is 89, respiratory rate is 20, blood pressure is 143/78, pulse oximetry is 96% on 2 L nasal cannula. HEENT: Moist mucous membranes. Small oral cavity. Facial tenderness has improved. NECK: Short, thick neck. LUNGS: Have a fair airflow with rhonchi. HEART: S1 and S2. ABDOMEN: Soft and nontender. No organomegaly. EXTREMITIES: Have trace edema. NEUROLOGIC: Awake and alert. Follows simple command. MEDICATIONS: She is on Ambien 5 mg at bedtime p.r.n., Brovana inhaled twice a day, Claritin 10 mg daily, Colace 100 mg daily, Cymbalta 60 mg daily, Diovan 320 mg daily, DuoNeb q. 6 hours, Ecotrin 81 mg daily, Flonase one spray to each nostril twice a day, folic acid 1 mg daily, methotrexate 2.5 mg daily, MiraLax 17 g daily, Mucinex LA 600 mg twice a day, Norvasc 5 mg daily, nasal saline 2 sprays to each nostril q. 2 hours p.r.n., OxyContin extended release 20 mg 3 times a day p.r.n., prednisone 20 mg daily, Protonix 40 mg daily, Pulmicort inhaled twice a day, Seroquel 75 mg daily, Singulair 10 mg daily, multivitamins daily, Zanaflex 4 mg 3 times a day. LABORATORY DATA: Shows hemoglobin 8.9 yesterday. IMPRESSION AND PLAN: Sinusitis with postnasal drip; basilar infiltrate; chronic obstructive lung disease; systemic lupus; rheumatoid arthritis; hypertension; hyperlipidemia; immunocompromised on methotrexate; anemia, status post transfusion. From pulmonary point of view, she is doing well. Spoke to therapist. Pulse oximetry staying about 93% while exercise. Continue p.o and inhaled bronchodilator, antibiotics, gastric prophylaxis. Thank you and we will follow with you. Alek Salazar MD [facility] # [id number]
--- NOTE | 2017-05-02 20:16 | PN ---
DATE: 05/02/2017 SUBJECTIVE: This patient was seen and evaluated earlier today. The patient is comfortable. No complaints of any abdominal pain. The patient did received 2 units of packed RBC's. PHYSICAL EXAMINATION VITAL SIGNS: Temperature is 98.3, pulse 89 and blood pressure 143/78. HEENT: Atraumatic. Anicteric. NECK: Supple. HEART: S1 and S2 heard. LUNGS: Bilateral air entry present. ABDOMEN: Soft. There is no tenderness. LABORATORY DATA: Done yesterday, hemoglobin 8.9, hematocrit 26.5, WBC 5.4 and platelets 94. BUN 55 and creatinine 0.8. IMPRESSION: This 71-year-old patient with rheumatoid arthritis, lupus, admitted with pneumonia, on antibiotics. The patient had twice iron studies done both were normal saturation and B12 and folate were normal. The patient also has thrombocytopenia. The patient was on methotrexate, which has been discontinued. This could be relatively secondary to the drug-induced; however, BUN is also slightly elevated. The reasonable thing is to repeat the labs in a.m. The patient is presently on prednisone or to continue the proton pump inhibitor prophylaxis. We will continue to closely followup her care. The patient would benefit from elective colonoscopy unless there is an active bleeding or significant drop in blood count noticed further. I have a detailed discussion with Dr. Isidoro Mondragon today. Also discussed with the patient. Thank you very much for allowing me participate in the care of the patient. Ananya Castillo MD
--- NOTE | 2017-05-02 22:03 | PN ---
DATE: 05/02/2017 SUBJECTIVE: This patient is seen early this morning. No fevers, and no chills. PHYSICAL EXAMINATION: VITAL SIGNS: Temperature is 98, blood pressure is 140/70, respiratory rate of 16. HEENT: Unremarkable. NECK: Supple. LUNGS: Have decreased breath sounds. HEART: Normal S1 and S2. ABDOMEN: Soft and nontender. LABORATORY EXAMINATION: Reveals white count of 5.8, hemoglobin of 8, and platelets of 94. Chemistry reveals BUN of 55 and creatinine of 0.8. Complement levels are noted. ASSESSMENT AND PLAN: This is a 71-year-old with lupus, hyperlipidemia, hypertension, short of breath, tachycardia, sepsis, hospital-acquired and healthcare-associated pneumonia, negative cultures, negative procalcitonin, currently now off of antibiotics. Afebrile. She states that this morning she is feeling well. Review of orders confirms the patient to be off of antibiotics. Guillermo Edwards MD
[2017-05-03] MEDS: oxyCODONE 20 mg ER Tab (oxyCONTIN) PO PRN ×2 (03:43→10:21)
[2017-05-03] MEDS: Pantoprazole 20 mg EC Tab PO SCH (05:36)
[2017-05-03 05:52] LABS: HEMOGLOBIN 9.3 g/dL (12.0-16.0); MEAN CELL VOLUME 93.6 fl (80.0-105.0); MEAN CORPUSCULAR HEMOGLOBIN 31.3 pg (25.0-35.0); MEAN CORPUSCULAR HGB CONC 33.5 g/dl (31.0-37.0); RBC 2.97 10^6/uL (3.5-6.1); RED CELL DISTRIBUTION WIDTH 17.6 % (11.5-14.5); WHITE BLOOD COUNT 4.6 10^3/ul (4.5-11.0)
[2017-05-03 06:29] LABS: ALB/GLOB RATIO 1.4 (1.1-1.8); ALT/SGPT 69 U/L (7-56); AST/SGOT 35 U/L (14-36); BLOOD UREA NITROGEN 31 mg/dL (7-21); CALCIUM 8.7 mg/dL (8.4-10.5); GFR AFRICAN-AMERICAN > 60; GFR NON-AFRICAN AMERICAN > 60; MAGNESIUM 2.3 mg/dL (1.7-2.2)
[2017-05-03] MEDS: Multivitamin With Minerals Tab PO SCH (07:52)
[2017-05-03] MEDS: Budesonide 0.25 mg/2 ml Inhal Susp UD IH SCH ×2 (08:08→21:07)
[2017-05-03] MEDS: Arformoterol 15 mcg/2 ml Inh Sol IH SCH ×2 (08:08→21:06)
--- NOTE | 2017-05-03 08:58 | PN ---
DATE: SUBJECTIVE: A 71-year-old white female in TCU, doing physical therapy and occupational therapy, status post anemia of chronic disease, hemoglobin up to 9.3, status post asthmatic bronchitis, now resolved on tapering of steroids, finishing antibiotics, and continue bronchodilators. The patient also has history of lupus, being evaluated for Rituxan. The patient did not need supplemental oxygen after having O2 saturation of 93% on room air with exercise yesterday. Plan is for discharge home in the morning and completing her course at TCU and to continue physical therapy at home. PHYSICAL EXAMINATION: Unchanged. CHEST: Clear. HEART: Regular sinus rhythm. EXTREMITIES: Without clubbing, cyanosis or edema. Pelon Ty MD
[2017-05-03] MEDS: Fluticasone Nasal 50 mcg/Spray NS SCH ×2 (10:00→21:18)
[2017-05-03] MEDS: guaiFENesin 600 mg ER Tab PO SCH ×2 (10:12→17:18)
[2017-05-03] MEDS: POLYETHYLENE GLYCOL 3350 17 GM/Dose PACKET PO SCH (10:14)
--- NOTE | 2017-05-03 10:36 | PN ---
DATE: SUBJECTIVE: The patient is currently seen sitting up in bed. She is entirely comfortable. She states that she is going to be discharged tomorrow. The patient is completing a tapering course of steroids for her respiratory distress. She is also completing a course of antibiotics for her pneumonia. MEDICATIONS: List reviewed. The patient is currently on Ambien, Brovana, Claritin, Colace, Cymbalta, valsartan, DuoNeb, Ecotrin, Flonase, folic acid, methotrexate presently on hold, MiraLax, Mucinex, Norvasc, [place] nasal spray, OxyContin, prednisone, Protonix, Pulmicort, Seroquel, Singulair, vitamins, and Zanaflex. OBJECTIVE VITAL SIGNS: Blood pressure is 143/78, temperature 98.3, respiratory rate is 20 with a pulse of 89. HEENT: Shows her to be normocephalic and atraumatic. Conjunctivae are pale. Sclerae nonicteric. NECK: Supple. No neck vein distention. CHEST: Clear to auscultation and percussion. No rhonchi today. No wheezing. No rales. CARDIOVASCULAR: Shows a regular rate and rhythm without audible murmurs, rubs, or gallops. ABDOMEN: Soft. Bowel sounds normal. EXTREMITIES: Show no lower extremity cyanosis, clubbing, or edema. Arms and legs are puffy, but no pitting edema. LABORATORY DATA AND IMAGING STUDIES: CBC, white blood cell count today is 4.6 with hemoglobin of 9.3, which is improved, and platelet count is 95,000. Chemistry showed normal electrolytes. BUN is down to 31 from a high of 55. Her baseline BUN range is less than 20, but this should drop with continued decrease of steroid dose. Creatinine is down to 0.8, which is normal. Remainder of her labs are unremarkable. Mild elevation of her liver enzymes. Albumin is 3.0 with a magnesium level of 2.3. Calcium and phosphorus levels are normal. ASSESSMENT: 1. Prerenal azotemia in a patient with no past history of chronic kidney disease, this is likely secondary to use of IV steroids for respiratory distress complicating her pneumonia. The patient is currently being tapered off steroids. She is currently on prednisone. The plan is to continue taper steroids and expect her BUN to fall back to baseline levels. 2. History of pneumonia. The patient is completing or has just completed a course of antibiotic therapy. She was followed by ID. 3. Mild respiratory distress secondary to pneumonia, this has improved. The patient will continue inhalation therapy. 4. History of lupus. The patient had been on methotrexate therapy, which will likely need to be restarted, this leaves her on an immunocompromised state and predisposed to developing infection. The patient understands the risk of the medication. 5. History of hypertension. Blood pressure controlled on present medical therapy. No issues from my standpoint with continued use of an angiotensin receptor jackie, as her creatinine has remained stable. 6. History of mild anemia, likely secondary to bone marrow suppression secondary to pneumonia, perhaps secondary to bone marrow suppression from her lupus and secondary to chronic medical issues. 7. Abnormal thyroid function tests evaluated by Endocrinology and felt that euthyroid sick and no supplements were necessary. PLAN: 1. Discussed with the patient. She states that she will be discharged to home in the next 24 hours. From my standpoint, her renal parameters are acceptable. 2. Continue to taper steroids. 3. The patient has completed a course of antibiotic therapy. 4. I will discontinue formal renal followup at this time, as creatinine remains normal and BUN is falling back to baseline. Sanford Christianson MD MTDD
--- NOTE | 2017-05-03 15:49 | PN ---
DATE: 05/03/2017 SUBJECTIVE: The patient is in bed in no acute distress, nontoxic. PHYSICAL EXAMINATION: VITAL SIGNS: Temperature is 98, blood pressure is 140/70, respiratory rate 20, and heart rate of 70. HEENT: Unremarkable. NECK: Supple. LUNGS: Have decreased breath sounds. HEART: Normal S1 and S2. ABDOMEN: Soft and nontender. LABORATORY EXAMINATION: Reveals white count of 4.6, hemoglobin of 9, and platelets of 95. Chemistries reveals a BUN of 31 and creatinine of 0.8. ASSESSMENT AND PLAN: This is a 71-year-old with lupus, hyperlipidemia, hypertension with shortness of breath and tachycardia, sepsis with hospital and healthcare-associated pneumonia. Cultures negative. Negative procalcitonin. Currently off of antibiotics. Today, she states she is feeling much better. Dr. Ty's note from this morning is reviewed. Guillermo Edwards MD
[2017-05-03] MEDS: Oxycodone/Acetaminophen 5/325 mg Tab PO PRN ×2 (17:18→23:13)
[2017-05-03 17:47] VITALS: O2SAT 96
[2017-05-03 18:09] LABS: TSI <89 % baseline (<140)
--- NOTE | 2017-05-03 20:57 | PN ---
DATE: 05/03/2017 This is [facility] physicians care surgical hospital visit on TCU. For Dr. Bentley. SUBJECTIVE: The patient is a 71-year-old female, seen sitting up in bed, reports she might be going home tomorrow after evaluation earlier today by sandra Christianson with her hemoglobin today 9.3 after her workup was done with the patient considered to have her anemic indices secondary to medications, probably the methotrexate, which has been held with once a week dosing recommended. Her steroids are also being cutting back with the patient having had a visit with Dr. Castillo, gastrointestinal statistical consultant, who believes that a GI workup can be done electively as an outpatient. The patient is in otherwise no acute distress after her medications were adjusted with Ecotrin on hold for the present as is methotrexate with the prednisone now being cut back and Protonix continuing. PHYSICAL EXAMINATION: VITAL SIGNS: Temperature 98, pulse 86, respirations 18, blood pressure 128/47, pulse ox 96%. HEENT: Unremarkable. NECK: Supple. HEART: Regular rate. LUNGS: Clear. ABDOMEN: Obese, soft, nontender. EXTREMITIES: No edema. SKIN: Warm and dry. NEUROLOGIC: She is awake, alert, and oriented x3. LABORATORY DATA: The patient's labs were done. White blood cell count of 4.6; hemoglobin of 9.3, up from 8.9 yesterday, status post transfusion of 2 units of packed cells; hematocrit of 27.8, and platelet count of 95,000 with a chem metabolic panel showing a BUN of 31, down from 55 yesterday with an AST within normal range at 35 with an ALT coming down to 69. TSH is 0.27. ASSESSMENT: For this patient is that of deconditioning; anemia secondary to medications?, status post transfusion; treatment for pneumonia; hypertension; hyperthyroid indices; history of rheumatoid arthritis and lupus with the patient now recovering from prerenal azotemia. PLAN: For this patient is to continue present medical regimen with follow up with office as indicated as the patient is to follow up with her hospice rn for continuation of her lupus/rheumatoid arthritis medications. Isidoro Mondragon MD
--- NOTE | 2017-05-04 01:50 | PN ---
DATE: 05/03/2017 PULMONARY PROGRESS NOTE REFERRING PHYSICIAN: Pelon Ty MD SUBJECTIVE: She is lying in the bed, head at 45 degree, off oxygen, doing well in therapy. Facial discomfort is better. Cough and shortness of breath is better. No nausea. No vomiting. No diarrhea. Decreased leg swelling. PHYSICAL EXAMINATION GENERAL: In no acute distress. VITAL SIGNS: Temperature is 98, heart rate 86, respiratory rate is 18, blood pressure 99/50, pulse ox 96% on 2 L nasal cannula. HEENT: Moist mucous membranes. Small oral cavity. Crowded airway. No facial tenderness. LUNGS: Has a fair airflow with rhonchi. HEART: S1 and S2. ABDOMEN: Soft, nontender, no organomegaly. EXTREMITIES: No edema. NEUROLOGIC: Awake and alert. Follows simple command. MEDICATIONS: She is on Ambien 5 mg at bedtime p.r.n., Brovana inhaled twice a day, Claritin 10 mg daily, Colace 100 mg daily, Cymbalta 60 mg daily, Diovan 320 mg daily, DuoNeb q. 6 hours p.r.n., Ecotrin 81 mg daily, Flonase one spray to each nostril twice a day, folic acid 1 mg daily, methotrexate 2.5 mg daily, MiraLax 17 g daily, Mucinex LA 600 mg twice a day, Norvasc 5 mg daily, nasal saline q. 2 hour p.r.n., Percocet 5/325 one tablet q. 12 hour p.r.n., prednisone 20 mg daily, Protonix 20 mg daily, Pulmicort inhale twice a day, Seroquel 75 mg daily, Singulair 10 mg daily, multivitamins daily, Zanaflex 4 mg 3 times a day. LABORATORY DATA: Shows hemoglobin 9.3, hematocrit 27.3, WBC 4.6, platelet count is 95. Sodium 134, potassium 4.3, chloride 98, bicarbonate 33, BUN 31, creatinine 0.8, glucose 81, calcium is 8.7, phosphorus 3.6, magnesium 2.3. AST 35, ALT 16, alk phos is 38, and albumin is 3.0. IMPRESSION AND PLAN: Sinusitis with postnasal drip, which is much improved; basilar infiltrate; chronic obstructive lung disease; systemic lupus erythematosus; rheumatoid arthritis; hypertension; hyperlipidemia; immunocompromised on methadone; anemia, status post transfusion. From pulmonary point of view, she is doing well. I will continue p.o. and inhaled bronchodilator, keep head at 45 degree, antibiotics, gastric prophylaxis, SCD to lower extremities. Continue therapy. Thank you and we will follow with you. Alek Salazar MD
--- NOTE | 2017-05-04 04:27 | PN ---
ENDOCRINOLOGY FOLLOWUP NOTE LOCATION: Room 303. This is a 71-year-old female with recent admission for acute exacerbation of COPD and currently still on oral steroid therapy as noted. She is currently on prednisone at 20 mg once daily as given. She has been evaluated to be clinically and biochemically euthyroid with slightly abnormal biochemical indices of her thyroid studies with a free T4 of 0.47, a total T4 of 3.5 and a TSH of 0.27. This is indicative of the so-called acute sick euthyroid syndrome with superimposed TSH suppression from the intercurrent steroid therapy as given. No indication at this time for any kind of thyroid pharmacotherapy. I should expect biochemical improvement if her clinical condition improves accordingly. We will follow with you. Isabel Swenson MD
[2017-05-04] MEDS: Pantoprazole 20 mg EC Tab PO SCH (05:57)
[2017-05-04] MEDS: Arformoterol 15 mcg/2 ml Inh Sol IH SCH (07:36)
[2017-05-04] MEDS: Budesonide 0.25 mg/2 ml Inhal Susp UD IH SCH (07:37)
--- NOTE | 2017-05-04 08:27 | PN ---
DATE: 05/03/2017 SUBJECTIVE: This patient was seen and evaluated earlier today. PHYSICAL EXAMINATION: VITAL SIGNS: Afebrile, blood pressure is 99/50, respirations 18. HEENT: Atraumatic. Anicteric. NECK: Supple. HEART: S1 and S2 heard. LUNGS: Bilateral air entry present. ABDOMEN: Soft. There is no tenderness. EXTREMITIES: No cyanosis. No clubbing. LABORATORY DATA: Hemoglobin remain stable at 9.3, hematocrit 27.8, WBC 4.6, platelets 95. BUN 31, creatinine 0.8. IMPRESSION: This 71-year-old patient with anemia, dropping blood count, thrombocytopenia. No obvious gastrointestinal bleeding. No melena or bright red blood per rectum. Would recommend elective EGD The patient is off methotrexate. The patient is planned to be discharged in a.m. The patient was clearly told about the elective colonoscopy and endoscopic evaluation. The patient also has history of rheumatoid arthritis, ? lupus. PLAN: To be started on Remicade as an outpatient, but we need to wait for this pancytopenia to improve before starting on any biological therapy. Thank you very much for allowing me participate in the care of the patient. Ananya Castillo MD MTDD
[2017-05-04] MEDS: Oxycodone/Acetaminophen 5/325 mg Tab PO PRN (08:37)
[2017-05-04] MEDS: Multivitamin With Minerals Tab PO SCH (09:19)
[2017-05-04] MEDS: guaiFENesin 600 mg ER Tab PO SCH (10:17)
[2017-05-04] MEDS: POLYETHYLENE GLYCOL 3350 17 GM/Dose PACKET PO SCH (10:21)
[2017-05-04] MEDS: Fluticasone Nasal 50 mcg/Spray NS SCH (10:21)
[2017-05-04 10:25] VITALS: BP 153/76; PULSE 68
--- NOTE | 2017-05-04 12:12 | PN ---
DATE: SUBJECTIVE: This is a 71-year-old white female admitted in the hospital with asthmatic bronchitis, anemia of chronic disease, lupus. Patient also had some renal insufficiency which has improved, down to 31 and 0.8. Hemoglobin is up to 9.3 status post transfusion. PHYSICAL EXAMINATION: VITAL SIGNS: Blood pressure is 99/50. She is afebrile. Vital signs are stable. CHEST: Shows less congestion, less rhonchi and rales. ASSESSMENT AND PLAN: Patient will be transferred to home today to continue outpatient therapy. Pelon Ty MD
--- NOTE | 2017-05-04 13:48 | PN ---
DATE: 05/04/2017 SUBJECTIVE: The patient is in bed, in no acute distress, nontoxic. PHYSICAL EXAMINATION: VITAL SIGNS: Temperature is 97, blood pressure is 100/60, respiratory rate of 18, and heart rate of 86. HEENT: Unremarkable. NECK: Supple. LUNGS: Decreased breath sounds. HEART: Normal S1 and S2. ABDOMEN: Soft. LABORATORY DATA: Reveals white count of 4.6, hemoglobin of 9, and platelets of 95. Chemistries reveals BUN of 31 and creatinine of 0.8. ASSESSMENT AND PLAN: This is a 71-year-old with lupus, hyperlipidemia, hypertension, shortness of breath, tachycardia, sepsis, and hospital and healthcare-associated pneumonia. Cultures negative. Negative procalcitonin. Currently off of antibiotics, but possible discharge today. The patient was seen earlier this morning. We will follow with you. Review of orders confirms the patient to be off of antibiotics. Guillermo Edwards MD
--- NOTE | 2017-05-04 14:56 | PN ---
DATE: ENDOCRINOLOGY FOLLOWUP NOTE LOCATION: In room 303. SUBJECTIVE: This is a 71-year-old female with recent acute exacerbation of COPD, currently on oral steroid therapy and is now also being followed closely for metabolic management. She is currently on prednisone at 20 mg once daily as noted. She remains clinically and biochemically euthyroid with a latest free T4 of 0.47 and a total T4 of 3.5 microgram/dL with TSH of 0.27. This is indicative of the so-called acute sick euthyroid syndrome from the intercurrent IV steroid therapy with superimposed TSH suppression from the steroid therapy as given. This is transient phenomenon and should improve clinically and metabolically as her thyroid levels improve otherwise. PLAN: We will obtain serial chemistries and supplement accordingly needed. She will not need any kind of thyroid pharmacotherapy at this time and should except biochemical improvement with her clinical status improvement there of. We will follow with you. Isabel Swenson MD
[2017-05-04 15:12] VITALS: RESP 20; TEMP 97.6
--- NOTE | 2017-05-08 08:18 | DS ---
HOSPITAL COURSE: The patient admitted to TCU from [facility] and being discharged home today, 05/04/2017. The patient was admitted from TCU after an episode of asthmatic bronchitis and pneumonia, also had some renal insufficiency and anemia. The patient was transfused. She was seen in consultation by Dr. Bentley and also by Dr. Castillo for GI. The patient was found to have anemia of chronic disease. She has a history of lupus. She had recently been on methotrexate, she was being transitioned to Rituxan, has not received her Rituxan yet. The patient was treated with steroids, bronchodilators and antibiotics for her exacerbation of asthmatic bronchitis, possible pneumonia. The patient as mentioned did physical therapy and occupational therapy. She was found not to need supplemental oxygen. She also was found to be mildly hypothyroid. Her mild hypothyroidism was treated by ____Bianka Romero with thyroid supplementation. The patient will be transferred home today. Vital signs are stable. PLAN: Plan is to continue bronchodilators, tapering dose of steroids, possible Rituxan in the future. Follow her blood counts. Continue Synthroid and continue physical therapy at home. DISCHARGE DIAGNOSES: Final discharge diagnoses of the patient will be pneumonia, asthmatic bronchitis, history of lupus, anemia of chronic disease, hypothyroidism, and acute renal insufficiency. Pelon Ty MD
== END 2017-05-04 11:08 | disposition home or self-care (01) | DRG 194 ==
LOC: TRCU 17:26
PROVIDERS: ADMIT Internal Medicine; ATTEND Internal Medicine
PROC: 3E0F7GC Introduction of Other Therapeutic Substance into Respiratory Tract, Via Natural or Artificial Opening (ICD-10-PCS; 2017-04-26)
PROC: F07Z9ZZ Gait Training/Functional Ambulation Treatment (ICD-10-PCS; principal; 2017-04-27)
PROC: F08Z4ZZ Home Management Treatment (ICD-10-PCS; 2017-04-27)
DX: J18.9 Pneumonia, unspecified organism (principal); J44.0 Chronic obstructive pulmonary disease with (acute) lower respiratory infection; D69.6 Thrombocytopenia, unspecified; M32.9 Systemic lupus erythematosus, unspecified; J45.901 Unspecified asthma with (acute) exacerbation; J44.1 Chronic obstructive pulmonary disease with (acute) exacerbation; Z79.2 Long term (current) use of antibiotics; D63.8 Anemia in other chronic diseases classified elsewhere; M06.9 Rheumatoid arthritis, unspecified; N28.9 Disorder of kidney and ureter, unspecified; E03.9 Hypothyroidism, unspecified; M54.9 Dorsalgia, unspecified; G89.29 Other chronic pain; E66.9 Obesity, unspecified; I10 Essential (primary) hypertension; E78.5 Hyperlipidemia, unspecified; Y95 Nosocomial condition; F41.1 Generalized anxiety disorder; F32.9 Major depressive disorder, single episode, unspecified; Z68.33 Body mass index [BMI] 33.0-33.9, adult; J32.9 Chronic sinusitis, unspecified; R09.82 Postnasal drip; E07.81 Sick-euthyroid syndrome

== ENCOUNTER 2017-05-17 16:28 | Inpatient (IN) | payer MEDICARE, OTHER ==
--- NOTE | 2017-05-17 17:02 | ED PDOC ---
Arrival/HPI - General Chief Complaint: Cough, Cold, Congestion Time Seen by Provider: 05/17/17 16:57 Historian: Patient - History of Present Illness Narrative History of Present Illness (Text): 05/17/17 16:57 A 71 year old female, whose past medical history includes lupus and rheumatoid arthritis, presents to the emergency department complaining of generalized myalgias and fatigue for the past few days. Patient reports she was recently discharged from the hospital after being admitted for anemia secondary to medication Methotrexate. Patient reports her symptoms have not improved since her discharge. Patient notes a nonproductive cough but denies any fever, chills , nausea, vomiting, abdominal pain, urinary symptoms, chest pain, shortness of breath or any other complaints. Time/Duration: Other (few days) Symptom Course: Unchanged Context: Home Past Medical History - Provider Review Nursing Documentation Reviewed: Yes - Infectious Disease Hx of Infectious Diseases: None - Tetanus Immunization Tetanus Immunization: Unknown - Cardiac Hx Cardiac Disorders: Yes Hx Hypertension: Yes - Pulmonary Hx Respiratory Disorders: Yes Hx Bronchitis: Yes - Neurological Hx Neurological Disorder: No - HEENT Hx HEENT Disorder: Yes (USES GLASSES) - Renal Hx Renal Disorder: No - Endocrine/Metabolic Hx Endocrine Disorders: Yes Hx Systemic Lupus Erythematosus: Yes - Hematological/Oncological Hx Cancer: No - Integumentary Hx Dermatological Disorder: No - Musculoskeletal/Rheumatological Hx Musculoskeletal Disorders: Yes Hx Arthritis: Yes Hx Falls: No - Gastrointestinal Hx Gastrointestinal Disorders: Yes (BOWEL OBSTRUCTION WITH COLON RESECTION) - Genitourinary/Gynecological Hx Genitourinary Disorders: No Hx Reproductive Disorders: No - Psychiatric Hx Psychophysiologic Disorder: No Hx Substance Use: No - Surgical History Hx Appendectomy: Yes Hx Cholecystectomy: Yes Hx Hysterectomy: Yes Hx Mastectomy: No Hx Musculoskeletal Surgery: Yes Other/Comment: L knee r/p. b/l ankle sx with pins. b/l shoulder sx with pins. b/l wrist sx with pins - Anesthesia Hx Anesthesia: Yes Hx Anesthesia Reactions: No Hx Malignant Hyperthermia: No - Suicidal Assessment Feels Threatened In Home Enviroment: No Family/Social History - Physician Review Nursing Documentation Reviewed: Yes Family/Social History: No Known Family HX Smoking Status: Never Smoked Hx Alcohol Use: No Hx Substance Use: No Hx Substance Use Treatment: No Allergies/Home Meds Allergies/Adverse Reactions: Allergies No Known Allergies Allergy (Verified 05/17/17 16:56) Home Medications: Home Meds Medication Instructions Recorded Confirmed Aspirin [Adult Aspirin Regimen] 81 mg PO DAILY 04/23/17 05/17/17 DULoxetine [Cymbalta] 60 mg PO DAILY 04/23/17 05/17/17 Folic Acid 1 mg PO DAILY 04/23/17 05/17/17 Methotrexate 2.5 mg PO DAILY 04/23/17 05/17/17 Oxycodone HCl [Oxycontin] 20 mg PO TID PRN 04/23/17 05/17/17 Oxycodone HCl/Acetaminophen 1 tab PO BID PRN 04/23/17 05/17/17 [Oxycodone-Acetaminophen 5-325] Pravastatin Sodium [Pravachol] 10 mg PO DAILY 04/23/17 05/17/17 QUEtiapine [SEROquel] 100 mg PO DAILY 04/23/17 05/17/17 tiZANidine [Zanaflex] 4 mg PO TID 04/23/17 05/17/17 Review of Systems - Physician Review All systems were reviewed & negative as marked: Yes - Review of Systems Constitutional: Fatigue. absent: Fevers, Night Sweats Respiratory: Cough. absent: SOB, Sputum Cardiovascular: absent: Chest Pain Gastrointestinal: absent: Abdominal Pain, Nausea, Vomiting Genitourinary Female: absent: Dysuria, Frequency, Hematuria Musculoskeletal: Myalgias Physical Exam Vital Signs Temp Pulse Resp BP Pulse Ox 05/17/17 20:40 96 H 18 140/69 97 05/17/17 19:52 82 18 131/75 95 05/17/17 18:20 83 18 149/99 H 100 05/17/17 16:59 97.7 F 59 L 18 119/53 L 98 Appearance: Positive for: Non-Toxic, Comfortable, Other (Pale appearing) Pain Distress: None Mental Status: Positive for: Alert and Oriented X 3 - Systems Exam Head: Present: Atraumatic, Normocephalic Pupils: Present: PERRL Extroacular Muscles: Present: EOMI Conjunctiva: Present: Normal Mouth: Present: Moist Mucous Membranes Neck: Present: Normal Range of Motion Respiratory/Chest: Present: Clear to Auscultation, Good Air Exchange. No: Respiratory Distress, Accessory Muscle Use Cardiovascular: Present: Regular Rate and Rhythm, Normal S1, S2. No: Murmurs Abdomen: Present: Normal Bowel Sounds. No: Tenderness, Distention, Peritoneal Signs Back: Present: Normal Inspection Upper Extremity: Present: Normal Inspection. No: Cyanosis, Edema Lower Extremity: Present: Normal Inspection. No: Edema Neurological: Present: GCS=15, CN II-XII Intact, Speech Normal Skin: Present: Warm, Dry, Pale. No: Rashes Psychiatric: Present: Alert, Oriented x 3, Normal Insight, Normal Concentration Medical Decision Making ED Course and Treatment: 05/17/17 16:57 Impression: A 71 year old female with generalized myalgias and fatigue. Patient notes a non- productive cough. Plan: -- Chest xray -- EKG -- Labs -- Urinalysis -- Influenza A B stat -- IV fluids -- Reassess and disposition Progress Notes: 05/17/17 17:58 EKG shows NSR at 75bpm with pvcs. 05/17/17 20:32 Cxray unchanged from prior 05/17/17 21:59 Patient reports that she is too weak to ambulate. She reports that she is following up with PT. She reports that she is too fatigued to follow-up with Dr. Ty in his office in the morning. Patient tearful. Cannot discharge due to generalized fatigue. Spoke to Dr. Ty's PA Sophia Rajput and will transfer to observation - Lab Interpretations Lab Results: 05/17/17 17:07 05/17/17 17:07 Lab Results 05/17/17 21:00: Urine Color Yellow, Urine Appearance Clear, Urine pH 5.5, Ur Specific [place] 1.025, Urine Protein Trace H, Urine Glucose (UA) Negative, Urine Ketones Trace H, Urine Blood Negative, Urine Nitrate Negative, Urine Bilirubin Small H, Urine Urobilinogen 0.2, Ur Leukocyte Esterase Negative, Urine RBC 0 - 2, Urine WBC Negative, Ur Epithelial Cells 0 - 2 05/17/17 17:24: Blood Type A POSITIVE, Antibody Screen Negative, BBK History Checked Patient has bt 05/17/17 17:07: PT 11.2, INR 0.98, APTT 30.3 05/17/17 17:07: Influenza Typ A,B (EIA) Negative for flu a/b 05/17/17 17:07: Free T4 1.04, TSH 3rd Generation 1.03 05/17/17 17:07: Sodium 136, Potassium 3.9, Chloride 102, Carbon Dioxide 26, Anion Gap 12, BUN 20, Creatinine 1.0, Est GFR ( Amer) > 60, Est GFR (Non- Af Amer) 55, Random Glucose 111 H, Calcium 9.3, Phosphorus 3.8, Magnesium 1.9, Total Bilirubin 0.3, AST 31, ALT 38, Alkaline Phosphatase 77, Lactate Dehydrogenase 671, Total Creatine Kinase 23 L, Troponin I < 0.01 D, Total Protein 6.4, Albumin 3.4, Globulin 3.1, Albumin/Globulin Ratio 1.1 05/17/17 17:07: WBC 10.0 D, RBC 3.06 L, Hgb 9.4 L, Hct 30.1 L, MCV 98.4 D, MCH 30.7, MCHC 31.2, RDW 17.9 H, Plt Count 390, MPV 9.2, Gran % 45.0 L, Lymph % (Auto) 40.6 H, Granite % (Auto) 8.8 H, Eos % (Auto) 4.6, Baso % (Auto) 1.0, Gran # 4.49, Lymph # 4.1 H, Granite # 0.9 H, Eos # 0.5, Baso # 0.10 - RAD Interpretation Radiology Orders: 05/17/17 17:02 CHEST TWO VIEWS (PA/LAT) [RAD] Stat - Medication Orders Current Medication Orders: Discontinued Medications Sodium Chloride (Sodium Chloride 0.9%) 500 mls @ 999 mls/hr IV .Q31M STA Stop: 05/17/17 17:33 Last Admin: 05/17/17 17:24 Dose: 999 mls/hr eMAR Start Stop Document 05/17/17 17:24 SE (Rec: 05/17[facility]17 17:24 [email or web address] Intravenous Solution Start Date 05/17/17 Start Time 17:24 Morphine Sulfate (Morphine) 4 mg IVP STAT STA Stop: 05/17/17 18:20 Last Admin: 05/17/17 18:26 Dose: 4 mg MAR Pain Assessment Document 05/17/17 18:26 SE (Rec: 05/17/17 18:26 [email or web address] Pain Reassessment Is this a pain reassessment? No Sleep Is patient sleeping during reassessment? No Presence of Pain Presence of Pain Yes Pain Scale Used Pain Scale Used Numeric Location Pain Location Body Site Back IVP Administration Document 05/17/17 18:26 SE (Rec: 05/17/17 18:26 [email or web address] Charges for Administration # of IVP Administrations 1 Oxycodone HCl (Oxycodone Immediate Release Tab) 20 mg PO STAT STA Stop: 05/17/17 21:38 Last Admin: 05/17/17 21:49 Dose: 20 mg MAR Pain Assessment Document 05/17/17 21:49 YP (Rec: 05/17/17 21:49 YP [id number]) Pain Reassessment Is this a pain reassessment? Yes Sleep Is patient sleeping during reassessment? No Presence of Pain Presence of Pain Yes - Scribe Statement The provider has reviewed the documentation as recorded by the Gigiibifeoma Jimenez Provider Scribe Attestation: All medical record entries made by the Scribe were at my direction and personally dictated by me. I have reviewed the chart and agree that the record accurately reflects my personal performance of the history, physical exam, medical decision making, and the department course for this patient. I have also personally directed, reviewed, and agree with the discharge instructions and disposition. Disposition/Present on Arrival - Present on Arrival Any Indicators Present on Arrival: No History of DVT/PE: No History of Uncontrolled Diabetes: No Urinary Catheter: No History of Decub. Ulcer: No History Surgical Site Infection Following: None - Disposition Have Diagnosis and Disposition been Completed?: Yes Diagnosis: Fatigue Disposition: HOSPITALIZED Disposition Time: 21:37 Patient Plan: Observation Condition: FAIR Referrals: Pelon Ty MD [Primary Care Provider] - Follow up with primary Forms: [employer] (Armenian)
[2017-05-17] MEDS ORDERED: Sodium Chloride 0.9% 500 ML IV STA (17:03)
[2017-05-17 17:45] LABS: BASO # 0.1 K/mm3 (0.0-2.0); EOS # 0.5 (0.0-0.7); EOS % 4.6 % (1.5-5.0); GRAN # 4.49 (1.4-6.5); HEMOGLOBIN 9.4 g/dL (12.0-16.0); LYMPH # 4.1 (1.2-3.4); LYMPH % 40.6 % (22.0-35.0); MEAN CELL VOLUME 98.4 fl (80.0-105.0); MEAN CORPUSCULAR HEMOGLOBIN 30.7 pg (25.0-35.0); MEAN CORPUSCULAR HGB CONC 31.2 g/dl (31.0-37.0); MEAN PLATELET VOLUME 9.2 fl (7.0-11.0); MONO # 0.9 (0.1-0.6); MONO % 8.8 % (1.0-6.0); RBC 3.06 10^6/uL (3.5-6.1); RED CELL DISTRIBUTION WIDTH 17.9 % (11.5-14.5)
[2017-05-17 17:46] LABS: INR 0.98 (0.93-1.08); PARTIAL THROMBOPLASTIN TIME 30.3 Seconds (25.1-36.5); PROTHROMBIN TIME 11.2 SECONDS (9.4-12.5)
[2017-05-17 17:52] LABS: ALB/GLOB RATIO 1.1 (1.1-1.8); ALBUMIN 3.4 g/dL (3.0-4.8); ALT/SGPT 38 U/L (7-56); AST/SGOT 31 U/L (14-36); BLOOD UREA NITROGEN 20 mg/dL (7-21); CALCIUM 9.3 mg/dL (8.4-10.5); GFR AFRICAN-AMERICAN > 60; GFR NON-AFRICAN AMERICAN 55; MAGNESIUM 1.9 mg/dL (1.7-2.2)
[2017-05-17 18:01] LABS: TROPONIN I < 0.01 ng/mL
[2017-05-17 18:08] LABS: FREE T4 1.04 ng/dL (0.78-2.19)
[2017-05-17] MEDS ORDERED: Morphine 4 mg/ml ISec IVP STA (18:19)
[2017-05-17 21:18] LABS: PH,URINE 5.5 (4.7-8.0); URINE BILIRUBIN SMALL (NEGATIVE); URINE BLOOD NEGATIVE (NEGATIVE); URINE GLUCOSE (UA) NEGATIVE (NEGATIVE); URINE LEUKOCYTE ESTERASE NEGATIVE Leu/uL (NEGATIVE); URINE NITRATE NEGATIVE (NEGATIVE); URINE PROTEIN TRACE mg/dL (<30 mg/dL); URINE UROBILINOGEN 0.2 E.U./dL (<1 E.U./dL)
[2017-05-17] MEDS ORDERED: oxyCODONE 20 mg Immediate Release Tab PO STA (21:18)
[2017-05-17 21:20] LABS: URINE COLOR YELLOW (YELLOW)
[2017-05-17 21:21] LABS: URINE APPEARANCE CLEAR (CLEAR)
[2017-05-17 21:36] LABS: URINE EPITHELIAL CELLS 0 - 2 /hpf (0-5); URINE RBC 0 - 2 /hpf (0-2); URINE WBC NEGATIVE /hpf (0-6)
[2017-05-17] MEDS ORDERED: oxyCODONE 5 mg Immediate Release Tab PO STA (21:37)
[2017-05-18] MEDS ORDERED: Morphine 2 mg/ml ISec IVP STA (01:10)
[2017-05-18 04:05] VITALS: BMI 27.3
[2017-05-18] MEDS ORDERED: Oxycodone/Acetaminophen 5/325 mg Tab PO PRN (09:07)
--- NOTE | 2017-05-18 09:46 | RAD ---
HISTORY: fatigue COMPARISON: 04/23/2017 TECHNIQUE: Chest PA and lateral FINDINGS: LUNGS: No active pulmonary disease. PLEURA: No significant pleural effusion identified. No pneumothorax apparent. CARDIOVASCULAR: Normal. OSSEOUS STRUCTURES: No significant abnormalities. VISUALIZED UPPER ABDOMEN: Normal. OTHER FINDINGS: None. IMPRESSION: No active disease.
--- NOTE | 2017-05-18 11:48 | CT ---
PROCEDURE: CT Chest with without contrast HISTORY: cough COMPARISON: None. TECHNIQUE: Contiguous axial images were obtained through the chest with intravenous contrast enhancement. Sagittal and coronal reconstructions were performed. IV contrast: Radiation dose (DLP): mGy-cm. This CT exam was performed using one or more of the following dose reduction techniques: Automated exposure control, adjustment of the mA and/or kV according to patient size, and/or use of iterative reconstruction technique. FINDINGS: LUNGS: Small subpleural infiltrate in the right lower lobe. MEDIASTINUM: Unremarkable thoracic aorta. No aneurysm or dissection. Normal sized heart. Bilateral pulmonary emboli are observed in the since prior examination involving the lower lobe segmental pulmonary arteries, left greater than right. No lymphadenopathy. PLEURA: No pleural fluid. No pneumothorax. BONES: No fracture. No destructive lesion. UPPER ABDOMEN: Grossly unremarkable. OTHER FINDINGS: None. IMPRESSION: Small subpleural infiltrate in the right lower lobe.Bilateral pulmonary emboli are observed in the since prior examination involving the lower lobe segmental pulmonary arteries, left greater than right. [facility] was notified of these findings at the time of dictation.
[2017-05-18 11:51] LABS: B-TYPE NATRIURETIC PEPTIDE 64.2 pg/mL (0-450); TROPONIN I < 0.01 ng/mL
[2017-05-18] MEDS: Oxycodone/Acetaminophen 5/325 mg Tab PO PRN (19:17)
--- NOTE | 2017-05-18 20:38 | CARD ---
APPROVED REPORT EKG Measurement Heart [id number] <Conclusion> Sinus rhythm with premature supraventricular complexes Low voltage QRS Cannot rule out Anterior infarct, age undetermined Abnormal ECG
--- NOTE | 2017-05-18 22:12 | CP.PCM.PN ---
Subjective - Date & Time of Evaluation Date of Evaluation: 05/18/17 Time of Evaluation: 22:09 - Subjective Subjective: S: A sleeping pill was requested stating that she received ambien yesterday which helped her. Medical record does not reflect that. Patient has no other complaints. Pertinent medical record was reviewed. O: Last Vital Signs 3 Temp 98.0 F 05/18/17 15:27 Pulse 96 H 05/18/17 15:27 Resp 18 05/18/17 15:27 BP 138/69 05/18/17 15:27 Pulse Ox 96 05/18/17 06:00 Awake, alert. LUNGS:Normal breathing pattern. A: Adjustment insomnia. P: Benadryl 25 mg PO x 1. Objective - Vital Signs/Intake and Output Vital Signs (last 24 hours): Temp Pulse Resp BP Pulse Ox 98.0 F 96 H 18 138/69 96 05/18/17 15:27 05/18/17 15:27 05/18/17 15:27 05/18/17 15:27 05/18/17 06:00 - Medications Medications: Current Medications Apixaban (Eliquis) 10 mg PO BID [facility] PRN Reason: Protocol Last Admin: 05/18/17 17:18 Dose: 10 mg Aspirin (Ecotrin) 81 mg PO DAILY [facility] Last Admin: 05/18/17 10:20 Dose: 81 mg Atorvastatin Calcium (Lipitor) 10 mg PO DIN [facility] Last Admin: 05/18/17 17:18 Dose: 10 mg Diphenhydramine HCl (Benadryl) 25 mg PO STAT [facility] Stop: 05/18/17 22:09 Doxycycline Hyclate (Doryx) 100 mg PO Q12 [facility] PRN Reason: Protocol Duloxetine HCl (Cymbalta) 60 mg PO DAILY [facility] Last Admin: 05/18/17 10:20 Dose: 60 mg Folic Acid (Folic Acid) 1 mg PO DAILY [facility] Last Admin: 05/18/17 10:20 Dose: 1 mg Methotrexate (Methotrexate) 2.5 mg PO DAILY [facility] Last Admin: 05/18/17 10:22 Dose: 2.5 mg Methylprednisolone (Solu-Medrol) 40 mg IVP Q12 [facility] Oxycodone HCl (Oxycontin Extended Release Tab) 20 mg PO TID PRN PRN Reason: Pain, moderate (4-7) Oxycodone HCl (Oxycodone Immediate Release Tab) 10 mg PO Q12H PRN PRN Reason: Pain, severe (8-10) Oxycodone/Acetaminophen (Percocet 5/325 Mg Tab) 1 tab PO BID PRN PRN Reason: Pain, Mild (1-3) Stop: 05/21/17 10:24 Last Admin: 05/18/17 19:17 Dose: 1 tab Quetiapine Fumarate (Seroquel) 100 mg PO DAILY [facility] PRN Reason: Protocol Last Admin: 05/18/17 10:20 Dose: 100 mg - Labs Labs: PT 11.2 SECONDS (9.4-12.5) 05/17/17 17:07 INR 0.98 (0.93-1.08) 05/17/17 17:07 APTT 30.3 Seconds (25.1-36.5) 05/17/17 17:07
--- NOTE | 2017-05-18 22:50 | HP ---
HISTORY OF PRESENT ILLNESS: A 71-year-old white female recently discharged from [facility] after episode of asthmatic bronchitis. The patient also has a long history of lupus and fibromyalgia. The patient was discharged home and did poorly at home with poor exercise tolerance, severe fatigue, unable to get out of bed, and shortness of breath with short exertion. The patient was returned to Emergency Room and was found to be afebrile, but had an elevated heart rate of 96 and temperature of 98. Hemoglobin is 9.4. The patient was severely fatigued, short of breath, and dyspneic. PHYSICAL EXAMINATION: GENERAL: She was a well-developed, slightly obese white female with mild respiratory distress. HEENT: Essentially within normal limits. HEART: Reveals sinus rhythm. No S3 or murmurs. Sinus tachycardia. CHEST: Shows some rhonchi at the left base. ABDOMEN: Obese, but benign. EXTREMITIES: No cyanosis, clubbing or edema. NEUROLOGIC: Grossly intact. IMPRESSION: Exacerbation of chronic obstructive pulmonary disease, rule out pulmonary embolism, rule out exacerbation of lupus, rule out occult infection. Pelon Ty MD
--- NOTE | 2017-05-18 23:20 | CON ---
DATE: 05/18/2017 PULMONARY CONSULT REFERRING PHYSICIAN: Dr. Ty. REASON FOR ADMISSION: Cough, shortness of breath, found to have pulmonary embolism. HISTORY OF PRESENT ILLNESS: This is a 71-year-old female well known to me from previous admissions, multiple medical issues including systemic lupus, rheumatoid arthritis, chronic obstructive lung disease and may have sleep apnea syndrome, anemia. She has been on steroids and methotrexate for her lupus and rheumatoid arthritis, hypertension, history of bowel obstruction requiring colon partial resection in the remote past who was recently discharged from the hospital after exacerbation of chronic lung disease, comes into ER with symptom of cough, shortness of breath, congestion, CTA and finding diagnosis of pulmonary embolism. Does have some pulmonary infiltrate though. Sleepy, tired. No nausea, no vomiting. No diarrhea. PAST MEDICAL HISTORY: As per history of present illness. SOCIAL HISTORY: Never smoked. Denied any alcohol use. FAMILY HISTORY: No significant cardiopulmonary disease reported. ALLERGIES: NONE KNOWN. MEDICATIONS: She is on Cymbalta 60 mg daily, Ecotrin 81 mg daily, Eliquis 10 mg daily, folic acid 1 mg daily, Lipitor 10 mg daily, methotrexate 2.5 mg daily, oxycodone immediate release 10 mg q. 12 hours p.r.n., oxycodone extended release 20 mg q. 8 hours for severe pain, Seroquel 100 mg daily, Solu-Medrol 60 mg q. 12 hours. REVIEW OF SYSTEMS: No headache. Has some rhinitis, cough, shortness of breath, congestion. No nausea, no vomiting, no diarrhea, not much leg swelling. PHYSICAL EXAMINATION: GENERAL: Sleepy, lying in the bed, no acute distress. VITAL SIGNS: Temperature is 98, heart rate 76, respiratory rate 16, blood pressure 138/69, pulse 96% on nasal cannula. HEENT: Moist mucous membranes. Small oral cavity. Crowded airway. NECK: Supple. No JVD. LUNGS: There is scattered rhonchi. HEART: S1, S2. ABDOMEN: Soft, nontender, no organomegaly. EXTREMITIES: Not much edema. NEUROLOGIC: Awake and alert, follows simple commands. LABORATORY DATA: Shows hemoglobin 9.4, hematocrit 30.1, WBC 10.0, platelets 390. INR 0.98, PTT 30. Sodium 136, potassium 3.9, chloride 102, bicarbonate 26, BUN 20, creatinine 1.0, glucose is 111, calcium is 9.3, phosphorus 8.8, magnesium 1.9, AST 31, ALT 38, alk phos is 77. LDH 671. Troponin less than 0.01. C-reactive protein more than 15. ProBNP 64. Albumin is 3.4. TSH 1.03. CT of the chest done in ER shows small subpleural infiltrate in the right lower lobe, bilateral pulmonary embolism observed. IMPRESSION AND PLAN: Bilateral pulmonary embolism, pulmonary infiltrate, history of sinusitis, chronic obstructive lung disease, systemic lupus erythematosus, rheumatoid arthritis, hypertension, hyperlipidemia, immunocompromise on methotrexate, chronic anemia. Spoke to nursing staff. The patient may have a component of sleep apnea syndrome but noncompliant with the CPAP, claustrophobic, does not use mask. Agree with the present management. Continue Eliquis 10 mg twice a day. Need to watch H and H very closely. Followup H and H daily. Continue steroids for now, bronchodilator, sleep apnea precaution. Careful with sedation. Gastric prophylaxis. Thank you and we will follow with you Alek Salazar MD
[2017-05-19] MEDS: Oxycodone/Acetaminophen 5/325 mg Tab PO PRN (01:03)
[2017-05-19] MEDS: oxyCODONE 10 mg Immediate Release Tab PO PRN ×2 (03:18→15:18)
[2017-05-19 07:28] LABS: HEMOGLOBIN 8.9 g/dL (12.0-16.0); MEAN CELL VOLUME 96.6 fl (80.0-105.0); MEAN CORPUSCULAR HEMOGLOBIN 30.6 pg (25.0-35.0); MEAN CORPUSCULAR HGB CONC 31.7 g/dl (31.0-37.0); MEAN PLATELET VOLUME 9.3 fl (7.0-11.0); RBC 2.91 10^6/uL (3.5-6.1); RED CELL DISTRIBUTION WIDTH 17.1 % (11.5-14.5); WHITE BLOOD COUNT 14.9 10^3/ul (4.5-11.0)
[2017-05-19] MEDS: oxyCODONE 20 mg ER Tab (oxyCONTIN) PO PRN (08:55)
--- NOTE | 2017-05-19 14:29 | PN ---
DATE: SUBJECTIVE: A 71-year-old white female admitted to the hospital with fatigue and shortness of breath, found to have abnormal chest examination on auscultation. The patient had a CT ordered of the chest, which showed bilateral pulmonary embolism. The patient does have a long history of possible lupus anticoagulant, also has a history of fatigue from asthmatic bronchitis with fatigue and excessive bed rest possibly contributing to pulmonary embolism. The patient was started on Eliquis 10 mg b.i.d. for first week. Lupus anticoagulant is ordered. The patient is stable. She is comfortable. She has no hemoptysis. She has no tachycardia. She is not short of breath today, but she is fatigued and has rhonchi and rales at both bases. PHYSICAL EXAMINATION: VITAL SIGNS: She is afebrile. Vital signs are stable. CHEST: Shows rhonchi and rales at both bases. HEART: Regular sinus rhythm. ABDOMEN: Benign. EXTREMITIES: Without any cyanosis, clubbing, or edema. LABORATORY DATA: White count is 14,900. The patient is on steroids, Eliquis, gastric protection. She will be out of bed to chair. Venous Doppler was ordered. Pelon Ty MD
--- NOTE | 2017-05-19 14:42 | US ---
HISTORY: Leg pain and swelling. Evaluate for DVT PHYSICIAN(S): Marquise Restrepo MD. TECHNIQUE: Duplex sonography and color-flow Doppler with graded compression were used to evaluate the deep venous systems of both lower extremities. FINDINGS: The visualized deep venous systems of both lower extremities are sonographically normal and compressible. Normal wave forms and augmentation are seen. There is no sonographic evidence for deep venous thrombosis in the visualized segments of both lower extremities. IMPRESSION: No sonographic evidence for deep venous thrombosis in the visualized segments of both lower extremities.
--- NOTE | 2017-05-19 21:19 | PN ---
PULMONARY PROGRESS NOTE DATE: 05/19/2017 REFERRING PHYSICIAN: Pelon Ty MD SUBJECTIVE: The patient is lying in the bed, head at 45 degrees. Family is at the bedside. Night was unremarkable. Get short of breath on exertion. No chest pain. No nausea, vomiting or diarrhea. No leg pain or leg swelling. PHYSICAL EXAMINATION GENERAL: In no acute distress. VITAL SIGNS: Temperature is 98, heart rate is 98, respiratory rate is 18, blood pressure is 134/62 and pulse oximetry 97% on 2 L nasal cannula. HEENT: Moist mucous membranes. Crowded airway. NECK: Supple. No JVD. LUNGS: Has a fair airflow with few rhonchi. HEART: S1 and S2. ABDOMEN: Soft and nontender. No organomegaly. EXTREMITIES: No edema. NEUROLOGIC: Awake and alert, follows simple command. MEDICATIONS: She is on Ambien 10 mg at bedtime p.r.n., Cymbalta 60 mg daily, doxycycline 100 mg twice a day, Ecotrin 81 mg daily, Eliquis 10 mg twice a day, folic acid 1 mg daily, Lipitor 10 mg daily, methotrexate 2.5 mg daily, oxycodone immediate release 10 mg q. 12 hours p.r.n., Percocet 5/325 one tablet q. 12 hours for mild pain, Seroquel 100 mg daily and Solu-Medrol 40 mg q. 12 hours. LABORATORY DATA: Reviewed and noted. Hemoglobin 8.9, hematocrit 28.1, WBC 14.9 and platelet is 381. Has a venous Doppler of lower extremity done today which shows no evidence of DVT of both lower extremities. IMPRESSION AND PLAN: Pulmonary embolism, also some subpleural pulmonary infiltrate, history of sinusitis, chronic obstructive lung disease, systemic lupus erythematous, rheumatoid arthritis, hypertension, hyperlipidemia, immunocompromised on methotrexate, chronic anemia. Spoke to the patient's family at the bedside. All the questions answered. Continue anticoagulation. Keep heat at 45 degrees, gastric prophylaxis, bronchodilator. Follow up H and H. Thank you and we will follow with you. Alek Salazar MD
[2017-05-20] MEDS: oxyCODONE 20 mg ER Tab (oxyCONTIN) PO PRN ×2 (01:01→14:56)
[2017-05-20] MEDS: oxyCODONE 10 mg Immediate Release Tab PO PRN ×2 (05:52→17:52)
[2017-05-20] MEDS: Oxycodone/Acetaminophen 5/325 mg Tab PO PRN (08:33)
[2017-05-20 08:41] LABS: HEMOGLOBIN 8.4 g/dL (12.0-16.0); MEAN CELL VOLUME 101.1 fl (80.0-105.0); MEAN CORPUSCULAR HEMOGLOBIN 31.3 pg (25.0-35.0); PLATELET COUNT 407 10^3/uL (120.0-450.0); RBC 2.68 10^6/uL (3.5-6.1); RED CELL DISTRIBUTION WIDTH 17.2 % (11.5-14.5); WHITE BLOOD COUNT 22.3 10^3/ul (4.5-11.0)
[2017-05-20 09:36] LABS: LYMPHOCYTE 5 % (22.0-35.0); MONOCYTE 1 % (1.0-6.0); MYELOCYTE 1 %; NEUTROPHIL 93 % (50.0-70.0); PLATELET ESTIMATE NORMAL (NORMAL)
--- NOTE | 2017-05-20 11:11 | PN ---
DATE: SUBJECTIVE: A 71-year-old female admitted to the hospital with shortness of breath. She was found to have bilateral pulmonary embolism and started on Eliquis. The patient also has lupus, we are waiting for lupus anticoagulant. The patient is doing well. PHYSICAL EXAMINATION: GENERAL: The patient has shortness of breath. She also was tachycardiac with short of periods of walking. VITAL SIGNS: Stable. CHEST: Shows rhonchi bilaterally. ABDOMEN: Benign. EXTREMITIES: Without any cyanosis, clubbing, or edema. PLAN: Continue Eliquis. Workup of her lupus. Continue IV steroids and followup for signs of infection. Pelon Ty MD
[2017-05-20] MEDS: MethylPREDNISolone 40 mg Vial IVP SCH (22:42)
--- NOTE | 2017-05-20 22:59 | CP.PCM.PN ---
Subjective - Date & Time of Evaluation Date of Evaluation: 05/20/17 Time of Evaluation: 22:59 - Subjective Subjective: # 22 angiocath was inserted in left hand. Objective - Vital Signs/Intake and Output Vital Signs (last 24 hours): Temp Pulse Resp BP Pulse Ox 98.5 F 107 H 19 140/72 94 L 05/20/17 17:55 05/20/17 18:00 05/20/17 17:55 05/20/17 17:55 05/20/17 06:00 - Medications Medications: Current Medications Apixaban (Eliquis) 10 mg PO BID [facility] PRN Reason: Protocol Last Admin: 05/20/17 17:43 Dose: 10 mg Aspirin (Ecotrin) 81 mg PO DAILY [facility] Last Admin: 05/20/17 09:40 Dose: 81 mg Atorvastatin Calcium (Lipitor) 10 mg PO DIN [facility] Last Admin: 05/20/17 17:43 Dose: 10 mg Doxycycline Hyclate (Doryx) 100 mg PO Q12 [facility] PRN Reason: Protocol Last Admin: 05/20/17 21:22 Dose: 100 mg Duloxetine HCl (Cymbalta) 60 mg PO DAILY [facility] Last Admin: 05/20/17 09:50 Dose: 60 mg Folic Acid (Folic Acid) 1 mg PO DAILY [facility] Last Admin: 05/20/17 09:40 Dose: 1 mg Methotrexate (Methotrexate) 2.5 mg PO DAILY [facility] Last Admin: 05/20/17 09:51 Dose: 2.5 mg Methylprednisolone (Solu-Medrol) 30 mg IVP Q12 [facility] Last Admin: 05/20/17 22:42 Dose: 30 mg Oxycodone HCl (Oxycontin Extended Release Tab) 20 mg PO TID PRN PRN Reason: Pain, moderate (4-7) Last Admin: 05/20/17 14:56 Dose: 20 mg Oxycodone HCl (Oxycodone Immediate Release Tab) 10 mg PO Q12H PRN PRN Reason: Pain, severe (8-10) Last Admin: 05/20/17 17:52 Dose: 10 mg Oxycodone/Acetaminophen (Percocet 5/325 Mg Tab) 1 tab PO BID [facility] PRN Reason: Pain, Mild (1-3) Stop: 05/21/17 10:24 Last Admin: 05/20/17 08:33 Dose: 1 tab Quetiapine Fumarate (Seroquel) 100 mg PO DAILY [facility] PRN Reason: Protocol Last Admin: 05/20/17 09:40 Dose: 100 mg Zolpidem Tartrate (Ambien) 10 mg PO HS PRN; Protocol PRN Reason: Insomnia Last Admin: 05/20/17 21:23 Dose: 10 mg - Labs Labs: 05/20/17 06:30 PT 11.2 SECONDS (9.4-12.5) 05/17/17 17:07 INR 0.98 (0.93-1.08) 05/17/17 17:07 APTT 30.3 Seconds (25.1-36.5) 05/17/17 17:07
--- NOTE | 2017-05-20 23:27 | PN ---
DATE: 05/20/2017 REFERRING PHYSICIAN: Pelon Ty MD SUBJECTIVE: She is lying in the bed, feels better today, was up in the chair, did take a little walk, gets short of breath with exertion. No nausea, no vomiting. Has low back discomfort today. No leg pain or leg swelling. OBJECTIVE: GENERAL: No acute distress. VITAL SIGNS: Temperature is 98.9, heart rate is 94, respiratory rate is 18, blood pressure 141/82, pulse ox 94% on 2 liters nasal cannula. HEENT: Moist mucous membranes. Small oral cavity. LUNGS: Have fair airflow with a few rhonchi. HEART: S1 and S2. ABDOMEN: Soft, nontender. No organomegaly. EXTREMITIES: There is no much edema. NEUROLOGIC: Awake and follows simple command. MEDICATIONS: She is on Ambien 10 mg at bedtime p.r.n., Cymbalta 60 mg daily, doxycycline 100 mg twice a day, Ecotrin 81 mg daily, Eliquis 10 mg twice a day, folic acid 1 mg daily, Lipitor 10 mg daily, methotrexate 2.5 mg daily, oxycodone immediate release 10 mg q.12 hours p.r.n., OxyContin Extended Release 20 mg three times a day p.r.n., Percocet 5/325 one tablet q.12 hours p.r.n., Seroquel 100 mg daily, Solu-Medrol 40 mg q.12 hours. LABORATORY DATA: Reviewed and noted. Hemoglobin 8.4, hematocrit 27.1, WBC 22,000, platelet is 407. IMPRESSION AND PLAN: Pulmonary embolism, also has some pulmonary infiltrate, history of sinusitis, chronic obstructive lung disease, systemic lupus erythematosus, rheumatoid arthritis, pulmonary hypertension, immunocompromised on methotrexate, chronic anemia. Continue anticoagulation, bronchodilator. May decrease Solu-Medrol. Gastric prophylaxis. Out of bed to chair. Follow up labs in the morning. Thank you and we will follow with you. Alek Salazar MD
[2017-05-21] MEDS: oxyCODONE 10 mg Immediate Release Tab PO PRN (06:08)
[2017-05-21 06:55] VITALS: O2SAT 94
[2017-05-21 06:58] LABS: MEAN CELL VOLUME 100.8 fl (80.0-105.0); MEAN CORPUSCULAR HEMOGLOBIN 31.3 pg (25.0-35.0); MEAN PLATELET VOLUME 9.8 fl (7.0-11.0); RBC 2.56 10^6/uL (3.5-6.1); WHITE BLOOD COUNT 18.6 10^3/ul (4.5-11.0)
[2017-05-21] MEDS: oxyCODONE 20 mg ER Tab (oxyCONTIN) PO PRN (08:22)
[2017-05-21] MEDS: MethylPREDNISolone 40 mg Vial IVP SCH (09:18)
[2017-05-21 10:29] LABS: EOS % 0.1 % (1.5-5.0); GRAN # 16.61 (1.4-6.5); GRAN % 91.4 % (50.0-68.0); HEMOGLOBIN 8.1 g/dL (12.0-16.0); LYMPH % 5.6 % (22.0-35.0); MEAN CORPUSCULAR HEMOGLOBIN 30.9 pg (25.0-35.0); MEAN CORPUSCULAR HGB CONC 31.9 g/dl (31.0-37.0); MEAN PLATELET VOLUME 9.3 fl (7.0-11.0); MONO # 0.5 (0.1-0.6); MONO % 2.9 % (1.0-6.0); RBC 2.62 10^6/uL (3.5-6.1); RED CELL DISTRIBUTION WIDTH 17.1 % (11.5-14.5); WHITE BLOOD COUNT 18.2 10^3/ul (4.5-11.0)
[2017-05-21 10:41] LABS: MEAN CELL VOLUME 99.6 fl (80.0-105.0)
[2017-05-21 11:07] LABS: IRON 111 ug/dL (45-180)
[2017-05-21 11:16] LABS: % IRON SATURATION 44 % (20-55); TOTAL IRON BINDING CAPACITY 252 ug/dL (265-497)
[2017-05-21 12:28] VITALS: BP 187/107; RESP 18; TEMP 97.3
[2017-05-21] MEDS ORDERED: Oxycodone/Acetaminophen 5/325 mg Tab PO PRN (13:13)
--- NOTE | 2017-05-21 14:43 | CP.PCM.PCO ---
Physician Communication Note - Physician Communication Note Physician Communication Note: Patient is cleared for transfer to TCU, see dictated note
[2017-05-21 14:44] VITALS: PULSE 96
[2017-05-21] MEDS ORDERED: Influenza Vaccine 60 mcg/0.5 mL SYR (4YR UP) IM ONE (15:30)
[2017-05-21] MEDS ORDERED: Pneumococcal 23-Valent Vaccine IM ONE (15:30)
[2017-05-21 17:35] LABS: FOLATE 18.6 ng/mL
--- NOTE | 2017-05-21 23:46 | PN ---
DATE: 05/21/2017 PULMONARY PROGRESS NOTE REFERRING PHYSICIAN: Pelon Ty MD SUBJECTIVE: She is lying in the bed, sleepy, arousable, day was unremarkable. Mild shortness of breath. No cough. No pleuritic pain. No nausea. No vomiting. No diarrhea. No leg pain. No leg swelling. OBJECTIVE: GENERAL: In no acute distress. VITAL SIGNS: Temperature 98, heart rate is 96, respiratory rate is 18, blood pressure is 187/107, and pulse oximetry is 94% on room air. HEENT: Small oral cavity. Crowded airway. NECK: Supple. No JVD. LUNGS: Have a scattered rhonchi. HEART: S1 and S2. ABDOMEN: Soft, nontender. No organomegaly. EXTREMITIES: No edema. NEUROLOGIC: Awake, alert, and follows simple commands. MEDICATIONS: Reviewed and noted. No new changes in medication reported since yesterday. LABORATORY DATA: Shows hemoglobin 8.1, hematocrit 25.4, WBC 18.2, and platelet is 344. Iron is 111, TIBC 252, ferritin is 258, C-reactive protein is 15, vitamin B12 of 914, and folate is 18.6. IMPRESSION: Pulmonary embolism; subpleural pneumonitis; history of sinusitis; chronic obstructive lung disease; systemic lupus erythematosus; rheumatoid arthritis; pulmonary hypertension; immunocompromised, on methotrexate; anemia, H and H has been stable, need to follow closely, continue anticoagulation, bronchodilator, gastric prophylaxis, fall precaution, out of bed to chair, will benefit from therapy. Thank you and we will follow with you. Alek Salazar MD
--- NOTE | 2017-05-22 08:35 | PN ---
DATE: 05/21/2017 SUBJECTIVE: A 71-year-old white female admitted to the hospital with shortness of breath, fatigue, history of lupus, found to have bilateral pulmonary embolism, and started on Eliquis 10 mg b.i.d. The patient continues to be fatigued and also having problems with increasing and decreasing blood pressure, short of breath doing physical therapy and occupational therapy. Chest is clear to auscultation and percussion. The patient is afebrile. The patient does have a hemoglobin of 8.0 and white count of 18,000. She is on steroids. Plan is to continue to workup of her anemia and transfer to TCU for continued followup of her pulmonary embolism on anticoagulation. Pelon Ty MD
--- NOTE | 2017-05-22 09:02 | CON ---
DATE: 05/21/2017 PRESENTATION: The patient is a 71-year-old female seen at bedside. Patient was admitted to the hospital at this time on 05/17/2017 complaining of generalized myalgias and fatigue for the past few days. She has been hospitalized multiple times here at [facility] due to initially a respiratory infection that did not clear. She was admitted on 04/23/2017 and discharged. Then she was back again on 04/30/2017, 05/07/2017, and 05/18/2017 as well as again on 05/21/2017, which is an extension of the admission from 05/18/2017, that is the third admission to TCU. Consultation was called to clear patient for going to TCU because she is currently on Seroquel. Per unit policy, in order for patient to be on TCU, if they are on any psychotropic medicine, they must be cleared by Psychiatry. This patient is familiar to me. I had seen her on one of her previous admissions, the one dated 04/26/2017. Patient indicates that she psychiatrically is about in the place she has been. She has had a rough holiday season. She has had anemia secondary apparently to methotrexate which she takes for her rheumatoid arthritis. Patient indicates that she visited a psychiatrist about 5 or 6 years ago and she was stabilized on the Seroquel at that time. On her last admission, we did try to decrease it slightly and the patient was unable to tolerate it. She had a rebound sleeplessness and mood instability. So, she was put back up to the original dosage and patient indicated that once she is under less stress, she would rather have her outpatient provider handle any changes in her psychiatric medications. She became depressed about the time of her became ill with Alzheimer's. He is now at the [facility] due to advanced Alzheimer's. So, there has been a lot stress following back and forth with that. She does have family that are supportive, however, her multiple physical difficulties combined with the fact that she has not been able to really get better since March, they are really very troublesome for her. She is bright, she is articulate and she will able to be part of her own care. Medically, patient has lupus, rheumatoid arthritis, hyperlipidemia, and hypertension. She also has a back implant stimulator, history of appendectomy, hysterectomy, cholecystectomy, left knee surgery, and tonsillectomy. LABORATORY DATA: Blood work results include white blood cell count of 18.2, which is down from one of yesterday that was 22.3. So, there is an improvement there. CURRENT MEDICATIONS: Seroquel 100 mg one p.o. at bedtime, Ambien 10 mg one at bedtime. She has been on both of these for at least 5 years. So, the recommendation is to continue those. She is on Eliquis, aspirin, Lipitor,Doryx, Cymbalta 60 mg one p.o. daily, it is recommended that continue as well. Folic acid 1 mg one p.o daily, methotrexate 2.5 mg daily. She is on Solu-Medrol IV push, and oxycodone as needed. She also is on prednisone 20 mg one p.o. daily. PHYSICAL EXAMINATION: VITAL SIGNS: Temperature 97.3, pulse rate 110, blood pressure 187/107 today, and respiratory rate was18. MENTAL STATUS EXAMINATION: Patient is alert and oriented x3. Her eye contact is good. Her behavior is pleasant and cooperative. Her speech rate and volume are within normal limits. Mood is anxious. Affect is constricted. Her thoughts are goal directed. She denies being suicidal or homicidal. Denies the presence of hallucinations, delusions, or paranoia. Her concentration and her focus are good. Her memory both short and group fitness manager appears adequate. Her appetite is impaired as well as her sleep. DIAGNOSTIC IMPRESSION: Major depression, recurrent, at this time moderate with anxiety without psychotic features. PLAN: Patient denies being suicidal or homicidal. She appears in no imminent danger of hurting herself or anyone else. She has been stable on the Seroquel, Cymbalta, and the Ambien for years. I do not recommend we change these. She tolerates the medications well and in fact when we tried to decrease the Seroquel on a previous admission, it was troublesome for the patient. We will continue to follow. Thank you for the consult. Alise Lincoln APN Stephanie Plaza MD
== END 2017-05-21 17:02 | DRG 175 ==
LOC: ED 16:28 → ERH 21:59 → 2A 22:57 → OBSVTOIN 05-18 14:37 → 2RSO 05-18 21:54
PROVIDERS: ADMIT Internal Medicine; ATTEND Internal Medicine
PROC: 3E0234Z Introduction of Serum, Toxoid and Vaccine into Muscle, Percutaneous Approach (ICD-10-PCS; principal; 2017-05-21)
DX: I26.99 Other pulmonary embolism without acute cor pulmonale (principal); J18.9 Pneumonia, unspecified organism; I27.20 Pulmonary hypertension, unspecified; M32.9 Systemic lupus erythematosus, unspecified; F33.9 Major depressive disorder, recurrent, unspecified; J44.1 Chronic obstructive pulmonary disease with (acute) exacerbation; D64.9 Anemia, unspecified; M06.9 Rheumatoid arthritis, unspecified; E78.5 Hyperlipidemia, unspecified; F41.9 Anxiety disorder, unspecified; F51.02 Adjustment insomnia; I10 Essential (primary) hypertension; M79.7 Fibromyalgia; Z79.01 Long term (current) use of anticoagulants; Z79.899 Other long term (current) drug therapy; Z90.49 Acquired absence of other specified parts of digestive tract; Z90.710 Acquired absence of both cervix and uterus; R40.2412 Glasgow coma scale score 13-15, at arrival to emergency department; G47.30 Sleep apnea, unspecified; Z91.19 Patient's noncompliance with other medical treatment and regimen; Z23 Encounter for immunization

== ENCOUNTER 2017-05-21 17:02 | Inpatient (IN) | payer OTHER ==
[2017-05-21 17:40] VITALS: BMI 30.9
[2017-05-21] MEDS: oxyCODONE 10 mg Immediate Release Tab PO PRN (18:52)
[2017-05-22] MEDS: oxyCODONE 20 mg ER Tab (oxyCONTIN) PO PRN ×2 (04:16→14:11)
[2017-05-22 07:30] LABS: BASO # 0.01 K/mm3 (0.0-2.0); BASO % 0.1 % (0.0-3.0); EOS % 0.1 % (1.5-5.0); GRAN # 11.09 (1.4-6.5); GRAN % 77.4 % (50.0-68.0); HEMOGLOBIN 8.4 g/dL (12.0-16.0); LYMPH # 2.5 (1.2-3.4); LYMPH % 17.2 % (22.0-35.0); MEAN CORPUSCULAR HEMOGLOBIN 30.4 pg (25.0-35.0); MEAN CORPUSCULAR HGB CONC 31.7 g/dl (31.0-37.0); MEAN PLATELET VOLUME 9.5 fl (7.0-11.0); MONO # 0.7 (0.1-0.6); MONO % 5.2 % (1.0-6.0); RBC 2.76 10^6/uL (3.5-6.1); RED CELL DISTRIBUTION WIDTH 16.8 % (11.5-14.5); WHITE BLOOD COUNT 14.3 10^3/ul (4.5-11.0)
[2017-05-22] MEDS: oxyCODONE 10 mg Immediate Release Tab PO PRN ×2 (09:41→21:12)
--- NOTE | 2017-05-22 10:24 | CP.PCM.PCO ---
Physician Communication Note - Physician Communication Note Physician Communication Note: pt was seen by RICARDO Lincoln, see notes, pt will continue all meds
[2017-05-22] MEDS: Oxycodone/Acetaminophen 5/325 mg Tab PO PRN (12:33)
--- NOTE | 2017-05-22 13:26 | CP.PCM.CON ---
History of Present Illness - History of Present Illness History of Present Illness: 71 y/o F with PMH of HTN, HLD, and SLE presented initially with shortness of breath. Patient was found to have b/l PE on Chest CT in the ED. Patient was admitted to the floors and placed on Eliquis 10 mg BID. Patient also received b/ l lower ext dopplers which were negative for DVT. Patient was recently admitted last month for asthmatic bronchitis and pneumonia. During that time, she was also found to be anemic and given several units of blood. Her Methotrexate was stopped at this time, but restarted as an outpatient by her primary care doctor. Patient is followed by Dr. Hurt as an outpatient for her SLE. Today, patient states she has diffuse joint pain, 10/10. Pain does not radiate, but is normally controlled by her pain medication. Patient does admit to mild shortness of breath. Denies CP, palpitations, N/V/D, changes in vision, diplopia , numbness, tingling, dysuria, fever, chills. PMH: HLD, HTN, Lupus Surgical Hx: Spinal surgery Soc Hx: Pt denies any alcohol, illicit drug use, and tobacco use Fam Hx: Significant for DM, HTN, CAD All: NKDA Medications: Reviewed, as per MAR Review of Systems - Review of Systems Review of Systems: 12 point ROS as per HPI, otherwise negative. Past Patient History - Infectious Disease Hx of Infectious Diseases: None - Tetanus Immunizations Tetanus Immunization: Unknown - Past Social History Smoking Status: Never Smoked - CARDIAC Hx Cardiac Disorders: Yes Hx Hypertension: Yes - PULMONARY Hx Respiratory Disorders: Yes Hx Bronchitis: Yes - NEUROLOGICAL Hx Neurological Disorder: No - HEENT Hx HEENT Problems: Yes (USES GLASSES) - RENAL Hx Chronic Kidney Disease: No - ENDOCRINE/METABOLIC Hx Endocrine Disorders: Yes Hx Systemic Lupus Erythematosus: Yes - HEMATOLOGICAL/ONCOLOGICAL Hx Anemia: Yes Hx Cancer: No - INTEGUMENTARY Hx Dermatological Problems: No - MUSCULOSKELETAL/RHEUMATOLOGICAL Hx Falls: No - GASTROINTESTINAL Hx Gastrointestinal Disorders: Yes (BOWEL OBSTRUCTION WITH COLON RESECTION) - GENITOURINARY/GYNECOLOGICAL Hx Genitourinary Disorders: No Hx Reproductive Disorders: No - PSYCHIATRIC Hx Psychophysiologic Disorder: Yes Hx Depression: Yes Hx Substance Use: No - SURGICAL HISTORY Hx Appendectomy: Yes Hx Cholecystectomy: Yes Hx Hysterectomy: Yes Hx Mastectomy: No Hx Musculoskeletal Surgery: Yes Other/Comment: L knee r/p. b/l ankle sx with pins. b/l shoulder sx with pins. b/l wrist sx with pins - ANESTHESIA Hx Anesthesia: Yes Hx Anesthesia Reactions: No Hx Malignant Hyperthermia: No Meds Allergies/Adverse Reactions: Allergies Allergy/AdvReac Type Severity Reaction Status Date / Time No Known Allergies Allergy Verified 05/17/17 16:56 - Medications Medications: Current Medications Apixaban (Eliquis) 10 mg PO BID [facility] PRN Reason: Protocol Last Admin: 05/22/17 09:42 Dose: 10 mg Aspirin (Ecotrin) 81 mg PO 0800 [facility] PRN Reason: Protocol Last Admin: 05/22/17 08:05 Dose: 81 mg Atorvastatin Calcium (Lipitor) 10 mg PO DIN [facility] PRN Reason: Protocol Last Admin: 05/21/17 18:52 Dose: 10 mg Doxycycline Hyclate (Doryx) 100 mg PO Q12 [facility] PRN Reason: Protocol Last Admin: 05/22/17 09:42 Dose: 100 mg Duloxetine HCl (Cymbalta) 60 mg PO DAILY [facility] PRN Reason: Protocol Last Admin: 05/22/17 09:42 Dose: 60 mg Folic Acid (Folic Acid) 1 mg PO DAILY [facility] PRN Reason: Protocol Last Admin: 05/22/17 09:43 Dose: 1 mg Methotrexate (Methotrexate) 2.5 mg PO DAILY [facility] PRN Reason: Protocol Last Admin: 05/22/17 09:43 Dose: 2.5 mg Oxycodone HCl (Oxycodone Immediate Release Tab) 10 mg PO Q12H PRN; Protocol PRN Reason: Pain, severe (8-10) Last Admin: 05/22/17 09:41 Dose: 10 mg Oxycodone HCl (Oxycontin Extended Release Tab) 20 mg PO TID PRN; Protocol PRN Reason: Pain, moderate (4-7) Last Admin: 05/22/17 04:16 Dose: 20 mg Oxycodone/Acetaminophen (Percocet 5/325 Mg Tab) 1 tab PO Q12H PRN; Protocol PRN Reason: Pain, Mild (1-3) Last Admin: 05/22/17 12:33 Dose: 1 tab Prednisone (Prednisone Tab) 20 mg PO DAILY [facility] PRN Reason: Protocol Last Admin: 05/22/17 09:46 Dose: Not Given Quetiapine Fumarate (Seroquel) 100 mg PO HS [facility] PRN Reason: Protocol Zolpidem Tartrate (Ambien) 5 mg PO HS PRN; Protocol PRN Reason: Insomnia Last Admin: 05/21/17 21:52 Dose: 5 mg Physical Exam - Constitutional Appears: Non-toxic, No Acute Distress - Head Exam Head Exam: ATRAUMATIC, NORMAL INSPECTION, NORMOCEPHALIC - Eye Exam Eye Exam: Normal appearance. absent: Scleral icterus - ENT Exam ENT Exam: Mucous Membranes Moist, Normal Exam - Respiratory Exam Respiratory Exam: Clear to Auscultation Bilateral, NORMAL BREATHING PATTERN. absent: Rales, Rhonchi, Wheezes - Cardiovascular Exam Cardiovascular Exam: RRR, +S1, +S2 - GI/Abdominal Exam GI & Abdominal Exam: Normal Bowel Sounds, Soft. absent: Tenderness - Extremities Exam Extremities exam: Positive for: normal inspection. Negative for: calf tenderness, pedal edema - Neurological Exam Neurological exam: Alert, CN II-XII Intact, Oriented x3 - Psychiatric Exam Psychiatric exam: Normal Affect, Normal Mood - Skin Skin Exam: Intact, Normal Color, Warm Results - Vital Signs Recent Vital Signs: Last Vital Signs Temp 97.8 F 05/21/17 18:26 Pulse 82 05/21/17 18:26 Resp 20 05/21/17 18:26 BP 163/74 H 05/21/17 18:26 Pulse Ox - Labs Result Diagrams: 05/22/17 07:15 Labs: Laboratory Results - last 24 hr 05/22/17 07:15 WBC 14.3 H D RBC 2.76 L Hgb 8.4 L Hct 26.5 L MCV 96.0 D MCH 30.4 MCHC 31.7 RDW 16.8 H Plt Count 352 MPV 9.5 Gran % 77.4 H Lymph % (Auto) 17.2 L Bollinger % (Auto) 5.2 Eos % (Auto) 0.1 L Baso % (Auto) 0.1 Gran # 11.09 H Lymph # 2.5 Bollinger # 0.7 H Eos # 0.0 Baso # 0.01 Assessment & Plan - Assessment and Plan (Free Text) Plan: 71 y/o F with PMH of HTN, HLD, and SLE presents with b/l PE and diffuse joint pain. At this time, we recommend to continue Eliquis for b/l PE. After discussion with patient's magistrate assistant, Dr. Hurt, patient should be switched from Methotrexate 2.5 mg daily, to Methotrexate 10 mg once weekly, which will begin on Sunday. In addition, patient will be switched from Prednisone 20 mg daily to Medrol 12 mg daily, as per her home regimen. Patient will also be evaluated for Rituxan administration while in the TCU, as she has failed other biologic agents in the past. This should also help with her diffuse arthralgias. Plan discussed with Dr. Bentley. Kandis, PGY-2
--- NOTE | 2017-05-22 21:41 | PN ---
DATE: SUBJECTIVE: This 71-year-old white female admitted to the hospital with bilateral pulmonary embolism, history of lupus, history of chronic anemia. The patient's recent H and H is 8.4, white count is 14,300. The patient is on steroids. She is on Eliquis 10 mg b.i.d. for the first week for her pulmonary embolism. She is being reevaluated by Hematology/Oncology for her chronic anemia. She had been on methotrexate. She was being evaluated for treatment with Rituxan with her lupus; however, developed bilateral pulmonary embolism. She is less short of breath. She is doing physical therapy. Physical examination unchanged. Vital signs are stable. Pelon Ty MD
--- NOTE | 2017-05-23 00:44 | CON ---
DATE: 05/22/2017 PULMONARY CONSULTATION REFERRING PHYSICIAN: Pelon Ty MD REASON FOR CONSULTATION: Pulmonary embolism, history of chronic lung disease and sleep apnea syndrome. HISTORY OF PRESENT ILLNESS: This is a 71-year-old female known to me from previous admission, has a history of SLE with arthritis, on immunosuppressor methotrexate and steroids, comes into ER with shortness of breath, found to have a pulmonary embolism, was started on Eliquis, presently has some joint pain. No nausea, no vomiting. No diarrhea, leg pain or leg swelling. Transferred to PICU for continued care. PAST MEDICAL HISTORY: Lupus, multiple joints involvement, anemia, hypertension, hyperlipidemia, may have sleep apnea syndrome, chronic lung disease. SOCIAL HISTORY: No history of smoking or alcohol use. FAMILY HISTORY: Positive for coronary artery disease, hypertension, diabetes. ALLERGIES: NONE KNOWN. MEDICATIONS: She is on Ambien 5 mg at bedtime p.r.n., Cymbalta 60 mg daily, doxycycline 100 mg twice a day, Ecotrin 81 mg daily Eliquis 10 mg twice a day, folic acid 1 mg daily, Lipitor 10 mg daily, methotrexate 2.5 mg daily, OxyContin immediate release 10 mg q. 12 hour, OxyContin extended release 20 mg three times a day, Percocet 5/325 one tablet for mild pain, prednisone 20 mg daily, Seroquel 100 mg at bedtime. LABORATORY DATA: Shows hemoglobin 8.4, hematocrit 26.5, WBC 14.3, platelet is 352. IMPRESSION AND PLAN: Pulmonary embolism, subpleural pneumonitis, history of gastritis, chronic obstructive lung disease, systemic lupus erythematosus with multiple joint involvement, pulmonary hypertension, immunocompromise, anemia. Pulmonary point of view, she is doing okay. Continue anticoagulation. Keep head 45 degrees. Bronchodilator, sleep apnea precaution, avoid sedation. Claustrophobic, refused to use CPAP and BiPAP. Follow up labs in the morning. We will follow with you. Alek Salazar MD
[2017-05-23] MEDS: oxyCODONE 20 mg ER Tab (oxyCONTIN) PO PRN (04:37)
[2017-05-23 07:32] LABS: BASO # 0.01 K/mm3 (0.0-2.0); BASO % 0.1 % (0.0-3.0); EOS # 0.2 (0.0-0.7); EOS % 1.7 % (1.5-5.0); GRAN # 4.71 (1.4-6.5); GRAN % 51.1 % (50.0-68.0); LYMPH # 3.8 (1.2-3.4); LYMPH % 41.3 % (22.0-35.0); MEAN CELL VOLUME 96.5 fl (80.0-105.0); MEAN CORPUSCULAR HEMOGLOBIN 30.8 pg (25.0-35.0); MEAN CORPUSCULAR HGB CONC 31.9 g/dl (31.0-37.0); MEAN PLATELET VOLUME 9.5 fl (7.0-11.0); MONO # 0.5 (0.1-0.6); MONO % 5.8 % (1.0-6.0); RBC 2.6 10^6/uL (3.5-6.1); RED CELL DISTRIBUTION WIDTH 16.7 % (11.5-14.5); WHITE BLOOD COUNT 9.2 10^3/ul (4.5-11.0)
[2017-05-23 07:59] LABS: ALB/GLOB RATIO 1.3 (1.1-1.8); ALT/SGPT 126 U/L (7-56); AST/SGOT 59 U/L (14-36); BLOOD UREA NITROGEN 31 mg/dL (7-21); CALCIUM 8.7 mg/dL (8.4-10.5); GFR AFRICAN-AMERICAN > 60; GFR NON-AFRICAN AMERICAN > 60
[2017-05-23] MEDS: Oxycodone/Acetaminophen 5/325 mg Tab PO PRN ×2 (08:54→21:09)
[2017-05-23] MEDS: Pantoprazole 40 mg EC Tab PO SCH (10:40)
--- NOTE | 2017-05-23 10:47 | PN ---
DATE: SUMMARY: A 71-year-old white female admitted to the hospital with bilateral pulmonary emboli with lupus and anemia. The patient's hemoglobin today is 8 and hematocrit 25.5. She was seen in consultation by Dr. Bentley for oncology and hematology and possible transfusion sometime today. The case was discussed with Dr. Bentley. The patient is continuing physical therapy and occupational therapy. Vital signs are stable. Pelon Ty MD
--- NOTE | 2017-05-23 11:52 | CP.PCM.PN ---
Subjective - Date & Time of Evaluation Date of Evaluation: 05/23/17 Time of Evaluation: 11:38 - Subjective Subjective: Pt seen and examined at bedside. Pt doing well overnight with no acute events. Patient still admits to diffuse body pain, but is well controlled with pain medication. Denies Chest pain, shortness of breath, nausea, vomiting, diarrhea, fever, chills. Objective - Vital Signs/Intake and Output Vital Signs (last 24 hours): Temp Pulse Resp BP Pulse Ox 97.6 F 77 18 146/71 05/22/17 16:00 05/22/17 16:00 05/22/17 16:00 05/22/17 16:00 - Medications Medications: Current Medications Apixaban (Eliquis) 10 mg PO BID [facility] PRN Reason: Protocol Last Admin: 05/23/17 10:41 Dose: 10 mg Aspirin (Ecotrin) 81 mg PO 0800 [facility] PRN Reason: Protocol Last Admin: 05/23/17 08:16 Dose: 81 mg Atorvastatin Calcium (Lipitor) 10 mg PO DIN [facility] PRN Reason: Protocol Last Admin: 05/22/17 17:59 Dose: 10 mg Doxycycline Hyclate (Doryx) 100 mg PO Q12 [facility] PRN Reason: Protocol Last Admin: 05/23/17 10:41 Dose: 100 mg Duloxetine HCl (Cymbalta) 60 mg PO DAILY [facility] PRN Reason: Protocol Last Admin: 05/23/17 10:41 Dose: 60 mg Folic Acid (Folic Acid) 1 mg PO DAILY [facility] PRN Reason: Protocol Last Admin: 05/23/17 10:41 Dose: 1 mg Methotrexate (Methotrexate) 10 mg PO FRI [facility] PRN Reason: Protocol Methylprednisolone (Medrol) 16 mg PO DAILY [facility] Last Admin: 05/23/17 10:53 Dose: 16 mg Oxycodone HCl (Oxycodone Immediate Release Tab) 10 mg PO Q12H PRN; Protocol PRN Reason: Pain, severe (8-10) Last Admin: 05/22/17 21:12 Dose: 10 mg Oxycodone HCl (Oxycontin Extended Release Tab) 20 mg PO TID PRN; Protocol PRN Reason: Pain, moderate (4-7) Last Admin: 05/23/17 04:37 Dose: 20 mg Oxycodone/Acetaminophen (Percocet 5/325 Mg Tab) 1 tab PO Q12H PRN; Protocol PRN Reason: Pain, Mild (1-3) Last Admin: 05/23/17 08:54 Dose: 1 tab Pantoprazole Sodium (Protonix Ec Tab) 40 mg PO 0600 [facility] Last Admin: 05/23/17 10:40 Dose: 40 mg Quetiapine Fumarate (Seroquel) 100 mg PO HS [facility] PRN Reason: Protocol Last Admin: 05/22/17 21:13 Dose: 100 mg Zolpidem Tartrate (Ambien) 5 mg PO HS PRN; Protocol PRN Reason: Insomnia Last Admin: 05/22/17 21:12 Dose: 5 mg - Labs Labs: 05/23/17 07:10 05/23/17 07:20 - Constitutional Appears: Non-toxic, No Acute Distress - Head Exam Head Exam: ATRAUMATIC, NORMAL INSPECTION, NORMOCEPHALIC - ENT Exam ENT Exam: Mucous Membranes Moist - Respiratory Exam Respiratory Exam: Clear to Ausculation Bilateral, NORMAL BREATHING PATTERN. absent: Rales, Rhonchi, Wheezes - Cardiovascular Exam Cardiovascular Exam: RRR, +S1, +S2 - GI/Abdominal Exam GI & Abdominal Exam: Soft, Normal Bowel Sounds. absent: Tenderness - Extremities Exam Extremities Exam: Normal Inspection. absent: Calf Tenderness, Pedal Edema - Neurological Exam Neurological Exam: Alert, Awake, Oriented x3 - Psychiatric Exam Psychiatric exam: Normal Affect, Normal Mood - Skin Skin Exam: Intact, Normal Color, Warm Assessment and Plan - Assessment and Plan (Free Text) Plan: 71 y/o F with PMH of HTN, HLD, and SLE presents with b/l PE and diffuse joint pain. It is recommended that patient remain on Eliquis for her PE. Patient will receive Methotexate once weekly, on Sunday. Patient transitioned to Medrol 16 mg daily, not 12 mg as stated in the previous note. Patient is still pending her authorization for Rituxan. Once approved, she will receive her first dose while in the TCU. Plan discussed with Dr. Bentley. Kandis, PGY-2
[2017-05-23] MEDS: oxyCODONE 10 mg Immediate Release Tab PO PRN (13:17)
--- NOTE | 2017-05-23 20:45 | PN ---
PULMONARY PROGRESS NOTE DATE: 05/23/2017 REFERRING PHYSICIAN: Pelon Ty MD SUBJECTIVE: She is lying in the bed, sleepy, and arousable. Night was unremarkable. No cough. No sputum production, but feels weak and tired. No nausea. No vomiting. No diarrhea. OBJECTIVE: GENERAL: In no acute distress. VITAL SIGNS: Temperature is 98, heart rate is 77, respiratory rate is 18, blood pressure is 146/71, and pulse oximetry not done today. HEENT: Moist mucous membrane. Crowded airway. NECK: Supple. No JVD. LUNGS: Has a fair airflow with rhonchi. HEART: S1 and S2. ABDOMEN: Soft and nontender. No organomegaly. EXTREMITIES: No edema. NEUROLOGIC: Awake, alert, and follows simple commands. MEDICATIONS: She is on Ambien 5 mg at bedtime p.r.n., Cymbalta 60 mg daily, doxycycline 100 mg twice a day, Ecotrin 81 mg daily, Eliquis 10 mg twice a day, folic acid 1 mg daily, Lipitor 10 mg daily, Medrol 60 mg daily, methotrexate , oxycodone immediate release 10 mg q.12 hours p.r.n., oxycodone extended release 20 mg three times a day p.r.n., Protonix EC 40 mg daily, and Seroquel 100 mg at bedtime. LABORATORY DATA: Shows hemoglobin 8.0, hematocrit 25.1, WBC 9.2, and platelet count is 308. Sodium 139, potassium 4.2,chloride 109, bicarbonate is 34, BUN 31, creatinine 0.8, glucose 83, AST 59, and ALT 126. IMPRESSION AND PLAN: Pulmonary embolism, subpleural pneumonitis, history of gastritis, chronic obstructive lung disease, systemic lupus erythematosus, multiple joint discomfort, pulmonary hypertension, and anemia, on methotrexate. Pulmonary point of view, doing okay. Keep head at 45 degrees. Continue anticoagulation, bronchodilator, on methotrexate, fall precaution, and also on sedative for anxiety disorder. Follow up labs in the morning. Thank you and we will follow with you. Alek Salazar MD [facility] # [id number]
[2017-05-24] MEDS: Pantoprazole 40 mg EC Tab PO SCH (05:24)
[2017-05-24] MEDS: oxyCODONE 20 mg ER Tab (oxyCONTIN) PO PRN ×2 (05:26→15:12)
[2017-05-24 07:42] LABS: BASO # 0.01 K/mm3 (0.0-2.0); BASO % 0.1 % (0.0-3.0); EOS # 0.2 (0.0-0.7); EOS % 1.7 % (1.5-5.0); GRAN # 6.37 (1.4-6.5); GRAN % 59.1 % (50.0-68.0); HEMOGLOBIN 8.4 g/dL (12.0-16.0); LYMPH # 3.6 (1.2-3.4); LYMPH % 33.2 % (22.0-35.0); MEAN CELL VOLUME 95.7 fl (80.0-105.0); MEAN CORPUSCULAR HEMOGLOBIN 30.4 pg (25.0-35.0); MEAN CORPUSCULAR HGB CONC 31.8 g/dl (31.0-37.0); MEAN PLATELET VOLUME 9.8 fl (7.0-11.0); MONO # 0.6 (0.1-0.6); MONO % 5.9 % (1.0-6.0); RBC 2.76 10^6/uL (3.5-6.1); RED CELL DISTRIBUTION WIDTH 16.3 % (11.5-14.5); WHITE BLOOD COUNT 10.8 10^3/ul (4.5-11.0)
[2017-05-24 08:09] LABS: ALBUMIN 3.1 g/dL (3.0-4.8); ALT/SGPT 112 U/L (7-56); AST/SGOT 48 U/L (14-36); BLOOD UREA NITROGEN 27 mg/dL (7-21); CALCIUM 8.9 mg/dL (8.4-10.5); GFR AFRICAN-AMERICAN > 60; GFR NON-AFRICAN AMERICAN > 60
[2017-05-24 08:10] LABS: ALB/GLOB RATIO 1.3 (1.1-1.8)
--- NOTE | 2017-05-24 08:23 | CON ---
DATE: 05/22/2017 She is being seen today for followup consultation. PRESENTATION: The patient is a 71-year-old female, seen at bedside in the [facility] unit. The patient was admitted on 05/17/2017 complaining of generalized myalgias and fatigue. She had been recently discharged from [facility] - she has had a series of admissions beginning with a respiratory infection that did not clear. She was admitted on 04/23/2017. She was re-admitted on 04/26/2017 - this was continued admission, having been transferred to the [facility] at that time again on 05/07/2017. She was seen in the ER on 05/18/2017, 05/21/2017, and 05/23/2017. So, she has had multiple admissions. The patient has a history of lupus and rheumatoid arthritis. She has had respiratory infection that did not clear. She became progressively weaker and was found to be anemic and had various complications, which necessitated these repeated hospitalizations. I have seen her before in consultation. Today, the patient is effectively brighter. She indicates that she is physically feeling better. Her doctors have figured out why she was having the anemia and has a treatment plan. Overall, she looks healthy. She has color in her skin. She appears to have some energy. I see her during the mealtime and she has good appetite and a full range of effect. The patient indicates that she did have a difficult holiday season and did not get much time to spend with her family due to not feeling well, but she is hopeful that she will be doing better this year. She told about her - her is having Alzheimer's, [facility] for the past 5 years and is really heading towards end-stage Alzheimer's at this time. She has a supportive family. She is pleased with the care that her is receiving and does try to visit, but feels badly because she has not been feeling up to it in the recent past. She sees a psychiatrist as an outpatient and has been on medication for at least the last 5 years since her [facility] the [facility]. CURRENT MEDICATIONS: Her current psychiatric medications are Cymbalta 60 mg one daily, Seroquel 100 mg one at bedtime, and Ambien 5 mg one at bedtime as needed. She has been stable on these medications. She has been educated as to the risks, benefits, and possible side effects by her previous prescriber and by myself on previous visits. She would like to stay on these medications as she is feeling stable and well psychiatrically. She does not want to become depressed again. She, at some point, may consider a change in dosages, but we will leave this up to her outpatient provider. PHYSICAL EXAMINATION VITAL SIGNS: Currently include a temperature of 98, pulse rate of 81, blood pressure of 132/68, and a respiratory rate of 18. MENTAL STATUS EXAMINATION: The patient is alert and oriented x3. Eye contact is good. Behavior is pleasant and cooperative. Speech rate and volume are within normal limits. Mood is euthymic. Affect is full. Thoughts are goal-directed. She denies being suicidal or homicidal. Denies the presence of hallucinations, delusions, or paranoia. Her concentration and her focus are reported as good. Her memory - both short and half-way, is good. Her appetite and her sleep are normalizing. LABORATORY DATA: Her blood work indicates an elevation in her white blood cell count at 14.3 with lower red blood cells, hemoglobin, and hematocrit at 2.76, 8.4, and 26.5. 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 PLAN: The patient denies being suicidal or homicidal and does not appear in any imminent danger of hurting herself or others. She appears to be psychiatrically stable at this time. I would recommend continuing on her current medications as they seem to be maintaining her well. We will sign off on this patient, please call if there are any further needs. Thank you for the consult. RICARDO Morrell MD
[2017-05-24] MEDS: Oxycodone/Acetaminophen 5/325 mg Tab PO PRN ×2 (08:35→21:10)
--- NOTE | 2017-05-24 12:13 | PN ---
DATE: SUBJECTIVE: A 71-year-old white female admitted to the hospital with bilateral pulmonary emboli, lupus, and anemia of chronic disease. The patient is being Rituxan, also will be transfused because of chronic anemia and severe shortness of breath and difficulty breathing. PHYSICAL EXAMINATION: GENERAL: The patient is still not feeling fatigued. VITAL SIGNS: Stable. PLAN: Plan is for transfusions and then Rituxan. Pelon Ty MD
[2017-05-24 13:04] LABS: CARDIOLIPIN AB (IGA) <11 APL (<=11); CARDIOLIPIN AB (IGG) <14 GPL (<=14)
[2017-05-24 14:07] LABS: B2 GLYCOPROTEIN I AB(IGA) <9 SAU (<=20); B2 GLYCOPROTEIN I AB(IGG) <9 SGU (<=20); B2 GLYCOPROTEIN I AB(IGM) <9 SMU (<=20)
[2017-05-24 17:04] LABS: HEPATITIS B SURFACE AG NEGATIVE (NEGATIVE)
[2017-05-24 17:04] LABS: HEPATITIS B SURFACE AG NEGATIVE (NEGATIVE)
[2017-05-24 17:10] LABS: HEPATITIS A IGM NEGATIVE (NEGATIVE); HEPATITIS B CORE AB Negative (NEGATIVE)
[2017-05-24] MEDS: oxyCODONE 10 mg Immediate Release Tab PO PRN (17:19)
[2017-05-24 17:21] LABS: HEPATITIS C ANTIBODY Negative (NEGATIVE)
[2017-05-24 22:52] LABS: CARDIOLIPIN AB (IGM) 30 MPL (<=12); PHOSPHATIDYLSERINE AB IGA <20 U/mL (<20); PHOSPHATIDYLSERINE AB IGG <10 U/mL (<10); PHOSPHATIDYLSERINE AB IGM 48 U/mL (<25)
--- NOTE | 2017-05-25 01:49 | PN ---
DATE: 05/24/2017 This is [facility]'s hospital visit on the TCU floor. For Dr. Bentley. SUBJECTIVE: The patient is a 71-year-old female seen sitting up in bed reporting that she feels stronger after transfusion earlier today when she was transferred to the outpatient clinic for transfusion, the patient otherwise in no acute distress. She is to began treatment with Rituxan tomorrow as per Dr. Bentley's protocols. OBJECTIVE AND PHYSICAL EXAMINATION: VITAL SIGNS: Temperature is 97.5, pulse is 83, respirations are 20, blood pressure is 186/87 with the repeated pulse ox 98%. LABORATORY DATA: The patient's labs were done. White blood cell count of 10.8, hemoglobin of 8.4, hematocrit of 26.4, and platelet count of 328,000 with a chem metabolic panel showing a BUN of 27 and creatinine of 0.7. AST of 48 and ALT of 112. Homocysteine value of 14.8. ASSESSMENT: Deconditioning, systemic lupus erythematosus with rheumatoid arthritis, hypertension, history of pulmonary embolism, and anemia of chronic disease. PLAN: Plan for this patient after conversation with Dr. Bentley is to transfuse 2 units of packed red blood cells, which was done with good effect after premedication with Tylenol, Benadryl, and Solu-Cortef. The patient also is to receive Rituxan as per Dr. Bentley's recommendations tomorrow with her medications to be adjusted as per Dr. Hurt, her tram inspector with a lab testing to be done and the patient will be monitored clinically. Methotrexate to be restarted as indicated. She continues her narcotic analgesics as indicated. The prognosis for this patient is guarded. Isidoro Mondragon MD
--- NOTE | 2017-05-25 03:34 | PN ---
PULMONARY PROGRESS NOTE DATE: 05/24/2017 REFERRING PHYSICIAN: Pelon Ty MD SUBJECTIVE: The patient is lying in the bed, feels better, and status post blood transfusion. No nausea. No vomiting. No diarrhea. Short of breath on exertion. No leg swelling. OBJECTIVE: GENERAL: In no acute distress. VITAL SIGNS: Temperature is 98, heart rate is 83, respiratory rate is 20, blood pressure is 186/87, and pulse ox is 98% on room air. HEENT: Small oral cavity. Crowded airway. NECK: Supple. No JVD. LUNGS: Has a few scattered rhonchi. HEART: S1 and S2. ABDOMEN: Soft and nontender. No organomegaly. EXTREMITIES: No edema. NEUROLOGIC: Awake, alert, and follow simple commands. MEDICATIONS: She is on Ambien 5 mg at bedtime p.r.n., Cymbalta 60 mg daily, doxycycline 100 mg twice a day, Ecotrin 81 mg daily, Eliquis 10 mg twice a day, folic acid 1 mg daily, Lipitor 10 mg daily, Medrol 16 mg daily, methotrexate 10 mg weekly, oxycodone immediate release 10 mg q.12 hours, also OxyContin extended release 20 mg three times a day p.r.n. for moderate pain, Protonix 40 mg daily, and Seroquel 100 mg at bedtime. LABORATORY DATA: Shows hemoglobin 8.4, hematocrit 26.4, WBC 10.8, and platelets are 328. Sodium 136, potassium 4.2, chloride 98, bicarbonate is 32, BUN 27, creatinine 0.7, glucose 76, and calcium 8.9. AST 48, ALT 112, alk phos is 54, and albumin is 3.1. Anticardiolipin antibody is positive, which is 30. 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 Pulmonary point of view, doing okay. Continue anticoagulation. We will switch to Eliquis 5 mg of total 10 days of Eliquis 10 mg, may need lifelong anticoagulation, sleep apnea precaution, followup H and H, and start therapy. Thank you and we will follow with you. Alek Salazar MD
[2017-05-25] MEDS: oxyCODONE 10 mg Immediate Release Tab PO PRN (04:15)
[2017-05-25] MEDS: Pantoprazole 40 mg EC Tab PO SCH (05:37)
[2017-05-25 07:14] LABS: BASO # 0.02 K/mm3 (0.0-2.0); BASO % 0.1 % (0.0-3.0); EOS # 0.2 (0.0-0.7); GRAN # 11.07 (1.4-6.5); GRAN % 72.4 % (50.0-68.0); LYMPH # 3.2 (1.2-3.4); LYMPH % 20.6 % (22.0-35.0); MEAN CORPUSCULAR HEMOGLOBIN 29.7 pg (25.0-35.0); MEAN CORPUSCULAR HGB CONC 32.6 g/dl (31.0-37.0); MEAN PLATELET VOLUME 9.8 fl (7.0-11.0); MONO # 0.9 (0.1-0.6); MONO % 5.9 % (1.0-6.0); RBC 3.74 10^6/uL (3.5-6.1); RED CELL DISTRIBUTION WIDTH 16.7 % (11.5-14.5); WHITE BLOOD COUNT 15.3 10^3/ul (4.5-11.0)
[2017-05-25 07:18] LABS: HEMOGLOBIN 11.1 g/dL (12.0-16.0); MEAN CELL VOLUME 90.9 fl (80.0-105.0)
[2017-05-25 07:40] LABS: ALB/GLOB RATIO 1.4 (1.1-1.8); ALBUMIN 3.4 g/dL (3.0-4.8); ALT/SGPT 95 U/L (7-56); AST/SGOT 38 U/L (14-36); BLOOD UREA NITROGEN 26 mg/dL (7-21); CALCIUM 9.1 mg/dL (8.4-10.5); GFR AFRICAN-AMERICAN > 60; GFR NON-AFRICAN AMERICAN > 60
[2017-05-25] MEDS: Oxycodone/Acetaminophen 5/325 mg Tab PO PRN ×2 (08:40→19:30)
--- NOTE | 2017-05-25 11:02 | CP.PCM.PN ---
Subjective - Date & Time of Evaluation Date of Evaluation: 05/25/17 Time of Evaluation: 10:59 - Subjective Subjective: Patient seen and examined at bedside. Patient doing well with no acute events overnight. Patient reports improvement of pain in legs. Denies chest pain, nausea, vomiting, diarrhea, shortness of breath, fever, chills. Objective - Vital Signs/Intake and Output Vital Signs (last 24 hours): Temp Pulse Resp BP Pulse Ox 97.5 F L 83 20 186/87 H 98 05/24/17 17:50 05/24/17 17:50 05/24/17 17:50 05/24/17 17:50 05/24/17 17:50 - Medications Medications: Current Medications Apixaban (Eliquis) 10 mg PO BID [facility] PRN Reason: Protocol Last Admin: 05/25/17 09:18 Dose: 10 mg Aspirin (Ecotrin) 81 mg PO 0800 [facility] PRN Reason: Protocol Last Admin: 05/25/17 08:41 Dose: 81 mg Atorvastatin Calcium (Lipitor) 10 mg PO DIN [facility] PRN Reason: Protocol Last Admin: 05/24/17 17:17 Dose: 10 mg Doxycycline Hyclate (Doryx) 100 mg PO Q12 [facility] PRN Reason: Protocol Last Admin: 05/25/17 09:18 Dose: 100 mg Duloxetine HCl (Cymbalta) 60 mg PO DAILY [facility] PRN Reason: Protocol Last Admin: 05/25/17 09:17 Dose: 60 mg Folic Acid (Folic Acid) 1 mg PO DAILY [facility] PRN Reason: Protocol Last Admin: 05/25/17 09:19 Dose: 1 mg Methotrexate (Methotrexate) 10 mg PO FRI [facility] PRN Reason: Protocol Last Admin: 05/25/17 09:19 Dose: 10 mg Methylprednisolone (Medrol) 16 mg PO DAILY [facility] Last Admin: 05/25/17 09:19 Dose: 16 mg Oxycodone HCl (Oxycodone Immediate Release Tab) 10 mg PO Q12H PRN; Protocol PRN Reason: Pain, severe (8-10) Last Admin: 05/25/17 04:15 Dose: 10 mg Oxycodone HCl (Oxycontin Extended Release Tab) 20 mg PO TID PRN; Protocol PRN Reason: Pain, moderate (4-7) Last Admin: 05/24/17 15:12 Dose: 20 mg Oxycodone/Acetaminophen (Percocet 5/325 Mg Tab) 1 tab PO Q12H PRN; Protocol PRN Reason: Pain, Mild (1-3) Last Admin: 05/25/17 08:40 Dose: 1 tab Pantoprazole Sodium (Protonix Ec Tab) 40 mg PO 0600 [facility] Last Admin: 05/25/17 05:37 Dose: 40 mg Quetiapine Fumarate (Seroquel) 100 mg PO HS [facility] PRN Reason: Protocol Last Admin: 05/24/17 21:11 Dose: 100 mg Zolpidem Tartrate (Ambien) 5 mg PO HS PRN; Protocol PRN Reason: Insomnia Last Admin: 05/24/17 21:08 Dose: 5 mg - Labs Labs: 05/25/17 06:45 05/25/17 06:45 - Constitutional Appears: Non-toxic, No Acute Distress - Head Exam Head Exam: ATRAUMATIC, NORMAL INSPECTION, NORMOCEPHALIC - ENT Exam ENT Exam: Mucous Membranes Moist - Respiratory Exam Respiratory Exam: Clear to Ausculation Bilateral, NORMAL BREATHING PATTERN. absent: Wheezes - Cardiovascular Exam Cardiovascular Exam: RRR, +S1, +S2 - GI/Abdominal Exam GI & Abdominal Exam: Soft, Normal Bowel Sounds. absent: Tenderness - Extremities Exam Extremities Exam: Normal Inspection. absent: Calf Tenderness, Pedal Edema - Neurological Exam Neurological Exam: Alert, Awake, Oriented x3 - Psychiatric Exam Psychiatric exam: Normal Affect, Normal Mood - Skin Skin Exam: Intact, Normal Color, Warm Assessment and Plan - Assessment and Plan (Free Text) Plan: 71 y/o F with PMH of HTN, HLD, and SLE presents with b/l PE and diffuse joint pain. Patient to have her Eliquis dose reduced to 5 mg daily, likely indefinitely. Patient was found to have elevated cardiolipin IgM and elevated phosphatidylserine IgM. Patient also had a negative hepatitis panel. Patient will receive her Rituxan today. Patient also set to start Methotrexate today. Continue with current medical regimen. Plan discussed with Dr. Bentley. Kandis, PGY-2
[2017-05-25] MEDS: oxyCODONE 20 mg ER Tab (oxyCONTIN) PO PRN (13:07)
--- NOTE | 2017-05-25 22:33 | PN ---
DATE: 05/25/2017 REFERRING PHYSICIAN: Dr. Ty SUBJECTIVE: She just came back from IV room after getting IV Rituxan, apparently, has some infiltration, medication in the forearm, IV lock was removed and cold packs are given. Her cough is okay. No shortness of breath. No nausea, no vomiting, no leg pain, no leg swelling. OBJECTIVE: GENERAL: In no acute distress. VITAL SIGNS: Temp is 98, heart rate is 87, respiratory rate is 20, blood pressure is 132/81, pulse ox is 98% on nasal cannula. HEENT: Moist mucous membranes. Small oral cavity. NECK: Supple. No JVD. LUNGS: Few scattered rhonchi. HEART: S1, S2. ABDOMEN: Soft and nontender. No organomegaly. EXTREMITIES: No edema. Right upper extremity has some swelling at the IV site. NEUROLOGIC: Awake and alert. Follows simple command. MEDICATIONS: She is on Ambien 5 mg bedtime p.r.n., Cymbalta 60 mg daily, doxycycline 100 mg twice a day, Ecotrin 800 mg daily, Eliquis 10 mg twice a day, folic acid 1 mg daily, Lipitor 10 mg daily, Medrol 60 mg daily, methotrexate 10 mg weekly, oxycodone immediate release p.r.n. basis, Protonix 40 mg daily, Seroquel 100 mg bedtime. LABORATORY DATA: Shows hemoglobin 11.1, hematocrit 34.0, WBC 15,000, platelets 289, sodium 137, potassium 4.0, chloride 100, bicarbonate 31, BUN 26, creatinine 0.8, glucose 76, calcium 9.1, total bilirubin 0.7, AST 38, ALT 95, alk phos 55, albumin is 3.4. 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 Bentley, may place cold pack for now, continue supplemental oxygen. We will follow with you. Alek Salazar MD [facility] # [id number]
[2017-05-26] MEDS: oxyCODONE 10 mg Immediate Release Tab PO PRN (02:31)
[2017-05-26] MEDS: Pantoprazole 40 mg EC Tab PO SCH (06:10)
[2017-05-26] MEDS: oxyCODONE 20 mg ER Tab (oxyCONTIN) PO PRN ×3 (06:10→20:09)
[2017-05-26] MEDS: Oxycodone/Acetaminophen 5/325 mg Tab PO PRN (08:43)
[2017-05-26 08:59] LABS: BASO # 0.01 K/mm3 (0.0-2.0); BASO % 0.1 % (0.0-3.0); EOS % 0.1 % (1.5-5.0); GRAN # 11.14 (1.4-6.5); GRAN % 88.4 % (50.0-68.0); HEMOGLOBIN 11.3 g/dL (12.0-16.0); LYMPH # 0.6 (1.2-3.4); LYMPH % 5.1 % (22.0-35.0); MEAN CELL VOLUME 93.1 fl (80.0-105.0); MEAN CORPUSCULAR HEMOGLOBIN 29.9 pg (25.0-35.0); MEAN CORPUSCULAR HGB CONC 32.1 g/dl (31.0-37.0); MEAN PLATELET VOLUME 10.3 fl (7.0-11.0); MONO # 0.8 (0.1-0.6); MONO % 6.3 % (1.0-6.0); RBC 3.78 10^6/uL (3.5-6.1); RED CELL DISTRIBUTION WIDTH 16.7 % (11.5-14.5); WHITE BLOOD COUNT 12.6 10^3/ul (4.5-11.0)
[2017-05-26 09:04] LABS: ALB/GLOB RATIO 1.3 (1.1-1.8); ALBUMIN 3.3 g/dL (3.0-4.8); ALT/SGPT 82 U/L (7-56); AST/SGOT 35 U/L (14-36); BLOOD UREA NITROGEN 31 mg/dL (7-21); CALCIUM 8.7 mg/dL (8.4-10.5); GFR AFRICAN-AMERICAN > 60; GFR NON-AFRICAN AMERICAN > 60
[2017-05-26] MEDS: guaiFENesin DM 200 mg-20 mg/10 ml UD PO PRN ×3 (13:38→21:27)
--- NOTE | 2017-05-26 21:56 | PN ---
DATE: 05/26/2017 This is [facility] on the TCU. For Dr. Bentley. SUBJECTIVE: The patient is a 71-year-old female seen sitting up in a chair, status post treatment with IV Rituxan yesterday with reported minimal infiltration at the end of her treatment to the right hand wrist area with discomfort there, with faint +1 edema, mildly improving as per the patient. She otherwise is now reporting a cough. Reported that she now has a cold despite being on doxycycline antibiotics as per primary doctor. With this, the patient is otherwise status post transfusion of 2 units of packed red blood cells 2 days prior with an improvement of her hemoglobin from 8.4 to 11.3 to this visit. OBJECTIVE/PHYSICAL EXAM: VITAL SIGNS: Temperature 97.9, pulse 87, respirations 18, blood pressure 132/81, and pulse oximetry 98%. HEENT: Unremarkable. NECK: Supple. HEART: Regular rate. LUNGS: Rare rhonchi. ABDOMEN: Obese, soft, nontender. EXTREMITIES: Faint +1 edema with minimal tenderness to gentle palpation of the right wrist area. SKIN: Otherwise warm, dry and clear with ecchymotic changes in left forearm secondary to IV access? phlebotomy attempts for labs. NEUROLOGIC: Awake, alert and oriented x3. LABORATORY DATA: The patient's labs were done. White blood cell count of 12.6, hemoglobin 11.3, hematocrit 35.2, platelet count of 262,000 with a chem metabolic panel within normal range except for a BUN of 31, creatinine of 0.7 with an ALT of 82 down from 95 yesterday, with AST now normal, yesterday is being 38. Should be noted that the patient did have testing done earlier with fibrinogen value noted to be 380, factor II activity 137, factor V activity 126 and factor XIII pending. All the other values are within normal range. including beta-2 glycoprotein within normal range. Phosphatidylserine negative except for the IgM value at 48, which is considered high about the 25 value cut off with anticardiolipin testing. IgG and IgA antibody is negative with IgM antibody positive at 30, which is greater than the 12 cut off. Her serology was hepatitis A, B, C are negative. ASSESSMENT: For this patient is that of history of rheumatoid arthritis, systemic lupus, history of pulmonary embolism, hypertension, obesity, anemia of chronic disease, deconditioning, infiltrate of the Rituxan treatment, right upper extremity, hyperlipidemia, depression, pneumonitis, chronic obstructive pulmonary disease, and pulmonary hypertension. PLAN: For this patient after conversation with Dr. Bentley is to check titers for influenza A, B and pertussis as the patient is on antibiotics, consider a viral etiology for her cough. We will give Robitussin DM. Continue her doxycycline in the interim with other recommendation as per Dr. Salazar. We will sputum C and S to be done. We will monitor clinically and with labs and continue with reconditioning. Isidoro Mondragon MD
[2017-05-27] MEDS: oxyCODONE 20 mg ER Tab (oxyCONTIN) PO PRN ×3 (02:50→21:14)
[2017-05-27] MEDS: Pantoprazole 40 mg EC Tab PO SCH (05:15)
[2017-05-27] MEDS: guaiFENesin DM 200 mg-20 mg/10 ml UD PO PRN ×3 (05:16→18:30)
[2017-05-27] MEDS: Oxycodone/Acetaminophen 5/325 mg Tab PO PRN ×2 (06:21→16:25)
--- NOTE | 2017-05-27 06:39 | PN ---
DATE: 05/26/2017 PULMONARY PROGRESS NOTE SUBJECTIVE: Sitting side of the bed, does not feel well. Has rhinitis, cough, shortness of breath. No nausea. No vomiting. No diarrhea. No leg pain or leg swelling. OBJECTIVE: GENERAL: In no acute distress. VITAL SIGNS: Temp is 98, heart rate is 93, respiratory rate is 18, blood pressure is 132/81. HEENT: Moist mucous membranes. Crowded airway. Nasal mucosa mildly erythematous. LUNGS: Scattered rhonchi. HEART: S1, S2. ABDOMEN: Soft and nontender. No organomegaly. EXTREMITIES: There is not much edema. NEUROLOGIC: Awake and alert. Follows simple command. MEDICATIONS: She is on Ambien 5 mg bedtime p.r.n., Cymbalta 60 mg daily, doxycycline 100 mg twice a day, Ecotrin 81 mg daily, Eliquis 10 mg twice a day, folic acid 1 mg daily, Lipitor 10 mg daily, Medrol 60 mg daily, methotrexate 10 mg weekly, oxycodone p.r.n. basis, Percocet p.r.n., Protonix 40 mg daily, Robitussin 10 mg q. 4 hours, Seroquel 100 mg bedtime. LABORATORY DATA: Shows hemoglobin 11.3, hematocrit 35.2, WBC 12.6, platelets 262. Sodium 137, potassium 4.1, chloride 99, bicarbonate 26, BUN 31, creatinine 0.7, glucose 146, calcium 8.7, AST 35, ALT 82, alk phos 55, albumin is 3.3. Anticardiolipin IgM antibody is 30 and phosphatidylserine IgM 48. Influenza A and B is negative. 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 Pulmonary point of view, doing okay. Continue bronchodilator. Keep head at 45 degrees. Sleep apnea precaution. Avoid sedation. Continue anticoagulation. Need to switch to Abilify tomorrow, Eliquis 5 mg twice a day. Thank you and we will follow with you. Alek Salazar MD [facility] # [id number]
[2017-05-27 06:59] LABS: BASO # 0.01 K/mm3 (0.0-2.0); BASO % 0.1 % (0.0-3.0); EOS # 0.1 (0.0-0.7); EOS % 0.9 % (1.5-5.0); GRAN # 6.83 (1.4-6.5); GRAN % 76.2 % (50.0-68.0); HEMOGLOBIN 10.8 g/dL (12.0-16.0); LYMPH # 1.4 (1.2-3.4); LYMPH % 15.7 % (22.0-35.0); MEAN CELL VOLUME 94.2 fl (80.0-105.0); MEAN CORPUSCULAR HEMOGLOBIN 30.1 pg (25.0-35.0); MEAN PLATELET VOLUME 10.2 fl (7.0-11.0); MONO # 0.6 (0.1-0.6); MONO % 7.1 % (1.0-6.0); RBC 3.59 10^6/uL (3.5-6.1); RED CELL DISTRIBUTION WIDTH 16.9 % (11.5-14.5)
[2017-05-27 07:20] LABS: ALB/GLOB RATIO 1.2 (1.1-1.8); ALBUMIN 2.9 g/dL (3.0-4.8); ALT/SGPT 127 U/L (7-56); AST/SGOT 86 U/L (14-36); BLOOD UREA NITROGEN 27 mg/dL (7-21); CALCIUM 8.5 mg/dL (8.4-10.5); GFR AFRICAN-AMERICAN > 60; GFR NON-AFRICAN AMERICAN > 60
[2017-05-27] MEDS: oxyCODONE 10 mg Immediate Release Tab PO PRN (10:23)
[2017-05-27 18:16] VITALS: RESP 20
--- NOTE | 2017-05-27 20:40 | PN ---
DATE: 05/27/2017 This is [facility]'s hospital visit on the TCU. For Dr. Bentley. SUBJECTIVE: The patient is a 71-year-old female status post pulmonary embolism 05/18/2017, now on day 6 of Eliquis 10 mg b.i.d., was cutting back to 5 mg b.i.d. tomorrow as indicated. The patient is otherwise reporting cold symptoms with congestion in her nose with the patient known to be on antibiotics with viral testing sent with influenza titers negative, parainfluenza and pertussis titers are pending. With this the patient also reports that her right upper extremity feels much better, the right wrist where she had infiltration of her infusion as described previously. Otherwise, the patient in no acute distress. Participating with reconditioning on TCU. PHYSICAL EXAMINATION VITAL SIGNS: Temperature 97.9, pulse 73, respirations 22, blood pressure 141/67 and pulse oximetry of 94% with oxygen testes will be repeated. HEENT: Unremarkable. NECK: Supple. HEART: Regular rate. LUNGS: Rare rhonchi. ABDOMEN: Obese, soft and nontender. EXTREMITIES: No edema. SKIN: Warm and dry with ecchymotic changes on both upper extremities status post venous access attempts? NEUROLOGIC: Awake, alert and oriented x3 with nasal congestion noted. LABORATORY DATA: The patient's labs were done. White blood cell count of 9.0, hemoglobin 10.8, she was transfused earlier in the week with a hemoglobin 8.0 at one point, she is now today 10.8, hematocrit 33.8 and platelet count of 213,000 with chem metabolic panel are within normal limits except for elevated AST of 86, elevated ALT of 127, possibly related to narcotic analgesics she has taken or combination of other psychotropic medications? BUN is 27, creatinine is 0.8, total protein 5.3, albumin 2.9. The patient did have influenza type A and B testing negative results were noted. ASSESSMENT: Deconditioning, rheumatoid arthritis status post pulmonary embolism, history of lupus, hypertension, obesity, anemia, infiltrate of the Rituxan treatment, right upper extremity improved, depression, hyperlipidemia, pneumonitis, chronic obstructive pulmonary disease, pulmonary hypertension with viral upper respiratory infection? PLAN: After conversation with Dr. Bentley is to continue present medical regimen, we will check her labs in the morning. We will monitor her liver function test with Eliquis to be changed as per Dr. Bentley's recommendation to 5 mg twice a day as indicated. There is also question of changing her medicines to Abilify as per her primary doctor, Dr. Salazar. Otherwise, we will continue present medical regimen with prognosis for this patient guarded. This is a complex patient with a comprehensive medically necessary exam carried out at the bedside in excess of 25 minutes [id number] time with the patient. The patient's question answered to her satisfaction. Isidoro Mondragon MD
[2017-05-28] MEDS: oxyCODONE 10 mg Immediate Release Tab PO PRN ×2 (00:09→13:24)
[2017-05-28] MEDS: guaiFENesin DM 200 mg-20 mg/10 ml UD PO PRN ×3 (00:09→21:24)
--- NOTE | 2017-05-28 02:40 | PN ---
PULMONARY PROGRESS NOTE DATE: 05/27/2017 REFERRING PHYSICIAN: Pelon Ty M.D. SUBJECTIVE: The patient is sitting up side of the bed, still have headache, rhinitis, and sweating. No nausea. No vomiting, diarrhea, leg pain, or leg swelling. OBJECTIVE: GENERAL: In no acute distress. VITAL SIGNS: Temperature is 98, heart rate is 71, respiratory rate is 20, blood pressure is 144/75, and pulse oximetry is 99% on 2 L nasal cannula. HEENT: Moist mucous membranes. Crowded airway. Mallampati score is IV. NECK: Supple. No JVD. LUNGS: Has a scattered rhonchi. There is wheezing. HEART: S1 and S2. ABDOMEN: Soft and nontender. No organomegaly. EXTREMITIES: There is no edema. NEUROLOGIC: Awake, alert, and follows simple commands. MEDICATIONS: She is on Ambien 5 mg at bedtime p.r.n., Cymbalta 60 mg daily, doxycycline 100 mg twice a day, Ecotrin 81 mg daily, Eliquis 10 mg twice a day, folic acid 1 mg daily, Lipitor mg daily, Medrol 16 mg daily, methotrexate 10 mg weekly, oxycodone immediate release on p.r.n. basis, Protonix 40 mg daily, Robitussin DM 10 mL q.4 hours p.r.n., and Seroquel 100 mg at bedtime. LABORATORY DATA: Shows influenza A and B negative yesterday. Hemoglobin 10.8, hematocrit 33.8, WBC 9.0, and platelet count is 213. Sodium 135, potassium 4.0, chloride 99, and bicarbonate 30. BUN 27 and creatinine 0.8. Glucose is 75. Calcium is 8.5. AST 86, ALT 127, and albumin is 2.9. 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 Her influenza swab is negative, but clinically like a flu? We will repeat swab for influenza A and B. We will also give her prednisone 20 mg p.o. now. Thank you and we will follow with you. Alek Salazar MD
[2017-05-28] MEDS: Oxycodone/Acetaminophen 5/325 mg Tab PO PRN (06:43)
[2017-05-28] MEDS: Pantoprazole 40 mg EC Tab PO SCH (06:43)
[2017-05-28 07:16] LABS: BASO # 0.01 K/mm3 (0.0-2.0); BASO % 0.1 % (0.0-3.0); EOS % 0.1 % (1.5-5.0); GRAN # 7.06 (1.4-6.5); GRAN % 88.8 % (50.0-68.0); HEMOGLOBIN 11.3 g/dL (12.0-16.0); LYMPH # 0.6 (1.2-3.4); LYMPH % 7.4 % (22.0-35.0); MEAN CELL VOLUME 94.7 fl (80.0-105.0); MEAN CORPUSCULAR HEMOGLOBIN 29.8 pg (25.0-35.0); MEAN CORPUSCULAR HGB CONC 31.5 g/dl (31.0-37.0); MEAN PLATELET VOLUME 10.1 fl (7.0-11.0); MONO # 0.3 (0.1-0.6); MONO % 3.6 % (1.0-6.0); RBC 3.79 10^6/uL (3.5-6.1); RED CELL DISTRIBUTION WIDTH 16.6 % (11.5-14.5)
[2017-05-28 07:48] LABS: ALB/GLOB RATIO 1.1 (1.1-1.8); ALBUMIN 3.1 g/dL (3.0-4.8); ALT/SGPT 124 U/L (7-56); AST/SGOT 66 U/L (14-36); BLOOD UREA NITROGEN 25 mg/dL (7-21); CALCIUM 8.7 mg/dL (8.4-10.5); GFR AFRICAN-AMERICAN > 60; GFR NON-AFRICAN AMERICAN > 60
[2017-05-28] MEDS: oxyCODONE 20 mg ER Tab (oxyCONTIN) PO PRN ×3 (08:21→23:31)
[2017-05-28] MEDS ORDERED: Acetylcysteine 20% Inhal Soln (4ml) PO SCH (10:00)
--- NOTE | 2017-05-28 10:39 | CP.PCM.PN ---
Subjective - Date & Time of Evaluation Date of Evaluation: 05/28/17 Time of Evaluation: 10:31 - Subjective Subjective: Patient seen and examined at bedside. Patient doing well overnight with no acute events. Patient states she still has diffuse body pain, but also admits to congestion. She also notes improvement of IV infiltrate from 2 days prior. Patient had her last bowel movement yesterday. Denies shortness of breath, nausea, vomiting, diarrhea, fever, chills, bleeding, headache. Objective - Vital Signs/Intake and Output Vital Signs (last 24 hours): Temp Pulse Resp BP Pulse Ox 98.2 F 71 20 144/75 99 05/27/17 18:16 05/27/17 18:16 05/27/17 18:16 05/27/17 18:16 05/27/17 18:16 - Medications Medications: Current Medications Acetylcysteine (Acetylcysteine 20%) 3 ml PO BID [facility] Albuterol/Ipratropium (Duoneb 3 Mg/0.5 Mg (3 Ml) Ud) 3 ml IH [id number] [facility] Apixaban (Eliquis) 10 mg PO BID [facility] PRN Reason: Protocol Last Admin: 05/28/17 10:00 Dose: 10 mg Aspirin (Ecotrin) 81 mg PO 0800 [facility] PRN Reason: Protocol Last Admin: 05/28/17 08:21 Dose: 81 mg Atorvastatin Calcium (Lipitor) 10 mg PO DIN [facility] PRN Reason: Protocol Last Admin: 05/27/17 18:25 Dose: 10 mg Doxycycline Hyclate (Doryx) 100 mg PO Q12 [facility] PRN Reason: Protocol Last Admin: 05/28/17 10:00 Dose: 100 mg Duloxetine HCl (Cymbalta) 60 mg PO DAILY [facility] PRN Reason: Protocol Last Admin: 05/28/17 09:59 Dose: 60 mg Folic Acid (Folic Acid) 1 mg PO DAILY [facility] PRN Reason: Protocol Last Admin: 05/28/17 10:00 Dose: 1 mg Guaifenesin/Dextromethorphan (Robitussin Dm) 10 ml PO Q4H PRN PRN Reason: Cough Last Admin: 05/28/17 08:22 Dose: 10 ml Methotrexate (Methotrexate) 10 mg PO FRI [facility] PRN Reason: Protocol Last Admin: 05/25/17 09:19 Dose: 10 mg Methylprednisolone (Medrol) 16 mg PO DAILY [facility] Last Admin: 05/28/17 10:01 Dose: 16 mg Oxycodone HCl (Oxycodone Immediate Release Tab) 10 mg PO Q12H PRN; Protocol PRN Reason: Pain, severe (8-10) Last Admin: 05/28/17 00:09 Dose: 10 mg Oxycodone HCl (Oxycontin Extended Release Tab) 20 mg PO TID PRN; Protocol PRN Reason: Pain, moderate (4-7) Last Admin: 05/28/17 08:21 Dose: 20 mg Oxycodone/Acetaminophen (Percocet 5/325 Mg Tab) 1 tab PO Q12H PRN; Protocol PRN Reason: Pain, Mild (1-3) Stop: 05/28/17 18:44 Last Admin: 05/28/17 06:43 Dose: 1 tab Pantoprazole Sodium (Protonix Ec Tab) 40 mg PO 0600 [facility] Last Admin: 05/28/17 06:43 Dose: 40 mg Quetiapine Fumarate (Seroquel) 100 mg PO HS [facility] PRN Reason: Protocol Last Admin: 05/27/17 21:13 Dose: 100 mg Zolpidem Tartrate (Ambien) 5 mg PO HS PRN; Protocol PRN Reason: Insomnia Last Admin: 05/27/17 21:10 Dose: 5 mg - Labs Labs: 05/28/17 06:45 05/28/17 06:45 - Constitutional Appears: Non-toxic, No Acute Distress - Head Exam Head Exam: ATRAUMATIC, NORMAL INSPECTION, NORMOCEPHALIC - ENT Exam ENT Exam: Mucous Membranes Moist - Respiratory Exam Respiratory Exam: Clear to Ausculation Bilateral, NORMAL BREATHING PATTERN - Cardiovascular Exam Cardiovascular Exam: RRR, +S1, +S2 - GI/Abdominal Exam GI & Abdominal Exam: Soft, Normal Bowel Sounds. absent: Tenderness - Extremities Exam Extremities Exam: Normal Inspection. absent: Calf Tenderness, Pedal Edema - Neurological Exam Neurological Exam: Alert, Awake, Oriented x3 - Psychiatric Exam Psychiatric exam: Normal Affect, Normal Mood - Skin Skin Exam: Intact, Normal Color, Warm Assessment and Plan - Assessment and Plan (Free Text) Plan: 71 y/o F with PMH of HTN, HLD, and SLE presents with b/l PE and diffuse joint pain. Patient to have her Eliquis dose reduced to 5 mg daily, likely indefinitely. Patient was found to have elevated cardiolipin IgM and elevated phosphatidylserine IgM on previous labs. Patient received Rituxan infusion 2 days ago. Blood counts have remained stable, but no improvement in her symptoms yet. Patient is scheduled to be discharged from TCU tomorrow. We will continue her current medical regimen at this time. Will continue for with Methotrexate infusions once weekly on Sunday. Plan discussed with Dr. Bentley. Kandis, PGY-2
--- NOTE | 2017-05-28 11:53 | PN ---
DATE: SUBJECTIVE: A 71-year-old white female admitted in the hospital, was recently transfused because of severe anemia secondary to chronic lupus. The patient also had her first Rituxan after her transfusions. She is seen today complaining of recurrent cough, sputum production, and shortness of breath. PHYSICAL EXAMINATION: GENERAL: The patient is afebrile. CHEST: Shows rhonchi and wheezing in all lung villalobos, which are new. The patient is complaining of shortness of breath. She is physical therapy and occupational therapy. LABORATORY DATA: Hemoglobin is up to 11.1 and white count is 8.0. PLAN: Plan is for a chest x-ray, Mucomyst, and DuoNeb inhaler. Continue p.o. antibiotics and reassess possible flu. Pelon Ty MD
[2017-05-28] MEDS: Albuterol-Ipratrop 3 mg / 0.5 (3 ml) UD IH SCH ×2 (13:17→20:22)
--- NOTE | 2017-05-28 16:23 | RAD ---
HISTORY: wheezing/cough COMPARISON: No prior. TECHNIQUE: Chest PA and lateral FINDINGS: LUNGS: No active pulmonary disease. PLEURA: No significant pleural effusion identified. No pneumothorax apparent. CARDIOVASCULAR: Normal. OSSEOUS STRUCTURES: No significant abnormalities. VISUALIZED UPPER ABDOMEN: Normal. OTHER FINDINGS: None. IMPRESSION: No active disease.
[2017-05-28 17:14] VITALS: BP 138/68; PULSE 78; TEMP 98.5; O2SAT 98
--- NOTE | 2017-05-29 01:15 | PN ---
DATE: 05/28/2017 REFERRING PHYSICIAN: Pelon Ty MD SUBJECTIVE: She just come back from x-ray, still have cough and shortness of breath. No nausea, no vomiting and no diarrhea. No leg pain or leg swelling. OBJECTIVE GENERAL: In no acute distress. VITAL SIGNS: Temperature is 98, heart is 78, respiratory rate is 20, blood pressure is 138/68, and pulse oximetry is 98%, on 2 liters nasal cannula. HEENT: Moist mucous membranes. Small oral cavity. Crowded airway. NECK: Supple. No JVD. LUNGS: Has scattered rhonchi and wheezing. HEART: S1 and S2. ABDOMEN: Soft and nontender. No organomegaly. EXTREMITIES: There is no edema. NEUROLOGIC: Awake, alert, and follow simple command. MEDICATIONS: She is on Mucomyst 20% inhaled twice a day, Ambien 5 mg at bedtime p.r.n., Cymbalta 60 mg daily, doxycycline 100 mg twice a day, DuoNeb q. 6 hours., Ecotrin 81 mg daily, Eliquis 10 mg twice a day, folic acid 1 mg daily, Lipitor 10 mg daily, Medrol 60 mg daily, methotrexate 10 mg weekly, oxycodone immediate release 10 mg q. 12 hours. p.r.n., Protonix 40 mg daily, Robitussin DM 10 mL q. 4 hours. p.r.n. and Seroquel 100 mg at bedtime. LABORATORY DATA: Shows hemoglobin of 11.3, hematocrit of 35.9, WBC of 8.0, and platelet is 192. Sodium of 135, potassium of 4.7, chloride of 97, bicarbonate of 31, BUN of 25, and creatinine of 0.7. Glucose is 123, calcium is 8.7, AST is 66, ALT is 124, and albumin is 3.1. Repeat influenza A and B is negative today. DIAGNOSTIC DATA: Chest x-ray just done this evening shows there is no infiltrate or effusion. IMPRESSION AND PLAN: Pulmonary embolism, anticardiolipin antibody is positive, subpleural pneumonitis, asthma, chronic obstructive lung disease, systemic lupus, multiple joint discomfort, pulmonary hypertension, and anemia. She has been on methotrexate and received Rituxan. After Rituxan, has acute bronchitis with wheezing and cough. Prednisone 30 mg was given last night. We will continue inhaled bronchodilator and antibiotics. Already on methotrexate. Repeat influenza swab is negative flu. We will decrease Eliquis to 5 mg twice a day. Thank you and we will follow with you. Alek Salazar MD
[2017-05-29] MEDS: Albuterol-Ipratrop 3 mg / 0.5 (3 ml) UD IH SCH ×3 (04:00→13:17)
[2017-05-29] MEDS: oxyCODONE 10 mg Immediate Release Tab PO PRN (04:40)
[2017-05-29] MEDS: guaiFENesin DM 200 mg-20 mg/10 ml UD PO PRN ×3 (04:40→16:03)
[2017-05-29] MEDS: Pantoprazole 40 mg EC Tab PO SCH (05:07)
[2017-05-29] MEDS: oxyCODONE 20 mg ER Tab (oxyCONTIN) PO PRN ×2 (09:23→13:31)
[2017-05-29 10:12] LABS: HEMOGLOBIN 11.6 g/dL (12.0-16.0); MEAN CELL VOLUME 95.9 fl (80.0-105.0); MEAN CORPUSCULAR HEMOGLOBIN 30.1 pg (25.0-35.0); MEAN CORPUSCULAR HGB CONC 31.4 g/dl (31.0-37.0); MEAN PLATELET VOLUME 10.2 fl (7.0-11.0); RBC 3.86 10^6/uL (3.5-6.1); RED CELL DISTRIBUTION WIDTH 16.7 % (11.5-14.5); WHITE BLOOD COUNT 10.9 10^3/ul (4.5-11.0)
[2017-05-29 10:38] LABS: ALB/GLOB RATIO 1.3 (1.1-1.8); ALBUMIN 3.3 g/dL (3.0-4.8); ALT/SGPT 112 U/L (7-56); AST/SGOT 59 U/L (14-36); BLOOD UREA NITROGEN 34 mg/dL (7-21); GFR AFRICAN-AMERICAN > 60; GFR NON-AFRICAN AMERICAN > 60
--- NOTE | 2017-05-29 13:33 | PN ---
DATE: SUBJECTIVE: Moni Bonilla is lupus, status post Rituxan. The patient is feeling possible flu-like symptoms from Rituxan. She has got some rhonchi and wheezing bilaterally. Chest pressure was normal. She is on steroids, bronchodilators and Mucomyst. PHYSICAL EXAMINATION: VITAL SIGNS: She is afebrile. LABORATORY DATA: White count is normal. She is somewhat uncomfortable. We will attempt to give her one more day of respiratory treatments and then possibly discharged home in the morning. Pelon Ty MD
--- NOTE | 2017-05-29 13:58 | CP.PCM.PN ---
Subjective - Date & Time of Evaluation Date of Evaluation: 05/29/17 Time of Evaluation: 13:55 - Subjective Subjective: Patient seen and examined at bedside. Patient doing well overnight. Patient complaining of diffuse pains, but controlled with pain medication. Last bowel movement yesterday. Denies chest pain, nausea, vomiting, shortness of breath, fever, chills. Objective - Vital Signs/Intake and Output Vital Signs (last 24 hours): Temp Pulse Resp BP Pulse Ox 98.5 F 78 20 138/68 98 05/28/17 16:00 05/28/17 16:00 05/28/17 16:00 05/28/17 16:00 05/28/17 16:00 - Medications Medications: Current Medications Acetylcysteine (Acetylcysteine 20%) 3 ml PO BID [facility] Albuterol/Ipratropium (Duoneb 3 Mg/0.5 Mg (3 Ml) Ud) 3 ml IH [id number] [facility] Last Admin: 05/29/17 13:17 Dose: Not Given Apixaban (Eliquis) 5 mg PO BID [facility] PRN Reason: Protocol Last Admin: 05/29/17 10:11 Dose: 5 mg Aspirin (Ecotrin) 81 mg PO 0800 [facility] PRN Reason: Protocol Last Admin: 05/29/17 08:24 Dose: 81 mg Atorvastatin Calcium (Lipitor) 10 mg PO DIN [facility] PRN Reason: Protocol Last Admin: 05/28/17 17:30 Dose: 10 mg Doxycycline Hyclate (Doryx) 100 mg PO Q12 [facility] PRN Reason: Protocol Last Admin: 05/29/17 09:21 Dose: 100 mg Duloxetine HCl (Cymbalta) 60 mg PO DAILY [facility] PRN Reason: Protocol Last Admin: 05/29/17 09:22 Dose: 60 mg Folic Acid (Folic Acid) 1 mg PO DAILY [facility] PRN Reason: Protocol Last Admin: 05/29/17 09:23 Dose: 1 mg Guaifenesin/Dextromethorphan (Robitussin Dm) 10 ml PO Q4H PRN PRN Reason: Cough Last Admin: 05/29/17 10:12 Dose: 10 ml Methotrexate (Methotrexate) 10 mg PO FRI [facility] PRN Reason: Protocol Last Admin: 05/25/17 09:19 Dose: 10 mg Methylprednisolone (Medrol) 16 mg PO DAILY [facility] Last Admin: 05/29/17 09:23 Dose: 16 mg Oxycodone HCl (Oxycodone Immediate Release Tab) 10 mg PO Q12H PRN; Protocol PRN Reason: Pain, severe (8-10) Last Admin: 05/29/17 04:40 Dose: 10 mg Oxycodone HCl (Oxycontin Extended Release Tab) 20 mg PO TID PRN; Protocol PRN Reason: Pain, moderate (4-7) Last Admin: 05/29/17 13:31 Dose: 20 mg Pantoprazole Sodium (Protonix Ec Tab) 40 mg PO 0600 [facility] Last Admin: 05/29/17 05:07 Dose: 40 mg Quetiapine Fumarate (Seroquel) 100 mg PO HS [facility] PRN Reason: Protocol Last Admin: 05/28/17 21:24 Dose: 100 mg Zolpidem Tartrate (Ambien) 5 mg PO HS PRN; Protocol PRN Reason: Insomnia Last Admin: 05/28/17 21:23 Dose: 5 mg - Labs Labs: 05/29/17 10:00 05/29/17 10:00 - Constitutional Appears: Non-toxic, No Acute Distress - Head Exam Head Exam: ATRAUMATIC, NORMAL INSPECTION, NORMOCEPHALIC - ENT Exam ENT Exam: Mucous Membranes Moist - Respiratory Exam Respiratory Exam: Wheezes (Mild wheezes b/l), NORMAL BREATHING PATTERN. absent : Rales, Rhonchi - Cardiovascular Exam Cardiovascular Exam: RRR, +S1, +S2 - GI/Abdominal Exam GI & Abdominal Exam: Soft, Normal Bowel Sounds. absent: Tenderness - Extremities Exam Extremities Exam: Pedal Edema (trace b/l) - Neurological Exam Neurological Exam: Alert, Awake, Oriented x3 - Psychiatric Exam Psychiatric exam: Normal Affect, Normal Mood - Skin Skin Exam: Intact, Normal Color, Warm Assessment and Plan - Assessment and Plan (Free Text) Plan: 71 y/o F with PMH of HTN, HLD, and SLE presents with b/l PE and diffuse joint pain. Patient on Eliquis 5 mg daily for her PE. Patient was found to have elevated cardiolipin IgM and elevated phosphatidylserine IgM on previous labs. Patient received Rituxan infusion 3 days ago. Blood counts have remained stable , but no improvement in her symptoms yet. Patient will continue have Methotrexate weekly and Medrol daily. Patient is also at risk for PCP pneumonia due to her current medication regimen. Will add Mepron for PCP Prophylaxis. Patient will follow up with Dr. Bentley outpatient. Continue current medical regimen. Plan discussed with Dr. Bentley. Kandis, PGY-2
[2017-05-29] MEDS ORDERED: Oxycodone/Acetaminophen 5/325 mg Tab PO PRN (14:23)
--- NOTE | 2017-05-30 08:35 | DS ---
HISTORY OF PRESENT ILLNESS: The patient is a 71-year-old white female who had status post treatment for bilateral pulmonary emboli, history of lupus, severe anemia of chronic disease from lupus, status post blood transfusion and Rituxan treatment. The patient also has chronic wheezing, shortness of breath and cough. Was treated for possible PCP with Mepron. The patient was able to be discharged home in improved condition to follow up as an outpatient to continue Eliquis as an outpatient and to continue treatment with Rituxan every 3 to 4 weeks for her underlying lupus. FINAL DISCHARGE DIAGNOSES: Bilateral pulmonary emboli and deconditioning, chronic obstructive lung disease, anemia of chronic disease and systemic lupus. Pelon Ty MD
== END 2017-05-29 16:53 | disposition home health service (06) | DRG 175 ==
LOC: TRCU 17:02
PROVIDERS: ADMIT Internal Medicine; ATTEND Internal Medicine
PROC: F07Z9ZZ Gait Training/Functional Ambulation Treatment (ICD-10-PCS; principal; 2017-05-22)
PROC: F07M6ZZ Therapeutic Exercise Treatment of Musculoskeletal System - Whole Body (ICD-10-PCS; 2017-05-22)
PROC: F08Z1ZZ Dressing Techniques Treatment (ICD-10-PCS; 2017-05-22)
PROC: F08Z2ZZ Grooming/Personal Hygiene Treatment (ICD-10-PCS; 2017-05-22)
PROC: F08Z4ZZ Home Management Treatment (ICD-10-PCS; 2017-05-22)
DX: I26.99 Other pulmonary embolism without acute cor pulmonale (principal); J18.9 Pneumonia, unspecified organism; I27.20 Pulmonary hypertension, unspecified; M32.9 Systemic lupus erythematosus, unspecified; J44.0 Chronic obstructive pulmonary disease with (acute) lower respiratory infection; E11.9 Type 2 diabetes mellitus without complications; D63.8 Anemia in other chronic diseases classified elsewhere; M06.9 Rheumatoid arthritis, unspecified; R76.0 Raised antibody titer; K29.70 Gastritis, unspecified, without bleeding; J31.0 Chronic rhinitis; J20.9 Acute bronchitis, unspecified; I25.10 Atherosclerotic heart disease of native coronary artery without angina pectoris; I10 Essential (primary) hypertension; G47.30 Sleep apnea, unspecified; F40.240 Claustrophobia; E78.5 Hyperlipidemia, unspecified; F32.89 Other specified depressive episodes; Z79.01 Long term (current) use of anticoagulants; Z90.49 Acquired absence of other specified parts of digestive tract; Z90.710 Acquired absence of both cervix and uterus

== ENCOUNTER 2017-07-30 22:03 | Inpatient (IN) | payer MEDICARE, OTHER ==
[2017-07-30 22:05] VITALS: BMI 27.1
[2017-07-30] MEDS ORDERED: Sodium Chloride 0.9% 1,000 ML IV STA (22:31)
--- NOTE | 2017-07-30 22:42 | ED PDOC ---
Arrival/HPI - General Chief Complaint: Substance Abuse Time Seen by Provider: 07/30/17 22:26 Historian: Patient - History of Present Illness Narrative History of Present Illness (Text): 07/30/17 22:32 This is a 71yo female with multiple co morbidities bib EMS for possible overdose. Per the EMS patient family member called when they saw patient drowsy and she admitted to taking overdose. Per the EMS pt was verbal when they arrived at the scene. [facility] patient told them that she took more of her mediation that started with a "T", than she was supposed to take. [facility] patient became lethargic enroute to the ED. The EMS states family member told them that patient's is currently in [facility] for surgery and she is under a great stress now. Patient is lethargic and unable to answer question. She only responds by grunting to a sternal rub. Past Medical History - Provider Review Nursing Documentation Reviewed: Yes - Infectious Disease Hx of Infectious Diseases: None - Tetanus Immunization Tetanus Immunization: Unknown - Cardiac Hx Cardiac Disorders: Yes Hx Hypertension: Yes - Pulmonary Hx Respiratory Disorders: Yes Hx Bronchitis: Yes - Neurological Hx Neurological Disorder: No - HEENT Hx HEENT Disorder: Yes (USES GLASSES) - Renal Hx Renal Disorder: No - Endocrine/Metabolic Hx Endocrine Disorders: Yes Hx Systemic Lupus Erythematosus: Yes - Hematological/Oncological Hx Anemia: Yes Hx Cancer: No - Integumentary Hx Dermatological Disorder: No - Musculoskeletal/Rheumatological Hx Falls: No - Gastrointestinal Hx Gastrointestinal Disorders: Yes (BOWEL OBSTRUCTION WITH COLON RESECTION) - Genitourinary/Gynecological Hx Genitourinary Disorders: No Hx Reproductive Disorders: No - Psychiatric Hx Psychophysiologic Disorder: Yes Hx Depression: Yes Hx Substance Use: No - Surgical History Hx Appendectomy: Yes Hx Cholecystectomy: Yes Hx Hysterectomy: Yes Hx Mastectomy: No Hx Musculoskeletal Surgery: Yes Other/Comment: L knee r/p. b/l ankle sx with pins. b/l shoulder sx with pins. b/l wrist sx with pins - Anesthesia Hx Anesthesia: Yes Hx Anesthesia Reactions: No Hx Malignant Hyperthermia: No - Suicidal Assessment Feels Threatened In Home Enviroment: No Family/Social History - Physician Review Nursing Documentation Reviewed: Yes Family/Social History: Unknown Family HX Smoking Status: Never Smoked Hx Alcohol Use: No Hx Substance Use: No Hx Substance Use Treatment: No Allergies/Home Meds Allergies/Adverse Reactions: Allergies No Known Allergies Allergy (Verified 05/17/17 16:56) Home Medications: Home Meds Medication Instructions Recorded Confirmed Aspirin [Adult Aspirin Regimen] 81 mg PO DAILY 04/23/17 07/03/17 DULoxetine [Cymbalta] 60 mg PO DAILY 04/23/17 07/03/17 Folic Acid 1 mg PO DAILY 04/23/17 07/03/17 Methotrexate 2.5 mg PO DAILY 04/23/17 07/03/17 Oxycodone HCl [Oxycontin] 20 mg PO TID PRN 04/23/17 07/03/17 Oxycodone HCl/Acetaminophen 1 tab PO BID PRN 04/23/17 07/03/17 [Oxycodone-Acetaminophen 5-325] Pravastatin Sodium [Pravachol] 10 mg PO DAILY 04/23/17 07/03/17 QUEtiapine [Seroquel] 100 mg PO DAILY 04/23/17 07/03/17 tiZANidine [Zanaflex] 4 mg PO TID 04/23/17 07/03/17 Cyanocobalamin (Vitamin B-12) 1,000 mcg SQ WED 07/03/17 07/03/17 [B-12 Compliance] Mv-Min/Folic/Vit K/Lycop/Coq10 1 tab PO DAILY 07/03/17 07/03/17 [Daily Multivitamin Capsule] Review of Systems - Physician Review All systems were reviewed & negative as marked: Yes - Review of Systems Constitutional: Normal Eyes: Normal ENT: Normal Respiratory: Normal Cardiovascular: Normal Gastrointestinal: Normal Genitourinary Female: Normal Musculoskeletal: Normal Skin: Normal Neurological: Normal Endocrine: Normal Hemo/Lymphatic: Normal Psychiatric: Other (Medication overdose) Physical Exam Vital Signs Reviewed: Yes Vital Signs Temp Pulse Resp BP Pulse Ox 07/31/17 00:56 97.5 F L 46 L 20 95/53 L 100 07/31/17 00:32 46 L 18 80/48 L 100 07/30/17 23:52 97.1 F L 56 L 18 75/41 L 99 07/30/17 23:00 98.2 F 39 L 18 103/79 100 Temperature: Afebrile Blood Pressure: Hypotensive Pulse: Bradycardic Respiratory Rate: Normal Appearance: Positive for: Well-Appearing, Non-Toxic, Comfortable Pain Distress: None Mental Status: Positive for: Lethargic. No: Alert and Oriented X 3 - Systems Exam Head: Present: Atraumatic, Normocephalic Pupils: Present: PERRL Extroacular Muscles: Present: EOMI Conjunctiva: Present: Normal Mouth: Present: Moist Mucous Membranes Neck: Present: Normal Range of Motion Respiratory/Chest: Present: Clear to Auscultation, Good Air Exchange. No: Respiratory Distress, Accessory Muscle Use Cardiovascular: Present: Regular Rate and Rhythm, Normal S1, S2. No: Murmurs Abdomen: Present: Normal Bowel Sounds. No: Tenderness, Distention, Peritoneal Signs Back: Present: Normal Inspection Upper Extremity: Present: Normal Inspection. No: Cyanosis, Edema Lower Extremity: Present: Normal Inspection. No: Edema Neurological: Present: GCS=15, CN II-XII Intact, Speech Normal Skin: Present: Warm, Dry, Normal Color. No: Rashes Psychiatric: Present: Alert, Oriented x 3, Normal Insight, Normal Concentration Medical Decision Making ED Course and Treatment: 07/31/17 01:52 71 yo female bib EMS for possible overdose of Tizanidine. Pt was lethargic on arrival. Seen immediately on arrival. Case was DW ED, from poison control at 2225. He recommends close monitoring of patient for effect of DIRECTOR OF ATHLETICS depression from the medication. Pt was bradycardic, hypotensive in ED. 2 liters of NS and atropine was given. Her last BP in was 95/53. EKG Marked sinus lise with occasional PVC @39bpm with prolonged QT. PT became more alert in ED. she states she accidentally took 8tabs of Tizandine , when she meant to take methotrexate. she had the bottle of methotrexae with the instruction to take 8tabs once a week. she denied SI/HI. Pt required admission for continued monitoring . Case was KAYE Vega, the SOA ENGINEER that works with Dr. Ty and pt was admitted to his sergvice Case was DW the intensivit, Dr. Govea and he saw pt by the bedside in ED and accepted pt in IC. 07/31/17 01:58 - Lab Interpretations Lab Results: 07/30/17 22:39 07/30/17 22:39 Lab Results 07/30/17 22:39: Alcohol, Quantitative < 10 07/30/17 22:39: Salicylates < 1 L, Acetaminophen < 10.0 L 07/30/17 22:39: Sodium 137, Potassium 5.1 H, Chloride 104, Carbon Dioxide 25, Anion Gap 14, BUN 33 H, Creatinine 1.1, Est GFR ( Amer) 59, Est GFR (Non- Af Amer) 49, Random Glucose 126 H, Calcium 8.6, Total Bilirubin 0.4, AST 34, ALT 35, Alkaline Phosphatase 25 L D, Total Creatine Kinase 42, Total Protein 5.3 L, Albumin 3.2, Globulin 2.1, Albumin/Globulin Ratio 1.5 07/30/17 22:39: WBC 8.3 D, RBC 3.01 L, Hgb 9.1 L D, Hct 28.2 L, MCV 93.7, MCH 30.2, MCHC 32.3, RDW 15.4 H, Plt Count 249, MPV 10.7, Gran % 61.7, Lymph % (Auto ) 26.9, [place] % (Auto) 6.9 H, Eos % (Auto) 4.1, Baso % (Auto) 0.4, Gran # 5.09, Lymph # (Auto) 2.2, [place] # (Auto) 0.6, Eos # (Auto) 0.3, Baso # (Auto) 0.03 - Medication Orders Current Medication Orders: Arformoterol Tartrate (Brovana) 15 mcg IH Q12H [facility] Aspirin (Ecotrin) 81 mg PO DAILY [facility] Atropine Sulfate (Atropine) 1 mg IVP Q1H PRN PRN Reason: HR <= 35 Cyanocobalamin (Vitamin B12 1000 Mcg/Ml Inj) 1,000 mcg SC WED [facility] Duloxetine HCl (Cymbalta) 60 mg PO DAILY [facility] Folic Acid (Folic Acid) 1 mg PO DAILY [facility] Sodium Chloride (Sodium Chloride 0.9%) 1,000 mls @ 60 mls/hr IV .[id number] [facility] Methotrexate (Methotrexate) 2.5 mg PO DAILY [facility] Non-Formulary Medication (Mv-Min/Folic/Vit K/Lycop/Coq10 [Daily Multivitamin Capsule]) 1 tab PO DAILY [facility] Non-Formulary Medication (Pravastatin Sodium [Pravachol]) 10 mg PO DAILY [facility] Discontinued Medications Atropine Sulfate (Atropine) 1 mg IVP STAT STA Stop: 07/30/17 23:07 Last Admin: 07/30/17 23:18 Dose: 1 mg IVP Administration Document 07/30/17 23:18 SS (Rec: 07/30/17 23:19 SS [id number]) Charges for Administration # of IVP Administrations 1 Sodium Chloride (Sodium Chloride 0.9%) 1,000 mls @ 999 mls/hr IV .Q1H1M STA Stop: 07/30/17 23:31 Last Admin: 07/30/17 22:43 Dose: 999 mls/hr eMAR Start Stop Document 07/30/17 22:43 SS (Rec: 07/30/17 22:43 SS [id number]) Intravenous Solution Start Date 07/30/17 Start Time 22:43 End Date 07/30/17 End time 23:44 Total Infusion Time 61 Disposition/Present on Arrival - Present on Arrival Any Indicators Present on Arrival: No History of DVT/PE: Yes History of Uncontrolled Diabetes: No Urinary Catheter: No History of Decub. Ulcer: No History Surgical Site Infection Following: None - Disposition Have Diagnosis and Disposition been Completed?: Yes Diagnosis: Drug overdoses, Altered mental status Disposition: HOSPITALIZED Disposition Time: 01:10 Patient Plan: Admission Condition: GUARDED
[2017-07-30 23:03] LABS: BASO # 0.03 K/mm3 (0.0-2.0); BASO % 0.4 % (0.0-3.0); EOS # 0.3 (0.0-0.7); EOS % 4.1 % (1.5-5.0); GRAN # 5.09 (1.4-6.5); GRAN % 61.7 % (50.0-68.0); HEMOGLOBIN 9.1 g/dL (12.0-16.0); LYMPH # 2.2 (1.2-3.4); LYMPH % 26.9 % (22.0-35.0); MEAN CELL VOLUME 93.7 fl (80.0-105.0); MEAN CORPUSCULAR HEMOGLOBIN 30.2 pg (25.0-35.0); MEAN CORPUSCULAR HGB CONC 32.3 g/dl (31.0-37.0); MEAN PLATELET VOLUME 10.7 fl (7.0-11.0); MONO # 0.6 (0.1-0.6); MONO % 6.9 % (1.0-6.0); RBC 3.01 10^6/uL (3.5-6.1); RED CELL DISTRIBUTION WIDTH 15.4 % (11.5-14.5); WHITE BLOOD COUNT 8.3 10^3/ul (4.5-11.0)
[2017-07-30 23:12] LABS: ACETAMINOPHEN < 10.0 ug/ml (10.0-20.0); SALICYLATE < 1 mg/dL (2.0-20.0)
[2017-07-30 23:13] LABS: CALCIUM 8.6 mg/dL (8.4-10.5)
[2017-07-30 23:27] LABS: ALB/GLOB RATIO 1.5 (1.1-1.8); ALBUMIN 3.2 g/dL (3.0-4.8)
--- NOTE | 2017-07-31 01:22 | CP.PCM.CON ---
<Miquel Crystal - Last Filed: 07/31/17 02:08> History of Present Illness - History of Present Illness History of Present Illness: ICU Consult Note Consulted for: OD causing Bradycardia/Hypotension This is a 71 yo F with PMH of HTN, HLD, SLE, Fibromyalgia, COPD, RA, recent suspected PCP pneumonia s/p Mepron, and 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 Initial presentation to the ED was lethargic/obtunded, only responsive to sternal rub, but at time of exam, pt was more arousable, oriented to self/year/location/ president, and was able to report on hx. As per pt, accidentally took 8 tabs of her 2mg Xanaflex, which she mistook for her home Methotrexate. She says her normal home dosing for Xanaflex is 2mg daily PRN. She initially was lethargic but denied any shortness of breath, choking, chest pain, syncope, but reports that he daughter returned home, found her in a lethargic state, and was concerned, so she called EMS. Patient denies any attempt at self-harm/ intentional OD. Denies SI or HI. Reports safety at home and around family members. Currently, denies shortness of breath, palpitations, room-spinning sensation, dizziness, nausea, emesis, fevers, or chills, but does report lethargy and feeling of heavy eyelids. All other ROS in 12-system review negative. Currently appears able to protect airways, and after 1x dose of Atropine in the ED as per poison control, HR remains in the high 40's-low 50's. PMH: as above PSH: Spinal surgery (non-specified) Fam Hx: DM, HTN, CAD Soc Hx denies tobacco, alcohol, illicits, denies intention self-harm PMD: Dr. Ty Review of Systems - Review of Systems All systems: reviewed and no additional remarkable complaints except (as per HPI ) Past Patient History - Infectious Disease Hx of Infectious Diseases: None - Tetanus Immunizations Tetanus Immunization: Unknown - Past Social History Smoking Status: Never Smoked - CARDIAC Hx Cardiac Disorders: Yes Hx Hypertension: Yes - PULMONARY Hx Respiratory Disorders: Yes Hx Bronchitis: Yes - NEUROLOGICAL Hx Neurological Disorder: No - HEENT Hx HEENT Problems: Yes (USES GLASSES) - RENAL Hx Chronic Kidney Disease: No - ENDOCRINE/METABOLIC Hx Endocrine Disorders: Yes Hx Systemic Lupus Erythematosus: Yes - HEMATOLOGICAL/ONCOLOGICAL Hx Anemia: Yes Hx Cancer: No - INTEGUMENTARY Hx Dermatological Problems: No - MUSCULOSKELETAL/RHEUMATOLOGICAL Hx Falls: No - GASTROINTESTINAL Hx Gastrointestinal Disorders: Yes (BOWEL OBSTRUCTION WITH COLON RESECTION) - GENITOURINARY/GYNECOLOGICAL Hx Genitourinary Disorders: No Hx Reproductive Disorders: No - PSYCHIATRIC Hx Psychophysiologic Disorder: Yes Hx Depression: Yes Hx Substance Use: No - SURGICAL HISTORY Hx Appendectomy: Yes Hx Cholecystectomy: Yes Hx Hysterectomy: Yes Hx Mastectomy: No Hx Musculoskeletal Surgery: Yes Other/Comment: L knee r/p. b/l ankle sx with pins. b/l shoulder sx with pins. b/l wrist sx with pins - ANESTHESIA Hx Anesthesia: Yes Hx Anesthesia Reactions: No Hx Malignant Hyperthermia: No Meds Allergies/Adverse Reactions: Allergies Allergy/AdvReac Type Severity Reaction Status Date / Time No Known Allergies Allergy Verified 05/17/17 16:56 Physical Exam - Constitutional Appears: Non-toxic, No Acute Distress, Other (lethargic but arousable) - Head Exam Head Exam: ATRAUMATIC, NORMAL INSPECTION, NORMOCEPHALIC - Eye Exam Eye Exam: EOMI, Normal appearance, PERRL. absent: Conjunctival injection, Scleral icterus Pupil Exam: NORMAL ACCOMODATION, PERRL. absent: Fixed, Irregular, Unequal - ENT Exam ENT Exam: Mucous Membranes Moist. absent: Mucous Membranes Dry - Neck Exam Neck exam: Positive for: Normal Inspection. Negative for: Lymphadenopathy, Thyromegaly - Respiratory Exam Respiratory Exam: Clear to Auscultation Bilateral, NORMAL BREATHING PATTERN. absent: Accessory Muscle Use, Chest Wall Tenderness, Prolonged Expiratory Phase , Rales, Rhonchi, Wheezes, Respiratory Distress, Stridor - Cardiovascular Exam Cardiovascular Exam: Bradycardia, REGULAR RHYTHM, +S1, +S2. absent: Tachycardia , Diastolic murmur, Irregular Rhythm, JVD, RRR, +S4, Systolic Murmur - GI/Abdominal Exam GI & Abdominal Exam: Normal Bowel Sounds, Soft. absent: Firm, Guarding, Rigid, Tenderness - Extremities Exam Extremities exam: Positive for: normal capillary refill, normal inspection, pedal pulses present. Negative for: calf tenderness - Neurological Exam Neurological exam: Alert, Oriented x3 (x4, self/location/year/president) Additional comments: lethargic but arousable, awake and alert when aroused following all commands appropriately - Psychiatric Exam Psychiatric exam: Normal Affect, Normal Mood - Skin Skin Exam: Dry, Intact, Normal Color, Warm Results - Vital Signs Recent Vital Signs: Last Vital Signs Temp 97.5 F L 07/31/17 00:56 Pulse 46 L 07/31/17 00:56 Resp 20 07/31/17 00:56 BP 95/53 L 07/31/17 00:56 Pulse Ox 100 07/31/17 00:56 - Labs Result Diagrams: 07/30/17 22:39 07/30/17 22:39 Labs: Laboratory Results - last 24 hr 07/30/17 07/30/17 07/30/17 22:39 22:39 22:39 WBC 8.3 D RBC 3.01 L Hgb 9.1 L D Hct 28.2 L MCV 93.7 MCH 30.2 MCHC 32.3 RDW 15.4 H Plt Count 249 MPV 10.7 Gran % 61.7 Lymph % (Auto) 26.9 [place] % (Auto) 6.9 H Eos % (Auto) 4.1 Baso % (Auto) 0.4 Gran # 5.09 Lymph # (Auto) 2.2 [place] # (Auto) 0.6 Eos # (Auto) 0.3 Baso # (Auto) 0.03 Sodium 137 Potassium 5.1 H Chloride 104 Carbon Dioxide 25 Anion Gap 14 BUN 33 H Creatinine 1.1 Est GFR ( Amer) 59 Est GFR (Non-Af Amer) 49 Random Glucose 126 H Calcium 8.6 Total Bilirubin 0.4 AST 34 ALT 35 Alkaline Phosphatase 25 L D Total Creatine Kinase 42 Total Protein 5.3 L Albumin 3.2 Globulin 2.1 Albumin/Globulin Ratio 1.5 Salicylates < 1 L Acetaminophen < 10.0 L Alcohol, Quantitative 07/30/17 22:39 WBC RBC Hgb Hct MCV MCH MCHC RDW Plt Count MPV Gran % Lymph % (Auto) [place] % (Auto) Eos % (Auto) Baso % (Auto) Gran # Lymph # (Auto) [place] # (Auto) Eos # (Auto) Baso # (Auto) Sodium Potassium Chloride Carbon Dioxide Anion Gap BUN Creatinine Est GFR ( Amer) Est GFR (Non-Af Amer) Random Glucose Calcium Total Bilirubin AST ALT Alkaline Phosphatase Total Creatine Kinase Total Protein Albumin Globulin Albumin/Globulin Ratio Salicylates Acetaminophen Alcohol, Quantitative < 10 Assessment & Plan - Assessment and Plan (Free Text) Assessment: This is a 71 yo F with PMH of HTN, HLD, SLE, Fibromyalgia, COPD, RA, recent suspected PCP pneumonia s/p Mepron, and 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 Initially lethargic/obtunded in ED, so ICU was asked to evaluate for possible need to intubate and for close observation while withdrawing from the OD. 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 -poison control following Pulm: -satting well on 3L NC -continue home Brovana -continue home Eliquis given hx of bilateral PE -given hx of COPD, avoid overoxygenation as want to avoid suppressing respiratory drive Cardio: -bradycardic to 30's in ED, improved to 50's after atropine x1 as per poison control -remains high 40's-low 50's during exam on bedside monitoring -initially hypotensive, currently SBP 80's-90's on bedside monitor -continuous HR and BP monitoring in ED -avoid any sedating medications or meds that can decrease BP or HR -NS 60cc/hr -no indication for pressors at this time, if BP acutely worsens and or HR decreases and isn't amenable to PRN Atropine, can consider dopamine drip GI: -NPO -Aspiration precautions -Protonix for GI ppx Renal: -monitor and replace electrolytes as needed -maintain euvolemia and euglycemia Heme: -Hgb 9.1, was 8.1 at time of discharge may 2017 -Eliquis covers for DVT ppx ID: -no leukocytosis, afebrile -no indication for antibiotics at this time Dispo: ICU for close monitoring overnight, likely transfer to telemetry in AM FEN: NPO, aspiration precautions, NS 60cc/hr Access: Peripheral IVs Consults: ICU Ppx: Protonix for GI, Eliquis covers for DVT Patient seen and reviewed with attending, Dr. Govea <Lb Govea P - Last Filed: 07/31/17 06:38> Meds - Medications Medications: Current Medications Arformoterol Tartrate (Brovana) 15 mcg IH Q12H [facility] Last Admin: 07/31/17 02:43 Dose: 15 mcg Aspirin (Ecotrin) 81 mg PO DAILY [facility] Atorvastatin Calcium (Lipitor) 10 mg PO DIN [facility] Atropine Sulfate (Atropine) 1 mg IVP Q1H PRN PRN Reason: HR <= 35 Cyanocobalamin (Vitamin B12 1000 Mcg/Ml Inj) 1,000 mcg SC WED [facility] Duloxetine HCl (Cymbalta) 60 mg PO DAILY [facility] Folic Acid (Folic Acid) 1 mg PO DAILY [facility] Sodium Chloride (Sodium Chloride 0.9%) 1,000 mls @ 60 mls/hr IV .[id number] [facility] Last Admin: 07/31/17 02:26 Dose: 60 mls/hr Methotrexate (Methotrexate) 2.5 mg PO DAILY [facility] Multivitamins (Thera Tab) 1 tab PO DAILY [facility] Pantoprazole Sodium (Protonix Ec Tab) 20 mg PO 0600,1600 [facility] Results - Vital Signs Recent Vital Signs: Last Vital Signs Temp 99.4 F 07/31/17 02:37 Pulse 59 L 07/31/17 06:00 Resp 15 07/31/17 06:00 BP 135/71 07/31/17 06:00 Pulse Ox 100 07/31/17 06:00 - Labs Result Diagrams: 07/30/17 22:39 07/30/17 22:39 Attending/Attestation - Attestation I have personally seen and examined this patient.: Yes I have fully participated in the care of the patient.: Yes I have reviewed all pertinent clinical information: Yes Notes (Text): Xanaflex overdose accidental with resultant bradycardia, hypotension, lethargy, improving during the course in ER 8 2mg tabs, instead of methotrexated. H/o PE, DVT in May 2017, on eliquis H/o RA Plan Monitor in ICU Supportive care IVF Home meds Counselled about polypharmacy and pill orgnizer See orders for detail.
[2017-07-31] MEDS: Sodium Chloride 0.9% 1,000 ML IV SCH ×2 (02:26→18:13)
[2017-07-31] MEDS: Arformoterol 15 mcg/2 ml Inh Sol IH SCH ×2 (02:43→13:54)
[2017-07-31] MEDS: Pantoprazole 20 mg EC Tab PO SCH ×2 (06:29→16:57)
[2017-07-31 06:46] LABS: BASO # 0.03 K/mm3 (0.0-2.0); BASO % 0.3 % (0.0-3.0); EOS # 0.4 (0.0-0.7); GRAN # 4.71 (1.4-6.5); GRAN % 54.8 % (50.0-68.0); LYMPH # 2.8 (1.2-3.4); LYMPH % 32.9 % (22.0-35.0); MEAN CELL VOLUME 94.9 fl (80.0-105.0); MEAN CORPUSCULAR HEMOGLOBIN 29.9 pg (25.0-35.0); MEAN CORPUSCULAR HGB CONC 31.4 g/dl (31.0-37.0); MEAN PLATELET VOLUME 10.4 fl (7.0-11.0); MONO # 0.6 (0.1-0.6); RBC 3.35 10^6/uL (3.5-6.1); RED CELL DISTRIBUTION WIDTH 15.7 % (11.5-14.5); WHITE BLOOD COUNT 8.6 10^3/ul (4.5-11.0)
[2017-07-31 07:14] LABS: ALB/GLOB RATIO 1.5 (1.1-1.8); ALBUMIN 3.2 g/dL (3.0-4.8); ALT/SGPT 39 U/L (7-56); AST/SGOT 29 U/L (14-36); BLOOD UREA NITROGEN 29 mg/dL (7-21); CALCIUM 8.8 mg/dL (8.4-10.5); GFR AFRICAN-AMERICAN > 60; GFR NON-AFRICAN AMERICAN > 60
[2017-07-31 09:20] LABS: URINE BILIRUBIN NEGATIVE (NEGATIVE); URINE BLOOD LARGE (NEGATIVE); URINE GLUCOSE (UA) NEGATIVE (NEGATIVE); URINE LEUKOCYTE ESTERASE NEGATIVE Leu/uL (NEGATIVE); URINE PROTEIN NEGATIVE mg/dL (<30 mg/dL); URINE UROBILINOGEN 0.2 E.U./dL (<1 E.U./dL)
[2017-07-31 09:21] LABS: URINE APPEARANCE CLEAR (CLEAR); URINE COLOR YELLOW (YELLOW)
[2017-07-31 09:37] LABS: BARBITURATES, UR NEGATIVE (NEGATIVE); BENZODIAZEPINES, UR NEGATIVE (NEGATIVE); OPIATES, UR POSITIVE (NEGATIVE); PHENCYCLIDINE, UR NEGATIVE (NEGATIVE)
[2017-07-31 09:40] LABS: URINE RBC 20 - 25 /hpf (0-2); URINE WBC 0 - 2 /hpf (0-6)
[2017-07-31 09:41] LABS: URINE BACTERIA FEW (NEG)
--- NOTE | 2017-07-31 10:00 | CP.CCUPN ---
<Fermin Marquis - Last Filed: 07/31/17 10:07> CCU Subjective - Physician Review Subjective (Free Text): Patient seen and examined at bedside. Patient complaining of lower abdominal discomfort. Patient states she did not urinate over the last 2 days. Patient did urinate on her own without catheterization. Denies chest pain, shortness of breath, nausea, vomiting, diarrhea, fever, chills. CCU Objective - Vital Signs / Intake & Output Vital Signs (Last 4 hours): Vital Signs Temp Pulse Resp BP Pulse Ox 07/31/17 09:00 53 L 11 L 100 07/31/17 08:50 57 L 35 H 78 L 07/31/17 08:40 64 11 L 98 07/31/17 08:30 64 9 L 98 07/31/17 08:21 65 07/31/17 08:10 74 23 07/31/17 08:00 98.4 F 67 12 170/88 H 100 07/31/17 07:50 61 19 100 07/31/17 07:43 54 L 07/31/17 07:40 54 L 11 L 100 07/31/17 07:30 55 L 15 100 07/31/17 07:20 58 L 18 100 07/31/17 07:10 54 L 16 100 07/31/17 07:00 55 L 21 161/69 H 100 07/31/17 06:50 55 L 12 100 07/31/17 06:40 68 24 100 07/31/17 06:30 61 29 H 100 07/31/17 06:20 58 L 18 97 07/31/17 06:10 60 27 H 100 07/31/17 06:00 59 L 15 135/71 100 07/31/17 05:50 57 L 100 07/31/17 05:40 52 L 15 100 Intake and Output (Last 8hrs): Intake & Output 07/30/17 07/31/17 07/31/17 22:59 06:59 14:59 Intake Total 300 Balance 300 Intake: IV 300 .9 300 - Physical Exam Head: Positive for: Atraumatic, Normocephalic Pupils: Positive for: PERRL Extroacular Muscles: Positive for: EOMI Conjunctiva: Positive for: Normal Mouth: Positive for: Moist Mucous Membranes Neck: Positive for: Normal Range of Motion Respiratory/Chest: Positive for: Clear to Auscultation, Good Air Exchange. Negative for: Respiratory Distress, Accessory Muscle Use Cardiovascular: Positive for: Regular Rate and Rhythm, Normal S1, S2. Negative for: Murmurs Abdomen: Positive for: Normal Bowel Sounds, Peritoneal Signs. Negative for: Tenderness, Distention Back: Positive for: Normal Inspection Upper Extremity: Positive for: Normal Inspection. Negative for: Cyanosis, Edema Lower Extremity: Positive for: Normal Inspection. Negative for: Edema Neurological: Positive for: GCS=15, CN II-XII Intact, Speech Normal, Motor Func Grossly Intact Skin: Positive for: Warm, Dry, Normal Color. Negative for: Rashes Psychiatric: Positive for: Alert, Oriented x 3, Normal Insight, Normal Concentration - Medications Active Medications: Active Medications Generic Name Dose Route Start Last Admin Trade Name Freq PRN Reason Stop Dose Admin Arformoterol Tartrate 15 mcg 07/31/17 01:30 07/31/17 02:43 Brovana IH 15 mcg Q12H SUKHDEV Administration Aspirin 81 mg 07/31/17 10:00 Ecotrin PO DAILY [facility] Atorvastatin Calcium 10 mg 07/31/17 17:00 Lipitor PO DIN SUKHDEV Atropine Sulfate 1 mg 07/31/17 01:27 Atropine IVP Q1H PRN HR <= 35 Cyanocobalamin 1,000 mcg 08/01/17 10:00 Vitamin B12 1000 Mcg/Ml Inj SC WED [facility] Duloxetine HCl 60 mg 07/31/17 10:00 Cymbalta PO DAILY SUKHDEV Folic Acid 1 mg 07/31/17 10:00 Folic Acid PO DAILY [facility] Sodium Chloride 1,000 mls @ 60 mls/hr 07/31/17 01:30 07/31/17 02:26 Sodium Chloride 0.9% IV 60 mls/hr .[id number] SUKHDEV Administration Methotrexate 2.5 mg 07/31/17 10:00 Methotrexate PO DAILY SUKHDEV Multivitamins 1 tab 07/31/17 10:00 Thera Tab PO DAILY SUKHDEV Oxycodone/Acetaminophen 1 tab 07/31/17 09:27 Percocet 5/325 Mg Tab PO 08/03/17 09:28 Q6H PRN Pain, severe (8-10) Pantoprazole Sodium 20 mg 07/31/17 06:00 07/31/17 06:29 Protonix Ec Tab PO 20 mg 0600,1600 SUKHDEV Administration - Patient Studies Lab Studies: Lab Studies 07/31/17 07/31/17 07/31/17 Range/Units 09:00 09:00 06:15 WBC (4.5-11.0) 10^3/ul RBC (3.5-6.1) 10^6/uL Hgb (12.0-16.0) g/dL Hct (36.0-48.0) % MCV (80.0-105.0) fl MCH (25.0-35.0) pg MCHC (31.0-37.0) g/dl RDW (11.5-14.5) % Plt Count (120.0-450.0) 10^3/uL MPV (7.0-11.0) fl Gran % (50.0-68.0) % Lymph % (Auto) (22.0-35.0) % Avery % (Auto) (1.0-6.0) % Eos % (Auto) (1.5-5.0) % Baso % (Auto) (0.0-3.0) % Gran # (1.4-6.5) Lymph # (Auto) (1.2-3.4) Avery # (Auto) (0.1-0.6) Eos # (Auto) (0.0-0.7) Baso # (Auto) (0.0-2.0) K/mm3 Sodium 141 (132-148) mmol/L Potassium 4.4 (3.6-5.0) mmol/L Chloride 108 H (98-107) mmol/L Carbon Dioxide 27 (21-33) mmol/L Anion Gap 11 (10-20) BUN 29 H (7-21) mg/dL Creatinine 0.9 (0.7-1.2) mg/dl Est GFR ( Amer) > 60 Est GFR (Non-Af Amer) > 60 Random Glucose 90 (70-110) mg/dL Calcium 8.8 (8.4-10.5) mg/dL Phosphorus 4.7 H (2.5-4.5) mg/dL Magnesium 1.9 (1.7-2.2) mg/dL Total Bilirubin 0.1 L (0.2-1.3) mg/dL AST 29 (14-36) U/L ALT 39 (7-56) U/L Alkaline Phosphatase 42 (38-126) U/L Total Protein 5.3 L (5.8-8.3) g/dL Albumin 3.2 (3.0-4.8) g/dL Globulin 2.1 gm/dL Albumin/Globulin Ratio 1.5 (1.1-1.8) Urine Color Yellow (YELLOW) Urine Appearance Clear (CLEAR) Urine pH 6.0 (4.7-8.0) Ur Specific [place] 1.015 (1.005-1.035) Urine Protein Negative (<30 mg/dL) mg/dL Urine Glucose (UA) Negative (NEGATIVE) mg/dL Urine Ketones Negative (NEGATIVE) mg/dL Urine Blood Large H (NEGATIVE) Urine Nitrate Negative (NEGATIVE) Urine Bilirubin Negative (NEGATIVE) Urine Urobilinogen 0.2 (<1 E.U./dL) E.U./dL Ur Leukocyte Esterase Negative (NEGATIVE) Agusto/uL Urine Methadone Screen Negative (NEGATIVE) 07/31/17 Range/Units 06:15 WBC 8.6 (4.5-11.0) 10^3/ul RBC 3.35 L (3.5-6.1) 10^6/uL Hgb 10.0 L (12.0-16.0) g/dL Hct 31.8 L (36.0-48.0) % MCV 94.9 (80.0-105.0) fl MCH 29.9 (25.0-35.0) pg MCHC 31.4 (31.0-37.0) g/dl RDW 15.7 H (11.5-14.5) % Plt Count 236 (120.0-450.0) 10^3/uL MPV 10.4 (7.0-11.0) fl Gran % 54.8 (50.0-68.0) % Lymph % (Auto) 32.9 (22.0-35.0) % Avery % (Auto) 7.0 H (1.0-6.0) % Eos % (Auto) 5.0 (1.5-5.0) % Baso % (Auto) 0.3 (0.0-3.0) % Gran # 4.71 (1.4-6.5) Lymph # (Auto) 2.8 (1.2-3.4) Avery # (Auto) 0.6 (0.1-0.6) Eos # (Auto) 0.4 (0.0-0.7) Baso # (Auto) 0.03 (0.0-2.0) K/mm3 Sodium (132-148) mmol/L Potassium (3.6-5.0) mmol/L Chloride (98-107) mmol/L Carbon Dioxide (21-33) mmol/L Anion Gap (10-20) BUN (7-21) mg/dL Creatinine (0.7-1.2) mg/dl Est GFR ( Amer) Est GFR (Non-Af Amer) Random Glucose (70-110) mg/dL Calcium (8.4-10.5) mg/dL Phosphorus (2.5-4.5) mg/dL Magnesium (1.7-2.2) mg/dL Total Bilirubin (0.2-1.3) mg/dL AST (14-36) U/L ALT (7-56) U/L Alkaline Phosphatase (38-126) U/L Total Protein (5.8-8.3) g/dL Albumin (3.0-4.8) g/dL Globulin gm/dL Albumin/Globulin Ratio (1.1-1.8) Urine Color (YELLOW) Urine Appearance (CLEAR) Urine pH (4.7-8.0) Ur Specific [place] (1.005-1.035) Urine Protein (<30 mg/dL) mg/dL Urine Glucose (UA) (NEGATIVE) mg/dL Urine Ketones (NEGATIVE) mg/dL Urine Blood (NEGATIVE) Urine Nitrate (NEGATIVE) Urine Bilirubin (NEGATIVE) Urine Urobilinogen (<1 E.U./dL) E.U./dL Ur Leukocyte Esterase (NEGATIVE) Agusto/uL Urine Methadone Screen (NEGATIVE) Laboratory Results - last 24 hr 07/31/17 07/31/17 07/31/17 06:15 06:15 09:00 WBC 8.6 RBC 3.35 L Hgb 10.0 L Hct 31.8 L MCV 94.9 MCH 29.9 MCHC 31.4 RDW 15.7 H Plt Count 236 MPV 10.4 Gran % 54.8 Lymph % (Auto) 32.9 Avery % (Auto) 7.0 H Eos % (Auto) 5.0 Baso % (Auto) 0.3 Gran # 4.71 Lymph # (Auto) 2.8 Avery # (Auto) 0.6 Eos # (Auto) 0.4 Baso # (Auto) 0.03 Sodium 141 Potassium 4.4 Chloride 108 H Carbon Dioxide 27 Anion Gap 11 BUN 29 H Creatinine 0.9 Est GFR ( Amer) > 60 Est GFR (Non-Af Amer) > 60 Random Glucose 90 Calcium 8.8 Phosphorus 4.7 H Magnesium 1.9 Total Bilirubin 0.1 L AST 29 ALT 39 Alkaline Phosphatase 42 Total Protein 5.3 L Albumin 3.2 Globulin 2.1 Albumin/Globulin Ratio 1.5 Urine Color Urine Appearance Urine pH Ur Specific [place] Urine Protein Urine Glucose (UA) Urine Ketones Urine Blood Urine Nitrate Urine Bilirubin Urine Urobilinogen Ur Leukocyte Esterase Urine Methadone Screen Negative 07/31/17 09:00 WBC RBC Hgb Hct MCV MCH MCHC RDW Plt Count MPV Gran % Lymph % (Auto) Avery % (Auto) Eos % (Auto) Baso % (Auto) Gran # Lymph # (Auto) Avery # (Auto) Eos # (Auto) Baso # (Auto) Sodium Potassium Chloride Carbon Dioxide Anion Gap BUN Creatinine Est GFR ( Amer) Est GFR (Non-Af Amer) Random Glucose Calcium Phosphorus Magnesium Total Bilirubin AST ALT Alkaline Phosphatase Total Protein Albumin Globulin Albumin/Globulin Ratio Urine Color Yellow Urine Appearance Clear Urine pH 6.0 Ur Specific [place] 1.015 Urine Protein Negative Urine Glucose (UA) Negative Urine Ketones Negative Urine Blood Large H Urine Nitrate Negative Urine Bilirubin Negative Urine Urobilinogen 0.2 Ur Leukocyte Esterase Negative Urine Methadone Screen EKG/Cardiology Studies: Cardiology / EKG Studies 07/31/17 05:00 EKG [ELECTROCARDIOGRAM] DAILY Comment: Reason For Exam: f/u, reassess bradycardia Assessment/Plan - Assessment and Plan (Free Text) Plan: 71 year old female with PMH of HTN, HLD, SLE, Fibromyalgia, COPD, RA, bilateral PE on Eliquis presented to the hospital for Zanaflex overdose. Patient is currently hemodynamically stable with no focal neurological deficits. Patient received Head CT to rule out intracranial bleed, preliminary read demonstrates no intracranial hemorrhage. Patient will be transferred to Telemetry this afternoon. Neuro: AAO x [address] official read pending No neurological deficits Pulm: Maintain O2 sat > 90% Continue nasal cannula as needed Continue Eliquis for b/l PE Cardio: HD stable Bradycardic, asymptomatic Continue IVF GI: HHD Protonix Renal: Maintain euvolemia Replenish electrolytes as needed Heme/ID Eliquis for b/l PE and DVT prophylaxis Afebrile, no leukocytosis Kandis, PGY-2 <Otis Gunter B - Last Filed: 07/31/17 14:01> CCU Objective - Vital Signs / Intake & Output Vital Signs (Last 4 hours): Vital Signs Temp Pulse Resp BP Pulse Ox 07/31/17 12:47 69 184/80 H 07/31/17 12:00 98.2 F 66 38 H 184/80 H 97 07/31/17 11:50 56 L 19 98 07/31/17 11:40 81 27 H 07/31/17 11:36 95 H 07/31/17 11:30 79 53 H 99 07/31/17 11:20 59 L 24 99 07/31/17 11:10 66 20 96 07/31/17 11:00 62 38 H 155/61 H 100 07/31/17 10:50 69 50 H 100 07/31/17 10:40 78 57 H 100 07/31/17 10:30 63 13 99 07/31/17 10:20 57 L 99 07/31/17 10:10 61 16 98 Intake and Output (Last 8hrs): Intake & Output 07/30/17 07/31/17 07/31/17 22:59 06:59 14:59 Intake Total 300 Balance 300 Intake: IV 300 .9 300 - Medications Active Medications: Active Medications Generic Name Dose Route Start Last Admin Trade Name Freq PRN Reason Stop Dose Admin Arformoterol Tartrate 15 mcg 07/31/17 01:30 07/31/17 13:54 Brovana IH 15 mcg Q12H SUKHDEV Administration Aspirin 81 mg 07/31/17 10:00 07/31/17 10:12 Ecotrin PO 81 mg DAILY SUKHDEV Administration Atorvastatin Calcium 10 mg 07/31/17 17:00 Lipitor PO DIN SUKHDEV Atropine Sulfate 1 mg 07/31/17 01:27 Atropine IVP Q1H PRN HR <= 35 Cyanocobalamin 1,000 mcg 08/01/17 10:00 Vitamin B12 1000 Mcg/Ml Inj SC WED SUKHDEV Duloxetine HCl 60 mg 07/31/17 10:00 07/31/17 10:12 Cymbalta PO 60 mg DAILY SUKHDEV Administration Folic Acid 1 mg 07/31/17 10:00 07/31/17 10:12 Folic Acid PO 1 mg DAILY SUKHDEV Administration Sodium Chloride 1,000 mls @ 60 mls/hr 07/31/17 01:30 07/31/17 02:26 Sodium Chloride 0.9% IV 60 mls/hr .[id number] SUKHDEV Administration Methotrexate 2.5 mg 07/31/17 10:00 07/31/17 11:43 Methotrexate PO 2.5 mg DAILY SUKHDEV Administration Multivitamins 1 tab 07/31/17 10:00 07/31/17 10:12 Thera Tab PO 1 tab DAILY SUKHDEV Administration Oxycodone/Acetaminophen 1 tab 07/31/17 09:27 07/31/17 10:12 Percocet 5/325 Mg Tab PO 08/03/17 09:28 1 tab Q6H PRN Administration Pain, severe (8-10) Pantoprazole Sodium 20 mg 07/31/17 06:00 07/31/17 06:29 Protonix Ec Tab PO 20 mg 0600,1600 SUKHDEV Administration - Patient Studies Lab Studies: Lab Studies 07/31/17 07/31/17 07/31/17 Range/Units 09:00 09:00 06:15 WBC (4.5-11.0) 10^3/ul RBC (3.5-6.1) 10^6/uL Hgb (12.0-16.0) g/dL Hct (36.0-48.0) % MCV (80.0-105.0) fl MCH (25.0-35.0) pg MCHC (31.0-37.0) g/dl RDW (11.5-14.5) % Plt Count (120.0-450.0) 10^3/uL MPV (7.0-11.0) fl Gran % (50.0-68.0) % Lymph % (Auto) (22.0-35.0) % Avery % (Auto) (1.0-6.0) % Eos % (Auto) (1.5-5.0) % Baso % (Auto) (0.0-3.0) % Gran # (1.4-6.5) Lymph # (Auto) (1.2-3.4) Avery # (Auto) (0.1-0.6) Eos # (Auto) (0.0-0.7) Baso # (Auto) (0.0-2.0) K/mm3 Sodium 141 (132-148) mmol/L Potassium 4.4 (3.6-5.0) mmol/L Chloride 108 H (98-107) mmol/L Carbon Dioxide 27 (21-33) mmol/L Anion Gap 11 (10-20) BUN 29 H (7-21) mg/dL Creatinine 0.9 (0.7-1.2) mg/dl Est GFR ( Amer) > 60 Est GFR (Non-Af Amer) > 60 Random Glucose 90 (70-110) mg/dL Calcium 8.8 (8.4-10.5) mg/dL Phosphorus 4.7 H (2.5-4.5) mg/dL Magnesium 1.9 (1.7-2.2) mg/dL Total Bilirubin 0.1 L (0.2-1.3) mg/dL AST 29 (14-36) U/L ALT 39 (7-56) U/L Alkaline Phosphatase 42 (38-126) U/L Total Protein 5.3 L (5.8-8.3) g/dL Albumin 3.2 (3.0-4.8) g/dL Globulin 2.1 gm/dL Albumin/Globulin Ratio 1.5 (1.1-1.8) Urine Color Yellow (YELLOW) Urine Appearance Clear (CLEAR) Urine pH 6.0 (4.7-8.0) Ur Specific [place] 1.015 (1.005-1.035) Urine Protein Negative (<30 mg/dL) mg/dL Urine Glucose (UA) Negative (NEGATIVE) mg/dL Urine Ketones Negative (NEGATIVE) mg/dL Urine Blood Large H (NEGATIVE) Urine Nitrate Negative (NEGATIVE) Urine Bilirubin Negative (NEGATIVE) Urine Urobilinogen 0.2 (<1 E.U./dL) E.U./dL Ur Leukocyte Esterase Negative (NEGATIVE) Agusto/uL Urine RBC 20 - 25 (0-2) /hpf Urine WBC 0 - 2 (0-6) /hpf Ur Epithelial Cells 4 - 5 (0-5) /hpf Urine Bacteria Few (NEG) Urine Opiates Screen Positive H (NEGATIVE) Urine Methadone Screen Negative (NEGATIVE) Ur Barbiturates Screen Negative (NEGATIVE) Ur Phencyclidine Scrn Negative (NEGATIVE) Ur Amphetamines Screen Negative (NEGATIVE) U Benzodiazepines Scrn Negative (NEGATIVE) U Oth Cocaine Metabols Negative (NEGATIVE) U Cannabinoids Screen Negative (NEGATIVE) 07/31/17 Range/Units 06:15 WBC 8.6 (4.5-11.0) 10^3/ul RBC 3.35 L (3.5-6.1) 10^6/uL Hgb 10.0 L (12.0-16.0) g/dL Hct 31.8 L (36.0-48.0) % MCV 94.9 (80.0-105.0) fl MCH 29.9 (25.0-35.0) pg MCHC 31.4 (31.0-37.0) g/dl RDW 15.7 H (11.5-14.5) % Plt Count 236 (120.0-450.0) 10^3/uL MPV 10.4 (7.0-11.0) fl Gran % 54.8 (50.0-68.0) % Lymph % (Auto) 32.9 (22.0-35.0) % Avery % (Auto) 7.0 H (1.0-6.0) % Eos % (Auto) 5.0 (1.5-5.0) % Baso % (Auto) 0.3 (0.0-3.0) % Gran # 4.71 (1.4-6.5) Lymph # (Auto) 2.8 (1.2-3.4) Avery # (Auto) 0.6 (0.1-0.6) Eos # (Auto) 0.4 (0.0-0.7) Baso # (Auto) 0.03 (0.0-2.0) K/mm3 Sodium (132-148) mmol/L Potassium (3.6-5.0) mmol/L Chloride (98-107) mmol/L Carbon Dioxide (21-33) mmol/L Anion Gap (10-20) BUN (7-21) mg/dL Creatinine (0.7-1.2) mg/dl Est GFR ( Amer) Est GFR (Non-Af Amer) Random Glucose (70-110) mg/dL Calcium (8.4-10.5) mg/dL Phosphorus (2.5-4.5) mg/dL Magnesium (1.7-2.2) mg/dL Total Bilirubin (0.2-1.3) mg/dL AST (14-36) U/L ALT (7-56) U/L Alkaline Phosphatase (38-126) U/L Total Protein (5.8-8.3) g/dL Albumin (3.0-4.8) g/dL Globulin gm/dL Albumin/Globulin Ratio (1.1-1.8) Urine Color (YELLOW) Urine Appearance (CLEAR) Urine pH (4.7-8.0) Ur Specific [place] (1.005-1.035) Urine Protein (<30 mg/dL) mg/dL Urine Glucose (UA) (NEGATIVE) mg/dL Urine Ketones (NEGATIVE) mg/dL Urine Blood (NEGATIVE) Urine Nitrate (NEGATIVE) Urine Bilirubin (NEGATIVE) Urine Urobilinogen (<1 E.U./dL) E.U./dL Ur Leukocyte Esterase (NEGATIVE) Agusto/uL Urine RBC (0-2) /hpf Urine WBC (0-6) /hpf Ur Epithelial Cells (0-5) /hpf Urine Bacteria (NEG) Urine Opiates Screen (NEGATIVE) Urine Methadone Screen (NEGATIVE) Ur Barbiturates Screen (NEGATIVE) Ur Phencyclidine Scrn (NEGATIVE) Ur Amphetamines Screen (NEGATIVE) U Benzodiazepines Scrn (NEGATIVE) U Oth Cocaine Metabols (NEGATIVE) U Cannabinoids Screen (NEGATIVE) Laboratory Results - last 24 hr 07/31/17 07/31/17 07/31/17 06:15 06:15 09:00 WBC 8.6 RBC 3.35 L Hgb 10.0 L Hct 31.8 L MCV 94.9 MCH 29.9 MCHC 31.4 RDW 15.7 H Plt Count 236 MPV 10.4 Gran % 54.8 Lymph % (Auto) 32.9 Avery % (Auto) 7.0 H Eos % (Auto) 5.0 Baso % (Auto) 0.3 Gran # 4.71 Lymph # (Auto) 2.8 Avery # (Auto) 0.6 Eos # (Auto) 0.4 Baso # (Auto) 0.03 Sodium 141 Potassium 4.4 Chloride 108 H Carbon Dioxide 27 Anion Gap 11 BUN 29 H Creatinine 0.9 Est GFR ( Amer) > 60 Est GFR (Non-Af Amer) > 60 Random Glucose 90 Calcium 8.8 Phosphorus 4.7 H Magnesium 1.9 Total Bilirubin 0.1 L AST 29 ALT 39 Alkaline Phosphatase 42 Total Protein 5.3 L Albumin 3.2 Globulin 2.1 Albumin/Globulin Ratio 1.5 Urine Color Urine Appearance Urine pH Ur Specific [place] Urine Protein Urine Glucose (UA) Urine Ketones Urine Blood Urine Nitrate Urine Bilirubin Urine Urobilinogen Ur Leukocyte Esterase Urine RBC Urine WBC Ur Epithelial Cells Urine Bacteria Urine Opiates Screen Positive H Urine Methadone Screen Negative Ur Barbiturates Screen Negative Ur Phencyclidine Scrn Negative Ur Amphetamines Screen Negative U Benzodiazepines Scrn Negative U Oth Cocaine Metabols Negative U Cannabinoids Screen Negative 07/31/17 09:00 WBC RBC Hgb Hct MCV MCH MCHC RDW Plt Count MPV Gran % Lymph % (Auto) Avery % (Auto) Eos % (Auto) Baso % (Auto) Gran # Lymph # (Auto) Avery # (Auto) Eos # (Auto) Baso # (Auto) Sodium Potassium Chloride Carbon Dioxide Anion Gap BUN Creatinine Est GFR ( Amer) Est GFR (Non-Af Amer) Random Glucose Calcium Phosphorus Magnesium Total Bilirubin AST ALT Alkaline Phosphatase Total Protein Albumin Globulin Albumin/Globulin Ratio Urine Color Yellow Urine Appearance Clear Urine pH 6.0 Ur Specific [place] 1.015 Urine Protein Negative Urine Glucose (UA) Negative Urine Ketones Negative Urine Blood Large H Urine Nitrate Negative Urine Bilirubin Negative Urine Urobilinogen 0.2 Ur Leukocyte Esterase Negative Urine RBC 20 - 25 Urine WBC 0 - 2 Ur Epithelial Cells 4 - 5 Urine Bacteria Few Urine Opiates Screen Urine Methadone Screen Ur Barbiturates Screen Ur Phencyclidine Scrn Ur Amphetamines Screen U Benzodiazepines Scrn U Oth Cocaine Metabols U Cannabinoids Screen EKG/Cardiology Studies: Cardiology / EKG Studies 07/31/17 05:00 EKG [ELECTROCARDIOGRAM] DAILY Comment: Reason For Exam: f/u, reassess bradycardia Critical Care Progress Note - Nutrition Nutrition: Nutrition Category Date Time Status Heart Healthy Diet [DIET] Diets 07/31/17 Lunch Ordered Attending/Attestation - Attestation I have personally seen and examined this patient.: Yes I have fully participated in the care of the patient.: Yes I have reviewed all pertinent clinical information: Yes Notes (Text): 07/31/17 14:00 71 yo with zanaflex overdose. alert awake oriented x 3. protecting airways, CTH is no acute intracranial pathology. Hemodynamically stable. ok to downgrade to tele ccm time 40 min
--- NOTE | 2017-07-31 10:03 | CT ---
PROCEDURE: CT HEAD WITHOUT CONTRAST. HISTORY: R/o intracranial bleed COMPARISON: 12/28/2016 TECHNIQUE: Axial computed tomography images were obtained through the head/brain without intravenous contrast. Radiation dose: Total exam DLP = 788 mGy-cm. This CT exam was performed using one or more of the following dose reduction techniques: Automated exposure control, adjustment of the mA and/or kV according to patient size, and/or use of iterative reconstruction technique. FINDINGS: HEMORRHAGE: No intracranial hemorrhage. BRAIN: No mass effect or edema. Chronic microvascular changes are seen in the periventricular white matter VENTRICLES: Unremarkable. No hydrocephalus. CALVARIUM: Unremarkable. PARANASAL SINUSES: Unremarkable as visualized. No significant inflammatory changes. MASTOID AIR CELLS: Unremarkable as visualized. No inflammatory changes. OTHER FINDINGS: None. IMPRESSION: No acute findings
[2017-07-31] MEDS: Oxycodone/Acetaminophen 5/325 mg Tab PO PRN ×3 (10:12→21:01)
[2017-07-31] MEDS: Multivitamin Therapeutic Tab PO SCH (10:12)
--- NOTE | 2017-07-31 21:02 | CARD ---
APPROVED REPORT EKG Measurement Heart [id number] <Conclusion> Sinus bradycardia T wave abnormality, consider anterolateral ischemia Prolonged QT Abnormal ECG
[2017-08-01 00:43] VITALS: RESP 20
--- NOTE | 2017-08-01 02:32 | HP ---
HISTORY OF PRESENT ILLNESS: A 71-year-old white female with history of lupus, on Rituxan, hypertension, history of chronic bronchitis, the patient was doing well at home, was getting outpatient Rituxan therapy and she also has a chronic history of back and spine pain. The patient was taking methotrexate at home mistakenly took tizanidine muscle relaxer in excessive doses, was found to be drowsy and sleepy by the family and brought to the emergency room and admitted to the intensive care unit for tizanidine overdose. The following day, with hydration and respiration, the patient was markedly improved. Vitals signs are stable. PHYSICAL EXAMINATION: GENERAL: Shows a well-developed, well-nourished white female, in no apparent distress. HEENT: Essentially within normal limits. HEART: Regular sinus rhythm. No S3 or murmurs. CHEST: Clear to auscultation and percussion except for some scattered rhonchi and wheezing. EXTREMITIES: Without any cyanosis, clubbing, or edema. NEUROLOGIC: Sensation is grossly intact. The patient will continue to be hydrated, will have the CT scan, and most likely will be discharged if stable. IMPRESSION: A 71-year-old white female with lupus, chronic back pain, and with a mistaken overdose of tizanidine. Pelon Ty MD
[2017-08-01] MEDS: Arformoterol 15 mcg/2 ml Inh Sol IH SCH ×2 (02:56→07:42)
[2017-08-01] MEDS: Oxycodone/Acetaminophen 5/325 mg Tab PO PRN ×2 (03:55→10:58)
[2017-08-01] MEDS: Sodium Chloride 0.9% 1,000 ML IV SCH ×2 (05:08→11:18)
[2017-08-01] MEDS: Pantoprazole 20 mg EC Tab PO SCH (05:08)
[2017-08-01 06:49] VITALS: TEMP 98.9; O2SAT 98
[2017-08-01 07:40] LABS: BASO # 0.05 K/mm3 (0.0-2.0); BASO % 0.6 % (0.0-3.0); EOS # 0.4 (0.0-0.7); EOS % 4.8 % (1.5-5.0); GRAN # 4.97 (1.4-6.5); GRAN % 56.3 % (50.0-68.0); HEMOGLOBIN 11.4 g/dL (12.0-16.0); LYMPH # 2.7 (1.2-3.4); LYMPH % 30.8 % (22.0-35.0); MEAN CELL VOLUME 90.7 fl (80.0-105.0); MEAN CORPUSCULAR HEMOGLOBIN 30.2 pg (25.0-35.0); MEAN CORPUSCULAR HGB CONC 33.2 g/dl (31.0-37.0); MEAN PLATELET VOLUME 10.2 fl (7.0-11.0); MONO # 0.7 (0.1-0.6); MONO % 7.5 % (1.0-6.0); RBC 3.78 10^6/uL (3.5-6.1); RED CELL DISTRIBUTION WIDTH 15.4 % (11.5-14.5); WHITE BLOOD COUNT 8.8 10^3/ul (4.5-11.0)
[2017-08-01 08:09] LABS: ALB/GLOB RATIO 1.6 (1.1-1.8); ALBUMIN 3.7 g/dL (3.0-4.8); ALT/SGPT 46 U/L (7-56); AST/SGOT 35 U/L (14-36); BLOOD UREA NITROGEN 16 mg/dL (7-21); CALCIUM 9.9 mg/dL (8.4-10.5); GFR AFRICAN-AMERICAN > 60; GFR NON-AFRICAN AMERICAN > 60
[2017-08-01] MEDS ORDERED: Arformoterol 15 mcg/2 ml Inh Sol IH SCH (08:17)
[2017-08-01] MEDS: Multivitamin Therapeutic Tab PO SCH (10:42)
[2017-08-01 10:45] VITALS: BP 180/95; PULSE 80
--- NOTE | 2017-08-01 19:46 | CARD ---
APPROVED REPORT EKG Measurement Heart [id number] <Conclusion> Marked sinus bradycardia with occasional premature ventricular complexes ST & T wave abnormality, consider anterolateral ischemia Prolonged QT Abnormal ECG
--- NOTE | 2017-08-02 04:47 | DS ---
HISTORY OF PRESENT ILLNESS: The patient is a 71-year-old white female with history of lupus and antiphospholipid syndrome, on Rituxan. Patient also has chronic back pain. She was at home and she was taking her methotrexate, mistakenly took tizanidine in place of her methotrexate, became extremely lightheaded, lethargic and had near syncopal episode, was brought to the hospital by the family, was placed in the Intensive Care Unit. She had a CT of the head, was rehydrated and had no further sequelae once she came out of her tizanidine-induced [employer] depression. Patient was transferred out of the Intensive Care Unit and did well and then she was able to be started on solids and liquids and rehydrated and was able to be discharged home in improved condition. FINAL DISCHARGE DIAGNOSES: Tizanidine overdose, accidental; history of lupus. Pelon Ty MD
== END 2017-08-01 14:04 | disposition home or self-care (01) | DRG 918 ==
LOC: ED 22:03 → ERH 07-31 00:15 → CCU 07-31 02:05 → 3RSO 07-31 18:45
PROVIDERS: ADMIT Internal Medicine; ATTEND Internal Medicine
PROC: 3E0F7GC Introduction of Other Therapeutic Substance into Respiratory Tract, Via Natural or Artificial Opening (ICD-10-PCS; principal; 2017-07-31)
DX: T42.8X1A Poisoning by antiparkinsonism drugs and other central muscle-tone depressants, accidental (unintentional), initial encounter (principal); R00.1 Bradycardia, unspecified; I95.9 Hypotension, unspecified; D68.61 Antiphospholipid syndrome; M32.9 Systemic lupus erythematosus, unspecified; R42 Dizziness and giddiness; I10 Essential (primary) hypertension; G89.29 Other chronic pain; M54.9 Dorsalgia, unspecified; J44.9 Chronic obstructive pulmonary disease, unspecified; E78.5 Hyperlipidemia, unspecified; M06.9 Rheumatoid arthritis, unspecified; M79.7 Fibromyalgia; Y92.009 Unspecified place in unspecified non-institutional (private) residence as the place of occurrence of the external cause; Z86.711 Personal history of pulmonary embolism; Z79.01 Long term (current) use of anticoagulants; Z90.710 Acquired absence of both cervix and uterus; Z90.49 Acquired absence of other specified parts of digestive tract

== ENCOUNTER 2017-10-23 06:19 | Inpatient (IN) | payer MEDICARE, OTHER ==
[2017-10-11 08:30] VITALS: BMI 26.4
--- NOTE | 2017-10-23 07:13 | CP.PCM.HP ---
History of Present Illness - History of Present Illness History of Present Illness: 71 F failed conservative management, elected for a right total hip replacement. NKDA hx B/L PE Present on Admission - Present on Admission Any Indicators Present on Admission: Yes History of DVT/PE: Yes History of Uncontrolled Diabetes: No Urinary Catheter: No Decubitus Ulcer Present: No Review of Systems - Review of Systems All systems: reviewed and no additional remarkable complaints except - Musculoskeletal Musculoskeletal: As Per HPI Past Patient History - Infectious Disease Hx of Infectious Diseases: None - Tetanus Immunizations Tetanus Immunization: Unknown - Past Social History Smoking Status: Never Smoked - CARDIAC Hx Cardiac Disorders: Yes Hx Hypercholesterolemia: Yes Hx Hypertension: Yes Hx Pacemaker: No - PULMONARY Hx Respiratory Disorders: Yes Hx Bronchitis: Yes Hx Chronic Obstructive Pulmonary Disease (COPD): Yes Hx Pneumonia: Yes - NEUROLOGICAL Hx Paralysis: No - HEENT Hx HEENT Problems: Yes (USES GLASSES) - RENAL Hx Chronic Kidney Disease: No - ENDOCRINE/METABOLIC Hx Endocrine Disorders: Yes Hx Systemic Lupus Erythematosus: Yes - HEMATOLOGICAL/ONCOLOGICAL Hx Blood Disorders: Yes Hx Anemia: Yes (07/2017) Hx Blood Transfusions: Yes (07/2017) Hx Blood Transfusion Reaction: No Hx Cancer: No - INTEGUMENTARY Hx Dermatological Problems: No - MUSCULOSKELETAL/RHEUMATOLOGICAL Hx Falls: Yes (IN PAST) - GASTROINTESTINAL Hx Gastrointestinal Disorders: Yes (BOWEL OBSTRUCTION WITH COLON RESECTION) - GENITOURINARY/GYNECOLOGICAL Hx Genitourinary Disorders: No Hx Reproductive Disorders: No - PSYCHIATRIC Hx Substance Use: No - SURGICAL HISTORY Hx Surgeries: Yes Hx Appendectomy: Yes Hx Cholecystectomy: Yes Hx Hysterectomy: Yes Hx Mastectomy: No Hx Orthopedic Surgery: Yes (l knee replacement) Hx Tonsillectomy: Yes - ANESTHESIA Hx Anesthesia Reactions: No Hx Malignant Hyperthermia: No Meds Allergies/Adverse Reactions: Allergies Allergy/AdvReac Type Severity Reaction Status Date / Time No Known Allergies Allergy Verified 05/17/17 16:56 Physical Exam - Constitutional Appears: Well, No Acute Distress - Head Exam Head Exam: ATRAUMATIC, NORMAL INSPECTION, NORMOCEPHALIC - Neck Exam Neck exam: Positive for: Full Rom, Normal Inspection - Respiratory Exam Respiratory Exam: NORMAL BREATHING PATTERN - Cardiovascular Exam Cardiovascular Exam: RRR - Expanded Lower Extremities Exam Right Hip exam: normal inspection - Neurological Exam Neurological exam: Alert, Oriented x3 - Psychiatric Exam Psychiatric exam: Normal Affect, Normal Mood - Skin Skin Exam: Dry, Intact, Normal Color Assessment & Plan (1) Osteoarthritis of right hip Assessment and Plan: NPO T&C For a Right Total hip arthroplasty Risks, benefits and alternatives discussed. Patient verbalizes understanding and would like to proceed. Status: Acute (2) Hypertension Assessment and Plan: post op medical management Status: Chronic (3) Lupus (systemic lupus erythematosus) Status: Chronic
[2017-10-23] MEDS ORDERED: Lidocaine 1% Inj (20ml) ONE (07:28)
[2017-10-23] MEDS ORDERED: Propofol 10 mg/ml Inj (20 ML) ONE (07:28)
[2017-10-23] MEDS ORDERED: Succinylcholine 200 mg/10 ml Inj IV ONE (07:29)
[2017-10-23] MEDS ORDERED: ePHEDrine 50 mg/ml Inj ONE ×2 (07:29→09:38)
[2017-10-23] MEDS ORDERED: Phenylephrine 10 mg/ml Inj ONE (07:29)
[2017-10-23] MEDS ORDERED: Rocuronium 10 mg/ml (5 ml) ONE ×2 (07:29→09:53)
[2017-10-23] MEDS ORDERED: Tranexamic Acid 1 ML ONE (07:34)
[2017-10-23] MEDS ORDERED: Metoprolol 1 mg/ml Inj IVP ONE (09:10)
[2017-10-23] MEDS ORDERED: Bupivacaine Liposomal Inj 20 ml ONE (09:26)
[2017-10-23] MEDS ORDERED: Vancomycin 1 g Inj ONE (10:31)
[2017-10-23] MEDS: HYDROmorphone 0.5 mg/0.5 ml ISec IVP PRN ×2 (11:39→11:56)
[2017-10-23] MEDS ORDERED: Lactated Ringer's 1,000 ML IV SCH (11:45)
[2017-10-23] MEDS ORDERED: HYDROmorphone 0.5 mg/0.5 ml ISec ONE ×4 (11:57→12:49)
--- NOTE | 2017-10-23 12:01 | PCM.SURG1 ---
Surgeon's Initial Post Op Note - Surgeon's Notes Surgeon: Olga Bonilla MD Concrete Stone Fabricator: Temo Joseph PA-C, Yanira Luu PA-C Type of Anesthesia: General Endo Anesthesia Administered By: Dr. Lopez Pre-Operative Diagnosis: R hip osteoarthritis Operative Findings: see full note Post-Operative Diagnosis: same Operation Performed: R total hip arthroplasty Specimen/Specimens Removed: femoral head Estimated Blood Loss: EBL {In ML}: 300 Blood Products Given: N/A Drains Used: No Drains, Wound Vac Post-Op Condition: Fair Date of Surgery/Procedure: 10/23/17 Time of Surgery/Procedure: 09:00
--- NOTE | 2017-10-23 12:14 | RAD ---
PROCEDURE: Right hip portable HISTORY: s/p R MANDY patient in PACU COMPARISON: TECHNIQUE: A single portable hip film was obtained in the OR FINDINGS: There is a right hip prosthesis in anatomic alignment. There are no complicating factors IMPRESSION: As above
[2017-10-23] MEDS ORDERED: HYDROmorphone 0.5 mg/0.5 ml ISec IVP ONE ×3 (12:20→12:48)
[2017-10-23] MEDS ORDERED: HYDROmorphone 0.5 mg/0.5 ml ISec IVP STA ×2 (12:36→16:37)
[2017-10-23] MEDS: Multivitamin With Minerals Tab PO SCH (14:00)
[2017-10-23] MEDS: oxyCODONE 5 mg Immediate Release Tab PO PRN ×2 (14:24→21:05)
[2017-10-23] MEDS ORDERED: HYDROmorphone 1 mg/ml ISec IVP STA (16:18)
[2017-10-23] MEDS ORDERED: Pneumococcal 23-Valent Vaccine IM ONE (16:33)
[2017-10-23] MEDS: ceFAZolin 2 GM in Sodium Chloride 0.9% 100 ML IVPB SCH ×2 (16:49→23:40)
--- NOTE | 2017-10-23 17:57 | CON ---
HISTORY OF PRESENT ILLNESS: The patient is a 71-year-old white female admitted to the service of Dr. Bonilla for right hip replacement. The patient has a long history of CAD, hypertension, antiphospholipid syndrome, rheumatoid arthritis, recent history of treatment with Rituxan for her rheumatoid arthritis. The patient also has a history of bronchitis and chronic bronchitis in the past. The patient is seen in preop, afebrile, blood pressure 180/97. The patient has preop laboratory data that is unremarkable. The patient has a long history of right hip pain and disability for hip replacement. PHYSICAL EXAMINATION: GENERAL: She is a well-developed, well-nourished white female, in no apparent distress. CHEST: Clear to auscultation and percussion. HEART: Regular sinus rhythm. ABDOMEN: Soft. Bowel sounds are normoactive. EXTREMITIES: Without cyanosis, clubbing, or edema. The patient is medically cleared for surgery. We will follow up postop. Pelon Ty MD
[2017-10-23] MEDS: HYDROmorphone 0.2 mg/ml (30ml) 30 ML IV PRN (18:11)
--- NOTE | 2017-10-23 21:40 | OP ---
PROCEDURE DATE: 10/23/2017 PREOPERATIVE DIAGNOSIS: Right hip arthritis. POSTOPERATIVE DIAGNOSIS: Right hip arthritis. PROCEDURE: Right total hip arthroplasty. SURGEON: Mason Bonilla MD OUTPATIENT COORDINATOR: Dr. Bonilla was assisted by Shabnam Ayala, the physician printer assistant and GAIL Rios. Both physician assistants scrubbed and present throughout the entire case and assisted in patient positioning, retraction, and wound closure. ANESTHESIA: General. COMPLICATIONS: None. ESTIMATED BLOOD LOSS: 300 mL. IMPLANTS: Biomet dual mobility total hip. INDICATION FOR PROCEDURE: This is a 71-year-old female presenting with longstanding right hip pain. Clinical examination was consistent with pain loss of internal and external rotation. Radiographic examination was consistent with failed nonsurgical management. Recommendations were for a right total hip arthroplasty. The risks, benefits, and alternatives of procedure were discussed with the patient and informed consent was obtained. DESCRIPTION OF PROCEDURE: After the surgical site was signed and verified in the preoperative holding area, the patient was taken to the operating room and placed supine on the operating room table. After administration of general anesthesia, the patient received 2 g of Ancef IV. A Zamorano catheter was inserted. The patient was positioned in the lateral decubitus position with the right hip up towards the ceiling. Venodyne boots were placed on the nonoperative extremity and care was taken to make sure all bony prominences and nerves were well padded and protected. Axillary roll was placed and the right lower extremity was prepped and draped in the usual sterile fashion. The bony landmarks were identified about the right hip and approximately 10 cm curvilinear incision was made over the proximal femur. Soft tissue was dissected sharply down to the fascia. The fascia was incised. The Charnley retractor was placed. Short external rotators were identified, tied, and resected off the proximal femur. T-type capsulotomy was performed and the hip was dislocated. At this point, based on the preoperative templating, a femoral neck resection was performed and the femoral head was removed and passed off the field as specimen. Our attention was directed to the acetabulum. Anterior capsulotomy was performed and once the acetabulum was adequately exposed, the acetabulum was reamed sequentially to allow for a 54 mm press-fit cup. Care was taken to maintain proper acetabular height and version, a trial cup was placed and satisfied with the position, the trial was removed, and the hip joint was pulse lavaged with antibiotic saline solution. At this point, the actual cup was then impacted into place, again making sure they maintain proper version and height. The cup was further fixed with 3 screws. Next, our attention was directed to the femur. Medullary canal of the proximal femur was reamed and broached sequentially to allow for a 11 mm press-fit stem. The calcar was planed with a trial stem, trial head, and trial neck in place. The hip was reduced and taken through range of motion and was noted to be stable with approximately equal limb lengths. The hip was again dislocated and the trial components were removed. The hip was once again pulse lavaged with antibiotic saline solution and the metal liner in acetabular cup was then impacted into place. The actual stem was then impacted and recessed to the appropriate depth in the proximal femur. The actual head was then impacted over the neck. The hip was again reduced and was taken through a range of motion, was noted to be stable with approximately equal limb lengths. At this point, the capsule was closed using #1 Vicryl suture. The external rotators were also closed using #1 Vicryl suture. Deep fascia was closed using #1 Vicryl suture. The subcutaneous tissue was closed using 0 Vicryl and 2-0 Vicryl suture and the skin was closed using eulalia. A JESSICA wound VAC incisional dressing was applied and an abduction pillow was placed. The patient was transferred supine, awakened, and taken to recovery room in stable condition. Mason Bonilla MD
[2017-10-24] MEDS: HYDROmorphone 0.2 mg/ml (30ml) 30 ML IV PRN (00:55)
[2017-10-24] MEDS: oxyCODONE 5 mg Immediate Release Tab PO PRN ×2 (03:02→09:05)
[2017-10-24 07:16] LABS: BASO # 0.02 K/mm3 (0.0-2.0); BASO % 0.2 % (0.0-3.0); EOS % 0.4 % (1.5-5.0); GRAN # 8.2 (1.4-6.5); GRAN % 83.3 % (50.0-68.0); LYMPH # 1.2 (1.2-3.4); LYMPH % 11.9 % (22.0-35.0); MEAN CELL VOLUME 93.1 fl (80.0-105.0); MEAN CORPUSCULAR HEMOGLOBIN 31.8 pg (25.0-35.0); MEAN CORPUSCULAR HGB CONC 34.1 g/dl (31.0-37.0); MEAN PLATELET VOLUME 10.1 fl (7.0-11.0); MONO # 0.4 (0.1-0.6); MONO % 4.2 % (1.0-6.0); RBC 2.33 10^6/uL (3.5-6.1); RED CELL DISTRIBUTION WIDTH 15.6 % (11.5-14.5); WHITE BLOOD COUNT 9.8 10^3/ul (4.5-11.0)
[2017-10-24 07:21] LABS: HEMOGLOBIN 7.4 g/dL (12.0-16.0)
[2017-10-24 07:30] LABS: BLOOD UREA NITROGEN 15 mg/dL (7-21); CALCIUM 8.6 mg/dL (8.4-10.5); GFR AFRICAN-AMERICAN > 60; GFR NON-AFRICAN AMERICAN > 60
--- NOTE | 2017-10-24 08:58 | PN ---
DATE: 10/24/2017 SUBJECTIVE: A 71-year-old white female with history of lupus-like syndrome, hypertension, CAD. Patient admitted for hip replacement. Patient was seen by Surgery, Dr. Bonilla, had hip replacement surgery. Patient is postop first day, complaining of back pain and hip pain. Patient is awake and oriented x3. Her hemoglobin was noted to be down to 7.4 with hematocrit of only 21.7. Otherwise, her laboratory data is unremarkable. Patient is transfused. She has a history of anemia secondary to her lupus in the past. Patient has no history of bleeding. Patient will be transfused and continued on physical therapy, occupational therapy, and pain management. PHYSICAL EXAMINATION: CHEST: Clear to auscultation. HEART: As mentioned, regular sinus rhythm. ABDOMEN: Soft. IMPRESSION: Postop hip replacement in a 71-year-old white female with a long history of lupus and other comorbid presenting with postoperative severe anemia. Pelon Ty MD
[2017-10-24] MEDS: Multivitamin With Minerals Tab PO SCH (09:14)
--- NOTE | 2017-10-24 09:52 | CP.PCM.PN ---
Subjective - Date & Time of Evaluation Date of Evaluation: 10/24/17 Time of Evaluation: 09:46 - Subjective Subjective: POD#1. Patient seen and examined at bedside. Patient alert and awake, laying in bed. Patient states she is in a lot of pain but is being controlled. Hip abduction pillow is on. Afebrile WBC 9.8 Hgb 7.4 R hip: dressings are dry and intact with Jeanne in place. +AROM of foot and ankle. Sensation intact. Thigh and calf are soft and non-tender. NVI distally. POD#1 s/p R MANDY Patient being transfused 2 units PRBC's Cont DVT prophylaxis Cont PT Cont hip abduction pillow Cont pain control Cont incentive spirometer Begin discharge planning to subacute rehab facility. Patient would like to go to [facility]. Will discuss with case management Dressing changes tomorrow Objective - Vital Signs/Intake and Output Vital Signs (last 24 hours): Temp Pulse Resp BP Pulse Ox 98.9 F 83 18 135/42 L 100 10/24/17 06:00 10/24/17 06:00 10/24/17 06:00 10/24/17 06:00 10/24/17 06:00 Intake and Output: 10/24/17 10/24/17 06:59 18:59 Intake Total 650 Output Total 1120 Balance -470 - Medications Medications: Current Medications Acetaminophen (Tylenol 325mg Tab) 650 mg PO Q6 [facility] Last Admin: 10/24/17 05:28 Dose: 650 mg Apixaban (Eliquis) 5 mg PO BID [facility] PRN Reason: Protocol Last Admin: 10/24/17 09:13 Dose: 5 mg Aspirin (Ecotrin) 81 mg PO DAILY [facility] Last Admin: 10/24/17 09:13 Dose: 81 mg Atorvastatin Calcium (Lipitor) 10 mg PO DIN [facility] Last Admin: 10/23/17 19:35 Dose: Not Given Docusate Sodium (Colace) 100 mg PO BID [facility] Last Admin: 10/24/17 09:12 Dose: 100 mg Duloxetine HCl (Cymbalta) 60 mg PO DAILY [facility] Last Admin: 10/24/17 09:13 Dose: 60 mg Folic Acid (Folic Acid) 1 mg PO DAILY [facility] Last Admin: 10/24/17 09:13 Dose: 1 mg Gabapentin (Neurontin) 300 mg PO TID [facility] PRN Reason: Protocol Last Admin: 10/24/17 09:13 Dose: 300 mg Hydromorphone HCl (Dilaudid 0.2 Mg/Ml Cable Installation Manager) 30 mls @ 0.2 mls/hr IV PRN PRN; Protocol PRN Reason: INTERMEDIATE TEACHER PER MD ORDER Last Admin: 10/24/17 00:55 Dose: 0.2 mls/hr Methotrexate (Methotrexate) 8 mg PO SUN [facility] Multivitamins/Minerals (Therapeutic-M Tab) 1 tab PO DAILY [facility] Last Admin: 10/24/17 09:14 Dose: 1 tab Oxycodone HCl (Oxycodone Immediate Release Tab) 5 mg PO Q6H PRN PRN Reason: Pain, moderate (4-7) Last Admin: 10/24/17 09:05 Dose: 5 mg Quetiapine Fumarate (Seroquel) 100 mg PO DAILY [facility] PRN Reason: Protocol Last Admin: 10/24/17 09:13 Dose: 100 mg - Labs Labs: 10/24/17 07:03 10/24/17 07:03 Assessment and Plan (1) Osteoarthritis of right hip Status: Acute (2) Hypertension Status: Chronic (3) Lupus (systemic lupus erythematosus) Status: Chronic
[2017-10-25] MEDS ORDERED: Oxycodone/Acetaminophen 5/325 mg Tab PO ONE ×2 (00:32→04:12)
[2017-10-25 06:58] LABS: BASO # 0.02 K/mm3 (0.0-2.0); BASO % 0.2 % (0.0-3.0); EOS # 0.3 (0.0-0.7); EOS % 2.3 % (1.5-5.0); GRAN # 9.67 (1.4-6.5); GRAN % 78.1 % (50.0-68.0); LYMPH # 1.4 (1.2-3.4); LYMPH % 11.6 % (22.0-35.0); MEAN CELL VOLUME 91.3 fl (80.0-105.0); MEAN CORPUSCULAR HEMOGLOBIN 31.7 pg (25.0-35.0); MEAN CORPUSCULAR HGB CONC 34.7 g/dl (31.0-37.0); MEAN PLATELET VOLUME 10.4 fl (7.0-11.0); MONO % 7.8 % (1.0-6.0); RED CELL DISTRIBUTION WIDTH 15.3 % (11.5-14.5); WHITE BLOOD COUNT 12.4 10^3/ul (4.5-11.0)
[2017-10-25 07:09] LABS: BLOOD UREA NITROGEN 14 mg/dL (7-21); CALCIUM 8.5 mg/dL (8.4-10.5); GFR AFRICAN-AMERICAN > 60; GFR NON-AFRICAN AMERICAN > 60
[2017-10-25 07:20] LABS: HEMOGLOBIN 9.5 g/dL (12.0-16.0)
[2017-10-25] MEDS: oxyCODONE 5 mg Immediate Release Tab PO PRN ×3 (08:08→18:45)
[2017-10-25] MEDS: Multivitamin With Minerals Tab PO SCH (11:31)
--- NOTE | 2017-10-25 12:13 | PN ---
DATE: 10/25/2017 SUBJECTIVE: The patient is a 71-year-old white female status post hip replacement by Dr. Bonilla. The patient is doing well on postop day #2. She was transferred yesterday because of low hemoglobin. She is back to hemoglobin of 9.5, white count is stable of 12.2. She is afebrile. She has a little bit of temperature of 99.2, blood pressure is elevated at 139/63, improved. Her BUN and creatinine are stable. Potassium is 3.7. The patient is scheduled to be discharged tomorrow, to go to [facility] for [facility]. The patient will continue PT and OT and return to her medications. PHYSICAL EXAMINATION: Physical examination is unchanged. GENERAL: The patient is alert and oriented x3. CHEST: Clear. HEART: Regular sinus rhythm. ABDOMEN: Soft. EXTREMITIES: Without cyanosis, clubbing, or edema. The patient is in minimal pain, /10. Pelon Ty MD
[2017-10-25 16:13] VITALS: O2SAT 99
--- NOTE | 2017-10-25 21:58 | CP.PCM.PN ---
Subjective - Date & Time of Evaluation Date of Evaluation: 10/25/17 Time of Evaluation: 09:09 - Subjective Subjective: POD#2. Patient seen and examined at bedside. Alert and Awake, laying in bed. Christopher in. Patient states pain is controlled. Hip abduction pillow in place. Afebrile WBC 12.4 Hgb 9.5 R hip: dressings removed and JESSICA removed. Incision clean and intact. There is no erythema or drainage. No signs of cellulitis or infection. Incision cleaned with NSS and new dry dressings applied.Thigh and calf are soft and non-tender. NVI distally POD#2 s/p R MANDY Cont DVT prophylaxis Cont PT Begin bladder training, plan to d/c christopher later this am Plan to discharge to subacute rehab tomorrow Objective - Vital Signs/Intake and Output Vital Signs (last 24 hours): Temp Pulse Resp BP Pulse Ox 99.2 F 77 20 139/63 95 10/25/17 06:00 10/25/17 06:00 10/25/17 06:00 10/25/17 06:00 10/25/17 06:00 Intake and Output: 10/25/17 10/25/17 06:59 18:59 Intake Total 1225 Output Total 1100 Balance 125 - Medications Medications: Current Medications Acetaminophen (Tylenol 325mg Tab) 650 mg PO Q6 [facility] Last Admin: 10/25/17 06:59 Dose: 650 mg Apixaban (Eliquis) 5 mg PO BID [facility] PRN Reason: Protocol Last Admin: 10/24/17 17:10 Dose: 5 mg Aspirin (Ecotrin) 81 mg PO DAILY [facility] Last Admin: 10/24/17 09:13 Dose: 81 mg Atorvastatin Calcium (Lipitor) 10 mg PO DIN [facility] Last Admin: 10/24/17 17:10 Dose: 10 mg Docusate Sodium (Colace) 100 mg PO BID [facility] Last Admin: 10/24/17 18:01 Dose: 100 mg Duloxetine HCl (Cymbalta) 60 mg PO DAILY [facility] Last Admin: 10/24/17 09:13 Dose: 60 mg Folic Acid (Folic Acid) 1 mg PO DAILY [facility] Last Admin: 10/24/17 09:13 Dose: 1 mg Gabapentin (Neurontin) 300 mg PO TID [facility] PRN Reason: Protocol Last Admin: 10/24/17 18:00 Dose: 300 mg Hydromorphone HCl (Dilaudid) 0.5 mg IVP Q4H PRN PRN Reason: Pain, moderate (4-7) Methotrexate (Methotrexate) 8 mg PO SUN [facility] Multivitamins/Minerals (Therapeutic-M Tab) 1 tab PO DAILY [facility] Last Admin: 10/24/17 09:14 Dose: 1 tab Oxycodone HCl (Oxycodone Immediate Release Tab) 5 mg PO Q6H PRN PRN Reason: Pain, moderate (4-7) Last Admin: 10/25/17 08:08 Dose: 5 mg Quetiapine Fumarate (Seroquel) 100 mg PO DAILY [facility] PRN Reason: Protocol Last Admin: 10/24/17 09:13 Dose: 100 mg - Labs Labs: 10/25/17 06:15 10/25/17 06:15 Assessment and Plan (1) Osteoarthritis of right hip Status: Acute (2) Hypertension Status: Chronic (3) Lupus (systemic lupus erythematosus) Status: Chronic
[2017-10-26] MEDS: oxyCODONE 5 mg Immediate Release Tab PO PRN ×2 (05:08)
[2017-10-26 07:10] LABS: BASO # 0.03 K/mm3 (0.0-2.0); BASO % 0.3 % (0.0-3.0); EOS # 0.5 (0.0-0.7); EOS % 4.3 % (1.5-5.0); GRAN # 7.6 (1.4-6.5); GRAN % 72.3 % (50.0-68.0); LYMPH # 1.5 (1.2-3.4); LYMPH % 14.2 % (22.0-35.0); MEAN CELL VOLUME 93.3 fl (80.0-105.0); MEAN CORPUSCULAR HEMOGLOBIN 31.6 pg (25.0-35.0); MEAN CORPUSCULAR HGB CONC 33.8 g/dl (31.0-37.0); MEAN PLATELET VOLUME 10.9 fl (7.0-11.0); MONO # 0.9 (0.1-0.6); MONO % 8.9 % (1.0-6.0); RBC 2.85 10^6/uL (3.5-6.1); RED CELL DISTRIBUTION WIDTH 15.5 % (11.5-14.5); WHITE BLOOD COUNT 10.5 10^3/ul (4.5-11.0)
[2017-10-26 07:33] LABS: BLOOD UREA NITROGEN 13 mg/dL (7-21); CALCIUM 8.7 mg/dL (8.4-10.5); GFR AFRICAN-AMERICAN > 60; GFR NON-AFRICAN AMERICAN > 60
[2017-10-26 08:07] VITALS: BP 132/58; PULSE 68; RESP 20; TEMP 98.7
[2017-10-26] MEDS: HYDROmorphone 0.5 mg/0.5 ml ISec IVP PRN ×2 (09:25→14:32)
[2017-10-26] MEDS: Multivitamin With Minerals Tab PO SCH (09:25)
--- NOTE | 2017-10-26 12:14 | PN ---
DATE: 10/26/2017 SUBJECTIVE: The patient has no complaints of any chest pain. No shortness of breath, no headaches. She states the pain is controlled. She was able to walk a bit yesterday. PHYSICAL EXAMINATION: VITAL SIGNS: Temperature is 98.7, pulse of 68, blood pressure 132/58, respirations 20. GENERAL: The patient is lying in bed, flat, comfortable. HEENT: No oral lesion. Anicteric sclerae. Moist mucosa. NECK: No JVD, adenopathy, or thyromegaly. CARDIOVASCULAR: S1 and S2, regular. No murmurs, rubs, or gallops. LUNGS: Clear to auscultation bilaterally. No wheeze, rales, or rhonchi. ABDOMEN: Bowel sounds are positive. Soft, nontender and nondistended. EXTREMITIES: No cyanosis, clubbing or edema. LABS: Hemoglobin is 9. ASSESSMENT: 1. Status post right total hip arthroplasty. 2. Dyslipidemia. 3. Neuropathy. 4. Deep venous thrombosis, on anticoagulation. 5. Anemia secondary to blood loss. PLAN: The patient is currently comfortable. Hemoglobin has been stable. The patient is on Dilaudid for pain. She is going to continue with Colace for constipation. She is on Eliquis for anticoagulation. The patient is on a heart-healthy diet. She has blood pressure that is controlled. She is going to go to [place] Dr. Ty. Dawood Hayden MD
== END 2017-10-26 18:22 | DRG 470 ==
LOC: SDAINP 06:19 → EDSTATUS 07:30 → 5RNO 13:26
PROVIDERS: ADMIT Orthopaedic Surgery; ATTEND Orthopaedic Surgery
PROC: 0SR90JA Replacement of Right Hip Joint with Synthetic Substitute, Uncemented, Open Approach (ICD-10-PCS; principal; 2017-10-23 07:30)
PROC: 30233N1 Transfusion of Nonautologous Red Blood Cells into Peripheral Vein, Percutaneous Approach (ICD-10-PCS; 2017-10-24)
DX: M16.11 Unilateral primary osteoarthritis, right hip (principal); D62 Acute posthemorrhagic anemia; I10 Essential (primary) hypertension; I25.10 Atherosclerotic heart disease of native coronary artery without angina pectoris; E78.00 Pure hypercholesterolemia, unspecified; E78.5 Hyperlipidemia, unspecified; G62.9 Polyneuropathy, unspecified; J44.9 Chronic obstructive pulmonary disease, unspecified; M06.9 Rheumatoid arthritis, unspecified; M32.9 Systemic lupus erythematosus, unspecified; Z87.01 Personal history of pneumonia (recurrent); Z90.49 Acquired absence of other specified parts of digestive tract; Z90.710 Acquired absence of both cervix and uterus; Z96.652 Presence of left artificial knee joint

== ENCOUNTER 2017-12-09 08:16 | Inpatient (IN) | payer MEDICARE, OTHER ==
[2017-12-09 08:27] VITALS: BMI 26.6
[2017-12-09] MEDS ORDERED: Pantoprazole 80 MG in Sodium Chloride 0.9% 100 ML IV STA (08:27)
[2017-12-09] MEDS ORDERED: Sodium Chloride 0.9% 500 ML IV STA (08:27)
--- NOTE | 2017-12-09 08:28 | ED PDOC ---
Arrival/HPI - General Chief Complaint: GI Problem Time Seen by Provider: 12/09/17 08:26 Historian: Patient - History of Present Illness Narrative History of Present Illness (Text): 12/09/17 08:23 A 71 year old female, whose past medical history includes hypertension, COPD, menopause, and rheumatoid arthritis, presents to the emergency department complaining of cramping abdominal pain since yesterday. Patient reports she has not been able to eat due to pain, as well as associated nausea. Patient used the bathroom this morning and noticed bright red blood in her stool. Notes also experiencing chest pain and dizziness/lightheadedness. Patient denies any vomiting, diarrhea, shortness of breath, or any other complaints at this time. Also, patient mentions she is on Eliquis since being diagnosed with DVT in the spring of this year. States she has no history of smoking and no EtOH abuse. PMD: Dr. Ty Symptom Onset: Sudden Symptom Course: Unchanged Associated Symptoms (Text): 12/09/17 08:50 Patient reports she was not feeling well since yesterday. She had some nausea. No vomiting or diarrhea. Poor by mouth intake. This morning she got up to use the bathroom and had bright red blood per rectum. No chest pain or shortness of breath. There is dizziness and lightheadedness. She is on eliquis for a DVT. PMD is . Past Medical History - Provider Review Nursing Documentation Reviewed: Yes - Infectious Disease Hx of Infectious Diseases: None - Tetanus Immunization Tetanus Immunization: Unknown - Reproductive Menopause: Yes - Cardiac Hx Cardiac Disorders: Yes Hx Hypertension: Yes - Pulmonary Hx Chronic Obstructive Pulmonary Disease (COPD): Yes - Neurological Hx Neurological Disorder: No - HEENT Hx HEENT Disorder: Yes (USES GLASSES) - Renal Hx Renal Disorder: No - Endocrine/Metabolic Hx Endocrine Disorders: Yes Hx Systemic Lupus Erythematosus: Yes - Hematological/Oncological Hx Blood Disorders: Yes Hx Anemia: Yes (07/2017) Hx Cancer: No - Integumentary Hx Dermatological Disorder: Yes Other/Comment: 10-23-17 POST RIGHT TOTAL HIP REPLACEMENT. HAS A LARGE DRESSING . - Musculoskeletal/Rheumatological Hx Rheumatoid Arthritis: Yes - Gastrointestinal Hx Gastrointestinal Disorders: Yes (BOWEL OBSTRUCTION WITH COLON RESECTION) - Genitourinary/Gynecological Hx Genitourinary Disorders: Yes Hx Urinary Tract Infection: Yes - Psychiatric Hx Emotional Abuse: No Hx Physical Abuse: No Hx Substance Use: No - Surgical History Other/Comment: 10-23-17 POST TOTAL RIGHT HIP REPLACEMENT. - Anesthesia Hx Anesthesia Reactions: No Hx Malignant Hyperthermia: No - Suicidal Assessment Feels Threatened In Home Enviroment: No Family/Social History - Physician Review Nursing Documentation Reviewed: Yes Family/Social History: Unknown Family HX Smoking Status: Never Smoked Hx Alcohol Use: Yes (OCCASIONAL) Hx Substance Use: No Hx Substance Use Treatment: No Allergies/Home Meds Allergies/Adverse Reactions: Allergies No Known Allergies Allergy (Verified 12/09/17 08:27) Home Medications: Home Meds Medication Instructions Recorded Confirmed Aspirin [Adult Aspirin Regimen] 81 mg PO DAILY 04/23/17 10/23/17 DULoxetine [Cymbalta] 60 mg PO DAILY 04/23/17 10/23/17 Folic Acid 1 mg PO DAILY 04/23/17 10/23/17 Methotrexate 8 tab PO SUN 04/23/17 10/23/17 Oxycodone HCl [Oxycontin] 30 mg PO TID PRN 04/23/17 10/23/17 Pravastatin Sodium [Pravachol] 10 mg PO DAILY 04/23/17 10/23/17 QUEtiapine [Seroquel] 100 mg PO DAILY 04/23/17 10/23/17 Apixaban [Eliquis] 5 mg PO BID 10/11/17 10/23/17 Gabapentin [Neurontin] 300 mg PO TID 10/11/17 10/23/17 Metaxalone [Metaxall] 800 mg PO BID 10/11/17 10/23/17 Review of Systems - Physician Review All systems were reviewed & negative as marked: Yes - Review of Systems Constitutional: Fatigue. absent: Fevers Respiratory: absent: SOB, Cough Cardiovascular: absent: Chest Pain, Palpitations, Syncope Gastrointestinal: Abdominal Pain (cramping sensation), Stool Changes (bright red blood in stool), Nausea, Appetite Changes (unable to eat due to abdominal pain), Hematochezia, Anorexia. absent: Diarrhea, Vomiting, Hematemesis Genitourinary Female: absent: Dysuria, Frequency, Hematuria Neurological: Dizziness (and lightheadedness). absent: Headache, Focal Weakness , Gait Changes Physical Exam Vital Signs Reviewed: Yes Vital Signs Temp Pulse Resp BP Pulse Ox 12/09/17 12:38 98 F 72 19 130/52 L 98 12/09/17 11:04 80 19 137/80 98 12/09/17 08:22 98.2 F 76 18 125/96 H 99 Temperature: Afebrile Blood Pressure: Normal Pulse: Regular Respiratory Rate: Normal Appearance: Positive for: Well-Appearing, Non-Toxic, Uncomfortable Pain Distress: None Mental Status: Positive for: Alert and Oriented X 3 - Systems Exam Head: Present: Atraumatic, Normocephalic Pupils: Present: PERRL Extroacular Muscles: Present: EOMI Conjunctiva: Present: Normal Mouth: Present: Moist Mucous Membranes Pharnyx: No: ERYTHEMA, EXUDATE, TONSILS ENLARGED Respiratory/Chest: Present: Clear to Auscultation, Good Air Exchange, Decreased Breath Sounds. No: Respiratory Distress, Accessory Muscle Use Cardiovascular: Present: Regular Rate and Rhythm, Normal S1, S2. No: Murmurs Abdomen: Present: Tenderness (mild generalized abdominal tenderness), Normal Bowel Sounds. No: Distention, Peritoneal Signs, Rebound, Guarding Rectal: Present: Gross Blood (bright red blood). No: Rectal Tenderness Upper Extremity: Present: Normal Inspection. No: Cyanosis, Edema Lower Extremity: Present: Normal Inspection. No: Edema Neurological: Present: GCS=15, CN II-XII Intact, Speech Normal, Motor Func Grossly Intact, Normal Cerebellar Funct Skin: Present: Pale Psychiatric: Present: Alert, Oriented x 3, Normal Insight, Normal Concentration Medical Decision Making ED Course and Treatment: 12/09/17 08:27 Impression: 71 year old female with cramping abdominal pain, chest pain, nausea , and dizziness/lightheadedness. Physical exam shows mild generalized abdominal tenderness, no guarding/rebound; patient appears pale and is uncomfortable; bright red blood on rectal exam. Plan: -- EKG -- Chest X-ray -- Labs -- Protonix -- IV Fluids -- Zofran -- Reassess and disposition Prior Visits: Notes and results from previous visits were reviewed. Patient was last seen in the emergency department on 07/30/2017 for possible overdose. Patient was admitted. Progress Notes: 12/09/17 08:53 EKG shows normal sinus rhythm rate approximately 70 with PACs and no acute ST or T-wave changes. 12/09/17 10:26 Dr Ty is here. - Lab Interpretations Lab Results: 12/09/17 09:25 12/09/17 09:25 Lab Results 12/09/17 10:05: Blood Type A POSITIVE, Antibody Screen Negative, BBK History Checked Patient has bt 12/09/17 10:05: PT 15.0 H, INR 1.30, APTT 35.1 12/09/17 09:25: Sodium 129 L, Potassium 3.9, Chloride 95 L, Carbon Dioxide 22, Anion Gap 17, BUN 12, Creatinine 0.6 L, Est GFR ( Amer) > 60, Est GFR ( Non-Af Amer) > 60, Random Glucose 101, Calcium 9.2, Total Bilirubin 0.8, AST 24 , ALT 20, Alkaline Phosphatase 71, Lactate Dehydrogenase 569, Total Creatine Kinase 132, Troponin I < 0.01, Total Protein 6.1, Albumin 3.8, Globulin 2.3, Albumin/Globulin Ratio 1.6, Amylase 50, Lipase 83 12/09/17 09:25: WBC 11.4 H, RBC 3.55, Hgb 10.7 L, Hct 31.0 L, MCV 87.3 D, MCH 30.1, MCHC 34.5, RDW 14.5, Plt Count 319, MPV 10.1, Gran % 81.6 H, Lymph % (Auto ) 13.3 L, Rich % (Auto) 4.2, Eos % (Auto) 0.5 L, Baso % (Auto) 0.4, Gran # 9.28 H, Lymph # (Auto) 1.5, Rich # (Auto) 0.5, Eos # (Auto) 0.1, Baso # (Auto) 0.04 - RAD Interpretation Radiology Orders: 12/09/17 08:27 CHEST PORTABLE [RAD] Stat Chest one view shows no infiltrate effusion or cardiomegaly. Bobbin Drier: ED Physician - Medication Orders Current Medication Orders: Acetaminophen (Tylenol 325mg Tab) 650 mg PO Q6 SUKHDEV Last Admin: 12/09/17 13:58 Dose: 650 mg Atorvastatin Calcium (Lipitor) 10 mg PO DIN SUKHDEV Duloxetine HCl (Cymbalta) 60 mg PO DAILY [facility] Folic Acid (Folic Acid) 1 mg PO DAILY SUKHDEV Gabapentin (Neurontin) 300 mg PO TID SUKHDEV PRN Reason: Protocol Last Admin: 12/09/17 13:53 Dose: 300 mg Behavioural Document 08/05/18 13:53 CD (Rec: 12/09/17 13:53 CD [id number]) Maintenance Maintenance Dose Yes Pantoprazole Sodium (Protonix 40mg Ivpb) 40 mg in 100 mls @ 20 mls/hr IVPB .Q5H SUKHDEV Last Admin: 12/09/17 10:44 Dose: 20 mls/hr eMAR Start Stop Document 12/09/17 10:44 EWO (Rec: 12/09/17 10:45 EWO [id number]) Intravenous Solution Start Date 12/09/17 Start Time 10:45 Methotrexate (Methotrexate) 8 mg PO SUN SUKHDEV Quetiapine Fumarate (Seroquel) 100 mg PO DAILY SUKHDEV PRN Reason: Protocol Discontinued Medications Sodium Chloride (Sodium Chloride 0.9%) 500 mls @ 1,000 mls/hr IV .Q30M STA Stop: 12/09/17 08:56 Last Admin: 12/09/17 10:45 Dose: 1,000 mls/hr eMAR Start Stop Document 12/09/17 10:45 EWO (Rec: 12/09/17 10:45 EWO [id number]) Intravenous Solution Start Date 12/09/17 Start Time 09:00 End Date 12/09/17 End time 10:00 Total Infusion Time 60 Ondansetron HCl (Zofran Inj) 4 mg IVP STAT STA Stop: 12/09/17 08:28 Last Admin: 12/09/17 10:44 Dose: 4 mg IVP Administration Document 12/09/17 10:44 EWO (Rec: 12/09/17 10:44 EWO [id number]) Charges for Administration # of IVP Administrations 1 Pantoprazole Sodium (Protonix Inj) 80 mg IVP STAT STA Stop: 12/09/17 08:28 Last Admin: 12/09/17 10:44 Dose: 80 mg IVP Administration Document 12/09/17 10:44 EWO (Rec: 12/09/17 10:44 EWO [id number]) Charges for Administration # of IVP Administrations 1 - Scribe Statement The provider has reviewed the documentation as recorded by the Monse Anderson Provider Scribe Attestation: All medical record entries made by the Scribe were at my direction and personally dictated by me. I have reviewed the chart and agree that the record accurately reflects my personal performance of the history, physical exam, medical decision making, and the department course for this patient. I have also personally directed, reviewed, and agree with the discharge instructions and disposition. Disposition/Present on Arrival - Present on Arrival Any Indicators Present on Arrival: No History of DVT/PE: Yes History of Uncontrolled Diabetes: No Urinary Catheter: No History of Decub. Ulcer: No History Surgical Site Infection Following: None - Disposition Have Diagnosis and Disposition been Completed?: Yes Diagnosis: Gastrointestinal hemorrhage, Abdominal pain Disposition: HOSPITALIZED Disposition Time: 10:27 Patient Plan: Observation, Telemetry Patient Problems: Current Active Problems Problem Status Onset Abdominal pain Acute Gastrointestinal hemorrhage Acute Condition: FAIR
--- NOTE | 2017-12-09 09:22 | RAD ---
Date of service: 12/09/2017 HISTORY: gib COMPARISON: 10/05/2017 FINDINGS: LUNGS: No active pulmonary disease. PLEURA: No significant pleural effusion identified, no pneumothorax apparent. CARDIOVASCULAR: Normal. OSSEOUS STRUCTURES: No significant abnormalities. VISUALIZED UPPER ABDOMEN: Normal. OTHER FINDINGS: None. IMPRESSION: No active disease.
[2017-12-09 09:34] LABS: BASO # 0.04 K/mm3 (0.0-2.0); BASO % 0.4 % (0.0-3.0); EOS # 0.1 (0.0-0.7); EOS % 0.5 % (1.5-5.0); GRAN # 9.28 (1.4-6.5); GRAN % 81.6 % (50.0-68.0); HEMOGLOBIN 10.7 g/dL (12.0-16.0); LYMPH # 1.5 (1.2-3.4); LYMPH % 13.3 % (22.0-35.0); MEAN CELL VOLUME 87.3 fl (80.0-105.0); MEAN CORPUSCULAR HEMOGLOBIN 30.1 pg (25.0-35.0); MEAN CORPUSCULAR HGB CONC 34.5 g/dl (31.0-37.0); MEAN PLATELET VOLUME 10.1 fl (7.0-11.0); MONO # 0.5 (0.1-0.6); MONO % 4.2 % (1.0-6.0); RBC 3.55 10^6/uL (3.5-6.1); RED CELL DISTRIBUTION WIDTH 14.5 % (11.5-14.5); WHITE BLOOD COUNT 11.4 10^3/ul (4.5-11.0)
[2017-12-09 10:02] LABS: ALB/GLOB RATIO 1.6 (1.1-1.8); ALBUMIN 3.8 g/dL (3.0-4.8); ALT/SGPT 20 U/L (7-56); AMYLASE 50 U/L (35-125); AST/SGOT 24 U/L (14-36); BLOOD UREA NITROGEN 12 mg/dL (7-21); CALCIUM 9.2 mg/dL (8.4-10.5); GFR AFRICAN-AMERICAN > 60; GFR NON-AFRICAN AMERICAN > 60; LIPASE 83 U/L (23-300)
[2017-12-09 10:12] LABS: TROPONIN I < 0.01 ng/mL
[2017-12-09 10:31] LABS: INR 1.3
[2017-12-09 10:34] LABS: PARTIAL THROMBOPLASTIN TIME 35.1 Seconds (25.1-36.5)
[2017-12-09] MEDS: PANTOPRAZOLE IVPB SCH ×4 (10:44→23:21)
[2017-12-09] MEDS: SODIUM CHLORIDE IVPB SCH ×4 (10:44→23:21)
[2017-12-09 14:07] LABS: BASO # 0.04 K/mm3 (0.0-2.0); BASO % 0.4 % (0.0-3.0); EOS # 0.1 (0.0-0.7); EOS % 0.7 % (1.5-5.0); GRAN # 8.97 (1.4-6.5); GRAN % 81.2 % (50.0-68.0); HEMOGLOBIN 10.3 g/dL (12.0-16.0); LYMPH # 1.2 (1.2-3.4); LYMPH % 10.8 % (22.0-35.0); MEAN CELL VOLUME 88.3 fl (80.0-105.0); MEAN CORPUSCULAR HEMOGLOBIN 30.1 pg (25.0-35.0); MEAN CORPUSCULAR HGB CONC 34.1 g/dl (31.0-37.0); MEAN PLATELET VOLUME 10.3 fl (7.0-11.0); MONO # 0.8 (0.1-0.6); MONO % 6.9 % (1.0-6.0); RBC 3.42 10^6/uL (3.5-6.1); RED CELL DISTRIBUTION WIDTH 14.6 % (11.5-14.5)
[2017-12-09] MEDS: HYDROmorphone 1 mg/ml ISec IVP PRN ×2 (16:32→23:23)
--- NOTE | 2017-12-09 22:14 | HP ---
Copied To: Pelon Ty MD Attending MD: Pelon Ty MD HISTORY OF PRESENT ILLNESS: The patient is a 71-year-old white female, seen in the emergency room where she was admitted this morning with having bright red blood per rectum. The patient has a history of lupus and lupus-like syndrome. The patient has had pulmonary embolism and DVT in the past. Also, had been treated for chronic bronchitis in the past. The patient is on Eliquis because of her PE and DVT. The patient noticed acute onset of bright red blood per rectum this morning. Denies any recent constipation, obstipation, frequent diarrhea or abdominal pain. The patient came to emergency room and had severe rectal bleeding, although hemoglobin is stable at 10.7, platelet count is 319,000, white count is normal. Electrolytes are within normal limits except for sodium of 129. Patient was taken off Eliquis, will be seen by GI. She will be admitted to the hospital with GI bleed. PHYSICAL EXAMINATION GENERAL: Shows a well-developed, but slightly pale white female, in no apparent distress. HEENT: Essentially within normal limits. HEART: Regular sinus rhythm. CHEST: Clear to auscultation and percussion. ABDOMEN: Bowel sounds are normoactive and nondistended. There is some mild tenderness in the left lower and left upper quadrant. IMPRESSION: Bright red blood per rectum, rule out diverticular bleed, rule out internal hemorrhoids, rule out ischemic colitis. Pelon Ty MD
[2017-12-10] MEDS: PANTOPRAZOLE IVPB SCH ×4 (04:11→22:11)
[2017-12-10] MEDS: HYDROmorphone 1 mg/ml ISec IVP PRN ×4 (04:11→23:40)
[2017-12-10] MEDS: SODIUM CHLORIDE IVPB SCH ×4 (04:11→22:11)
--- NOTE | 2017-12-10 06:50 | CARD ---
APPROVED REPORT Date of service: 12/09/2017 EKG Measurement Heart [id number] <Conclusion> Sinus rhythm with premature atrial complexes Prolonged QT Abnormal ECG
[2017-12-10 09:20] LABS: BASO # 0.07 K/mm3 (0.0-2.0); BASO % 1.1 % (0.0-3.0); EOS # 0.3 (0.0-0.7); EOS % 4.6 % (1.5-5.0); GRAN # 3.88 (1.4-6.5); GRAN % 63.6 % (50.0-68.0); HEMOGLOBIN 9.3 g/dL (12.0-16.0); LYMPH # 1.6 (1.2-3.4); LYMPH % 25.9 % (22.0-35.0); MEAN CELL VOLUME 89.5 fl (80.0-105.0); MEAN CORPUSCULAR HEMOGLOBIN 30.5 pg (25.0-35.0); MEAN CORPUSCULAR HGB CONC 34.1 g/dl (31.0-37.0); MEAN PLATELET VOLUME 10.3 fl (7.0-11.0); MONO # 0.3 (0.1-0.6); MONO % 4.8 % (1.0-6.0); RBC 3.05 10^6/uL (3.5-6.1); RED CELL DISTRIBUTION WIDTH 14.8 % (11.5-14.5); WHITE BLOOD COUNT 6.1 10^3/ul (4.5-11.0)
[2017-12-10 09:37] LABS: ALB/GLOB RATIO 1.6 (1.1-1.8); ALBUMIN 3.4 g/dL (3.0-4.8); ALT/SGPT 19 U/L (7-56); AST/SGOT 21 U/L (14-36); BLOOD UREA NITROGEN 12 mg/dL (7-21); CALCIUM 8.7 mg/dL (8.4-10.5); GFR AFRICAN-AMERICAN > 60; GFR NON-AFRICAN AMERICAN > 60
[2017-12-10] MEDS ORDERED: PRAVASTATIN SODIUM 10 MG PO SCH (10:00)
[2017-12-10] MEDS ORDERED: Barium Sulfate Susp 2.1% w/v, 2.0% w/w 450 mL Bottle PO ONE (11:11)
[2017-12-10] MEDS ORDERED: Potassium Chloride 20 mEq ER Tab PO ONE (11:14)
[2017-12-10] MEDS: Sodium Chloride 0.9% 500 ML IV SCH ×2 (11:30→16:56)
[2017-12-10] MEDS ORDERED: Iohexol 350 MG/100 ML VIAL ONE (12:21)
--- NOTE | 2017-12-10 12:44 | PN ---
Copied To: Pelon Ty MD Attending MD: Pelon Ty MD DATE: 12/10/2017 SUBJECTIVE: A 71-year-old white female admitted to the hospital with GI bleed. The patient has been taken off Eliquis, which she has been taking for recent pulmonary embolism approximately 6 months ago. She has a history of lupus like syndrome and antiphospholipid syndrome. The patient is more comfortable. There is no further bleeding. There is some abdominal tenderness. She is on a clear liquid diet. Her hemoglobin has not dropped. She is awaiting GI consultation for possible endoscopy. Pelon Ty MD
--- NOTE | 2017-12-10 15:18 | CT ---
Date of service: 12/10/2017 PROCEDURE: CT Abdomen and Pelvis with contrast HISTORY: abdominal pain, lower GI bleed COMPARISON: None. TECHNIQUE: Contrast dose: 100 cc of Omni 350 Radiation dose: Total exam DLP = 468 mGy-cm. This CT exam was performed using one or more of the following dose reduction techniques: Automated exposure control, adjustment of the mA and/or kV according to patient size, and/or use of iterative reconstruction technique. FINDINGS: LOWER THORAX: Unremarkable. LIVER: Unremarkable. No gross lesion or ductal dilatation. GALLBLADDER AND BILE DUCTS: Gallbladder removed. Common duct 10 mm in diameter PANCREAS: Unremarkable. No gross lesion or ductal dilatation. SPLEEN: Unremarkable. ADRENALS: Unremarkable. No mass. KIDNEYS AND URETERS: Unremarkable. No hydronephrosis. No solid mass. VASCULATURE: Unremarkable. No aortic aneurysm. BOWEL: Unremarkable. No obstruction. No gross mural thickening. APPENDIX: Normal appendix. PERITONEUM: Unremarkable. No free fluid. No free air. LYMPH NODES: Unremarkable. No enlarged lymph nodes. BLADDER: Unremarkable. REPRODUCTIVE: Unremarkable. BONES: Multilevel disc degeneration and mild scoliosis convex to the left previous laminectomy OTHER FINDINGS: None. IMPRESSION: No acute intra-abdominal findings
[2017-12-10] MEDS ORDERED: Magnesium Citrate Oral SOL (300 ml) PO ONE (17:00)
--- NOTE | 2017-12-10 17:10 | CON ---
Copied To: Norm Hsu MD Attending MD: Norm Hsu MD DATE: 12/10/2017 CONSULTATION IN GASTROENTEROLOGY REQUESTING PHYSICIAN: Pelon Ty MD. REASON FOR CONSULT: I have been asked to see this patient for lower GI bleeding. The patient experienced two episodes of rectal bleeding on the morning of admission. The patient has been on aspirin and Eliquis for history of pulmonary embolism and DVT. Over the last several days, the patient has been experiencing a "band-like" pain across her mid abdomen. This has been associated with generalized ill feeling and weakness with loss of appetite. The patient had a right total hip replacement approximately 6 weeks ago. The patient has a history of lupus. She also has a history of chronic anemia. She denies any nausea, vomiting, diarrhea, fevers or chills. PAST MEDICAL HISTORY: Notable for lupus, degenerative joint disease, hypertension, COPD, rheumatoid arthritis, chronic anemia. PAST SURGICAL HISTORY: Notable for right hip replacement and colon resection for bowel obstruction. SOCIAL HISTORY: She denies cigarette smoking or alcohol use. FAMILY HISTORY: Noncontributory. REVIEW OF SYSTEMS: Fourteen-point review of systems is positive for rectal bleeding, generalized ill feeling, weakness, loss of appetite. MEDICATIONS AT HOME: Include aspirin, Cymbalta, Eliquis, folic acid, methotrexate, oxycodone, pravastatin, Seroquel, Neurontin and metaxalone. PHYSICAL EXAMINATION: GENERAL: Pale female, lying in bed, in no acute distress. VITAL SIGNS: Reveal temperature of 98.2, blood pressure 140/60, heart rate is 65. HEENT: Reveals sclerae to be white. Conjunctivae pale. NECK: Supple. CHEST: Reveals distant breath sounds. HEART: Reveals regular rate and rhythm. ABDOMEN: Flabby, soft. mild diffuse tenderness. No rebound. No guarding. EXTREMITIES: Show no edema. RECTAL: Shows small external hemorrhoid with scant dark red blood in the rectal vault. EXTREMITIES: Show no edema. She does have a dressing over her right hip. LABORATORY DATA: Reveals white blood cell count 6.1, hemoglobin 9.3, hematocrit 27.3, platelet count of 276,000. Potassium of 3.4, blood sugar 112. IMPRESSION: A 71-year-old female with rectal bleeding, abdominal pain, one must rule out ischemic colitis. The patient is status post right hip replacement 6 weeks ago. She also has anemia, which is chronic. Her hemoglobin did drop from 10.3 to 9.3 this morning. I suspect some of this is dilutional. RECOMMENDATIONS: 1. We will request a CT scan of the abdomen and pelvis with IV contrast. 2. Follow serial hematocrits. 3. I will schedule the patient for colonoscopy in the morning after CAT scan is performed. Norm Hsu MD
[2017-12-11 06:20] LABS: HEMOGLOBIN 8.9 g/dL (12.0-16.0); MEAN CELL VOLUME 91.2 fl (80.0-105.0); MEAN CORPUSCULAR HGB CONC 32.8 g/dl (31.0-37.0); MEAN PLATELET VOLUME 10.2 fl (7.0-11.0); RBC 2.97 10^6/uL (3.5-6.1); RED CELL DISTRIBUTION WIDTH 15.1 % (11.5-14.5); WHITE BLOOD COUNT 6.9 10^3/ul (4.5-11.0)
[2017-12-11] MEDS: PANTOPRAZOLE IVPB SCH ×5 (07:02→23:42)
[2017-12-11] MEDS: SODIUM CHLORIDE IVPB SCH ×5 (07:02→23:42)
[2017-12-11] MEDS: HYDROmorphone 1 mg/ml ISec IVP PRN ×3 (07:45→20:00)
[2017-12-11] MEDS ORDERED: Propofol 10 mg/ml Inj (20 ML) ONE (11:00)
[2017-12-11] MEDS ORDERED: Lidocaine 1% Inj (20ml) ONE (11:00)
[2017-12-11] MEDS ORDERED: Etomidate 20 mg/10ml Inj IV ONE (11:00)
[2017-12-11] MEDS ORDERED: Sodium Chloride 0.9% 1,000 ML IV SCH (11:30)
[2017-12-11] MEDS ORDERED: Peg-Electrolyte Oral Soln 4L (Golytely) PO ONE (11:56)
--- NOTE | 2017-12-11 13:50 | PN ---
Copied To: Pelon Ty MD Attending MD: Pelon Ty MD DATE: 12/11/2017 SUBJECTIVE: A 71-year-old white female, admitted to the hospital with GI bleed. The patient had a drop in hemoglobin from 10 to 8.6. The patient has increased tenderness in the suprapubic and the left lower quadrant with an indurated area on palpation. On CT showed a mural thickening, possible acute colitis with the patient has increased pain. The patient is going for colonoscopy today. She had had colonoscopy prep, has not moved her bowels at this point, but has not eaten in several days. PHYSICAL EXAMINATION: VITAL SIGNS: Stable. ABDOMEN: Tender in the suprapubic and in the left lower quadrant. Bowel sounds are hypoactive. CHEST: Clear to auscultation. HEART: Regular sinus rhythm. LABORATORY DATA: Hemoglobin 8.9. ASSESSMENT AND PLAN: She is afebrile. The patient is for colonoscopy today. Pelon Ty MD
[2017-12-11] MEDS ORDERED: Potassium Chloride 40 mEq/30 ml LIQ UD PO ONE (14:02)
[2017-12-11 17:24] LABS: BASO # 0.05 K/mm3 (0.0-2.0); BASO % 0.6 % (0.0-3.0); EOS # 0.5 (0.0-0.7); EOS % 6.2 % (1.5-5.0); GRAN # 4.17 (1.4-6.5); GRAN % 52.6 % (50.0-68.0); LYMPH # 2.7 (1.2-3.4); LYMPH % 33.4 % (22.0-35.0); MEAN CELL VOLUME 91.5 fl (80.0-105.0); MEAN CORPUSCULAR HEMOGLOBIN 30.2 pg (25.0-35.0); MEAN PLATELET VOLUME 10.4 fl (7.0-11.0); MONO # 0.6 (0.1-0.6); MONO % 7.2 % (1.0-6.0); RBC 3.31 10^6/uL (3.5-6.1); WHITE BLOOD COUNT 7.9 10^3/ul (4.5-11.0)
[2017-12-12] MEDS: HYDROmorphone 1 mg/ml ISec IVP PRN ×4 (02:37→21:51)
[2017-12-12] MEDS: SODIUM CHLORIDE IVPB SCH ×3 (04:00→14:29)
[2017-12-12] MEDS: PANTOPRAZOLE IVPB SCH ×3 (04:00→14:29)
[2017-12-12 06:21] LABS: HEMOGLOBIN 8.2 g/dL (12.0-16.0); MEAN CELL VOLUME 90.4 fl (80.0-105.0); MEAN CORPUSCULAR HEMOGLOBIN 30.3 pg (25.0-35.0); MEAN CORPUSCULAR HGB CONC 33.5 g/dl (31.0-37.0); MEAN PLATELET VOLUME 10.1 fl (7.0-11.0); RBC 2.71 10^6/uL (3.5-6.1); RED CELL DISTRIBUTION WIDTH 15.2 % (11.5-14.5); WHITE BLOOD COUNT 6.5 10^3/ul (4.5-11.0)
[2017-12-12 06:40] LABS: ALB/GLOB RATIO 1.5 (1.1-1.8); ALBUMIN 2.9 g/dL (3.0-4.8); ALT/SGPT 17 U/L (7-56); AST/SGOT 20 U/L (14-36); BLOOD UREA NITROGEN 7 mg/dL (7-21); CALCIUM 8.7 mg/dL (8.4-10.5); GFR AFRICAN-AMERICAN > 60; GFR NON-AFRICAN AMERICAN > 60
--- NOTE | 2017-12-12 08:19 | PN ---
Copied To: Norm Hsu MD Attending MD: Norm Hsu MD DATE: 12/12/2017 SUBJECTIVE: The patient is sitting up in bed, comfortable. She had multiple large bowel movements with one gallon of GoLYTELY. Her initial bowel movement was slightly bloody without any further subsequent blood seen with bowel movement. She continues to have some lower abdominal pain. OBJECTIVE: VITAL SIGNS: Reveal temperature of 98.4, blood pressure 139/59, heart rate of 79. HEENT: Reveal sclerae to be white. Conjunctivae pale. NECK: Supple. CHEST: Lungs to be clear. HEART: Reveals regular rate and rhythm. ABDOMEN: Soft. Mild lower abdominal tenderness. No rebound, no guarding. EXTREMITIES: Show no edema. DATA: Laboratory data reveal hemoglobin down to 8.2. Normal electrolytes. IMPRESSION: 1. Fecal impaction with rectal bleeding. 2. Anemia. The patient did have about a 2 g drop in her hemoglobin. She is chronically anemic. I suspect that some of this drop is delusional and she did receive some IV fluids. RECOMMENDATIONS: I have instructed the patient to take MiraLax 17 g twice a day and increase to three times a day as needed. She will follow up with me in the office for outpatient elective colonoscopy. Norm Hsu MD
--- NOTE | 2017-12-12 10:07 | PN ---
Copied To: Pelon Ty MD Attending MD: Pelon Ty MD DATE: 12/12/2017 SUBJECTIVE: A 71-year-old white female with fecal impaction, rectal bleeding, lupus, bleeding disorder. The patient had a sigmoidoscopy with fecal disimpaction by Dr. Hsu yesterday. She had a GoLYTELY prep to take care of her obstipation. The patient still has some rectal bleeding yesterday. Hemoglobin is dropped down to 8.2 from a high of 10.6. She has lupus and she has been treated for anemia by Dr. Bentley, who will be called on consultation. She has had iron infusions and blood transfusions in the past. She possibly will need a transfusion before being discharged home. Abdomen is still somewhat tender in the left lower and right lower quadrant. Chest is clear to auscultation. Heart examination regular sinus rhythm. Pelon Ty MD
--- NOTE | 2017-12-12 11:34 | CP.PCM.CON ---
History of Present Illness - History of Present Illness History of Present Illness: Janiya Valdez, PGY2, Heme-Onc Consult Note for Dr Bentley: Reason for consult: SLE anemia A 71 year old female, with PMH of HTN, HLD, SLE, Fibromyalgia, COPD, RA, recent suspected PCP pneumonia s/p Mepron, and hx of left leg dvt on AC (Eliquis), presents to [facility] for bright red blood per rectum, abdominal pain x 1 day. Patient used the bathroom that morning and had BRB in her stool. Patient Hgb in ED was 10.7 (baseline 9-10), discontinued eliquis. Sigmoidoscopy showed lots of stool in rectal area with friability in rectosigmoid area, patient fecally disimpacted. Patient's hematochezia improved, last BM with small blood yesterday afternoon at 3 PM. Reports 2-3 nonbloody BMs since then. Patient put on a bowel regimen as per GI. Today, however, patient's Hgb was 8.2 (from 10.0 yesterday). Hematology consulted for management of anemia. Patient tolerating regular diet well. However, still reports weakness. Patient denies hematemesis, cp, sob, prior episodes, dizziness, nausea, vomiting, urinary symptoms, leg swelling. 12 point ROS obtained and neg, except as per HPI. PMD: Dr. Ty Rheumatology Faisal Surg Hx: Hardware in lumbar area of spine, right hip arthroplasty (10/2017 - 6 weeks ago) Med Hx: HLD, HTN, Lupus, DVT (On Eliquis) All: NKDA Soc Hx: Pt denies any etoh, illicits, and tobacco use Fam Hx: Significant for DM, HTN, CAD Review of Systems - Review of Systems All systems: reviewed and no additional remarkable complaints except Review of Systems: as per HPI Past Patient History - Infectious Disease Hx of Infectious Diseases: None - Tetanus Immunizations Tetanus Immunization: Unknown - Past Social History Smoking Status: Never Smoked - CARDIAC Hx Cardiac Disorders: Yes Hx Angina: No Hx Cardia Arrhythmia: No Hx Circulatory Problems: Yes (DVT R leg) Hx Congestive Heart Failure: No Hx Heart Murmur: No Hx Heart Transplant: No Hx Hypercholesterolemia: No Hx Hypertension: No Hx Internal Defibrillator: No Hx Mitral Valve Prolapse: No Hx Pacemaker: No Hx Peripheral Edema: No Hx Peripheral Vascular Disease: No - PULMONARY Hx Respiratory Disorders: Yes Hx Asthma: No Hx Bronchitis: Yes Hx Chronic Obstructive Pulmonary Disease (COPD): No Hx Emphysema: No Hx Pneumonia: Yes Hx Respiratory Aspiration: No Hx Respiratory Tract Infection: No Hx Sleep Apnea: No Hx Tuberculosis: No - NEUROLOGICAL Hx Neurological Disorder: No Hx Alzheimer's Disease: No HX Cerebrovascular Accident: No Hx Dementia: No Hx Dizziness: No Hx Meningitis: No Hx Migraine: No Hx Parkinson's Disease: No Hx Seizures: No Hx Transient Ischemic Attacks (TIA): No - HEENT Hx HEENT Problems: Yes (wears glasses) Hx Blind: No Hx Cataracts: No Hx Deafness: No Hx Difficulty Chewing: No Hx Epistaxis: No Hx Glaucoma: No Hx Macular Degeneration: No Other/Comment: wears glasses - RENAL Hx Chronic Kidney Disease: No Hx Dialysis: No Hx Kidney Stones: No Hx Neurogenic Bladder: No Hx Pyelonephritis: No Hx Renal (Kidney) Cancer: No Hx Renal Failure: No - ENDOCRINE/METABOLIC Hx Endocrine Disorders: Yes Hx Adrenal Cancer: No Hx Diabetes Insipidus: No Hx Diabetes Mellitus Type 1: No Hx Diabetes Mellitus Type 2: No Hx Hyperthyroidism: No Hx Hypothyroidism: No Hx Systemic Lupus Erythematosus: Yes - HEMATOLOGICAL/ONCOLOGICAL Hx Blood Transfusions: Yes (07/2017) Hx Blood Transfusion Reaction: No - INTEGUMENTARY Hx Dermatological Problems: No Hx Basil Cell: No Hx Eczema: No Hx Melanoma: No Hx Psoriasis: No Hx Squamous Cell: No - MUSCULOSKELETAL/RHEUMATOLOGICAL Hx Musculoskeletal Disorders: Yes Hx Arthritis: Yes Hx Back Pain: Yes (TENS placed 3 years ago) Hx Degenerative Joint Disease: No Hx Falls: No Hx Fractures: No Hx Gout: No Hx Herniated Disk: No Hx Myasthenia Gravis: No Hx Osteoarthritis: Yes Hx Osteomyelitis: No Hx Osteoporosis: No Hx Rhabdomyolysis: No Hx Spinal Stenosis: No Hx Unsteady Gait: Yes (use cane) Other/Comment: Right total hip replacement - GASTROINTESTINAL Hx Gastrointestinal Disorders: Yes (strangulated bowel) Hx Colostomy: No Hx Crohn's Disease: No Hx Diverticulitis: No Hx Gall Bladder Disease: Yes (removed years ago) Hx Gastroesophageal Reflux: No Hx Ileostomy: No Hx Liver Failure: No Hx Pancreatitis: No HX Swallowing Problems: No Hx Ulcer: No - GENITOURINARY/GYNECOLOGICAL Hx Genitourinary Disorders: No Hx Hematuria: No Hx Incontinence: No Hx Sexually Transmitted Disorders: No Hx Urinary Tract Infection: No - PSYCHIATRIC Hx Psychophysiologic Disorder: No Hx Anxiety: No Hx Bipolar Disorder: No Hx Depression: No Hx Emotional Abuse: No Hx Hallucinations: No Hx Panic Symptoms: No Hx Paranoia: No Hx Post Traumatic Stress Disorder: No Hx Psychosis: No Hx Physical Abuse: No Hx Schizophrenia: No Hx Sexual Abuse: No Hx Substance Use: No - SURGICAL HISTORY Hx Surgeries: Yes - ANESTHESIA Hx Anesthesia Reactions: No Hx Malignant Hyperthermia: No Meds Allergies/Adverse Reactions: Allergies Allergy/AdvReac Type Severity Reaction Status Date / Time No Known Allergies Allergy Verified 12/09/17 08:27 - Medications Medications: Current Medications Acetaminophen (Tylenol 325mg Tab) 650 mg PO Q6 [facility] Last Admin: 12/12/17 05:35 Dose: 650 mg Atorvastatin Calcium (Lipitor) 10 mg PO DIN [facility] Last Admin: 12/11/17 17:34 Dose: 10 mg Duloxetine HCl (Cymbalta) 60 mg PO DAILY [facility] Last Admin: 12/12/17 10:55 Dose: 60 mg Folic Acid (Folic Acid) 1 mg PO DAILY [facility] Last Admin: 12/12/17 10:56 Dose: 1 mg Gabapentin (Neurontin) 300 mg PO TID [facility] PRN Reason: Protocol Last Admin: 12/12/17 10:55 Dose: 300 mg Hydromorphone HCl (Dilaudid) 1 mg IVP Q6 PRN PRN Reason: Pain, severe (8-10) Last Admin: 12/12/17 08:52 Dose: 1 mg Pantoprazole Sodium (Protonix 40mg Ivpb) 40 mg in 100 mls @ 20 mls/hr IVPB .Q5H [facility] Last Admin: 12/12/17 08:49 Dose: 20 mls/hr Methotrexate (Methotrexate) 8 mg PO SUN [facility] Quetiapine Fumarate (Seroquel) 100 mg PO DAILY [facility] PRN Reason: Protocol Last Admin: 12/12/17 10:54 Dose: 100 mg Zolpidem Tartrate (Ambien) 5 mg PO PRN; Protocol PRN Reason: Insomnia Last Admin: 12/11/17 21:47 Dose: 5 mg Physical Exam - Constitutional Appears: Non-toxic, No Acute Distress - Head Exam Head Exam: ATRAUMATIC, NORMOCEPHALIC - Eye Exam Eye Exam: EOMI, PERRL. absent: Conjunctival injection, Nystagmus, Scleral icterus Pupil Exam: NORMAL ACCOMODATION, PERRL. absent: Irregular, Miosis, Mydriatic, Unequal - ENT Exam ENT Exam: Mucous Membranes Moist - Neck Exam Neck exam: Positive for: Full Rom - Respiratory Exam Respiratory Exam: Clear to Auscultation Bilateral, NORMAL BREATHING PATTERN. absent: Prolonged Expiratory Phase, Rales, Rhonchi, Wheezes, Respiratory Distress, Stridor - Cardiovascular Exam Cardiovascular Exam: RRR, +S1, +S2. absent: Systolic Murmur - GI/Abdominal Exam GI & Abdominal Exam: Normal Bowel Sounds, Soft, Tenderness (TTP in LLQ). absent : Distended, Firm, Guarding, Organomegaly, Rebound, Rigid - Extremities Exam Extremities exam: Positive for: normal inspection. Negative for: calf tenderness, pedal edema - Back Exam Back exam: NORMAL INSPECTION. absent: CVA tenderness (L), CVA tenderness (R) - Neurological Exam Neurological exam: Alert, Oriented x3 - Psychiatric Exam Psychiatric exam: Normal Affect, Normal Mood - Skin Skin Exam: Dry, Normal Color, Warm Results - Vital Signs Recent Vital Signs: Last Vital Signs Temp 98.4 F 12/12/17 06:00 Pulse 79 12/12/17 06:00 Resp 18 12/12/17 06:00 BP 139/59 L 12/12/17 06:00 Pulse Ox 96 12/12/17 06:00 - Labs Result Diagrams: 12/12/17 12:30 12/12/17 06:00 Labs: Laboratory Results - last 24 hr 12/11/17 12/12/17 12/12/17 17:13 06:00 06:00 WBC 7.9 6.5 RBC 3.31 L 2.71 L Hgb 10.0 L 8.2 L Hct 30.3 L 24.5 L MCV 91.5 90.4 MCH 30.2 30.3 MCHC 33.0 33.5 RDW 15.0 H 15.2 H Plt Count 321 255 MPV 10.4 10.1 Gran % 52.6 Lymph % (Auto) 33.4 Brantley % (Auto) 7.2 H Eos % (Auto) 6.2 H Baso % (Auto) 0.6 Gran # 4.17 Lymph # (Auto) 2.7 Brantley # (Auto) 0.6 Eos # (Auto) 0.5 Baso # (Auto) 0.05 Sodium 138 Potassium 4.1 Chloride 101 Carbon Dioxide 31 Anion Gap 10 BUN 7 Creatinine 0.9 Est GFR ( Amer) > 60 Est GFR (Non-Af Amer) > 60 Random Glucose 92 Calcium 8.7 Magnesium 2.2 Total Bilirubin 0.3 AST 20 ALT 17 Alkaline Phosphatase 64 Total Protein 4.8 L Albumin 2.9 L Globulin 1.9 Albumin/Globulin Ratio 1.5 Assessment & Plan - Assessment and Plan (Free Text) Assessment: 71 yo F with PMH of HTN, HLD, SLE, Fibromyalgia, COPD, RA, recent suspected PCP pneumonia s/p Mepron, and hx of bilateral PE/dvt on AC (Eliquis), presents to [facility] for bright red blood per rectum, s/p sigmoidoscopy with fecal disimpaction. Hematology consulted for management of anemia: - GI (Dr Hsu) consult appreciated. Take miralax 2-3x a day. F/u in office in 4 weeks. - Sigmoidoscopy performed 12/11, showed stool in rectum, friability with contact bleeding in rectosigmoid colon due to fecal impaction. - GI recommendations: No ASA, naproxen, other NSAIDs for 2 weeks after biopsy. [facility]. return to office in 4 weeks. - CAT abd pelvis with IV contrast: mural thickening in rectosigmoid - localized colitis. - prior iron and blood transfusions in the past. - repeated CBC today with Hgb still 8.3. Iron studies reviewed - will give Iv iron transfusion post transfusion - Give 2 units prbcs. Premedicate with benadryl, solucortef, tylenol. Will give 20 IV lasix after 1st unit prbc. - monitor post transfusion Hgb Case discussed with Dr Bentley.
[2017-12-12 12:42] LABS: BASO # 0.03 K/mm3 (0.0-2.0); BASO % 0.6 % (0.0-3.0); EOS # 0.5 (0.0-0.7); EOS % 10.6 % (1.5-5.0); GRAN # 1.86 (1.4-6.5); GRAN % 39.5 % (50.0-68.0); HEMOGLOBIN 8.3 g/dL (12.0-16.0); LYMPH # 2.1 (1.2-3.4); LYMPH % 43.4 % (22.0-35.0); MEAN CORPUSCULAR HEMOGLOBIN 29.7 pg (25.0-35.0); MEAN CORPUSCULAR HGB CONC 33.1 g/dl (31.0-37.0); MEAN PLATELET VOLUME 10.3 fl (7.0-11.0); MONO # 0.3 (0.1-0.6); MONO % 5.9 % (1.0-6.0); RBC 2.79 10^6/uL (3.5-6.1); WHITE BLOOD COUNT 4.7 10^3/ul (4.5-11.0)
[2017-12-12 12:44] LABS: IRON 27 ug/dL (45-180)
[2017-12-12 12:55] LABS: % IRON SATURATION 13 % (20-55); TOTAL IRON BINDING CAPACITY 211 ug/dL (265-497)
[2017-12-12 19:10] LABS: FOLATE 10.8 ng/mL
[2017-12-13] MEDS: PANTOPRAZOLE IVPB SCH ×5 (03:35→20:37)
[2017-12-13] MEDS: SODIUM CHLORIDE IVPB SCH ×5 (03:35→20:37)
[2017-12-13 06:41] LABS: MEAN CELL VOLUME 89.3 fl (80.0-105.0); MEAN CORPUSCULAR HEMOGLOBIN 29.9 pg (25.0-35.0); MEAN CORPUSCULAR HGB CONC 33.4 g/dl (31.0-37.0); MEAN PLATELET VOLUME 10.8 fl (7.0-11.0); RBC 3.55 10^6/uL (3.5-6.1); RED CELL DISTRIBUTION WIDTH 14.9 % (11.5-14.5); WHITE BLOOD COUNT 7.3 10^3/ul (4.5-11.0)
[2017-12-13 06:44] LABS: HEMOGLOBIN 10.6 g/dL (12.0-16.0)
[2017-12-13] MEDS: HYDROmorphone 1 mg/ml ISec IVP PRN ×2 (06:51→13:11)
--- NOTE | 2017-12-13 08:42 | PN ---
Copied To: Pelon Ty MD Attending MD: Pelon Ty MD DATE: 12/13/2017 SUBJECTIVE: A 71-year-old white female with lupus rectal bleeding, fecal impaction, history of PE in the past, history of fibromyalgia. The patient status post seen by Dr. Bentley. The patient got a unit of blood. Her hemoglobin is up to 10.6. She is afebrile. Vital signs are stable. Blood pressure 155/93. The patient also is getting Venofer today. As long as there is no further bleeding and her H and H holds, the patient will be able to discharge home in the next 24 hours. PHYSICAL EXAMINATION: CHEST: Clear to auscultation. HEART: Regular sinus rhythm. ABDOMEN: Soft. EXTREMITIES: Without cyanosis, clubbing or edema. Pelon Ty MD
--- NOTE | 2017-12-13 08:56 | PN ---
Copied To: Norm Hsu MD Attending MD: Norm Hsu MD DATE: 12/13/2017 SUBJECTIVE: The patient had multiple non-bloody bowel movements yesterday. She feels better. Her abdominal pain is almost gone. The patient received 2 units of packed red blood cells ordered by Hematology for anemia. Her hemoglobin this morning is 10.6. PHYSICAL EXAMINATION VITAL SIGNS: Reveal temperature of 98.6, blood pressure 155/73, heart rate of 83. HEENT: Reveals sclerae to be white. Conjunctivae pale. NECK: Supple. CHEST: Lungs are clear. HEART: Regular rate and rhythm. ABDOMEN: Soft, nontender. EXTREMITIES: No edema. LABORATORY DATA: Hemoglobin this morning is 10.6. IMPRESSION: 1. Status post rectal bleeding from fecal impaction. 2. Fecal impaction. 3. Chronic anemia, exacerbated by rectal bleeding. RECOMMENDATIONS: Continue MiraLax 17 g 2 to 3 times a day. The patient has been asked to follow up with me in the office for an elective colonoscopy. She is stable from a GI standpoint. Norm Hsu MD
--- NOTE | 2017-12-13 12:53 | CP.PCM.PN ---
Subjective - Date & Time of Evaluation Date of Evaluation: 12/13/17 Time of Evaluation: 12:47 - Subjective Subjective: Janiya Valdez, PGY2, Heme-Onc Progress Note for Dr Bentley: Patient seen and examined at bedside. Patient sitting up in bed, finishing up breakfast. Patient states that she feels well, feels that her strength is back. Patient denies pain. Denies fevers, chills, nausea, vomiting, abdominal pain, constipation, leg swelling, urinary symptoms. Pt reports 2-3 nonbloody BM overnight, states that miralax is helping her. Objective - Vital Signs/Intake and Output Vital Signs (last 24 hours): Temp Pulse Resp BP Pulse Ox 98 F 56 L 16 134/61 100 12/13/17 11:56 12/13/17 11:56 12/13/17 11:56 12/13/17 11:56 12/13/17 06:00 Intake and Output: 12/13/17 12/13/17 06:59 18:59 Intake Total 1090 Balance 1090 - Medications Medications: Current Medications Acetaminophen (Tylenol 325mg Tab) 650 mg PO Q6 [facility] Last Admin: 12/13/17 06:13 Dose: 650 mg Atorvastatin Calcium (Lipitor) 10 mg PO DIN [facility] Last Admin: 12/12/17 18:10 Dose: 10 mg Duloxetine HCl (Cymbalta) 60 mg PO DAILY [facility] Last Admin: 12/13/17 09:23 Dose: 60 mg Folic Acid (Folic Acid) 1 mg PO DAILY [facility] Last Admin: 12/13/17 09:23 Dose: 1 mg Gabapentin (Neurontin) 300 mg PO TID [facility] PRN Reason: Protocol Last Admin: 12/13/17 09:23 Dose: 300 mg Hydromorphone HCl (Dilaudid) 1 mg IVP Q6 PRN PRN Reason: Pain, severe (8-10) Last Admin: 12/13/17 06:51 Dose: 1 mg Pantoprazole Sodium (Protonix 40mg Ivpb) 40 mg in 100 mls @ 20 mls/hr IVPB .Q5H [facility] Last Admin: 12/13/17 08:16 Dose: 20 mls/hr Methotrexate (Methotrexate) 8 mg PO SUN [facility] Quetiapine Fumarate (Seroquel) 100 mg PO DAILY [facility] PRN Reason: Protocol Last Admin: 12/13/17 09:23 Dose: 100 mg Zolpidem Tartrate (Ambien) 5 mg PO HS PRN; Protocol PRN Reason: Insomnia Last Admin: 12/12/17 22:08 Dose: 5 mg - Labs Labs: 12/13/17 06:00 12/12/17 06:00 PT 15.0 SECONDS (9.4-12.5) H 12/09/17 10:05 INR 1.30 12/09/17 10:05 APTT 35.1 Seconds (25.1-36.5) 12/09/17 10:05 - Additional Findings Additional findings: - Constitutional Appears: Non-toxic, No Acute Distress - Head Exam Head Exam: ATRAUMATIC, NORMOCEPHALIC - Eye Exam Eye Exam: EOMI, PERRL. absent: Conjunctival injection, Nystagmus, Scleral icterus Pupil Exam: NORMAL ACCOMODATION, PERRL. absent: Irregular, Miosis, Mydriatic, Unequal - ENT Exam ENT Exam: Mucous Membranes Moist - Neck Exam Neck exam: Positive for: Full Rom - Respiratory Exam Respiratory Exam: Clear to Auscultation Bilateral, NORMAL BREATHING PATTERN. absent: Prolonged Expiratory Phase, Rales, Rhonchi, Wheezes, Respiratory Distress, Stridor - Cardiovascular Exam Cardiovascular Exam: RRR, +S1, +S2. absent: Systolic Murmur - GI/Abdominal Exam GI & Abdominal Exam: Normal Bowel Sounds, Soft, Tenderness (TTP in LLQ). absent : Distended, Firm, Guarding, Organomegaly, Rebound, Rigid - Extremities Exam Extremities exam: Positive for: normal inspection. Negative for: calf tenderness, pedal edema - Back Exam Back exam: NORMAL INSPECTION. absent: CVA tenderness (L), CVA tenderness (R) - Neurological Exam Neurological exam: Alert, Oriented x3 - Psychiatric Exam Psychiatric exam: Normal Affect, Normal Mood - Skin Skin Exam: Dry, Normal Color, Warm Assessment and Plan - Assessment and Plan (Free Text) Assessment: 71 yo F with PMH of HTN, HLD, SLE, Fibromyalgia, COPD, RA, recent suspected PCP pneumonia s/p Mepron, and hx of bilateral PE/dvt on AC (Eliquis), presents to [facility] for bright red blood per rectum, s/p sigmoidoscopy with fecal disimpaction. Hematology consulted for management of anemia, patient s/p 2 unit prbc transfusion, hgb back to baseline 10.2 (prior 8.3), patient asymptomatic currently with no further bloody BMs: - GI (Dr Hsu) consult appreciated. Take miralax 2-3x a day. F/u in office in 4 weeks. - Sigmoidoscopy performed 12/11, showed stool in rectum, friability with contact bleeding in rectosigmoid colon due to fecal impaction. - GI recommendations: No ASA, naproxen, other NSAIDs for 2 weeks after biopsy. repeat colonoscopy at [facility] for surveillance. return to office in 4 weeks. - CAT abd pelvis with IV contrast: mural thickening in rectosigmoid - localized colitis. - prior iron and blood transfusions in the past. - Hgb 8.3 yesterday. s/p 2 units prbcs tranfusion yesterday. Hgb 10.3 today - back to baseline - iron studies reviewed. Given 200 mg IV iron. - US LE venous neg for DVT. ELiquis as per primary, risks vs benefits. Case discussed with Dr Bentley.
[2017-12-13] MEDS ORDERED: HYDROmorphone 1 mg/ml ISec IVP STA (21:26)
[2017-12-14] MEDS: SODIUM CHLORIDE IVPB SCH ×5 (01:51→15:09)
[2017-12-14] MEDS: PANTOPRAZOLE IVPB SCH ×5 (01:51→15:09)
[2017-12-14] MEDS ORDERED: HYDROmorphone 0.5 mg/0.5 ml ISec IVP STA (06:26)
[2017-12-14 06:50] VITALS: O2SAT 96
[2017-12-14 09:55] LABS: BASO # 0.05 K/mm3 (0.0-2.0); BASO % 0.6 % (0.0-3.0); EOS # 0.8 (0.0-0.7); EOS % 10.7 % (1.5-5.0); GRAN # 4.2 (1.4-6.5); GRAN % 54.1 % (50.0-68.0); HEMOGLOBIN 11.6 g/dL (12.0-16.0); LYMPH # 2.4 (1.2-3.4); LYMPH % 30.3 % (22.0-35.0); MEAN CELL VOLUME 91.4 fl (80.0-105.0); MEAN CORPUSCULAR HEMOGLOBIN 30.2 pg (25.0-35.0); MEAN PLATELET VOLUME 10.7 fl (7.0-11.0); MONO # 0.3 (0.1-0.6); MONO % 4.3 % (1.0-6.0); RBC 3.84 10^6/uL (3.5-6.1); WHITE BLOOD COUNT 7.8 10^3/ul (4.5-11.0)
[2017-12-14] MEDS ORDERED: oxyCODONE 10 mg Immediate Release Tab PO PRN (10:00)
[2017-12-14] MEDS ORDERED: Bisacodyl 5mg EC Tab PO ONE (10:16)
[2017-12-14] MEDS: POLYETHYLENE GLYCOL 3350 17 GM/Dose PACKET PO SCH ×2 (10:59→17:08)
[2017-12-14] MEDS: Sucralfate 1 gm/10 ml Oral Susp UD PO SCH ×3 (10:59→21:39)
[2017-12-14 11:43] LABS: ALB/GLOB RATIO 1.6 (1.1-1.8); ALBUMIN 3.3 g/dL (3.0-4.8); ALT/SGPT 14 U/L (7-56); AST/SGOT 18 U/L (14-36); BLOOD UREA NITROGEN 13 mg/dL (7-21); CALCIUM 9.1 mg/dL (8.4-10.5); GFR AFRICAN-AMERICAN > 60; GFR NON-AFRICAN AMERICAN 55
--- NOTE | 2017-12-14 13:29 | CP.PCM.PN ---
Subjective - Date & Time of Evaluation Date of Evaluation: 12/14/17 Time of Evaluation: 13:29 - Subjective Subjective: Janiya Valdez, PGY2, Heme-Onc Progress Note for Dr Bentley: 71 yo F with PMH of HTN, HLD, SLE, Fibromyalgia, COPD, RA, recent suspected PCP pneumonia s/p Mepron, and hx of bilateral PE/dvt on AC (Eliquis), presents to [facility] for bright red blood per rectum, s/p sigmoidoscopy with fecal disimpaction. Patient had a drop in Hgb, given 2 units prbcs with Hgb return back to baseline. Patient however started complaining of lower abdominal pain overnight (since her pain medication fell off JUL). Patient also complains of 2 bloody BMs this AM, small blood clots mixed with stool. Patient seen and examined at bedside. Patient reports pain 3-4/10, LLQ. States that she has poor appetite today, but ate some breakfast. Denies nausea, vomiting, fevers, chills, mouth sores. Patient put oh Oxycodone for pain as per primary team. Objective - Vital Signs/Intake and Output Vital Signs (last 24 hours): Temp Pulse Resp BP Pulse Ox 98 F 76 18 141/76 96 12/14/17 11:39 12/14/17 11:39 12/14/17 11:39 12/14/17 11:39 12/14/17 06:00 Intake and Output: 12/14/17 12/14/17 06:59 18:59 Intake Total 240 360 Balance 240 360 - Medications Medications: Current Medications Acetaminophen (Tylenol 325mg Tab) 650 mg PO Q6 [facility] Last Admin: 12/14/17 05:57 Dose: Not Given Atorvastatin Calcium (Lipitor) 10 mg PO DIN [facility] Last Admin: 12/13/17 17:57 Dose: 10 mg Duloxetine HCl (Cymbalta) 60 mg PO DAILY [facility] Last Admin: 12/14/17 10:04 Dose: 60 mg Folic Acid (Folic Acid) 1 mg PO DAILY [facility] Last Admin: 12/14/17 10:03 Dose: 1 mg Gabapentin (Neurontin) 300 mg PO TID [facility] PRN Reason: Protocol Last Admin: 12/14/17 10:05 Dose: 300 mg Pantoprazole Sodium (Protonix 40mg Ivpb) 40 mg in 100 mls @ 20 mls/hr IVPB .Q5H [facility] Last Admin: 12/14/17 10:08 Dose: Not Given Methotrexate (Methotrexate) 8 mg PO SUN [facility] Oxycodone HCl (Oxycodone Immediate Release Tab) 10 mg PO Q6H PRN PRN Reason: Pain, severe (8-10) Last Admin: 12/14/17 10:04 Dose: 10 mg Polyethylene Glycol (Miralax) 17 gm PO BID [facility] Last Admin: 12/14/17 10:59 Dose: 17 gm Quetiapine Fumarate (Seroquel) 100 mg PO DAILY [facility] PRN Reason: Protocol Last Admin: 12/14/17 10:04 Dose: 100 mg Sucralfate (Carafate Oral Susp) 1 gm PO 0630,1130,[id number],2200 [facility] Last Admin: 12/14/17 10:59 Dose: 1 gm Zolpidem Tartrate (Ambien) 5 mg PO HS PRN; Protocol PRN Reason: Insomnia Last Admin: 12/13/17 21:46 Dose: 5 mg - Labs Labs: 12/14/17 09:45 12/14/17 09:30 PT 15.0 SECONDS (9.4-12.5) H 12/09/17 10:05 INR 1.30 12/09/17 10:05 APTT 35.1 Seconds (25.1-36.5) 12/09/17 10:05 - Constitutional Appears: Non-toxic - Head Exam Head Exam: ATRAUMATIC, NORMOCEPHALIC - Eye Exam Eye Exam: EOMI, PERRL. absent: Conjunctival injection, Nystagmus, Scleral icterus Pupil Exam: NORMAL ACCOMODATION, PERRL. absent: Fixed, Irregular, Unequal - ENT Exam ENT Exam: Mucous Membranes Moist - Neck Exam Neck Exam: Full ROM - Respiratory Exam Respiratory Exam: Clear to Ausculation Bilateral, NORMAL BREATHING PATTERN. absent: Accessory Muscle Use, Rhonchi, Wheezes, Stridor - Cardiovascular Exam Cardiovascular Exam: RRR, +S1, +S2. absent: Murmur - GI/Abdominal Exam GI & Abdominal Exam: Soft, Tenderness (TTP in LLQ), Normal Bowel Sounds. absent : Distended, Firm, Guarding, Rigid, Mass, Rebound Additional comments: rounded abdomen, obese female - Extremities Exam Extremities Exam: Normal Inspection. absent: Calf Tenderness, Pedal Edema - Back Exam Back Exam: NORMAL INSPECTION - Neurological Exam Neurological Exam: Alert, Awake, Oriented x3 - Psychiatric Exam Psychiatric exam: Normal Affect, Normal Mood - Skin Skin Exam: Dry, Normal Color, Warm Assessment and Plan - Assessment and Plan (Free Text) Assessment: 71 yo F with PMH of HTN, HLD, SLE, Fibromyalgia, COPD, RA, recent suspected PCP pneumonia s/p Mepron, and hx of bilateral PE/dvt on AC (Eliquis), presents to [facility] for bright red blood per rectum, s/p sigmoidoscopy with fecal disimpaction. Hematology consulted for management of anemia, patient s/p 2 unit prbc transfusion, hgb back to baseline 10.2 (prior 8.3). Overnight, patient complained of lower abdominal pain with 2 small bloody BMs this AM. Hgb stable so far, patient tolerating diet well: - Oxycodone for pain per primary. c/w sucralfate - GI (Dr Hsu) consult appreciated. f/u recs. Take miralax 2-3x a day. F/u in office in 4 weeks. - Sigmoidoscopy performed 12/11, showed stool in rectum, friability with contact bleeding in rectosigmoid colon due to fecal impaction. - GI recommendations: No ASA, naproxen, other NSAIDs for 2 weeks after biopsy. [facility]. return to office in 4 weeks. - CAT abd pelvis with IV contrast: mural thickening in rectosigmoid - localized colitis. - prior iron and blood transfusions in the past. - Hgb 8.3 yesterday. s/p 2 units prbcs tranfusion. Hgb 11.6 today - iron studies reviewed. Given 200 mg IV iron. - US LE venous neg for DVT. ELiquis as per primary, risks vs benefits. Case discussed with Dr Bentley.
[2017-12-15] MEDS: Sucralfate 1 gm/10 ml Oral Susp UD PO SCH ×2 (05:45→10:32)
[2017-12-15 07:01] LABS: BASO # 0.07 K/mm3 (0.0-2.0); EOS # 0.8 (0.0-0.7); EOS % 11.8 % (1.5-5.0); GRAN # 3.67 (1.4-6.5); GRAN % 52.8 % (50.0-68.0); HEMOGLOBIN 11.7 g/dL (12.0-16.0); LYMPH # 1.8 (1.2-3.4); LYMPH % 26.5 % (22.0-35.0); MEAN CELL VOLUME 90.8 fl (80.0-105.0); MEAN CORPUSCULAR HGB CONC 33.1 g/dl (31.0-37.0); MEAN PLATELET VOLUME 10.8 fl (7.0-11.0); MONO # 0.6 (0.1-0.6); MONO % 7.9 % (1.0-6.0); RBC 3.9 10^6/uL (3.5-6.1); RED CELL DISTRIBUTION WIDTH 14.6 % (11.5-14.5)
[2017-12-15 07:39] LABS: ALB/GLOB RATIO 1.5 (1.1-1.8); ALBUMIN 3.2 g/dL (3.0-4.8); ALT/SGPT 17 U/L (7-56); AST/SGOT 18 U/L (14-36); BLOOD UREA NITROGEN 14 mg/dL (7-21); CALCIUM 9.2 mg/dL (8.4-10.5); GFR AFRICAN-AMERICAN > 60; GFR NON-AFRICAN AMERICAN 55
[2017-12-15] MEDS: POLYETHYLENE GLYCOL 3350 17 GM/Dose PACKET PO SCH (10:32)
[2017-12-15 12:02] VITALS: BP 176/77; PULSE 55; RESP 19; TEMP 98.7
--- NOTE | 2017-12-15 21:04 | CP.PCM.DIS ---
Provider - Provider Date of Admission: 12/10/17 15:48 Attending physician: Pelno Ty MD Primary care physician: Pelon Ty MD Time Spent in preparation of Discharge (in minutes): 55 Hospital Course - Lab Results Lab Results: Most Recent Lab Values WBC 7.0 10^3/ul (4.5-11.0) 12/15/17 06:00 RBC 3.90 10^6/uL (3.5-6.1) 12/15/17 06:00 Hgb 11.7 g/dL (12.0-16.0) L 12/15/17 06:00 Hct 35.4 % (36.0-48.0) L 12/15/17 06:00 MCV 90.8 fl (80.0-105.0) 12/15/17 06:00 MCH 30.0 pg (25.0-35.0) 12/15/17 06:00 MCHC 33.1 g/dl (31.0-37.0) 12/15/17 06:00 RDW 14.6 % (11.5-14.5) H 12/15/17 06:00 Plt Count 246 10^3/uL (120.0-450.0) 12/15/17 06:00 MPV 10.8 fl (7.0-11.0) 12/15/17 06:00 Gran % 52.8 % (50.0-68.0) 12/15/17 06:00 Lymph % (Auto) 26.5 % (22.0-35.0) 12/15/17 06:00 Larimer % (Auto) 7.9 % (1.0-6.0) H 12/15/17 06:00 Eos % (Auto) 11.8 % (1.5-5.0) H 12/15/17 06:00 Baso % (Auto) 1.0 % (0.0-3.0) 12/15/17 06:00 Gran # 3.67 (1.4-6.5) 12/15/17 06:00 Lymph # (Auto) 1.8 (1.2-3.4) 12/15/17 06:00 Larimer # (Auto) 0.6 (0.1-0.6) 12/15/17 06:00 Eos # (Auto) 0.8 (0.0-0.7) H 12/15/17 06:00 Baso # (Auto) 0.07 K/mm3 (0.0-2.0) 12/15/17 06:00 Retic Count 1.45 % (0.5-1.5) 12/12/17 06:00 PT 15.0 SECONDS (9.4-12.5) H 12/09/17 10:05 INR 1.30 12/09/17 10:05 APTT 35.1 Seconds (25.1-36.5) 12/09/17 10:05 Sodium 139 mmol/L (132-148) 12/15/17 06:00 Potassium 4.7 mmol/L (3.6-5.0) 12/15/17 06:00 Chloride 101 mmol/L (98-107) 12/15/17 06:00 Carbon Dioxide 30 mmol/L (21-33) 12/15/17 06:00 Anion Gap 12 (10-20) 12/15/17 06:00 BUN 14 mg/dL (7-21) 12/15/17 06:00 Creatinine 1.0 mg/dl (0.7-1.2) 12/15/17 06:00 Est GFR ( Amer) > 60 12/15/17 06:00 Est GFR (Non-Af Amer) 55 12/15/17 06:00 Random Glucose 98 mg/dL (70-110) 12/15/17 06:00 Calcium 9.2 mg/dL (8.4-10.5) 12/15/17 06:00 Phosphorus 3.6 mg/dL (2.5-4.5) 12/14/17 09:30 Magnesium 2.2 mg/dL (1.7-2.2) 12/14/17 09:30 Iron 27 ug/dL (45-180) L 12/12/17 12:30 TIBC 211 ug/dL (265-497) L 12/12/17 12:30 % Saturation 13 % (20-55) L 12/12/17 12:30 Ferritin 138.0 ng/mL 12/12/17 06:00 Total Bilirubin 0.5 mg/dL (0.2-1.3) 12/15/17 06:00 AST 18 U/L (14-36) 12/15/17 06:00 ALT 17 U/L (7-56) 12/15/17 06:00 Alkaline Phosphatase 66 U/L (38-126) 12/15/17 06:00 Lactate Dehydrogenase 569 U/L (333-699) 12/09/17 09:25 Total Creatine Kinase 132 U/L (35-230) 12/09/17 09:25 Troponin I < 0.01 ng/mL 12/09/17 09:25 Total Protein 5.3 g/dL (5.8-8.3) L 12/15/17 06:00 Albumin 3.2 g/dL (3.0-4.8) 12/15/17 06:00 Globulin 2.1 gm/dL 12/15/17 06:00 Albumin/Globulin Ratio 1.5 (1.1-1.8) 12/15/17 06:00 Amylase 50 U/L (35-125) 12/09/17 09:25 Lipase 83 U/L (23-300) 12/09/17 09:25 Vitamin B12 563 pg/mL (239-931) 12/12/17 06:00 Folate 10.8 ng/mL 12/12/17 06:00 Blood Type A POSITIVE 12/12/17 13:50 Antibody Screen Negative 12/12/17 13:50 Crossmatch See Detail 12/12/17 13:50 BBK History Checked Patient has bt 12/12/17 13:50 - Hospital Course Hospital Course: Copied To: Harika Meza MD Attending MD: Harika Meza MD DISCHARGE DIAGNOSES: 1. Gastrointestinal bleed. 2. History of pulmonary embolism. 3. Lupus. 4. Severe anemia. 5. Stool impaction. HOSPITAL COURSE: The patient was admitted with rectal bleeding. Endoscopy done by Dr. Hsu, enrichment specialist showed stool fecal impaction and bleeding around due to frail mucosa. CT abdomen and pelvis was unremarkable. She was given 3 units of blood transfusion during hospitalization. She has severe iron-deficiency anemia. Hemoglobin and hematocrit stable at 10.6 g/dL. On admission, it was 8.9. PHYSICAL EXAMINATION ON DISCHARGE: GENERAL: Comfortable in bed, in no acute distress. VITAL SIGNS: Temperature 98.7, heart rate 74, blood pressure 170/80, respiratory rate 20 per minute, oxygen saturation 96% on room air. HEENT: Pallor positive. NECK: No lymphadenopathy. CHEST: Air entry present and equal bilateral. No added sound. CARDIOVASCULAR: S1, S2 normal. No murmur. No gallop. ABDOMEN: Soft, nontender. No hepatosplenomegaly. EXTREMITIES: No edema. SKIN: No petechiae. No rash. RESEARCH PHYSICIAN: Alert and oriented x3. No focal sensorimotor deficit. DISCHARGE MEDICATIONS: Continue home meds. DIET: As tolerated. FOLLOWUP: Follow up with Dr. Ty in 1 week. All prescriptions given to the patient. Time spent preparing discharge and coordinating care 55 minutes. CONDITION ON DISCHARGE: Stable. DISPOSITION: Discharge home. Harika Meza MD Discharge Exam - Head Exam Head Exam: ATRAUMATIC, NORMOCEPHALIC Discharge Plan - Follow Up Plan Condition: FAIR Disposition: HOME/ ROUTINE Instructions: Polyethylene Glycol 3350, Constipation, Adult (DC), Gastrointestinal Bleeding (DC), Fecal Impaction (DC), Sucralfate, Acute Abdominal Pain (DC) Referrals: Pelon Ty MD [Primary Care Provider] - Norm Hsu MD [Staff Provider] -
--- NOTE | 2017-12-15 21:10 | CP.PCM.PN ---
Subjective - Date & Time of Evaluation Date of Evaluation: 12/14/17 Time of Evaluation: 09:00 - Subjective Subjective: C/O lower abdominal pain. No nausea, vomiting. No bleeding per rectum. Objective - Vital Signs/Intake and Output Vital Signs (last 24 hours): Temp Pulse Resp BP Pulse Ox 98.7 F 55 L 19 176/77 H 96 12/15/17 12:00 12/15/17 12:00 12/15/17 12:00 12/15/17 12:00 12/15/17 09:00 - Labs Labs: 12/15/17 06:00 12/15/17 06:00 PT 15.0 SECONDS (9.4-12.5) H 12/09/17 10:05 INR 1.30 12/09/17 10:05 APTT 35.1 Seconds (25.1-36.5) 12/09/17 10:05 - Constitutional Appears: Well, Non-toxic - Head Exam Head Exam: ATRAUMATIC, NORMAL INSPECTION, NORMOCEPHALIC - Eye Exam Pupil Exam: NORMAL ACCOMODATION - ENT Exam ENT Exam: Mucous Membranes Moist, Normal Exam - Neck Exam Neck Exam: Normal Inspection - Respiratory Exam Respiratory Exam: Clear to Ausculation Bilateral, NORMAL BREATHING PATTERN - GI/Abdominal Exam GI & Abdominal Exam: Soft, Normal Bowel Sounds - Extremities Exam Extremities Exam: Normal Inspection - Back Exam Back Exam: NORMAL INSPECTION - Neurological Exam Neurological Exam: Alert, Normal Gait, Oriented x3 - Skin Skin Exam: Normal Color, Warm Assessment and Plan - Assessment and Plan (Free Text) Assessment: 1. Gastrointestinal bleed. 2. History of pulmonary embolism. 3. Lupus. 4. Severe anemia. 5. Stool impaction. 6. lower abdominal pain The patient was admitted with rectal bleeding. Endoscopy done by Dr. Hsu, loan processor showed stool fecal impaction and bleeding around due to frail mucosa. CT abdomen and pelvis was unremarkable. She was given 3 units of blood transfusion during hospitalization. She has severe iron-deficiency anemia. Hemoglobin and hematocrit stable at 10.6 g/dL. On admission, it was 8.9. IV iron given today. She will need continuation of IV iron upon discharge from hospital. Miralx 17 gm BID. Karafate 1 gm QID.
[2017-12-18 14:53] LABS: METHYLMALONIC ACID,SERUM 515 nmol/L (87-318)
== END 2017-12-15 13:39 | disposition home or self-care (01) | DRG 378 ==
LOC: ED 08:16 → ERH 10:24 → 2RNO 12:34 → OBSVTOIN 12-10 15:48 → 2RNO 12-12 18:21
PROVIDERS: ADMIT Internal Medicine; ATTEND Internal Medicine
PROC: 0DCP8ZZ Extirpation of Matter from Rectum, Via Natural or Artificial Opening Endoscopic (ICD-10-PCS; principal; 2017-12-11 12:00)
PROC: 30233N1 Transfusion of Nonautologous Red Blood Cells into Peripheral Vein, Percutaneous Approach (ICD-10-PCS; 2017-12-12)
DX: K62.5 Hemorrhage of anus and rectum (principal); D62 Acute posthemorrhagic anemia; K56.41 Fecal impaction; I10 Essential (primary) hypertension; E78.5 Hyperlipidemia, unspecified; M32.9 Systemic lupus erythematosus, unspecified; M06.9 Rheumatoid arthritis, unspecified; J44.9 Chronic obstructive pulmonary disease, unspecified; E11.9 Type 2 diabetes mellitus without complications; I25.10 Atherosclerotic heart disease of native coronary artery without angina pectoris; M79.7 Fibromyalgia; K52.9 Noninfective gastroenteritis and colitis, unspecified; Z96.641 Presence of right artificial hip joint; Z86.711 Personal history of pulmonary embolism; Z87.01 Personal history of pneumonia (recurrent); Z86.718 Personal history of other venous thrombosis and embolism; Z79.01 Long term (current) use of anticoagulants; Z79.82 Long term (current) use of aspirin; Z87.440 Personal history of urinary (tract) infections

== ENCOUNTER 2018-08-05 13:25 | Outpatient (CLI) | payer MEDICARE, OTHER | END 2018-08-05 13:26 | disposition home or self-care (01) | LOC: OPLAB 13:25 ==

== ENCOUNTER 2018-08-20 11:24 | Outpatient (CLI) | payer MEDICARE, OTHER | END 2018-08-20 11:25 | disposition home or self-care (01) | LOC: OPLAB 11:24 ==

== ENCOUNTER 2018-08-22 11:00 | Observation (INO) | payer MEDICARE, OTHER ==
[2018-08-22 11:01] VITALS: BMI 26.6
--- NOTE | 2018-08-22 11:36 | ED PDOC ---
Arrival/HPI - General Chief Complaint: Trauma Historian: Patient - History of Present Illness Narrative History of Present Illness (Text): 08/22/18 12:01 72 year old female, whose past medical history includes hypertension, COPD, menopause, and rheumatoid arthritis, who presents to the emergency department complaining of head injury and pain s/p LOC yesterday night. Patient reports having diarrhea and states she was walking to the bathroom when she had LOC. She endorses blood on the floor when waking up this morning and states she does not remember what happened. Patient denies dizziness this morning and states she was able to get up. She endorses weakness and tiredness presently. Patient reports she was put on blood thinners for a blood clot in her legs, but states has has been off for 3 months. She denies any fever, chills, nausea, vomiting, chest pain, or any other complaints. Patient denies any pain in her legs or change in medications. Patient reports living with her granddaughter. PMD: Dr. Ty Time/Duration: 24 hours Symptom Onset: Sudden Symptom Course: Unchanged Activities at Onset: Light Context: Home Past Medical History - Provider Review Nursing Documentation Reviewed: Yes - Infectious Disease Hx of Infectious Diseases: None - Tetanus Immunization Tetanus Immunization: Unknown - Cardiac Hx Cardiac Disorders: Yes Hx Angina: No Hx Cardiac Arrhythmia: No Hx Circulatory Problems: Yes (DVT R leg) Hx Congestive Heart Failure: No Hx Heart Murmur: No Hx Heart Transplant: No Hx Hypertension: No Hx Internal Defibrillator: No Hx Mitral Valve Prolapse: No Hx Pacemaker: No Hx Peripheral Edema: No Hx Peripheral Vascular Disease: No - Pulmonary Hx Respiratory Disorders: Yes Hx Asthma: No Hx Bronchitis: Yes Hx Chronic Obstructive Pulmonary Disease (COPD): No Hx Emphysema: No Hx Pneumonia: Yes Hx Respiratory Aspiration: No Hx Respiratory Tract Infection: No Hx Sleep Apnea: No Hx Tuberculosis: No - Neurological Hx Neurological Disorder: No Hx Alzheimer's Disease: No HX Cerebrovascular Accident: No Hx Dementia: No Hx Dizziness: No Hx Meningitis: No Hx Migraine: No Hx Parkinson's Disease: No Hx Seizures: No Hx Transient Ischemic Attacks (TIA): No - HEENT Hx HEENT Disorder: Yes (wears glasses) Hx Blind: No Hx Cataracts: No Hx Deafness: No Hx Difficulty Chewing: No Hx Epistaxis: No Hx Glaucoma: No Hx Macular Degeneration: No Other/Comment: wears glasses - Renal Hx Renal Disorder: No Hx Dialysis: No Hx Kidney Stones: No Hx Neurogenic Bladder: No Hx Pyelonephritis: No Hx Renal Cancer: No Hx Renal Failure: No - Endocrine/Metabolic Hx Endocrine Disorders: Yes Hx Adrenal Cancer: No Hx Diabetes Insipidus: No Hx Diabetes Mellitus Type 1: No Hx Diabetes Mellitus Type 2: No Hx Hyperthyroidism: No Hx Hypothyroidism: No Hx Systemic Lupus Erythematosus: Yes - Hematological/Oncological Hx Blood Transfusions: Yes (07/2017) Hx Blood Transfusion Reaction: No - Integumentary Hx Dermatological Disorder: No Hx Basal Cell Carcinoma: No Hx Eczema: No Hx Melanoma: No Hx Psoriasis: No Hx Squamous Cell Carcinoma: No - Musculoskeletal/Rheumatological Hx Musculoskeletal Disorders: Yes Hx Arthritis: Yes Hx Back Pain: Yes (TENS placed 3 years ago) Hx Degenerative Joint Disease: No Hx Falls: No Hx Fractures: No Hx Gout: No Hx Herniated Disk: No Hx Myasthenia Gravis: No Hx Osteoarthritis: Yes Hx Osteomyelitis: No Hx Osteoporosis: No Hx Rhabdomyolysis: No Hx Spinal Stenosis: No Hx Unsteady Gait: Yes (use cane) Other/Comment: Right total hip replacement - Gastrointestinal Hx Gastrointestinal Disorders: Yes (strangulated bowel) Hx Colostomy: No Hx Crohn's Disease: No Hx Diverticulitis: No Hx Gall Bladder Disease: Yes (removed years ago) Hx Gastroesophageal Reflux: No Hx Ileostomy: No Hx Liver Failure: No Hx Pancreatitis: No HX Swallowing Problems: No - Genitourinary/Gynecological Hx Genitourinary Disorders: No Hx Hematuria: No Hx Incontinence: No Hx Sexually Transmitted Diseases: No Hx Urinary Tract Infection: No - Psychiatric Hx Psychophysiologic Disorder: No Hx Anxiety: No Hx Bipolar Disorder: No Hx Depression: No Hx Emotional Abuse: No Hx Hallucinations: No Hx Panic Disorder: No Hx Post Traumatic Stress Disorder: No Hx Psychosis: No Hx Physical Abuse: No Hx Schizophrenia: No Hx Sexual Abuse: No Hx Substance Use: No - Surgical History Hx Amputation: No Hx Appendectomy: No Hx Cardiac Catheterization: No Hx Cholecystectomy: Yes Hx Coronary Stent: No Hx Gastric Bypass Surgery: No Hx Hysterectomy: Yes Hx Inguinal Hernia Repair: No Hx Joint Replacement: Yes Hx Kidney Transplant: No Hx Liver Transplant: No Hx Mastectomy: No Hx Musculoskeletal Surgery: Yes Hx Open Heart Surgery: No Hx Orthopedic Surgery: Yes Hx Splenectomy: No Hx Valve Replacement: No - Anesthesia Hx Anesthesia Reactions: No Hx Malignant Hyperthermia: No - Suicidal Assessment Feels Threatened In Home Enviroment: No Family/Social History - Physician Review Nursing Documentation Reviewed: Yes Family/Social History: Unknown Family HX Smoking Status: Never Smoked Hx Alcohol Use: No Hx Substance Use: No Hx Substance Use Treatment: No Allergies/Home Meds Allergies/Adverse Reactions: Allergies No Known Allergies Allergy (Verified 08/22/18 13:48) Home Medications: Home Meds Medication Instructions Recorded Confirmed Aspirin [Adult Aspirin Regimen] 81 mg PO DAILY 04/23/17 08/22/18 DULoxetine [Cymbalta] 60 mg PO DAILY 04/23/17 08/22/18 Folic Acid 1 mg PO DAILY 04/23/17 08/22/18 Methotrexate 8 tab PO SUN 04/23/17 08/22/18 Pravastatin Sodium [Pravachol] 10 mg PO DAILY 04/23/17 08/22/18 QUEtiapine [Seroquel] 100 mg PO DAILY 04/23/17 08/22/18 Gabapentin [Neurontin] 300 mg PO TID 10/11/17 08/22/18 Polyethylene Glycol 3350 [Miralax] 17 gm PO BID 12/14/17 08/22/18 Sucralfate [Carafate] 1 gm PO QID 12/15/17 08/22/18 Review of Systems - Review of Systems Constitutional: absent: Fevers Eyes: absent: Vision Changes ENT: absent: Hearing Changes, Sore Throat Respiratory: absent: SOB Cardiovascular: Syncope. absent: Chest Pain, Calf Pain, GARCIA Gastrointestinal: Diarrhea, Appetite Changes. absent: Abdominal Pain, Nausea, Hematochezia, Hematemesis Genitourinary Female: absent: Dysuria, Frequency, Hematuria Musculoskeletal: Back Pain (chronic) Skin: absent: Cellulitis Neurological: Dizziness, Disequilibrium. absent: Headache, Focal Weakness Endocrine: absent: Diaphoresis Hemo/Lymphatic: absent: Easy Bleeding Physical Exam - Physical Exam Narrative Physical Exam (Text): 08/22/18 11:35 Head: No deformity. There is superficial laceration noted to left scalp with no deformity or foreign body noted. Eyes: PERRL. EOMI. Conjunctivae are not pale. ENT: Mucous membranes are moist and intact. Oropharynx is clear and symmetric. No facial bony deformities. Neck: Supple. Full ROM. No JVD. No lymphadenopathy. No midline tenderness. Cardiovascular: Bradycardic. Systolic murmur. Distal pulses intact. Pulmonary/Chest: No evidence of respiratory distress. Clear to auscultation bilaterally. No wheezing, rales or rhonchi. Right sided rib discomfort, no crepitus. Abdominal: Soft and non-distended. There is no tenderness. No rebound, guarding, or rigidity. No organomegaly. Good bowel sounds. Rectal: brown heme negative stool Back: No CVA tenderness. Ecchymosis to right flank, no crepitus. Extremities: No edema. No cyanosis. No clubbing. Full range of motion of shoulders, elbows and wrist with no obvious deformity. Ecchymosis noted to right arm with no laceration. Full range of motion with no pain to hip, knee or ankle. Skin: Skin is warm and dry. No petechiae. No purpura. Ecchymosis as noted above. Neurological: Alert, awake, and oriented. No facial droop. Slow speech. No acute facial droop. No focal motor or sensory deficits. Psychiatric: Good eye contact. Normal interaction, affect, and behavior. 08/22/18 22:09 Vital Signs Reviewed: Yes Vital Signs Temp Pulse Resp BP Pulse Ox 08/22/18 11:14 97.8 F 56 L 18 146/63 99 Temperature: Afebrile Pulse: Bradycardic Appearance: Positive for: Non-Toxic Pain Distress: Mild Mental Status: Positive for: Alert and Oriented X 3 Medical Decision Making ED Course and Treatment: 08/22/18 11:57 Impression: 72 year old female presents to the emergency department complaining of head injury and pain s/p LOC yesterday night. Plan: -- CT head -- EKG -- Chest X-ray -- Labs -- Urinalysis -- Reassess and disposition Prior Visits: Notes and results from previous visits were reviewed. Progress Notes: Patient reportedly with hx of diarrhea yesterday. On exam, abdomen soft and nontender. Not febrile. There is superficial laceration to scalp which was irrigated and cleansed. No facial bony deformities. No respiratory distress. Sinus bradycardia noted but no hypotension in ED. She denies chest pain or calf pain or pleuritic discomfort. She will be admitted for monitoring, serial neuro exams. Currently no focal deficits. CXR and head ct unremarkable. She denies chest pain. Anemia noted but no active bleeding. Will admit to Dr. Ty's service. Dr. Bentley will be consulted, Dr. Cheryl Mondragon aware. 08/22/18 22:15 - RAD Interpretation Narrative RAD Interpretations (Text): 08/22/18 12:43 CT head reviewed by Santo Salmeron M.D, shows: No acute intracranial findings. 08/22/18 14:18 Chest X-ray reviewed by Santo Salmeron M.D, shows: No active disease. Vp Patient: Radiologist - Scribe Statement The provider has reviewed the documentation as recorded by the Scribe [facility] Provider Scribe Attestation: All medical record entries made by the Scribe were at my direction and persona lly dictated by me. I have reviewed the chart and agree that the record accurately reflects my personal performance of the history, physical exam, medical decision making, and the department course for this patient. I have also personally directed, reviewed, and agree with the discharge instructions and disposition. Disposition/Present on Arrival - Present on Arrival Any Indicators Present on Arrival: Yes History of DVT/PE: Yes History of Uncontrolled Diabetes: No Urinary Catheter: No History of Decub. Ulcer: No History Surgical Site Infection Following: None - Disposition Have Diagnosis and Disposition been Completed?: Yes Diagnosis: Syncope, Head injury, Back contusion, Arm contusion, Diarrhea, Anemia Disposition: HOSPITALIZED Disposition Time: 13:00 Patient Plan: Admission Patient Problems: Current Active Problems Problem Status Onset Arm contusion Acute Back contusion Acute Diarrhea Acute Head injury Acute Syncope Acute Condition: FAIR
[2018-08-22 12:00] LABS: BASO # 0.06 K/mm3 (0.0-2.0); BASO % 0.6 % (0.0-3.0); EOS # 0.1 (0.0-0.7); EOS % 1.4 % (1.5-5.0); HEMOGLOBIN 10.9 g/dL (12.0-16.0); LYMPH # 2.2 (1.2-3.4); LYMPH % 21.7 % (22.0-35.0); MEAN CELL VOLUME 93.8 fl (80.0-105.0); MEAN CORPUSCULAR HEMOGLOBIN 32.1 pg (25.0-35.0); MEAN CORPUSCULAR HGB CONC 34.2 g/dl (31.0-37.0); MEAN PLATELET VOLUME 11.2 fl (7.0-11.0); MONO % 9.3 % (1.0-6.0); RBC 3.4 10^6/uL (3.5-6.1); RED CELL DISTRIBUTION WIDTH 15.1 % (11.5-14.5); WHITE BLOOD COUNT 10.2 10^3/uL (4.5-11.0)
[2018-08-22 12:09] LABS: INR 0.96; PARTIAL THROMBOPLASTIN TIME 30.8 Seconds (26.9-38.3); PROTHROMBIN TIME 10.8 SECONDS (9.4-12.5)
[2018-08-22 12:18] LABS: ALBUMIN 3.9 g/dL (3.0-4.8); ALT/SGPT 16 U/L (7-56); AST/SGOT 23 U/L (14-36); BLOOD UREA NITROGEN 18 mg/dL (7-21); CALCIUM 9.4 mg/dL (8.4-10.5); GFR NON-AFRICAN AMERICAN > 60; LIPASE 42 U/L (23-300)
[2018-08-22 12:21] LABS: TROPONIN I < 0.01 ng/mL
--- NOTE | 2018-08-22 12:47 | CT ---
Date of service: 08/22/2018 PROCEDURE: CT HEAD WITHOUT CONTRAST. HISTORY: syncope, head injury COMPARISON: 07/31/2017 TECHNIQUE: Axial computed tomography images were obtained through the head/brain without intravenous contrast. Radiation dose: Total exam DLP = 1026.5 mGy-cm. This CT exam was performed using one or more of the following dose reduction techniques: Automated exposure control, adjustment of the mA and/or kV according to patient size, and/or use of iterative reconstruction technique. FINDINGS: HEMORRHAGE: No intracranial hemorrhage. BRAIN: No mass effect or edema. Chronic microvascular changes are seen in the periventricular white matter. VENTRICLES: Unremarkable. No hydrocephalus. CALVARIUM: Unremarkable. PARANASAL SINUSES: Unremarkable as visualized. No significant inflammatory changes. MASTOID AIR CELLS: Unremarkable as visualized. No inflammatory changes. OTHER FINDINGS: None. IMPRESSION: No acute intracranial findings
[2018-08-22] MEDS ORDERED: Bacitracin 500 Units/gm Oint Foilpak UD ONE (13:00)
[2018-08-22] MEDS ORDERED: Bacitracin 500 Units/gm Oint Foilpak UD TOP ONE (13:17)
[2018-08-22] MEDS ORDERED: Sodium Chloride 0.9% 1,000 ML IV SCH (13:30)
--- NOTE | 2018-08-22 14:22 | RAD ---
Date of service: 08/22/2018 HISTORY: fall, right sided rib pain COMPARISON: 04/16/2018 TECHNIQUE: Chest PA and lateral views FINDINGS: LUNGS: No active pulmonary disease. PLEURA: No significant pleural effusion identified. No pneumothorax apparent. CARDIOVASCULAR: No aortic atherosclerotic calcification present. Mild cardiomegaly no pulmonary vascular congestion. OSSEOUS STRUCTURES: No significant abnormalities. VISUALIZED UPPER ABDOMEN: Normal. OTHER FINDINGS: None. IMPRESSION: No active disease.
[2018-08-22 16:43] LABS: URINE BILIRUBIN NEGATIVE (NEGATIVE); URINE BLOOD NEGATIVE (NEGATIVE); URINE GLUCOSE (UA) NEGATIVE (NEGATIVE); URINE LEUKOCYTE ESTERASE NEGATIVE Leu/uL (NEGATIVE); URINE PROTEIN NEGATIVE mg/dL (<30 mg/dL); URINE UROBILINOGEN 0.2 E.U./dL (<1 E.U./dL)
[2018-08-22 16:44] LABS: URINE APPEARANCE CLEAR (CLEAR); URINE COLOR LIGHT YELLOW (YELLOW)
[2018-08-22] MEDS ORDERED: Pneumococcal 23-Valent Vaccine IM ONE (18:35)
--- NOTE | 2018-08-22 19:06 | CARD ---
APPROVED REPORT Date of service: 08/22/2018 EKG Measurement Heart [id number] <Conclusion> Sinus bradycardia with premature atrial complexes Low voltage QRS Cannot rule out Anterior infarct, age undetermined NDSTT abnormalities CCR Abnormal ECG
[2018-08-23 06:46] VITALS: RESP 20; O2SAT 95
--- NOTE | 2018-08-23 08:08 | CP.PCM.CON ---
<Stuart Wu - Last Filed: 08/23/18 19:25> History of Present Illness - History of Present Illness History of Present Illness: Stuart Wu PGY2, Heme-Onc Consult Note for Dr Bentley Consult for: Anemia A 71 year old female, with PMH of HTN, HLD, SLE, Fibromyalgia, COPD, RA, left leg dvt previously on Eliquis presented s/p fall and LOC. Patient states she was at home walking to bathroom yesterday when she had a LOC and fell. She stated there was blood on the floor when she woke up and states she does not remember what happened. She states she has been weak and tired and has been having ran ral episodes of diarrhea. Patient reports she was put on blood thinners for a blood clot in her legs, but states has has been off for 3 months. She denies any fever, chills, nausea, vomiting, chest pain, or any other complaints. Patient is cared for by her granddaughter. 12 point ROS obtained and neg, except as per HPI. PMD: Dr. Ty Rheumatology:Faisal Surg Hx: Hardware in lumbar area of spine, right hip arthroplasty Med Hx: HLD, HTN, Lupus, DVT (On Eliquis) All: NKDA Soc Hx: Pt denies any etoh, illicits, and tobacco use Fam Hx: Significant for DM, HTN, CAD Review of Systems - Review of Systems Review of Systems: Negative except for that mentioned in HPI Past Patient History - Infectious Disease Hx of Infectious Diseases: None - Tetanus Immunizations Tetanus Immunization: Unknown - Past Social History Smoking Status: Never Smoked - CARDIAC Hx Cardiac Disorders: Yes Hx Angina: No Hx Cardia Arrhythmia: No Hx Circulatory Problems: Yes (DVT R leg) Hx Congestive Heart Failure: No Hx Heart Murmur: No Hx Heart Transplant: No Hx Hypertension: No Hx Internal Defibrillator: No Hx Mitral Valve Prolapse: No Hx Pacemaker: No Hx Peripheral Edema: No Hx Peripheral Vascular Disease: No - PULMONARY Hx Respiratory Disorders: Yes Hx Asthma: No Hx Bronchitis: Yes Hx Chronic Obstructive Pulmonary Disease (COPD): No Hx Emphysema: No Hx Pneumonia: Yes Hx Respiratory Aspiration: No Hx Respiratory Tract Infection: No Hx Sleep Apnea: No Hx Tuberculosis: No - NEUROLOGICAL Hx Neurological Disorder: No Hx Alzheimer's Disease: No HX Cerebrovascular Accident: No Hx Dementia: No Hx Dizziness: No Hx Meningitis: No Hx Migraine: No Hx Parkinson's Disease: No Hx Seizures: No Hx Transient Ischemic Attacks (TIA): No - HEENT Hx HEENT Problems: Yes (wears glasses) Hx Blind: No Hx Cataracts: No Hx Deafness: No Hx Difficulty Chewing: No Hx Epistaxis: No Hx Glaucoma: No Hx Macular Degeneration: No Other/Comment: wears glasses - RENAL Hx Chronic Kidney Disease: No Hx Dialysis: No Hx Kidney Stones: No Hx Neurogenic Bladder: No Hx Pyelonephritis: No Hx Renal (Kidney) Cancer: No Hx Renal Failure: No - ENDOCRINE/METABOLIC Hx Endocrine Disorders: Yes Hx Adrenal Cancer: No Hx Diabetes Insipidus: No Hx Diabetes Mellitus Type 1: No Hx Diabetes Mellitus Type 2: No Hx Hyperthyroidism: No Hx Hypothyroidism: No Hx Systemic Lupus Erythematosus: Yes - HEMATOLOGICAL/ONCOLOGICAL Hx Blood Transfusions: Yes (07/2017) Hx Blood Transfusion Reaction: No - INTEGUMENTARY Hx Dermatological Problems: No Hx Basil Cell: No Hx Eczema: No Hx Melanoma: No Hx Psoriasis: No Hx Squamous Cell: No - MUSCULOSKELETAL/RHEUMATOLOGICAL Hx Musculoskeletal Disorders: Yes Hx Arthritis: Yes Hx Back Pain: Yes (TENS placed 3 years ago) Hx Degenerative Joint Disease: No Hx Falls: No Hx Fractures: No Hx Gout: No Hx Herniated Disk: No Hx Myasthenia Gravis: No Hx Osteoarthritis: Yes Hx Osteomyelitis: No Hx Osteoporosis: No Hx Rhabdomyolysis: No Hx Spinal Stenosis: No Hx Unsteady Gait: Yes (use cane) Other/Comment: Right total hip replacement - GASTROINTESTINAL Hx Gastrointestinal Disorders: Yes (strangulated bowel) Hx Colostomy: No Hx Crohn's Disease: No Hx Diverticulitis: No Hx Gall Bladder Disease: Yes (removed years ago) Hx Gastroesophageal Reflux: No Hx Ileostomy: No Hx Liver Failure: No Hx Pancreatitis: No HX Swallowing Problems: No - GENITOURINARY/GYNECOLOGICAL Hx Genitourinary Disorders: No Hx Hematuria: No Hx Incontinence: No Hx Sexually Transmitted Disorders: No Hx Urinary Tract Infection: No - PSYCHIATRIC Hx Psychophysiologic Disorder: No Hx Anxiety: No Hx Bipolar Disorder: No Hx Depression: No Hx Emotional Abuse: No Hx Hallucinations: No Hx Panic Symptoms: No Hx Post Traumatic Stress Disorder: No Hx Psychosis: No Hx Physical Abuse: No Hx Schizophrenia: No Hx Sexual Abuse: No Hx Substance Use: No - SURGICAL HISTORY Hx Amputation: No Hx Appendectomy: No Hx Cardiac Catheterization: No Hx Cholecystectomy: Yes Hx Coronary Stent: No Hx Gastric Bypass Surgery: No Hx Hysterectomy: Yes Hx Joint Replacement: Yes Hx Kidney Transplant: No Hx Liver Transplant: No Hx Mastectomy: No Hx Musculoskeletal Surgery: Yes Hx Open Heart Surgery: No Hx Orthopedic Surgery: Yes Hx Splenectomy: No Hx Valve Replacement: No - ANESTHESIA Hx Anesthesia Reactions: No Hx Malignant Hyperthermia: No Meds Allergies/Adverse Reactions: Allergies Allergy/AdvReac Type Severity Reaction Status Date / Time No Known Allergies Allergy Verified 08/22/18 13:48 - Medications Medications: Current Medications Acetaminophen (Tylenol 325mg Tab) 650 mg PO Q6 PRN PRN Reason: Pain, Mild (1-3) Aspirin (Ecotrin) 81 mg PO DAILY SUKHDEV Duloxetine HCl (Cymbalta) 60 mg PO DAILY SUKHDEV Folic Acid (Folic Acid) 1 mg PO DAILY SUKHDEV Gabapentin (Neurontin) 300 mg PO TID SUKHDEV; Protocol Sodium Chloride (Sodium Chloride 0.9%) 1,000 mls @ 80 mls/hr IV .[id number] SUKHDEV Last Admin: 08/22/18 13:54 Dose: 80 mls/hr Quetiapine Fumarate (Seroquel) 100 mg PO DAILY SUKHDEV; Protocol Physical Exam - Constitutional Appears: Non-toxic, No Acute Distress - Head Exam Head Exam: ATRAUMATIC, NORMAL INSPECTION, NORMOCEPHALIC - Eye Exam Eye Exam: Normal appearance - ENT Exam ENT Exam: Mucous Membranes Moist - Respiratory Exam Respiratory Exam: Clear to Auscultation Bilateral, NORMAL BREATHING PATTERN - Cardiovascular Exam Cardiovascular Exam: REGULAR RHYTHM - Neurological Exam Neurological exam: Alert, Oriented x3 Results - Vital Signs Recent Vital Signs: Last Vital Signs Temp 97.8 F 08/23/18 06:00 Pulse 53 L 08/23/18 06:00 Resp 20 08/23/18 06:00 BP 160/83 H 08/23/18 06:00 Pulse Ox 95 08/23/18 06:00 - Labs Result Diagrams: 08/23/18 07:15 08/23/18 07:15 Labs: Laboratory Results - last 24 hr 08/22/18 08/22/18 08/22/18 11:45 11:45 11:45 WBC 10.2 RBC 3.40 L Hgb 10.9 L Hct 31.9 L MCV 93.8 D MCH 32.1 MCHC 34.2 RDW 15.1 H Plt Count 277 MPV 11.2 H Neut % (Auto) 67.0 Lymph % (Auto) 21.7 L Humphreys % (Auto) 9.3 H Eos % (Auto) 1.4 L Baso % (Auto) 0.6 Lymph # (Auto) 2.2 Humphreys # (Auto) 1.0 H Eos # (Auto) 0.1 Baso # (Auto) 0.06 Absolute Neuts (auto) 6.86 H PT 10.8 INR 0.96 APTT 30.8 Sodium 141 Potassium 3.9 Chloride 107 Carbon Dioxide 27 Anion Gap 11 BUN 18 Creatinine 0.8 Est GFR ( Amer) > 60 Est GFR (Non-Af Amer) > 60 POC Glucose (mg/dL) Random Glucose 83 Calcium 9.4 Magnesium 1.8 Total Bilirubin 0.6 AST 23 ALT 16 Alkaline Phosphatase 70 Lactate Dehydrogenase 546 Total Creatine Kinase 46 Troponin I < 0.01 Total Protein 5.9 Albumin 3.9 Globulin 2.0 Albumin/Globulin Ratio 2.0 H Lipase 42 Urine Color Urine Appearance Urine pH Ur Specific [place] Urine Protein Urine Glucose (UA) Urine Ketones Urine Blood Urine Nitrate Urine Bilirubin Urine Urobilinogen Ur Leukocyte Esterase 08/22/18 08/22/18 08/23/18 16:10 21:53 07:15 WBC RBC Hgb Hct MCV MCH MCHC RDW Plt Count MPV Neut % (Auto) Lymph % (Auto) Humphreys % (Auto) Eos % (Auto) Baso % (Auto) Lymph # (Auto) Humphreys # (Auto) Eos # (Auto) Baso # (Auto) Absolute Neuts (auto) PT INR APTT Sodium Potassium Chloride Carbon Dioxide Anion Gap BUN Creatinine Est GFR ( Amer) Est GFR (Non-Af Amer) POC Glucose (mg/dL) 106 Random Glucose Calcium Magnesium Total Bilirubin AST ALT Alkaline Phosphatase Lactate Dehydrogenase Total Creatine Kinase Troponin I < 0.01 Total Protein Albumin Globulin Albumin/Globulin Ratio Lipase Urine Color Light yellow Urine Appearance Clear Urine pH 6.0 Ur Specific [place] 1.010 Urine Protein Negative Urine Glucose (UA) Negative Urine Ketones Negative Urine Blood Negative Urine Nitrate Negative Urine Bilirubin Negative Urine Urobilinogen 0.2 Ur Leukocyte Esterase Negative 08/23/18 07:40 WBC RBC Hgb Hct MCV MCH MCHC RDW Plt Count MPV Neut % (Auto) Lymph % (Auto) Humphreys % (Auto) Eos % (Auto) Baso % (Auto) Lymph # (Auto) Humphreys # (Auto) Eos # (Auto) Baso # (Auto) Absolute Neuts (auto) PT INR APTT Sodium Potassium Chloride Carbon Dioxide Anion Gap BUN Creatinine Est GFR ( Amer) Est GFR (Non-Af Amer) POC Glucose (mg/dL) 92 Random Glucose Calcium Magnesium Total Bilirubin AST ALT Alkaline Phosphatase Lactate Dehydrogenase Total Creatine Kinase Troponin I Total Protein Albumin Globulin Albumin/Globulin Ratio Lipase Urine Color Urine Appearance Urine pH Ur Specific [place] Urine Protein Urine Glucose (UA) Urine Ketones Urine Blood Urine Nitrate Urine Bilirubin Urine Urobilinogen Ur Leukocyte Esterase Assessment & Plan - Assessment and Plan (Free Text) Plan: Syncope -likely secondary to volume depletion from diarrhea -neurology following -continue fluids RA -continue methotrexate -continue to follow as outpatient for retixumab infusions -currently controlled, continue to monitor Anemia -Hgb 10.9 -baseline -possible iron supplements as outpatient -no current symptoms Patient says she is well and wants to go home. <Thaddeus Bentley P - Last Filed: 08/25/18 17:38> Results - Vital Signs Recent Vital Signs: Last Vital Signs Temp 97.4 F L 08/23/18 12:00 Pulse 91 H 08/23/18 12:00 Resp 20 08/23/18 12:00 BP 132/80 08/23/18 12:00 Pulse Ox 95 08/23/18 06:00 - Labs Result Diagrams: 08/23/18 07:15 08/23/18 07:15 Attending/Attestation - Attestation I have personally seen and examined this patient.: Yes I have fully participated in the care of the patient.: Yes I have reviewed all pertinent clinical information: Yes
[2018-08-23 09:02] LABS: BASO # 0.05 K/mm3 (0.0-2.0); EOS # 0.3 (0.0-0.7); HEMOGLOBIN 10.8 g/dL (12.0-16.0); LYMPH # 2.1 (1.2-3.4); LYMPH % 39.8 % (22.0-35.0); MEAN CELL VOLUME 94.8 fl (80.0-105.0); MEAN CORPUSCULAR HEMOGLOBIN 31.2 pg (25.0-35.0); MEAN CORPUSCULAR HGB CONC 32.9 g/dl (31.0-37.0); MEAN PLATELET VOLUME 11.1 fl (7.0-11.0); MONO # 0.4 (0.1-0.6); MONO % 7.5 % (1.0-6.0); RBC 3.46 10^6/uL (3.5-6.1); RED CELL DISTRIBUTION WIDTH 14.9 % (11.5-14.5); WHITE BLOOD COUNT 5.2 10^3/uL (4.5-11.0)
[2018-08-23 09:13] LABS: IRON 87 ug/dL (45-180)
[2018-08-23 09:26] LABS: % IRON SATURATION 37 % (20-55); TOTAL IRON BINDING CAPACITY 233 ug/dL (265-497)
[2018-08-23 09:27] LABS: ALB/GLOB RATIO 1.6 (1.1-1.8); ALBUMIN 3.4 g/dL (3.0-4.8); ALT/SGPT 14 U/L (7-56); AST/SGOT 46 U/L (14-36); BLOOD UREA NITROGEN 14 mg/dL (7-21); CALCIUM 8.9 mg/dL (8.4-10.5); GFR NON-AFRICAN AMERICAN > 60
--- NOTE | 2018-08-23 11:24 | CP.PCM.HP ---
<Higinio Bennett - Last Filed: 08/23/18 12:26> History of Present Illness - History of Present Illness History of Present Illness: History and Physical for Dr. Catracho Bennett PGY2 IM Resident CC: LOC HPI: 72 year old female with past medical history of hx of DVT, PE no longer on coumadin, Rheumatoid arthritis, COPD, HTN, OA who [place] [facility] [place] have syncopal event on 08/21/18. Patient reported that while at home she got up out of bed and took 6 steps towards her bathroom when she suddenly loss consciousness. She indicated the event was sudden and not proceeded by dizziness, palpitations, chest pain, aura, or visual changes. She reports falling and striking her head. She states she woke up shortly after the event without fecal or urinary incontinence, confusion, changes in vision, weakness, neurological deficits. She denies previous episodes. She does state that earlier in the day she had a episode of diarrhea that was signficant. She was evalaute din the ED with HEAD CT which was negative for acute abnormalities, chest xray which was negative for acute abnormalities. Patient with some mild headahce and abrasion to head. 12 point ROS benign other than mentioned in HPI. PMH: As above PSH: TENS unit placement in Lumbar spine, right hip arthroplasty, cholecystecomy SOCHx: Denies tobacco, etoh, ID ALL: NKDA MEDS: MAR Reviewed Present on Admission - Present on Admission Any Indicators Present on Admission: Yes History of DVT/PE: Yes Review of Systems - Review of Systems All systems: reviewed and no additional remarkable complaints except (as mentioned above.) Past Patient History - Infectious Disease Hx of Infectious Diseases: None - Tetanus Immunizations Tetanus Immunization: Unknown - Past Social History Smoking Status: Never Smoked - CARDIAC Hx Cardiac Disorders: Yes Hx Angina: No Hx Cardia Arrhythmia: No Hx Circulatory Problems: Yes (DVT R leg) Hx Congestive Heart Failure: No Hx Heart Murmur: No Hx Heart Transplant: No Hx Hypertension: No Hx Internal Defibrillator: No Hx Mitral Valve Prolapse: No Hx Pacemaker: No Hx Peripheral Edema: No Hx Peripheral Vascular Disease: No - PULMONARY Hx Respiratory Disorders: Yes Hx Asthma: No Hx Bronchitis: Yes Hx Chronic Obstructive Pulmonary Disease (COPD): No Hx Emphysema: No Hx Pneumonia: Yes Hx Respiratory Aspiration: No Hx Respiratory Tract Infection: No Hx Sleep Apnea: No Hx Tuberculosis: No - NEUROLOGICAL Hx Neurological Disorder: No Hx Alzheimer's Disease: No HX Cerebrovascular Accident: No Hx Dementia: No Hx Dizziness: No Hx Meningitis: No Hx Migraine: No Hx Parkinson's Disease: No Hx Seizures: No Hx Transient Ischemic Attacks (TIA): No - HEENT Hx HEENT Problems: Yes (wears glasses) Hx Blind: No Hx Cataracts: No Hx Deafness: No Hx Difficulty Chewing: No Hx Epistaxis: No Hx Glaucoma: No Hx Macular Degeneration: No Other/Comment: wears glasses - RENAL Hx Chronic Kidney Disease: No Hx Dialysis: No Hx Kidney Stones: No Hx Neurogenic Bladder: No Hx Pyelonephritis: No Hx Renal (Kidney) Cancer: No Hx Renal Failure: No - ENDOCRINE/METABOLIC Hx Endocrine Disorders: Yes Hx Adrenal Cancer: No Hx Diabetes Insipidus: No Hx Diabetes Mellitus Type 1: No Hx Diabetes Mellitus Type 2: No Hx Hyperthyroidism: No Hx Hypothyroidism: No Hx Systemic Lupus Erythematosus: Yes - HEMATOLOGICAL/ONCOLOGICAL Hx Blood Transfusions: Yes (07/2017) Hx Blood Transfusion Reaction: No - INTEGUMENTARY Hx Dermatological Problems: No Hx Basil Cell: No Hx Eczema: No Hx Melanoma: No Hx Psoriasis: No Hx Squamous Cell: No - MUSCULOSKELETAL/RHEUMATOLOGICAL Hx Musculoskeletal Disorders: Yes Hx Arthritis: Yes Hx Back Pain: Yes (TENS placed 3 years ago) Hx Degenerative Joint Disease: No Hx Falls: No Hx Fractures: No Hx Gout: No Hx Herniated Disk: No Hx Myasthenia Gravis: No Hx Osteoarthritis: Yes Hx Osteomyelitis: No Hx Osteoporosis: No Hx Rhabdomyolysis: No Hx Spinal Stenosis: No Hx Unsteady Gait: Yes (use cane) Other/Comment: Right total hip replacement - GASTROINTESTINAL Hx Gastrointestinal Disorders: Yes (strangulated bowel) Hx Colostomy: No Hx Crohn's Disease: No Hx Diverticulitis: No Hx Gall Bladder Disease: Yes (removed years ago) Hx Gastroesophageal Reflux: No Hx Ileostomy: No Hx Liver Failure: No Hx Pancreatitis: No HX Swallowing Problems: No - GENITOURINARY/GYNECOLOGICAL Hx Genitourinary Disorders: No Hx Hematuria: No Hx Incontinence: No Hx Sexually Transmitted Disorders: No Hx Urinary Tract Infection: No - PSYCHIATRIC Hx Psychophysiologic Disorder: No Hx Anxiety: No Hx Bipolar Disorder: No Hx Depression: No Hx Emotional Abuse: No Hx Hallucinations: No Hx Panic Symptoms: No Hx Post Traumatic Stress Disorder: No Hx Psychosis: No Hx Physical Abuse: No Hx Schizophrenia: No Hx Sexual Abuse: No Hx Substance Use: No - SURGICAL HISTORY Hx Amputation: No Hx Appendectomy: No Hx Cardiac Catheterization: No Hx Cholecystectomy: Yes Hx Coronary Stent: No Hx Gastric Bypass Surgery: No Hx Hysterectomy: Yes Hx Joint Replacement: Yes Hx Kidney Transplant: No Hx Liver Transplant: No Hx Mastectomy: No Hx Musculoskeletal Surgery: Yes Hx Open Heart Surgery: No Hx Orthopedic Surgery: Yes Hx Splenectomy: No Hx Valve Replacement: No - ANESTHESIA Hx Anesthesia Reactions: No Hx Malignant Hyperthermia: No Meds Allergies/Adverse Reactions: Allergies Allergy/AdvReac Type Severity Reaction Status Date / Time No Known Allergies Allergy Verified 08/22/18 13:48 Physical Exam - Constitutional Appears: No Acute Distress - Head Exam Head Exam: ATRAUMATIC, NORMOCEPHALIC - Eye Exam Eye Exam: EOMI, PERRL - ENT Exam ENT Exam: Mucous Membranes Moist - Respiratory Exam Respiratory Exam: Clear to Auscultation Bilateral, NORMAL BREATHING PATTERN. absent: Rales, Rhonchi, Wheezes - Cardiovascular Exam Cardiovascular Exam: REGULAR RHYTHM, +S1, +S2 - GI/Abdominal Exam GI & Abdominal Exam: Normal Bowel Sounds, Soft. absent: Distended, Firm, Guarding - Extremities Exam Extremities exam: Negative for: calf tenderness, pedal edema, tenderness - Neurological Exam Neurological exam: Alert, CN II-XII Intact, Normal Gait, Oriented x3 - Psychiatric Exam Psychiatric exam: Normal Affect, Normal Mood - Skin Skin Exam: Dry, Warm Results - Vital Signs Recent Vital Signs: Last Vital Signs Temp 97.8 F 08/23/18 06:00 Pulse 53 L 08/23/18 06:00 Resp 20 08/23/18 06:00 BP 160/83 H 08/23/18 06:00 Pulse Ox 95 08/23/18 06:00 - Labs Result Diagrams: 08/23/18 07:15 08/23/18 07:15 Labs: Laboratory Results - last 24 hr 08/22/18 08/22/18 08/22/18 11:45 11:45 11:45 WBC 10.2 RBC 3.40 L Hgb 10.9 L Hct 31.9 L MCV 93.8 D MCH 32.1 MCHC 34.2 RDW 15.1 H Plt Count 277 MPV 11.2 H Neut % (Auto) 67.0 Lymph % (Auto) 21.7 L [place] % (Auto) 9.3 H Eos % (Auto) 1.4 L Baso % (Auto) 0.6 Lymph # (Auto) 2.2 [place] # (Auto) 1.0 H Eos # (Auto) 0.1 Baso # (Auto) 0.06 Absolute Neuts (auto) 6.86 H PT 10.8 INR 0.96 APTT 30.8 Sodium 141 Potassium 3.9 Chloride 107 Carbon Dioxide 27 Anion Gap 11 BUN 18 Creatinine 0.8 Est GFR ( Amer) > 60 Est GFR (Non-Af Amer) > 60 POC Glucose (mg/dL) Random Glucose 83 Calcium 9.4 Phosphorus Magnesium 1.8 Iron TIBC % Saturation Total Bilirubin 0.6 AST 23 ALT 16 Alkaline Phosphatase 70 Lactate Dehydrogenase 546 Total Creatine Kinase 46 Troponin I < 0.01 Total Protein 5.9 Albumin 3.9 Globulin 2.0 Albumin/Globulin Ratio 2.0 H Lipase 42 Urine Color Urine Appearance Urine pH Ur Specific [place] Urine Protein Urine Glucose (UA) Urine Ketones Urine Blood Urine Nitrate Urine Bilirubin Urine Urobilinogen Ur Leukocyte Esterase 08/22/18 08/22/18 08/23/18 16:10 21:53 07:15 WBC RBC Hgb Hct MCV MCH MCHC RDW Plt Count MPV Neut % (Auto) Lymph % (Auto) [place] % (Auto) Eos % (Auto) Baso % (Auto) Lymph # (Auto) [place] # (Auto) Eos # (Auto) Baso # (Auto) Absolute Neuts (auto) PT INR APTT Sodium Potassium Chloride Carbon Dioxide Anion Gap BUN Creatinine Est GFR ( Amer) Est GFR (Non-Af Amer) POC Glucose (mg/dL) 106 Random Glucose Calcium Phosphorus Magnesium Iron TIBC % Saturation Total Bilirubin AST ALT Alkaline Phosphatase Lactate Dehydrogenase Total Creatine Kinase Troponin I < 0.01 Total Protein Albumin Globulin Albumin/Globulin Ratio Lipase Urine Color Light yellow Urine Appearance Clear Urine pH 6.0 Ur Specific [place] 1.010 Urine Protein Negative Urine Glucose (UA) Negative Urine Ketones Negative Urine Blood Negative Urine Nitrate Negative Urine Bilirubin Negative Urine Urobilinogen 0.2 Ur Leukocyte Esterase Negative 08/23/18 08/23/18 08/23/18 07:15 07:15 07:15 WBC 5.2 D RBC 3.46 L Hgb 10.8 L Hct 32.8 L MCV 94.8 MCH 31.2 MCHC 32.9 RDW 14.9 H Plt Count 257 MPV 11.1 H Neut % (Auto) 46.7 L Lymph % (Auto) 39.8 H [place] % (Auto) 7.5 H Eos % (Auto) 5.0 Baso % (Auto) 1.0 Lymph # (Auto) 2.1 [place] # (Auto) 0.4 Eos # (Auto) 0.3 Baso # (Auto) 0.05 Absolute Neuts (auto) 2.45 PT INR APTT Sodium 143 Potassium 3.6 Chloride 109 H Carbon Dioxide 28 Anion Gap 9 L BUN 14 Creatinine 0.8 Est GFR ( Amer) > 60 Est GFR (Non-Af Amer) > 60 POC Glucose (mg/dL) Random Glucose 87 Calcium 8.9 Phosphorus 4.1 Magnesium 2.1 Iron 87 TIBC 233 L % Saturation 37 Total Bilirubin 0.5 AST 46 H D ALT 14 Alkaline Phosphatase 70 Lactate Dehydrogenase Total Creatine Kinase Troponin I Total Protein 5.6 L Albumin 3.4 Globulin 2.1 Albumin/Globulin Ratio 1.6 Lipase Urine Color Urine Appearance Urine pH Ur Specific [place] Urine Protein Urine Glucose (UA) Urine Ketones Urine Blood Urine Nitrate Urine Bilirubin Urine Urobilinogen Ur Leukocyte Esterase 08/23/18 07:40 WBC RBC Hgb Hct MCV MCH MCHC RDW Plt Count MPV Neut % (Auto) Lymph % (Auto) [place] % (Auto) Eos % (Auto) Baso % (Auto) Lymph # (Auto) [place] # (Auto) Eos # (Auto) Baso # (Auto) Absolute Neuts (auto) PT INR APTT Sodium Potassium Chloride Carbon Dioxide Anion Gap BUN Creatinine Est GFR ( Amer) Est GFR (Non-Af Amer) POC Glucose (mg/dL) 92 Random Glucose Calcium Phosphorus Magnesium Iron TIBC % Saturation Total Bilirubin AST ALT Alkaline Phosphatase Lactate Dehydrogenase Total Creatine Kinase Troponin I Total Protein Albumin Globulin Albumin/Globulin Ratio Lipase Urine Color Urine Appearance Urine pH Ur Specific [place] Urine Protein Urine Glucose (UA) Urine Ketones Urine Blood Urine Nitrate Urine Bilirubin Urine Urobilinogen Ur Leukocyte Esterase Assessment & Plan - Assessment and Plan (Free Text) Assessment: Syncope Asymptomatic Bradycardia Anemia HTN COPD Rhematoid Arthritis OA Hx of DVT Hx of Pulmonary Embolism Patient with syncopal event likely secondary to volume depletion. Other etiologies include arrhthymia vs. vasovagul. EKG without St elevation or depression making Mi less likely, absence of shortness of breath and pulse ox >90% making PE less likely, absence of aura and post ictal state making seizure activity less likely. She was placed on IV fluids for replenishment. She had EKG done showing sinus bradycardia with evidence of PACs. Chest xray and Head CT preformed showing no acute intrabnormalities. Patient to have echocardiogram for further evaluation. Patient to be seen by physical therapy for evaluation and recommendations. Neurology has been consulted, will follow up recommendations. Heme/Onc has been consulted for rheumatoid arthritis, patient currently taking methotrexate. Patient hemodynamically stable, continue to monitor. Patient vital signs stable continue to monitor HTN. DVT/GI prophylaxis. Patient seen case and plan discussed with attending, Dr. Hayden <Dawood Hayden - Last Filed: 08/23/18 15:55> Results - Vital Signs Recent Vital Signs: Last Vital Signs Temp 97.4 F L 08/23/18 12:00 Pulse 91 H 08/23/18 12:00 Resp 20 08/23/18 12:00 BP 132/80 08/23/18 12:00 Pulse Ox 95 08/23/18 06:00 - Labs Result Diagrams: 08/23/18 07:15 08/23/18 07:15 Labs: Laboratory Results - last 24 hr 08/22/18 08/22/18 08/23/18 16:10 21:53 07:15 WBC RBC Hgb Hct MCV MCH MCHC RDW Plt Count MPV Neut % (Auto) Lymph % (Auto) [place] % (Auto) Eos % (Auto) Baso % (Auto) Lymph # (Auto) [place] # (Auto) Eos # (Auto) Baso # (Auto) Absolute Neuts (auto) Sodium Potassium Chloride Carbon Dioxide Anion Gap BUN Creatinine Est GFR ( Amer) Est GFR (Non-Af Amer) POC Glucose (mg/dL) 106 Random Glucose Calcium Phosphorus Magnesium Iron TIBC % Saturation Ferritin Total Bilirubin AST ALT Alkaline Phosphatase Troponin I < 0.01 Total Protein Albumin Globulin Albumin/Globulin Ratio Urine Color Light yellow Urine Appearance Clear Urine pH 6.0 Ur Specific [place] 1.010 Urine Protein Negative Urine Glucose (UA) Negative Urine Ketones Negative Urine Blood Negative Urine Nitrate Negative Urine Bilirubin Negative Urine Urobilinogen 0.2 Ur Leukocyte Esterase Negative 08/23/18 08/23/18 08/23/18 07:15 07:15 07:15 WBC 5.2 D RBC 3.46 L Hgb 10.8 L Hct 32.8 L MCV 94.8 MCH 31.2 MCHC 32.9 RDW 14.9 H Plt Count 257 MPV 11.1 H Neut % (Auto) 46.7 L Lymph % (Auto) 39.8 H [place] % (Auto) 7.5 H Eos % (Auto) 5.0 Baso % (Auto) 1.0 Lymph # (Auto) 2.1 [place] # (Auto) 0.4 Eos # (Auto) 0.3 Baso # (Auto) 0.05 Absolute Neuts (auto) 2.45 Sodium 143 Potassium 3.6 Chloride 109 H Carbon Dioxide 28 Anion Gap 9 L BUN 14 Creatinine 0.8 Est GFR ( Amer) > 60 Est GFR (Non-Af Amer) > 60 POC Glucose (mg/dL) Random Glucose 87 Calcium 8.9 Phosphorus 4.1 Magnesium 2.1 Iron 87 TIBC 233 L % Saturation 37 Ferritin Total Bilirubin 0.5 AST 46 H D ALT 14 Alkaline Phosphatase 70 Troponin I Total Protein 5.6 L Albumin 3.4 Globulin 2.1 Albumin/Globulin Ratio 1.6 Urine Color Urine Appearance Urine pH Ur Specific [place] Urine Protein Urine Glucose (UA) Urine Ketones Urine Blood Urine Nitrate Urine Bilirubin Urine Urobilinogen Ur Leukocyte Esterase 08/23/18 08/23/18 07:15 07:40 WBC RBC Hgb Hct MCV MCH MCHC RDW Plt Count MPV Neut % (Auto) Lymph % (Auto) [place] % (Auto) Eos % (Auto) Baso % (Auto) Lymph # (Auto) [place] # (Auto) Eos # (Auto) Baso # (Auto) Absolute Neuts (auto) Sodium Potassium Chloride Carbon Dioxide Anion Gap BUN Creatinine Est GFR ( Amer) Est GFR (Non-Af Amer) POC Glucose (mg/dL) 92 Random Glucose Calcium Phosphorus Magnesium Iron TIBC % Saturation Ferritin 200.0 Total Bilirubin AST ALT Alkaline Phosphatase Troponin I Total Protein Albumin Globulin Albumin/Globulin Ratio Urine Color Urine Appearance Urine pH Ur Specific [place] Urine Protein Urine Glucose (UA) Urine Ketones Urine Blood Urine Nitrate Urine Bilirubin Urine Urobilinogen Ur Leukocyte Esterase Assessment & Plan - Assessment and Plan (Free Text) Assessment: Pt seen and examined by me. I have reviewed the note of the medical superintendent and I agree with it. I have discussed the assessment and plan with the resident. I have reviewed the medications and the last labs.
[2018-08-23 12:26] VITALS: BP 132/80; PULSE 91; TEMP 97.4
--- NOTE | 2018-08-23 12:46 | CP.PCM.DIS ---
<Higinio Bennett - Last Filed: 08/23/18 13:37> Provider - Provider Date of Admission: 08/22/18 12:59 Attending physician: Pelon Ty MD Primary care physician: Pelon Ty MD Consults: 08/22/18 13:06 Physician Consult Routine Comment: Consulting Provider: Thaddeus Bentley Consulting Physician: Thaddeus Bentley Reason for Consult: hx of rheumatology 08/22/18 18:35 Inpatient [employer] Core Measures Referral Routine Comment: Physician Instructions: Reason For Exam: EVALUATION Nursing Referral for Wound Care Routine Comment: BRUISE AT THE BACK,SML ROUND 0.5 CM OPEN WD,R HEAD Physician Instructions: Reason For Exam: EVALUATION Transition In Care/Readmission Reduction Routine Comment: Physician Instructions: Reason For Exam: EVALUATION 08/22/18 20:25 Consult [Physician Consult] Routine Comment: Consulting Provider: Ozzy Dunaway Consulting Physician: Ozzy Dunaway Reason for Consult: syncope Time Spent in preparation of Discharge (in minutes): 35 Diagnosis - Discharge Diagnosis (1) Syncope Status: Acute (2) Anemia Status: Acute (3) Head injury Status: Acute (4) Hyperlipidemia Status: Chronic (5) Hypertension Status: Chronic Hospital Course - Lab Results Lab Results: Most Recent Lab Values WBC 5.2 10^3/uL (4.5-11.0) D 08/23/18 07:15 RBC 3.46 10^6/uL (3.5-6.1) L 08/23/18 07:15 Hgb 10.8 g/dL (12.0-16.0) L 08/23/18 07:15 Hct 32.8 % (36.0-48.0) L 08/23/18 07:15 MCV 94.8 fl (80.0-105.0) 08/23/18 07:15 MCH 31.2 pg (25.0-35.0) 08/23/18 07:15 MCHC 32.9 g/dl (31.0-37.0) 08/23/18 07:15 RDW 14.9 % (11.5-14.5) H 08/23/18 07:15 Plt Count 257 10^3/uL (120.0-450.0) 08/23/18 07:15 MPV 11.1 fl (7.0-11.0) H 08/23/18 07:15 Neut % (Auto) 46.7 % (50.0-68.0) L 08/23/18 07:15 Lymph % (Auto) 39.8 % (22.0-35.0) H 08/23/18 07:15 Harvey % (Auto) 7.5 % (1.0-6.0) H 08/23/18 07:15 Eos % (Auto) 5.0 % (1.5-5.0) 08/23/18 07:15 Baso % (Auto) 1.0 % (0.0-3.0) 08/23/18 07:15 Lymph # (Auto) 2.1 (1.2-3.4) 08/23/18 07:15 Harvey # (Auto) 0.4 (0.1-0.6) 08/23/18 07:15 Eos # (Auto) 0.3 (0.0-0.7) 08/23/18 07:15 Baso # (Auto) 0.05 K/mm3 (0.0-2.0) 08/23/18 07:15 Absolute Neuts (auto) 2.45 (1.4-6.5) 08/23/18 07:15 PT 10.8 SECONDS (9.4-12.5) 08/22/18 11:45 INR 0.96 08/22/18 11:45 APTT 30.8 Seconds (26.9-38.3) 08/22/18 11:45 Sodium 143 mmol/L (132-148) 08/23/18 07:15 Potassium 3.6 mmol/L (3.6-5.0) 08/23/18 07:15 Chloride 109 mmol/L (98-107) H 08/23/18 07:15 Carbon Dioxide 28 mmol/L (21-33) 08/23/18 07:15 Anion Gap 9 (10-20) L 08/23/18 07:15 BUN 14 mg/dL (7-21) 08/23/18 07:15 Creatinine 0.8 mg/dl (0.7-1.2) 08/23/18 07:15 Est GFR ( Amer) > 60 08/23/18 07:15 Est GFR (Non-Af Amer) > 60 08/23/18 07:15 POC Glucose (mg/dL) 92 mg/dL (65-110) 08/23/18 07:40 Random Glucose 87 mg/dL (70-110) 08/23/18 07:15 Calcium 8.9 mg/dL (8.4-10.5) 08/23/18 07:15 Phosphorus 4.1 mg/dL (2.5-4.5) 08/23/18 07:15 Magnesium 2.1 mg/dL (1.7-2.2) 08/23/18 07:15 Iron 87 ug/dL (45-180) 08/23/18 07:15 TIBC 233 ug/dL (265-497) L 08/23/18 07:15 % Saturation 37 % (20-55) 08/23/18 07:15 Ferritin 200.0 ng/mL 08/23/18 07:15 Total Bilirubin 0.5 mg/dL (0.2-1.3) 08/23/18 07:15 AST 46 U/L (14-36) H D 08/23/18 07:15 ALT 14 U/L (7-56) 08/23/18 07:15 Alkaline Phosphatase 70 U/L (38-126) 08/23/18 07:15 Lactate Dehydrogenase 546 U/L (333-699) 08/22/18 11:45 Total Creatine Kinase 46 U/L (35-230) 08/22/18 11:45 Troponin I < 0.01 ng/mL 08/23/18 07:15 Total Protein 5.6 g/dL (5.8-8.3) L 08/23/18 07:15 Albumin 3.4 g/dL (3.0-4.8) 08/23/18 07:15 Globulin 2.1 gm/dL 08/23/18 07:15 Albumin/Globulin Ratio 1.6 (1.1-1.8) 08/23/18 07:15 Lipase 42 U/L (23-300) 08/22/18 11:45 Urine Color Light yellow (YELLOW) 08/22/18 16:10 Urine Appearance Clear (CLEAR) 08/22/18 16:10 Urine pH 6.0 (4.7-8.0) 08/22/18 16:10 Ur Specific Formoso 1.010 (1.005-1.035) 08/22/18 16:10 Urine Protein Negative mg/dL (<30 mg/dL) 08/22/18 16:10 Urine Glucose (UA) Negative mg/dL (NEGATIVE) 08/22/18 16:10 Urine Ketones Negative mg/dL (NEGATIVE) 08/22/18 16:10 Urine Blood Negative (NEGATIVE) 08/22/18 16:10 Urine Nitrate Negative (NEGATIVE) 08/22/18 16:10 Urine Bilirubin Negative (NEGATIVE) 08/22/18 16:10 Urine Urobilinogen 0.2 E.U./dL (<1 E.U./dL) 08/22/18 16:10 Ur Leukocyte Esterase Negative Agusto/uL (NEGATIVE) 08/22/18 16:10 - Hospital Course Hospital Course: Moni Bonilla is a pleasant 72 year old female with past medical history of DVT, PE no longer on coumadin, Rheumatoid arthritis, COPD, HTN, OA who presented to [facility] after have syncopal event on 08/21/18. She reported no signs and symptoms of seizure activity, changes in vision, palpitations, chest pain, shortness of breath or neurological deficits. She reports associated trauma to her skull during the fall. She denied any lingering headache or changes in vision. She was evaluated in the Emergency department with Head CT which showed no acute intra cranial abnormalities. She had an EKG done showing no evidence of acute ST elevation/depression, acute t wave inversions or arrhthymia. EKG showed sinus bradycardia. She had a chest xray that showed no acute disease process. She was given IV fluids and admitted to telemetry floor. Overnight she was witnessed to have asymptomatic heart rate as low as 38 while sleeping. Neurology with Dr. Dunaway was consulted for evaluation and recommendations. Echocardiogram was ordered for evaluation. Lab work showed absence of elevated troponin, electrolyte abnormalities or significant anemia. Patient was noted to be able to ambulate on her own without assistance and without difficulty. Patient was noted to have elevated anxiety during hospital stay and requested to leave. Patient was noted to be hemodynamically stable and without significant events on telemetry. Patient was instructed to follow up with Enrollment Counselor Dr. Batista for outpatient echocardiogram. She was also instructed to follow up with Dr. Ty as soon as possible. Patient was instructed to abstain from driving until she was evaluated by Dr. Ty and with his approval she would be able to return to driving. Medication reconciliation and signs and symptoms for return to emergency department were discussed with patient in detail. She was in understanding and agreement with discharge instructions. This is a brief summary of patient's hospital stay, see full chart for detail. Discharge Exam - Head Exam Head Exam: ATRAUMATIC, NORMOCEPHALIC - Eye Exam Eye Exam: EOMI, PERRL - ENT Exam ENT Exam: Mucous Membranes Moist - Respiratory Exam Respiratory Exam: Clear to PA & Lateral, NORMAL BREATHING PATTERN - Cardiovascular Exam Cardiovascular Exam: Bradycardia, REGULAR RHYTHM, +S1, +S2, Systolic Murmur - GI/Abdominal Exam GI & Abdominal Exam: Normal Bowel Sounds, Soft, Unremarkable. absent: Tenderness - Extremities Exam Extremities exam: full ROM - Neurological Exam Neurological exam: Alert, CN II-XII Intact, Normal Gait, Oriented x3, Reflexes Normal - Psychiatric Exam Psychiatric exam: Normal Affect, Normal Mood - Skin Skin Exam: Dry, Warm Discharge Plan - Follow Up Plan Condition: FAIR Disposition: HOME/ ROUTINE Instructions: Closed Head Injury (DC), Syncope (DC) Additional Instructions: Please follow up with Dr. Ty within 3-5 days upon discharge Follow up with Cardiology outpatient, Dr. Carney Follow up with outpatient echocardiogram for evaluation Continue medications as prescribed to you Continue Regular Diet as tolerated Abstain from driving until you see your primary care physician Dr. Ty If you experience palpitations, shortness of breath, chest pain, loss of consciousness return to the nearest emergency department immediately Referrals: Pelon Ty MD [Primary Care Provider] - Rudy Batista MD [Staff Provider] - <Dawood Hayden - Last Filed: 08/23/18 15:54> Provider - Provider Date of Admission: 08/22/18 12:59 Attending physician: Pelon Ty MD Primary care physician: Pelon Ty MD Consults: 08/22/18 13:06 Physician Consult Routine Comment: Consulting Provider: Thaddeus Bentley Consulting Physician: Thaddeus Bentley Reason for Consult: hx of rheumatology 08/22/18 18:35 Inpatient [employer] Core Measures Referral Routine Comment: Physician Instructions: Reason For Exam: EVALUATION Nursing Referral for Wound Care Routine Comment: BRUISE AT THE BACK,SML ROUND 0.5 CM OPEN WD,R HEAD Physician Instructions: Reason For Exam: EVALUATION Transition In Care/Readmission Reduction Routine Comment: Physician Instructions: Reason For Exam: EVALUATION 08/22/18 20:25 Consult [Physician Consult] Routine Comment: Consulting Provider: Ozzy Dunaway Consulting Physician: Ozzy Dunaway Reason for Consult: syncope Hospital Course - Lab Results Lab Results: Most Recent Lab Values WBC 5.2 10^3/uL (4.5-11.0) D 08/23/18 07:15 RBC 3.46 10^6/uL (3.5-6.1) L 08/23/18 07:15 Hgb 10.8 g/dL (12.0-16.0) L 08/23/18 07:15 Hct 32.8 % (36.0-48.0) L 08/23/18 07:15 MCV 94.8 fl (80.0-105.0) 08/23/18 07:15 MCH 31.2 pg (25.0-35.0) 08/23/18 07:15 MCHC 32.9 g/dl (31.0-37.0) 08/23/18 07:15 RDW 14.9 % (11.5-14.5) H 08/23/18 07:15 Plt Count 257 10^3/uL (120.0-450.0) 08/23/18 07:15 MPV 11.1 fl (7.0-11.0) H 08/23/18 07:15 Neut % (Auto) 46.7 % (50.0-68.0) L 08/23/18 07:15 Lymph % (Auto) 39.8 % (22.0-35.0) H 08/23/18 07:15 Harvey % (Auto) 7.5 % (1.0-6.0) H 08/23/18 07:15 Eos % (Auto) 5.0 % (1.5-5.0) 08/23/18 07:15 Baso % (Auto) 1.0 % (0.0-3.0) 08/23/18 07:15 Lymph # (Auto) 2.1 (1.2-3.4) 08/23/18 07:15 Harvey # (Auto) 0.4 (0.1-0.6) 08/23/18 07:15 Eos # (Auto) 0.3 (0.0-0.7) 08/23/18 07:15 Baso # (Auto) 0.05 K/mm3 (0.0-2.0) 08/23/18 07:15 Absolute Neuts (auto) 2.45 (1.4-6.5) 08/23/18 07:15 PT 10.8 SECONDS (9.4-12.5) 08/22/18 11:45 INR 0.96 08/22/18 11:45 APTT 30.8 Seconds (26.9-38.3) 08/22/18 11:45 Sodium 143 mmol/L (132-148) 08/23/18 07:15 Potassium 3.6 mmol/L (3.6-5.0) 08/23/18 07:15 Chloride 109 mmol/L (98-107) H 08/23/18 07:15 Carbon Dioxide 28 mmol/L (21-33) 08/23/18 07:15 Anion Gap 9 (10-20) L 08/23/18 07:15 BUN 14 mg/dL (7-21) 08/23/18 07:15 Creatinine 0.8 mg/dl (0.7-1.2) 08/23/18 07:15 Est GFR ( Amer) > 60 08/23/18 07:15 Est GFR (Non-Af Amer) > 60 08/23/18 07:15 POC Glucose (mg/dL) 92 mg/dL (65-110) 08/23/18 07:40 Random Glucose 87 mg/dL (70-110) 08/23/18 07:15 Calcium 8.9 mg/dL (8.4-10.5) 08/23/18 07:15 Phosphorus 4.1 mg/dL (2.5-4.5) 08/23/18 07:15 Magnesium 2.1 mg/dL (1.7-2.2) 08/23/18 07:15 Iron 87 ug/dL (45-180) 08/23/18 07:15 TIBC 233 ug/dL (265-497) L 08/23/18 07:15 % Saturation 37 % (20-55) 08/23/18 07:15 Ferritin 200.0 ng/mL 08/23/18 07:15 Total Bilirubin 0.5 mg/dL (0.2-1.3) 08/23/18 07:15 AST 46 U/L (14-36) H D 08/23/18 07:15 ALT 14 U/L (7-56) 08/23/18 07:15 Alkaline Phosphatase 70 U/L (38-126) 08/23/18 07:15 Lactate Dehydrogenase 546 U/L (333-699) 08/22/18 11:45 Total Creatine Kinase 46 U/L (35-230) 08/22/18 11:45 Troponin I < 0.01 ng/mL 08/23/18 07:15 Total Protein 5.6 g/dL (5.8-8.3) L 08/23/18 07:15 Albumin 3.4 g/dL (3.0-4.8) 08/23/18 07:15 Globulin 2.1 gm/dL 08/23/18 07:15 Albumin/Globulin Ratio 1.6 (1.1-1.8) 08/23/18 07:15 Lipase 42 U/L (23-300) 08/22/18 11:45 Urine Color Light yellow (YELLOW) 08/22/18 16:10 Urine Appearance Clear (CLEAR) 08/22/18 16:10 Urine pH 6.0 (4.7-8.0) 08/22/18 16:10 Ur Specific Formoso 1.010 (1.005-1.035) 08/22/18 16:10 Urine Protein Negative mg/dL (<30 mg/dL) 08/22/18 16:10 Urine Glucose (UA) Negative mg/dL (NEGATIVE) 08/22/18 16:10 Urine Ketones Negative mg/dL (NEGATIVE) 08/22/18 16:10 Urine Blood Negative (NEGATIVE) 08/22/18 16:10 Urine Nitrate Negative (NEGATIVE) 08/22/18 16:10 Urine Bilirubin Negative (NEGATIVE) 08/22/18 16:10 Urine Urobilinogen 0.2 E.U./dL (<1 E.U./dL) 08/22/18 16:10 Ur Leukocyte Esterase Negative Agusto/uL (NEGATIVE) 08/22/18 16:10 - Hospital Course Hospital Course: Pt seen and examined by me. I have reviewed the note of the medical records director and I agree with it. I have discussed the assessment and plan with the resident. I have reviewed the medications and the last labs.
--- NOTE | 2018-08-23 13:27 | CON ---
DATE: 08/23/2018 NEUROLOGY CONSULTATION CHIEF COMPLAINT: Syncope . HISTORY OF PRESENT ILLNESS: This is a 72-year-old woman with history of hypertension, dyslipidemia, SLE, fibromyalgia, COPD, RA of left leg, DVT, the patient's Eliquis was stopped 3 months ago, who was having diarrhea for the past few days and was feeling generalized weakness and tired and when she was walking to the bathroom yesterday, she had lost coconsciousness and fell. Currently, CAT scan of the head showed no intracranial abnormalities. She is doing much better, moving all extremities. No pronator drift seen. No focal weakness seen on neuro exam. Sodium is 143, potassium 3.7, chloride 109, carbon dioxide 28, BUN of 14, creatine 0.8, and random glucose of 87. Blood pressures are stable. FAMILY HISTORY: Noncontributory. SOCIAL HISTORY: No illicit drug use, smoking, or EtOH abuse. REVIEW OF SYSTEMS: A 14-point review of systems is negative except as per the HPI. MEDICATIONS: Reviewed by nurse reconciliation sheet. LABORATORY DATA: Sodium is 143, potassium 3.7, chloride 109, carbon dioxide 28, BUN of 14, creatine 0.8, and random glucose of 87. PHYSICAL EXAMINATION VITAL SIGNS: Temperature 97.4, pulse rate of 52, blood pressure 132/80, respiratory rate of 20, oxygen saturation of 95% on room air. GENERAL: The patient is seen up in bed. No acute distress. HEENT: Atraumatic and normocephalic. PERRLA. Extraocular muscles intact. NECK: Supple. No JVD noted. No adenopathy noted. LUNGS: Clear to auscultation. No adventitious sounds. HEART: S1 and S2. Normal rate and rhythm. No murmurs, rubs or gallops. ABDOMEN: Soft, nontender, and nondistended. Bowel sounds present. EXTREMITIES: No clubbing, no cyanosis. Peripheral pulses are 2+ felt bilaterally. NEUROLOGIC: The patient is alert and oriented to person, place, month, and year. Speech is fluent without any errors. Cranial nerves II through XII are intact. Motor exam; moves all extremities equally. Toes are downgoing bilaterally. Sensory exam; light touch and pinprick, proprioception, and vibration is intact. DTRs are 2+ and 1 at both knees and ankles. Coordination; [id number] intact. No dysmetria noted. IMPRESSION: Syncope most likely possibly a vasovagal component given her episodes of diarrhea unlike like any seizure. CAT scan of head showed no acute intracranial abnormality. There is no focal deficit on neurology exam, except for some musculoskeletal tightness in the cervical and lumbosacral area. RECOMMENDATIONS: At this time we will recommend: 1. Monitor electrolytes accordingly. 2. Aspirin 81 mg p.o. daily for stroke prevention. 3. Continue with Cymbalta 60 mg and gabapentin 300 mg p.o. t.i.d. for underlying fibromyalgia/myofascial pain syndrome. 4. Outpatient PT/OT and follow up as an outpatient. Thank you for this consult. Ozzy Dunaway MD
--- NOTE | 2018-08-23 23:43 | HP ---
DATE OF EXAM: 08/23/2018 HISTORY OF PRESENT ILLNESS: The patient was seen and examined. I do agree with the note of the biomedical engineering internship. I was involved in the plan of care. The patient states that she had a syncopal episode at home. She had been on telemetry and no significant abnormalities were seen. The patient was getting her treatment for rheumatoid arthritis by Dr. Bentley. The patient is eager to be discharged home. She was given IV fluids, because she was having diarrhea prior to coming into the hospital. She does not complain of diarrhea any more. The patient had a chest x-ray and a CT of the head that showed no specific abnormalities. I wanted to order an echocardiogram, but she does not wish to stay and urged to follow up as an outpatient. She was advised to follow up with Cardiology. The patient was seen by Dr. Dunaway prior to being discharged. Dr. Dunaway had no other significant recommendations regarding workup. The patient is going to continue her Neurontin. She is on a heart-healthy diet. She is going to be discharged home today. Follow up with the primary care doctor, Dr. Ty that I am covering. CONDITION: Stable. ACTIVITY: Increase as tolerated. Dawood Hayden MD
== END 2018-08-23 14:34 | disposition home or self-care (01) ==
LOC: ED 11:00 → ERH 12:59 → INTOOBSV 12:59 → ERH 17:07 → 2RSO 17:49
PROVIDERS: ADMIT Internal Medicine; ATTEND Internal Medicine
DX: R55 Syncope and collapse (principal); S09.90XA Unspecified injury of head, initial encounter; W19.XXXA Unspecified fall, initial encounter; S20.229A Contusion of unspecified back wall of thorax, initial encounter; S40.029A Contusion of unspecified upper arm, initial encounter; M32.9 Systemic lupus erythematosus, unspecified; J44.9 Chronic obstructive pulmonary disease, unspecified; E78.5 Hyperlipidemia, unspecified; F41.9 Anxiety disorder, unspecified; I10 Essential (primary) hypertension; D64.9 Anemia, unspecified; M06.9 Rheumatoid arthritis, unspecified; M79.7 Fibromyalgia; Y93.01 Activity, walking, marching and hiking; Y92.008 Other place in unspecified non-institutional (private) residence as the place of occurrence of the external cause; Z86.711 Personal history of pulmonary embolism; Z86.718 Personal history of other venous thrombosis and embolism; Z96.641 Presence of right artificial hip joint
CPT/HCPCS: 36415; 70450; 71046; 80053; 81003; 82550; 82728; 82948; 83540; 83550; 83615; 83690; 83735; 84100; 84145; 84466; 84484; 84550; 85025; 85610; 85730; 87040; 93005; 99285; G0378; J7030

== ENCOUNTER 2018-08-22 11:19 | Outpatient (CLI) | payer MEDICARE, OTHER | END 2018-08-22 11:20 | disposition home or self-care (01) | LOC: OPLAB 11:19 ==

== ENCOUNTER 2018-09-18 10:35 | Outpatient (CLI) | payer MEDICARE, OTHER | END 2018-09-18 10:36 | disposition home or self-care (01) | LOC: CARDIO 10:35 ==